=== PATIENT | female | born 1995 | race Caucasian/White ===

== ENCOUNTER → 2016-06-01 | Outpatient (CLI) | payer OTHER ==
[2016-06-02 14:26] LABS: HIV SCRN NEGATIVE (NEGATIVE); HIV SCRN1 NEGATIVE (NEGATIVE)
[2016-06-02 14:27] LABS: CONTROL LINE INT CTR LINE PRESENT
== END ==
LOC: M WUC 14:48
PROVIDERS: ATTEND Nurse Practitioner Women's Health
DX: Z11.3 Encounter for screening for infections with a predominantly sexual mode of transmission (principal)

== ENCOUNTER → 2016-12-30 | Outpatient (REF) | payer OTHER | LOC: M LAB REF 09:20 | PROVIDERS: ATTEND Physician Assistant | DX: N39.0 Urinary tract infection, site not specified (principal) ==

== ENCOUNTER 2019-09-03 17:57 | Inpatient (IN) | payer OTHER ==
[~2019-09-03] VITALS: Ht 157.5 cm; Wt 54.1 kg
--- NOTE | 2019-09-03 18:51 | REP ---
Clinical: Altered mental status . Comparison: None. Findings: The mediastinum and cardiac silhouette are stable and within normal limits for portable technique. The lung christine are clear without acute consolidation, effusion, or pneumothorax. Skeletal structures are intact. Impression: No acute cardiopulmonary process appreciated. Electronically Signed by Brett Mendez MD 09/03/2019 06:42 P
--- NOTE | 2019-09-03 18:53 | REPVR ---
PROCEDURE INFORMATION: Exam: CT Head Without Contrast Exam date and time: 09/03/2019 6:11 PM Age: 23 years old Clinical indication: Altered mental status/memory loss TECHNIQUE: Imaging protocol: Computed tomography of the head without contrast. Radiation optimization: All CT scans at this facility use at least one of these dose optimization techniques: automated exposure control; mA and/or kV adjustment per patient size (includes targeted exams where dose is matched to clinical indication); or iterative reconstruction. COMPARISON: No relevant prior studies available. FINDINGS: Brain: No hemorrhage. Unremarkable white matter for the patient's age. No mass effect. No evolving territorial infarct. Ventricles: No ventriculomegaly. Bones/joints: Unremarkable. No acute fracture. Sinuses: Visualized sinuses are unremarkable. No fluid levels. Mastoid air cells: Visualized mastoid air cells are well aerated. Soft tissues: Unremarkable. IMPRESSION: 1. Images are mildly motion degraded. 2. No acute intracranial abnormality seen. Electronically signed by: Siena Castillo On 09/03/2019 18:53:16 PM
[2019-09-03] MEDS ORDERED: NS 1,000 ML IV ONE ×2 (19:15→20:45)
--- NOTE | 2019-09-03 19:24 | ECGEPIP ---
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
[2019-09-03 19:34] LABS: BASO % 0.3 % (0.0-1.0); EOS % 0.1 % (0.0-3.0); HEMATOCRIT 40.9 % (36.0-47.0); HEMOGLOBIN 13.7 g/dl (12.0-15.5); LYMPH % 9.7 % (24.0-44.0); MEAN CORPUSCULAR HEMOGLOBIN 28.8 pg (27.0-33.0); MEAN CORPUSCULAR HGB CONC 33.5 g/dl (32.0-36.5); MEAN CORPUSCULAR VOLUME 85.9 fl (80.0-96.0); MONO # 0.6 10^3/uL (0.0-0.8); MONO % 5.8 % (0.0-5.0); NEUTROPHILS # 8.8 10^3/uL (1.5-8.5); NEUTROPHILS % 83.8 % (36.0-66.0); PLATELET COUNT, AUTOMATED 333 10^3/uL (150-450); RED BLOOD COUNT 4.76 10^6/uL (4.00-5.40); WHITE BLOOD COUNT 10.5 10^3/uL (4.0-10.0)
[2019-09-03] MEDS ORDERED: NUVAMIS2 (19:38)
[2019-09-03 19:56] LABS: AMPHETAMINES LEVEL URINE POSITIVE (NEGATIVE); BARBITURATES URINE NEGATIVE (NEGATIVE); BENZODIAZEPINES URINE POSITIVE (NEGATIVE); CANNABINOIDS URINE POSITIVE (NEGATIVE); COCAINE METABOLITE URINE NEGATIVE (NEGATIVE); METHADONE URINE NEGATIVE (NEGATIVE); OPIATES URINE NEGATIVE (NEGATIVE); PHENCYCLIDINE URINE NEGATIVE (NEGATIVE)
[2019-09-03 20:21] LABS: ACETAMINOPHEN LEVEL < 2.0 UG/ML (10.0-30.0); ALBUMIN 4.2 GM/DL (3.2-5.2); ALT/SGPT 37 U/L (12-78); BILIRUBIN,DIRECT 0.2 MG/DL (0.0-0.2); BILIRUBIN,TOTAL 0.8 MG/DL (0.2-1.0); BLOOD UREA NITROGEN 12 MG/DL (7-18); CALCIUM LEVEL 9.5 MG/DL (8.5-10.1); CARBON DIOXIDE LEVEL 25 MEQ/L (21-32); CHLORIDE LEVEL 106 MEQ/L (98-107); CREATININE FOR GFR 0.66 MG/DL (0.55-1.30); ETHYL ALCOHOL (ETHANOL) < 0.003 % (0.000-0.010); GLOMERULAR FILTRATION RATE > 60.0 (>60); GLUCOSE, FASTING 94 MG/DL (70-100); POTASSIUM SERUM 3.9 MEQ/L (3.5-5.1); SALICYLATE LEVEL < 1.7 MG/DL (5.0-30.0); SODIUM LEVEL 138 MEQ/L (136-145); THYROID STIMULATING HORMONE 0.484 uIU/ML (0.358-3.740); TOTAL PROTEIN 7.9 GM/DL (6.4-8.2)
[2019-09-03] MEDS ORDERED: LORazepam 2 MG/ML VIAL IV STA (20:45)
[2019-09-03] MEDS ORDERED: LORazepam 2 MG/ML VIAL As Ordered ONE (20:54)
[2019-09-04 00:18] LABS: CPK CREATINE PHOSPHOKINASE 234 U/L (26-192)
[2019-09-04] MEDS ORDERED: NUVAMIS2 PV (00:53)
[2019-09-04] MEDS ORDERED: LORazepam 1 MG TAB PO ONE (03:00)
[2019-09-04] MEDS: NICOTINE 21MG/24HR 1 EA TRANSDERMAL TD SCH (09:00)
[2019-09-04] MEDS ORDERED: LORazepam 1 MG TAB PO STA (09:42)
[2019-09-04] MEDS ORDERED: LORazepam 2 MG TAB PO PRN (13:45)
[2019-09-04] MEDS ORDERED: MOM 30ML SUSPENSION UDC PO PRN (13:45)
[2019-09-04 16:03] VITALS: BP 127/74
[2019-09-04] MEDS: FOLIC ACID 1 MG TAB PO SCH (16:12)
[2019-09-04 16:13] VITALS: BP 127/74
[2019-09-04] MEDS: THIAMINE 100 MG TAB PO SCH ×2 (16:13→20:21)
[2019-09-04] MEDS: MULTIVITAMINS/MINERALS THERAP 1 TAB PO SCH (16:13)
[2019-09-04 19:19] VITALS: BP 132/89
[2019-09-04] MEDS: traZODone 50 MG TAB PO PRN (20:21)
[2019-09-05] MEDS: OLANZapine ORAL DISINTEGRATING TAB 5MG PO PRN ×2 (01:33→08:57)
[2019-09-05] MEDS: ACETAMINOPHEN TAB 650MG DOSE (2X325MG) PO PRN ×2 (04:26→17:55)
[2019-09-05 06:20] VITALS: BP 130/90
[2019-09-05] MEDS: NICOTINE 21MG/24HR 1 EA TRANSDERMAL TD SCH (08:56)
[2019-09-05] MEDS: THIAMINE 100 MG TAB PO SCH ×2 (08:57→20:22)
[2019-09-05] MEDS: FOLIC ACID 1 MG TAB PO SCH (08:57)
[2019-09-05] MEDS: MULTIVITAMINS/MINERALS THERAP 1 TAB PO SCH (08:57)
--- NOTE | 2019-09-05 09:30 | MHHPEPDOC ---
General Date Of Admission: Sep 04, 2019 Legal Status: 9.39 Chief Complaint "It's hard. History of Present Illness HISTORY OF THE PRESENT ILLNESS: Patient is a 23 -year-old , female, who bizarre and paranoid. She had been seen by the police and brought in, where she propositioned an officer. She reported using various substances but is still quite psychotic after quite a bit of time of observation. Little information is a big lien from her interview. General: poor Speech: rapid Thought processes: tangential Thought content: psychotic delusions Abstract reasoning, and computation: impaired Description of associations: imparied Description of abnormal or psychotic thoughts:Unclear, appears to have psychotic processes going on. Judgment: poor Insight: poor Orientation: Alert and orientated 3 Recent and remote memory: Intact Attention span and concentration: impaired secondary to thought process Fund of knowledge: unable to determine Mood: "stuff" Affect: flat, little reactivity . Psychiatric Review of Systems Samantha (4 or more days of): expansive mood, decreased need for sleep, still with energy Psychosis: paranoia, disorganization Past Psychiatric History Previous Psychiatric Diagnosis: unknown. Previous Psychiatric Admissions: unknown. Suicide Attempts: unknown. Psychiatric Follow-up: unknown. Psychiatric medications: unknown. Past Medical History Medical Problems none notable Family Medical/Psychiatric HX Medical Problems unknown Addiction History alcohol, amphetamines, opioids, methamphetamines Social History Current Living Situation: . Education: . Employment: . Social Support: . Legal: . Marital: . Current Living Situation: unclear. Education: unknown. Employment: unknown. Social Support: unknown. Legal: legal directions on Presentation. Marital: unknown. Assessment 23-year-old woman with an unknown psychiatric history present psychotic and distorted after reportedly presenting after using various substances. She still appears quite psychotic, even after some time of observation Problem List Problems: (1) Unspecified psychosis Status: Acute Response to Treatment: Uncontrolled Problem Text: Start Zyprexa 5 mg nightly (2) Opioid abuse Status: Acute Response to Treatment: Stable Problem Specific Plan: Monitor Clinically (3) Cannabis abuse Status: Chronic (4) Methamphetamine abuse Status: Acute Problem Specific Plan: Monitor Clinically Initial Treatment Plan 1. Patient was admitted on a [9.39] status. 2. Complete history was obtained. 3. With patients permission, family will be contacted and database will be expanded. 4. Patients medication regimen will be reviewed and changed accordingly. 5. Patient will be provided with protected environment. 6. Patient will be treated with individual, group, and milieu therapies. 7. Patient will receive supportive psych-education. 8. Discharge planning will commence immediately. 9. Outpatient follow-up treatment will be strongly recommended. 10. The initial treatment plan will focus initially on: altered thoughts ESTIMATED LENGTH OF STAY: 3-5 DAYS. TIME SPENT COUNSELING AND COORDINATING INITIAL CARE: 30 minutes. Vital Signs Vital Signs Date Time Temp Pulse Resp B/P (MAP) Pulse Ox O2 Delivery O2 Flow Rate FiO2 09/05/19 06:20 96.9 114 16 130/90 (103) Room Air 09/04/19 16:13 100 Medications Scheduled Etonogestrel/Ethinyl Estradiol (Nuvaring Vaginal Ring) 1 Each Vag.ring, 1 EA PV Q30D, (Reported) Allergies Coded Allergies: SEASONAL ALLERGIES (Verified Allergy, Unknown, 09/03/19) LUIS SWEENEY DO Sep 05, 2019 09:30
[2019-09-05 11:22] LABS: HCG, SERUM QUALITATIVE NEGATIVE (NEGATIVE)
[2019-09-05 16:30] VITALS: BP 120/88
[2019-09-05] MEDS: traZODone 50 MG TAB PO PRN (20:22)
[2019-09-05] MEDS: IBUPROFEN 400 MG TAB PO PRN (20:23)
[2019-09-05] MEDS ORDERED: OLANZapine ORAL DISINTEGRATING TAB 5MG PO SCH (21:00)
[2019-09-06] MEDS: OLANZapine ORAL DISINTEGRATING TAB 5MG PO PRN (00:34)
[2019-09-06 06:27] VITALS: BP 112/70
[2019-09-06] MEDS: FOLIC ACID 1 MG TAB PO SCH (08:29)
[2019-09-06] MEDS: ACETAMINOPHEN TAB 650MG DOSE (2X325MG) PO PRN ×2 (08:29→20:50)
[2019-09-06] MEDS: THIAMINE 100 MG TAB PO SCH ×2 (08:29→20:50)
[2019-09-06] MEDS: MULTIVITAMINS/MINERALS THERAP 1 TAB PO SCH (08:29)
--- NOTE | 2019-09-06 09:42 | MHIPNPDOC ---
[facility] Progress Note Progress Note DOS: 09/06/2019 Patient met with today with nurse present for telehealth evaluation due to COVID Crisis Events Overnight: had an episode where she asked for marijuana Group Attendance:: and frequent Symptom changes (psych ROS): Affective: reports improving loss of interest Psychotic: reports clear thinking, still worries about her head "melting" Anxiety: anxiety as above Staff Report: incident last night but has been of more lucid today Medical ROS: [Gen: -fevers, chills] [Cardio: -chest pain, palpations] [[place]: -SOB, cough] [GI: -N,V,D,C] [Derm: -rash] MSE: Vitals: Below General: [Well dressed with good hygiene] Speech: less pressured Thought processes: [Linear and logical] Thought content: [Future orientated] Abstract reasoning, and computation: improving Description of associations: improving Description of abnormal or psychotic thoughts:[Denies any suicidal or homicidal ideation. Denies any auditory or visual hallucinations. Does not appear to be responding to internal stimuli. Does not appear to be endorsing any bizarre or paranoid ideation.] Judgment: improving Insight: improving Orientation: [Alert and orientated 3] Recent and remote memory: [Intact] Attention span and concentration: [Intact] Fund of knowledge: [Adequate] Mood: ["okay"] Affect: less euphoric Vital Signs Vital Signs Date Time Temp Pulse Resp B/P (MAP) Pulse Ox O2 Delivery O2 Flow Rate FiO2 09/06/19 06:27 97.9 92 12 112/70 (84) Room Air 09/04/19 16:13 100 Current Medications Current Medications Medications (Trade) Dose Ordered Sig/Adolfo Route PRN Reason Start Time Stop Time Status Last Admin Dose Admin Acetaminophen (Tylenol Tab) 650 mg Q6HP PRN PO HEADACHE or DISCOMFORT 09/04/19 13:45 09/06/19 08:29 Folic Acid (Folic Acid) 1 mg DAILY PO 09/04/19 09:00 09/06/19 08:29 Home Med (Med Rec Complete!) ASDIRECTED XX 09/04/19 01:00 09/04/19 00:55 DC Ibuprofen (Advil) 400 mg Q6HP PRN PO PAIN 09/04/19 13:45 09/05/19 20:23 Lorazepam (Ativan) 1 mg STAT STAT IV 09/03/19 20:45 09/03/19 20:46 DC 09/03/19 20:59 Lorazepam (Ativan) 1 mg STAT STAT PO 09/04/19 09:42 09/04/19 09:43 DC 09/04/19 09:47 Lorazepam (Ativan) 2 mg ASDIRECTED PRN PO SEE PROTOCOL 09/04/19 13:45 09/04/19 16:13 Magnesium Hydroxide (Milk Of Magnesia) 30 ml DAILYPRN PRN PO CONSTIPATION 09/04/19 13:45 Multivitamins (Theragram-M) 1 tab DAILY PO 09/04/19 09:00 09/06/19 08:29 Nicotine (Nicoderm Cq 21mg) 1 patch DAILY TD 09/04/19 09:00 09/05/19 16:07 DC Olanzapine (ZyPREXA ZYDIS) 5 mg Q4HP PRN PO AGITATION 09/04/19 13:45 09/06/19 00:34 Olanzapine (ZyPREXA ZYDIS) 5 mg QHS PO 09/05/19 21:00 09/05/19 20:22 Thiamine HCl (Thiamine HCl) 100 mg BID PO 09/04/19 09:00 09/06/19 21:01 09/06/19 08:29 Trazodone HCl (Desyrel) 50 mg QHSP PRN PO INSOMNIA 09/04/19 13:45 09/05/19 20:22 Allergies Coded Allergies: SEASONAL ALLERGIES (Verified Allergy, Unknown, 09/03/19) Problems (1) Unspecified psychosis Status: Acute Response to Treatment: Uncontrolled Problem Text: increase Zyprexa 10 mg nightly (2) Opioid abuse Status: Acute Response to Treatment: Stable Problem Specific Plan: Monitor Clinically Problem Text: as nneeded medications for withdrawal (3) Cannabis abuse Status: Chronic (4) Methamphetamine abuse Status: Acute Problem Specific Plan: Monitor Clinically Plan / VTE VTE Prophylaxis Ordered?: No Plan Diet: Continue Current Activity: Continue Current Anticipated Discharge: Home (possible discharged tomorrow patient makes improvement) LUIS SWEENEY DO Sep 06, 2019 09:42
[2019-09-06] MEDS: DICYCLOMINE 10 MG CAP PO PRN ×2 (12:58→20:49)
[2019-09-06] MEDS: cloNIDine 0.05MG PER 1/2 TABLET PO PRN ×2 (12:58→20:49)
[2019-09-06 16:15] VITALS: BP 120/83
[2019-09-06] MEDS: IBUPROFEN 400 MG TAB PO PRN (18:35)
[2019-09-06] MEDS: traZODone 50 MG TAB PO PRN (20:49)
[2019-09-06] MEDS: OLANZapine ORAL DISINTEGRATING TAB 5MG PO SCH (20:50)
[2019-09-06] MEDS ORDERED: diphenhydrAMINE 50MG/ML VIAL (J1200) IM STA ×2 (22:36→23:52)
[2019-09-06] MEDS ORDERED: HALOPERIDOL 5MG/ML VIAL (J1630 PER 1) IM STA ×2 (22:36→23:52)
--- NOTE | 2019-09-06 22:55 | IPNPDOC ---
Date Seen The patient was seen on 09/06/19. Progress Note 09/06/2019 10:50 PM Code 25 was called on the patient, upon my arrival, patient was being placed into four point restraints. Patient appeared calm and following commands. As per staff, patient started hallucinating 10-15 minutes ago, taking her clothes off shouting and demanding to leave. 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 Roberto) has been contacted by inpatient mental health unit staff, she has ordered 10 mg of Haldol with 50 mg of Benadryl. There does not appear to be any further need for intervention from my perspective, will reassess if needed. VS, I&O, 24H, Fishbone Vital Signs/I&O Vital Signs Date Time Temp Pulse Resp B/P (MAP) Pulse Ox O2 Delivery O2 Flow Rate FiO2 09/06/19 20:49 134/84 09/06/19 16:15 97.6 92 16 09/06/19 06:27 Room Air 09/04/19 16:13 100 KIRILL FUENTES MD Sep 06, 2019 22:55
[2019-09-07 01:15] VITALS: BP 129/89
[2019-09-07 01:30] VITALS: BP 122/86
[2019-09-07 01:45] VITALS: BP 134/97
[2019-09-07] MEDS ORDERED: HALOPERIDOL 5MG/ML VIAL (J1630 PER 1) IM STA (01:46)
[2019-09-07] MEDS ORDERED: diphenhydrAMINE 50MG/ML VIAL (J1200) IM STA (01:46)
[2019-09-07 02:00] VITALS: BP 135/92
[2019-09-07 02:15] VITALS: BP 138/90
[2019-09-07] MEDS ORDERED: ALPRAZolam 0.5 MG TAB PO ONE (03:15)
[2019-09-07] MEDS: MULTIVITAMINS/MINERALS THERAP 1 TAB PO SCH ×2 (09:00→13:27)
[2019-09-07] MEDS: FOLIC ACID 1 MG TAB PO SCH ×2 (09:00→13:27)
[2019-09-07] MEDS: cloNIDine 0.05MG PER 1/2 TABLET PO PRN ×2 (13:25→21:03)
[2019-09-07] MEDS: ACETAMINOPHEN TAB 650MG DOSE (2X325MG) PO PRN ×2 (13:26→21:02)
--- NOTE | 2019-09-07 15:23 | MHIPNPDOC ---
[facility] Progress Note Progress Note DATE OF SERVICE: 09/07/19 HISTORY: As per previous records: "Patient is a 23 -year-old , female, who bizarre and paranoid. She had been seen by the police and brought in, where she propositioned an officer. She reported using various substances but is still quite psychotic after quite a bit of time of observation. Little information is a big lien from her interview." VITAL SIGNS: See below. NEW TEST RESULTS: See below CURRENT MEDICATIONS: See below. MENTAL STATUS EXAMINATION: Patient is a 23 year old female, who is alert, cooperative, dressed in hospital clothes. Speech: Is rapid, pressured, normal volume, normal tone, spontaneous and fluent Language skills are fair Thought processes including: linear and logical Thought content: anxious thoughts, Description of abnormal or psychotic thoughts: reports paranoid thoughts on and off, Judgment: poor Insight: poor. Orientation: x 3. Recent and remote memory: intact. Attention span and concentration: good. Language: fair. Fund of knowledge: average. Mood: "OK, I feel safe" Affect: Anxious ASSESSMENT: Patient had to be restrained last night, it took 6.5 hours to calm down. She says she feels embarrassed about that episode. I thin she would benefit from an additional dose of 5 mgs PO QAM. MANAGEMENT PLAN: As above TIME SPENT: 15 minutes. Vital Signs Vital Signs Date Time Temp Pulse Resp B/P (MAP) Pulse Ox O2 Delivery O2 Flow Rate FiO2 09/07/19 02:30 98 18 09/07/19 02:15 97.7 138/90 09/07/19 01:45 98 09/06/19 06:27 Room Air Current Medications Current Medications Medications (Trade) Dose Ordered Sig/Adolfo Route PRN Reason Start Time Stop Time Status Last Admin Dose Admin Acetaminophen (Tylenol Tab) 650 mg Q6HP PRN PO HEADACHE or DISCOMFORT 09/04/19 13:45 09/07/19 13:26 Clonidine HCl (Catapres) 0.05 mg TIDP PRN PO ANXIETY and/or withdrawal symp 09/06/19 12:00 09/07/19 13:25 Dicyclomine HCl (Bentyl) 10 mg Q4HP PRN PO abdominal cramping 09/06/19 12:00 09/06/19 20:49 Diphenhydramine HCl (Benadryl) 50 mg STAT STAT IM 09/06/19 22:36 09/06/19 22:38 DC 09/06/19 22:40 Diphenhydramine HCl (Benadryl) 50 mg STAT STAT IM 09/06/19 23:52 09/06/19 23:53 DC 09/07/19 00:02 Diphenhydramine HCl (Benadryl) 50 mg STAT STAT IM 09/07/19 01:46 09/07/19 01:48 DC 09/07/19 01:54 Folic Acid (Folic Acid) 1 mg DAILY PO 09/04/19 09:00 09/07/19 13:27 Haloperidol (Haldol) 5 mg STAT STAT IM 09/07/19 01:46 09/07/19 01:48 DC 09/07/19 01:53 Haloperidol (Haldol) 10 mg STAT STAT IM 09/06/19 22:36 09/06/19 22:38 DC 09/06/19 22:41 Haloperidol (Haldol) 10 mg STAT STAT IM 09/06/19 23:52 09/06/19 23:53 DC 09/07/19 00:01 Home Med (Med Rec Complete!) ASDIRECTED XX 09/04/19 01:00 09/04/19 00:55 DC Ibuprofen (Advil) 400 mg Q6HP PRN PO PAIN 09/04/19 13:45 09/06/19 18:35 Lorazepam (Ativan) 1 mg STAT STAT IV 09/03/19 20:45 09/03/19 20:46 DC 09/03/19 20:59 Lorazepam (Ativan) 1 mg STAT STAT PO 09/04/19 09:42 09/04/19 09:43 DC 09/04/19 09:47 Lorazepam (Ativan) 2 mg ASDIRECTED PRN PO SEE PROTOCOL 09/04/19 13:45 09/06/19 12:23 DC 09/04/19 16:13 Magnesium Hydroxide (Milk Of Magnesia) 30 ml DAILYPRN PRN PO CONSTIPATION 09/04/19 13:45 Multivitamins (Theragram-M) 1 tab DAILY PO 09/04/19 09:00 09/07/19 13:27 Nicotine (Nicoderm Cq 21mg) 1 patch DAILY TD 09/04/19 09:00 09/05/19 16:07 DC Olanzapine (ZyPREXA ZYDIS) 5 mg Q4HP PRN PO AGITATION 09/04/19 13:45 09/06/19 00:34 Olanzapine (ZyPREXA ZYDIS) 5 mg QHS PO 09/05/19 21:00 09/06/19 11:26 DC 09/05/19 20:22 Olanzapine (ZyPREXA ZYDIS) 10 mg QHS PO 09/06/19 21:00 09/06/19 20:50 Thiamine HCl (Thiamine HCl) 100 mg BID PO 09/04/19 09:00 09/06/19 21:01 DC 09/06/19 20:50 Trazodone HCl (Desyrel) 50 mg QHSP PRN PO INSOMNIA 09/04/19 13:45 09/06/19 20:49 Allergies Coded Allergies: SEASONAL ALLERGIES (Verified Allergy, Unknown, 09/03/19) LINDA HURT MD Sep 07, 2019 15:05
--- NOTE | 2019-09-07 15:36 | HPE ---
DATE OF ADMISSION: 09/06/2019 CHIEF COMPLAINT: Heroin withdrawal. HISTORY OF PRESENT ILLNESS: This is a 35-year-old female with a history of polysubstance abuse with marijuana and heroin, who is usually up to about 10 bags of heroin daily. Has been trying to wean herself off and was on day#3, when she was down to two bags daily and to none. She was brought into the emergency room due to complaints of increasing anxiety, restless, headache, diarrhea, nausea, and vomiting at home, diaphoresis. Patient says that she had been having abdominal cramping and diarrhea at home, nonbloody, non-mucousy, one to two episodes, which have subsided. She has been increasingly anxious. [place] like her headache was being "microwaved," and complains of severe headaches with myalgias and arthralgias and bilateral lower extremity cramps in the legs. Patient has also complained of some tactile sensitivity. She says that she is feeling some tingling sensation all over, especially in her legs and hands and across the hip area. She denies any changes in vision or aura. No prior history of migraines in the past. She is currently admitted to the inpatient mental health unit. Hospitalist was asked to assess for medical issues. Patient otherwise denies weight gain, weight loss, fever, chills. She complained of some palpitations. No syncope, shortness of breath, dysuria, urgency, frequency. PAST MEDICAL HISTORY: 1. Chronic back pain. 2. Anxiety. 3. Polysubstance abuse. 4. Vitamin D deficiency. PAST SURGICAL HISTORY: None. HOME MEDICATIONS: None. SOCIAL HISTORY: Patient uses heroin up to 10 bags a day, decreased now to none. Usually 2-10. Uses marijuana. Started at the age of 14 or 15. 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 She used to work for [employer]. FAMILY HISTORY: Father in his 60s. Was a smoker. Hypercholesterolemia. Mother in her 60s with hypercholesterolemia. Older sister with unknown medical problems. REVIEW OF SYSTEMS: Per history of present illness (HPI). A 12-point system otherwise negative. PHYSICAL EXAMINATION: Temperature 97.6, pulse 92, respiratory rate 16, blood pressure 120/83, 100% on room air. GENERAL: Patient appears very anxious with pressured speech. LUNGS: Clear to auscultation. No wheezes, rales, or rhonchi. HEART: S1, S2, tachycardic. Regular rhythm. No murmurs, rubs, or gallops. ABDOMEN: Soft, nontender, nondistended. Positive bowel sounds. EXTREMITIES: No cyanosis, clubbing, or any pitting edema. LABORATORY DATA: White count 10.5, hemoglobin 13, hematocrit 40, platelet count 333. Sodium 138, potassium 3.9, chloride 106, bicarbonate 25, BUN 12, creatinine 0.66, glucose 95, calcium 9.5. Total bilirubin 0.8, direct bilirubin 0.2, AST 21, ALT 37, alkaline phosphatase 98. Total CK 234. Total protein 7.9. Albumin 4.2. TSH 0.484. HCG is negative. ASSESSMENT AND PLAN: This is a 23-year-old admitted to inpatient mental health unit, undergoing heroin withdrawal. IMPRESSION: 1. Heroin withdrawal. Currently on clonidine and Zyprexa. 2. History of alcohol abuse, currently on thiamine and folic acid. 3. Headache related to heroin withdrawal. As-needed Tylenol 650 every 6 hours. 4. Deep vein thrombosis (DVT) prophylaxis. Encourage early ambulation. CODE STATUS. Full code. MTDD
[2019-09-07] MEDS: DICYCLOMINE 10 MG CAP PO PRN (16:06)
[2019-09-07] MEDS: OLANZapine ORAL DISINTEGRATING TAB 5MG PO PRN (16:06)
[2019-09-07] MEDS: IBUPROFEN 400 MG TAB PO PRN (16:07)
[2019-09-07 17:44] VITALS: BP 115/86
[2019-09-07] MEDS: traZODone 50 MG TAB PO PRN (21:01)
[2019-09-07] MEDS: OLANZapine ORAL DISINTEGRATING TAB 5MG PO SCH (21:01)
[2019-09-08 06:47] VITALS: BP 128/80
[2019-09-08] MEDS: MULTIVITAMINS/MINERALS THERAP 1 TAB PO SCH (08:39)
[2019-09-08] MEDS: FOLIC ACID 1 MG TAB PO SCH (08:39)
[2019-09-08] MEDS: OLANZapine ORAL DISINTEGRATING TAB 5MG PO SCH ×2 (08:40→20:14)
--- NOTE | 2019-09-08 09:17 | MHIPNPDOC ---
[facility] Progress Note Progress Note DOS: 09/08/2019 Patient met with today with nurse present for telehealth evaluation due to COVID Crisis Events Overnight: restraints Group Attendance:: none Symptom changes (psych ROS): Affective: reports elation Psychotic: bizarre paranoid thoughts agitation Anxiety: [no changes] Staff Report: restraints last night bizarre and agitated Medical ROS: No physical complaints MSE: Vitals: Below General: [Well dressed with good hygiene] Speech: [Spontaneous and fluid] Thought processes: [Linear and logical] Thought content: [Future orientated] Abstract reasoning, and computation: mildly loosened Description of associations: mildly loosened Description of abnormal or psychotic thoughts:[Denies any suicidal or homicidal ideation. Denies any auditory or visual hallucinations. Does not appear to be responding to internal stimuli. Does not appear to be endorsing any bizarre or paranoid ideation.] Judgment: limited Insight: limited Orientation: [Alert and orientated 3] Recent and remote memory: [Intact] Attention span and concentration: [Intact] Fund of knowledge: [Adequate] Mood: ["okay"] Affect: [Euthymic with a full range] Vital Signs Vital Signs Date Time Temp Pulse Resp B/P (MAP) Pulse Ox O2 Delivery O2 Flow Rate FiO2 09/08/19 06:47 97.4 88 14 128/80 (96) 98 Room Air Current Medications Current Medications Medications (Trade) Dose Ordered Sig/Adolfo Route PRN Reason Start Time Stop Time Status Last Admin Dose Admin Acetaminophen (Tylenol Tab) 650 mg Q6HP PRN PO HEADACHE or DISCOMFORT 09/04/19 13:45 09/07/19 21:02 Clonidine HCl (Catapres) 0.05 mg TIDP PRN PO ANXIETY and/or withdrawal symp 09/06/19 12:00 09/07/19 21:03 Dicyclomine HCl (Bentyl) 10 mg Q4HP PRN PO abdominal cramping 09/06/19 12:00 09/07/19 16:06 Diphenhydramine HCl (Benadryl) 50 mg STAT STAT IM 09/06/19 22:36 09/06/19 22:38 DC 09/06/19 22:40 Diphenhydramine HCl (Benadryl) 50 mg STAT STAT IM 09/06/19 23:52 09/06/19 23:53 DC 09/07/19 00:02 Diphenhydramine HCl (Benadryl) 50 mg STAT STAT IM 09/07/19 01:46 09/07/19 01:48 DC 09/07/19 01:54 Folic Acid (Folic Acid) 1 mg DAILY PO 09/04/19 09:00 09/08/19 08:39 Haloperidol (Haldol) 5 mg STAT STAT IM 09/07/19 01:46 09/07/19 01:48 DC 09/07/19 01:53 Haloperidol (Haldol) 10 mg STAT STAT IM 09/06/19 22:36 09/06/19 22:38 DC 09/06/19 22:41 Haloperidol (Haldol) 10 mg STAT STAT IM 09/06/19 23:52 09/06/19 23:53 DC 09/07/19 00:01 Home Med (Med Rec Complete!) ASDIRECTED XX 09/04/19 01:00 09/04/19 00:55 DC Ibuprofen (Advil) 400 mg Q6HP PRN PO PAIN 09/04/19 13:45 09/07/19 16:07 Lorazepam (Ativan) 1 mg STAT STAT IV 09/03/19 20:45 09/03/19 20:46 DC 09/03/19 20:59 Lorazepam (Ativan) 1 mg STAT STAT PO 09/04/19 09:42 09/04/19 09:43 DC 09/04/19 09:47 Lorazepam (Ativan) 2 mg ASDIRECTED PRN PO SEE PROTOCOL 09/04/19 13:45 09/06/19 12:23 DC 09/04/19 16:13 Magnesium Hydroxide (Milk Of Magnesia) 30 ml DAILYPRN PRN PO CONSTIPATION 09/04/19 13:45 Multivitamins (Theragram-M) 1 tab DAILY PO 09/04/19 09:00 09/08/19 08:39 Nicotine (Nicoderm Cq 21mg) 1 patch DAILY TD 09/04/19 09:00 09/05/19 16:07 DC Olanzapine (ZyPREXA ZYDIS) 5 mg Q4HP PRN PO AGITATION 09/04/19 13:45 09/07/19 16:06 Olanzapine (ZyPREXA ZYDIS) 5 mg QAM PO 09/08/19 09:00 09/08/19 08:40 Olanzapine (ZyPREXA ZYDIS) 5 mg QHS PO 09/05/19 21:00 09/06/19 11:26 DC 09/05/19 20:22 Olanzapine (ZyPREXA ZYDIS) 10 mg QHS PO 09/06/19 21:00 09/07/19 21:01 Thiamine HCl (Thiamine HCl) 100 mg BID PO 09/04/19 09:00 09/06/19 21:01 DC 09/06/19 20:50 Trazodone HCl (Desyrel) 50 mg QHSP PRN PO INSOMNIA 09/04/19 13:45 09/07/19 21:01 Allergies Coded Allergies: SEASONAL ALLERGIES (Verified Allergy, Unknown, 09/03/19) Problems (1) Unspecified psychosis Status: Acute Response to Treatment: Uncontrolled Problem Text: increase Zyprexa 15 mg nightly (2) Opioid abuse Status: Acute Response to Treatment: Stable Problem Specific Plan: Monitor Clinically Problem Text: as nneeded medications for withdrawal (3) Cannabis abuse Status: Chronic (4) Methamphetamine abuse Status: Acute Problem Specific Plan: Monitor Clinically Plan / VTE VTE Prophylaxis Ordered?: No Plan Diet: Continue Current Activity: Continue Current Anticipated Discharge: Home (Discharge over the weekend possible. If improves) LUIS SWEENEY DO Sep 08, 2019 09:17
[2019-09-08] MEDS: cloNIDine 0.05MG PER 1/2 TABLET PO PRN (12:01)
[2019-09-08 17:15] VITALS: BP 115/78
[2019-09-08] MEDS: IBUPROFEN 400 MG TAB PO PRN (20:13)
[2019-09-08] MEDS: traZODone 50 MG TAB PO PRN (20:14)
[2019-09-09] MEDS: cloNIDine 0.05MG PER 1/2 TABLET PO PRN (04:26)
[2019-09-09] MEDS: OLANZapine ORAL DISINTEGRATING TAB 5MG PO PRN (04:26)
[2019-09-09 06:20] VITALS: BP 122/72
[2019-09-09] MEDS: OLANZapine ORAL DISINTEGRATING TAB 5MG PO SCH ×2 (08:27→20:12)
[2019-09-09] MEDS: MULTIVITAMINS/MINERALS THERAP 1 TAB PO SCH (08:27)
[2019-09-09] MEDS: FOLIC ACID 1 MG TAB PO SCH (08:27)
[2019-09-09 10:00] VITALS: BP 122/72
[2019-09-09] MEDS: ACETAMINOPHEN TAB 650MG DOSE (2X325MG) PO PRN (12:36)
[2019-09-09 16:16] VITALS: BP 114/63
[2019-09-09] MEDS: traZODone 50 MG TAB PO PRN (20:12)
[2019-09-09] MEDS: DICYCLOMINE 10 MG CAP PO PRN (20:13)
[2019-09-10 06:19] VITALS: BP 133/91
[2019-09-10] MEDS: MULTIVITAMINS/MINERALS THERAP 1 TAB PO SCH (08:07)
[2019-09-10] MEDS: FOLIC ACID 1 MG TAB PO SCH (08:07)
[2019-09-10] MEDS: OLANZapine ORAL DISINTEGRATING TAB 5MG PO SCH ×2 (08:07→20:15)
[2019-09-10 16:20] VITALS: BP 114/70
[2019-09-10 20:15] VITALS: BP 122/64
[2019-09-10] MEDS: cloNIDine 0.05MG PER 1/2 TABLET PO PRN (20:15)
[2019-09-10] MEDS: traZODone 50 MG TAB PO PRN (20:15)
[2019-09-11 06:40] VITALS: BP 141/92
[2019-09-11] MEDS: FOLIC ACID 1 MG TAB PO SCH (08:18)
[2019-09-11] MEDS: MULTIVITAMINS/MINERALS THERAP 1 TAB PO SCH (08:18)
[2019-09-11] MEDS: OLANZapine ORAL DISINTEGRATING TAB 5MG PO SCH (08:18)
--- NOTE | 2019-09-11 10:18 | MHDSPDOC ---
[facility] Discharge Summary Discharge Summary DATE OF ADMISSION: Sep 04, 2019 at 13:31 DATE OF DISCHARGE: Sep 11, 2019 at 13:53 DISCHARGE DIAGNOSES: See Problem list below REASON FOR ADMISSION: 23-year-old woman admitted for bizarre behavior unlikely psychosis CONSULTANTS INVOLVED:[ None (basic hospitalist screening)] TREATMENT AND PROGRESS ON THE UNIT : Medication changes: started on Zyprexa increased to a total of 20 mg daily split in order to control psychosis and soreness Behavior on unit: initially bizarre, hypersexual and having multiple regression episodes, resolves quite well after medications are started Treatment attendance: attended well as she improved Notable issues on presentation: made major progress and became much more amenable, and euthymic State on discharge: [improved] DISCHARGE ASSESSMENT: The patient a 23 year old woman, with likely psychosis/bipolar disorder, manic, presented to [facility], where they are treated with appropriate agent and symptoms slowly but surely resolve. Legal status considerations: The patient at the time of discharge did not meet criteria for involuntary admission/extension due to having a [normal] mental status exam, [fair] insight into the situation, They are engaged in the discharge process, as well as being friendly and amenable in behavioral control and havent been engaging in any observed concerning behavior or ideation recently. They decline voluntary extension/admission at this time and must be discharged in good brijesh, as Im unable to make a case for holding the patient against their will. They may have historical risk factors of admissions and other interactions with psychiatry however, those are not modifiable from a clinical perspective. The patient will need to be discharged in good brijesh. MENTAL STATUS EXAMINATION ON DISCHARGE: [General: Well dressed with good hygiene Speech: Spontaneous and fluid Thought processes: Linear and logical Thought content: Future orientated Abstract reasoning, and computation: Intact Description of associations: Intact Description of abnormal or psychotic thoughts:Denies any suicidal or homicidal ideation. Denies any auditory or visual hallucinations. Does not appear to be responding to internal stimuli. Does not appear to be endorsing any bizarre or paranoid ideation. Judgment: fair Insight: fair Orientation: Alert and orientated 3 Recent and remote memory: Intact Attention span and concentration: Intact Fund of knowledge: Adequate Mood: "okay" Affect: Euthymic with a full range] PLAN/FOLLOWUP ARRANGEMENTS: Follow up appointments made (PCP and MH in 5 days of D/C date) and safety plan completed. Safety Planning aspects completed prior to discharge [SAFE ACT reported on initial invol admission in ER] [Medication supplies limited to 7 days with 4 refills to prevent accumulation to OD] [Family contact completed, educated on safe practices, instructed on removal and mitigation of dangerous means] [RN reviewed crisis hotline information and other aspects to empower patient to access care in interim before next appointment.] The amount of time spent in the coordination of care for this patient was a pproximately 30 minutes. Vital Signs/I&Os Vital Signs Date Time Temp Pulse Resp B/P (MAP) Pulse Ox O2 Delivery O2 Flow Rate FiO2 09/11/19 06:40 98.5 85 16 141/92 (108) 99 Room Air Medications Scheduled Etonogestrel/Ethinyl Estradiol (Nuvaring Vaginal Ring) 1 Each Vag.ring, 1 EA PV Q30D, (Reported) Olanzapine (Olanzapine) 10 Mg Tablet, 1 TAB PO QPM for thought for 7 Days, #14 Allergies Coded Allergies: SEASONAL ALLERGIES (Verified Allergy, Unknown, 09/03/19) Problems (1) Unspecified psychosis Status: Resolved Problem Text: increase Zyprexa 15 mg nightly (2) Opioid abuse Status: Chronic Response to Treatment: Stable Problem Text: as nneeded medications for withdrawal (3) Cannabis abuse Status: Chronic (4) Methamphetamine abuse Status: Chronic Plan / VTE VTE Prophylaxis Ordered?: LUIS Page DO Sep 11, 2019 10:18
[2019-09-11] MEDS ORDERED: OLAN10TA2 PO (11:04)
== END 2019-09-11 13:53 | disposition home or self-care (01) | DRG 885 ==
LOC: M ED 17:57 → M ED INP 09-04 13:31 → M PSY 09-04 15:50
PROVIDERS: ADMIT Psychiatry & Neurology Addiction Medicine; ATTEND Psychiatry & Neurology Addiction Medicine
DX: F29 Unspecified psychosis not due to a substance or known physiological condition (principal); F11.23 Opioid dependence with withdrawal; F15.20 Other stimulant dependence, uncomplicated; F12.10 Cannabis abuse, uncomplicated; J30.2 Other seasonal allergic rhinitis; M54.9 Dorsalgia, unspecified; F41.9 Anxiety disorder, unspecified; E55.9 Vitamin D deficiency, unspecified; R51 Headache

== ENCOUNTER → 2019-09-17 | Outpatient (REF) | payer SELFPAY ==
[~2019-09-17] MED LIST: NUVAMIS2; NUVAMIS2 PV; OLAN10TA2 PO
== END ==
LOC: M LAB REF 12:55
PROVIDERS: ATTEND Physician Assistant
DX: R19.7 Diarrhea, unspecified (principal)

== ENCOUNTER → 2019-09-18 | Outpatient (CLI) | payer OTHER ==
[~2019-09-18] MED LIST changes: +HYDR-3363; +HYDR-3363 PO
== END ==
LOC: M OUTALCOH 08:01
PROVIDERS: ATTEND Psychiatry & Neurology Addiction Medicine
DX: Z13.39 Encounter for screening examination for other mental health and behavioral disorders (principal); F11.20 Opioid dependence, uncomplicated

== ENCOUNTER 2019-09-25 10:49 | Outpatient (RCR) | payer OTHER ==
[~2019-09-25 10:49] MED LIST changes: -HYDR-3363; -HYDR-3363 PO
== END 2019-09-26 ==
LOC: M OUTALCOH 10:49
PROVIDERS: ATTEND Psychiatry & Neurology Addiction Medicine
DX: F11.20 Opioid dependence, uncomplicated (principal); F12.20 Cannabis dependence, uncomplicated

== ENCOUNTER 2019-09-28 15:36 | Emergency (ER) | payer MEDICAID, OTHER ==
[~2019-09-28] VITALS: Ht 157.5 cm; Wt 58.7 kg
[2019-09-28 15:37] VITALS: BP 127/85
[2019-09-28] MEDS ORDERED: HYDR-3363 (15:47)
[2019-09-28] MEDS ORDERED: HYDR-3363 PO (16:27)
== END 2019-09-28 16:34 | disposition home or self-care (01) ==
LOC: M ED 15:36
DX: Z76.0 Encounter for issue of repeat prescription (principal); F41.9 Anxiety disorder, unspecified

== ENCOUNTER → 2019-10-18 | Outpatient (CLI) | payer MEDICAID, SELFPAY ==
[~2019-10-18] MED LIST changes: +HYDR-3363; +HYDR-3363 PO
== END ==
LOC: M EKG 15:52
PROVIDERS: ATTEND Nurse Practitioner Psychiatric/Mental Health
DX: F90.2 Attention-deficit hyperactivity disorder, combined type (principal)

== ENCOUNTER 2019-10-26 10:00 | Outpatient (RCR) | payer OTHER | END 2019-10-27 | LOC: M OUTALCOH 10:00 | PROVIDERS: ATTEND Psychiatry & Neurology Addiction Medicine | DX: F11.20 Opioid dependence, uncomplicated (principal); F12.20 Cannabis dependence, uncomplicated ==

== ENCOUNTER → 2019-11-27 | Outpatient (RCR) | payer OTHER | LOC: M OUTALCOH 10-30 14:00 | PROVIDERS: ATTEND Psychiatry & Neurology Addiction Medicine | DX: F11.20 Opioid dependence, uncomplicated (principal); F12.20 Cannabis dependence, uncomplicated ==

== ENCOUNTER 2019-12-13 08:00 | Outpatient (RCR) | payer OTHER | END 2019-12-27 | LOC: M OUTALCOH 08:00 | PROVIDERS: ATTEND Psychiatry & Neurology Addiction Medicine | DX: F11.20 Opioid dependence, uncomplicated (principal); F12.20 Cannabis dependence, uncomplicated ==

== ENCOUNTER 2020-01-13 18:49 | Emergency (ER) | payer OTHER ==
[~2020-01-13] VITALS: Ht 157.5 cm; Wt 59.1 kg
[2020-01-13 18:49] VITALS: BP 131/82
== END 2020-01-13 19:50 | disposition left against medical advice (07) ==
LOC: M ED 18:49
DX: T76.21XA Adult sexual abuse, suspected, initial encounter (principal); F10.10 Alcohol abuse, uncomplicated; F41.9 Anxiety disorder, unspecified; F19.10 Other psychoactive substance abuse, uncomplicated; M54.9 Dorsalgia, unspecified; J30.2 Other seasonal allergic rhinitis; Z79.899 Other long term (current) drug therapy

== ENCOUNTER → 2020-01-23 | Outpatient (CLI) | payer OTHER | LOC: M OUTALCOH 09:13 | PROVIDERS: ATTEND Psychiatry & Neurology Addiction Medicine | DX: F16.20 Hallucinogen dependence, uncomplicated (principal) ==

== ENCOUNTER 2020-01-26 15:13 | Outpatient (RCR) | payer OTHER | END 2020-01-27 | LOC: M OUTALCOH 15:13 | PROVIDERS: ATTEND Psychiatry & Neurology Addiction Medicine | DX: F11.20 Opioid dependence, uncomplicated (principal); F12.20 Cannabis dependence, uncomplicated; F16.20 Hallucinogen dependence, uncomplicated ==

== ENCOUNTER → 2020-02-07 | Outpatient (REF) | payer OTHER | LOC: M LAB REF 16:35 | PROVIDERS: ATTEND Physician Assistant | DX: N91.2 Amenorrhea, unspecified (principal) ==

== ENCOUNTER → 2020-02-26 | Outpatient (RCR) | payer OTHER | LOC: M OUTALCOH 01-31 13:55 | PROVIDERS: ATTEND Psychiatry & Neurology Addiction Medicine | DX: F11.20 Opioid dependence, uncomplicated (principal); F12.20 Cannabis dependence, uncomplicated; F16.20 Hallucinogen dependence, uncomplicated ==

== ENCOUNTER 2020-03-27 14:50 | Outpatient (RCR) | payer OTHER | END 2020-03-28 | LOC: M OUTALCOH 14:50 | PROVIDERS: ATTEND Psychiatry & Neurology Addiction Medicine | DX: F11.20 Opioid dependence, uncomplicated (principal); F12.20 Cannabis dependence, uncomplicated; F16.20 Hallucinogen dependence, uncomplicated ==

== ENCOUNTER 2020-04-24 12:50 | Inpatient (IN) | payer OTHER ==
[~2020-04-24] VITALS: Ht 157.5 cm; Wt 59.9 kg
--- OUTSIDE RECORDS SUMMARY | 2020-04-24 12:57 | CCD ---
Author Organization Unknown Address [address] [place] [address] Phone [phone] Care Team Providers Care Salesperson Jewelry Name Role Phone CastanonBello dowlingcoco Donahue Unavailable Unavailable Allergies Code Code System Name Reaction Severity Status Onset 68029 RxNorm Prozac Other Active Medications Name Status Start Date Stop Date atomoxetine 18 mg capsule Completed 2019 atomoxetine 25 mg capsule Completed 2019 buspirone 5 mg tablet TAKE ONE TABLET BY MOUTH TWICE A DAY Active No t available clonazepam 0.5 mg tablet TAKE ONE TABLET BY MOUTH EVERY DAY NEEDED MAXIMUM DAILY DOSE 1 Active Not available etonogestrel 0.12 mg-ethinyl estradiol 0.015 mg/24 hr vaginal ri ng Completed 02/07/2020 hydroxyzine HCl 25 mg tablet Completed 01/2020 Isibloom 0.15 mg-0.03 mg tablet TAKE ONE TABLET BY MOUTH EVERY DAY Active Not available Lexapro 10 mg tablet Take 1 tablet every day by oral route. Completed 03/01/2020 naltrexone 50 mg tablet Completed 02/07/20 20 olanzapine 10 mg tablet Completed 02/07/20 20 quetiapine 50 mg tablet Completed 02/07/20 20 Problems Name Status Onset Date Source Brief Reactive Psychosis Unknown 09/13/2019 History Generalized Anxiety Disorder Active 09/13/2019 His tory Opioid Dependence in Remission Active 09/13/2019 H istory Cannabis Abuse Active 09/13/[address] Concept Unknown 10/25/2019 History Body Measurement Finding Unknown 11/08/2019 History Procedures Notes: No known surgical history Results Lab Results Date Name Specimen Result Interpretation Description Value Range Status Address 02/08/2020 Test, Urine Hcg negative [facility]: [address] [facility] [address], [place] 02/07/2020 Choriogonadotropin, Quant, Serum or Plasma Norm al HCG, Serum Quantitative < 1.0 mIU/mL Final [facility]: [address] [facility] Past Encounters 03/01/2020 Generalized Anxiety Disorder; Opioid Dependence in Remission [facility]: [address], [place] [address], Ph. 02/07/2020 Amenorrhea Robinson Donahue [facility]: [address], [place] [address], Ph. Social History Tobacco Smoking Status Never Smoker Vaccine List None recorded. Plan of Care Patient Instructions Blood drawn today to confirm . Care Net contact information provided today. Recommend starting a vitamin daily until you fully determine how you would like to proceed with this . Based on lab results, we can discuss possible ultrasound to better establish a timeline of the . Reminders Provider Appointments None recorded. Lab None recorded. Referral None recorded. Procedures None recorded. Surgeries None recorded. Imaging None recorded. Vitals 03/01/2020 11:30AM ESTABLISHED [id number] Height Weight BMI Blood Pressure 64 in 135 lbs 23.2 kg/m2 131/92 mm[Hg] 02/07/2020 01:10PM ESTABLISHED PATIENT 15 Height Weight BMI Blood Pressure 64 in 134 lbs 9.6 oz 23.1 kg/m2 136/90 mm[Hg ] 10/25/2019 Height Weight Blood Pressure 64 in 140 lbs 4 oz 143/97 mm[Hg] 09/13/2019 Height Weight Blood Pressure 64 in 123 lbs 4 oz 105/71 mm[Hg]
--- OUTSIDE RECORDS SUMMARY | 2020-04-24 12:57 | CCD ---
Author Organization Unknown Address [address] [place] [address] Phone [phone] Care Team Providers Care Elevator Constructor Helper Name Role Phone Robinson Castanon Unavailable Unavailable Allergies Code Code System Name Reaction Severity Status Onset 51146 RxNorm Prozac Other Active Medications Name Status [...] Completed 01/2020 Isibloom 0.15 mg-0.03 mg tablet Active Not available Lexapro 10 mg tablet [...] Status Address 02/08/2020 Test, Urine Hcg negative [facility]: [address] [facility] [address], [place] 02/07/2020 Choriogonadotropin, Quant, Serum or Plasma Norm al HCG, Serum Quantitative < 1.0 mIU/mL [facility] [address] [facility] Past Encounters 04/01/2020 Generalized Anxiety Disorder; Cannabis Dependence [facility]: [address], [place] [address], Ph. 03/01/2020 Generalized Anxiety Disorder; Opioid Dependence in Remission Robinson CastanonMADDY[facility]: [address], [place] [address], Ph. 02/07/2020 Amenorrhea Robinson CastanonMADDY[facility]: [address], [place] [address], Ph. Social History Tobacco Smoking Status Never Smoker Vaccine List None recorded. Plan of Care Patient Instructions WE DISCUSSED, I WILL SPEAK WITH YOUR THERAPIST AT [facility] AND CONTACT YOU WITH A PLAN OF CARE UNTIL YOU ARE ABLE TO GET IN WITH A PSYCHIATRIST THERE. Blood drawn today to confirm . Care [...] Surgeries None recorded. Imaging None recorded. Vitals 04/01/2020 08:50AM ESTABLISHED [id number] Height Weight BMI Blood Pressure 64 in 134 lbs 12.8 oz 23.1 kg/m2 (1) 144/87 mm[Hg] (2) 134/100 mm[Hg] 03/01/2020 11:30AM ESTABLISHED [id number] Height Weight BMI Blood Pressure 64 in [...]
--- OUTSIDE RECORDS SUMMARY | 2020-04-24 12:57 | CCD ---
Author Author Merged With [facility] Organization [facility] Address Unknown Phone Unavailable Care Team Providers Care Dietist Name Role Phone Ginger Baron Unavailable PROBLEMS No Information ALLERGIES Allergen (clinical drug ingredient) Drug/Non Drug Allergy do cumented on EMR Reaction Allergy Type Onset Date Status Penicillin (For Allergies Use Only) Unknown Drug Allerg y Active ENCOUNTERS from 1995 to 2020-03-09 Encounter Location [place] [address] Feb, Ginger Baron IMMUNIZATIONS No Information SOCIAL HISTORY Tobacco Use: Social History Observation Description Date Details (start date - stop date) Never Smoker Sex Assigned At : Social History Observation Description Sex Assigned At Unknown Education: Question Answer Notes Level of Education: College Language: Question Answer Notes Languages spoken: Georgian Sexual Hx: Question Answer Notes Had sex in the last 12 months (vaginal, oral, or anal)? Yes with Men only Use protection? Yes How often? Most of the time Alcohol Screening: Question Answer Notes Did you have a drink containing alcohol in the past year? Ye s Points 5 Interpretation Positive How often did you have six or more drinks on one occas ion in the past year? Less than monthly (1 point) How many drinks did you have on a typica l day when you were drinking in the past year? 5 or 6 (2 points) How often did you have a drink containing alcohol in t he past year? Two to four times a month (2 points) Tobacco Use: Question Answer Notes Are you a: never smoker REASON FOR REFERRAL No Information VITAL SIGNS No information MEDICATIONS Medication SIG (Take, Route, Frequency, Duration) Notes Start Da te End Date Status BuSpar Active PROCEDURES No Information RESULTS No Results REASON FOR VISIT Follow up appt MEDICAL (GENERAL) HISTORY Type Description Date Medical History Anxiety Surgical History No know Surgical history Hospitalization History Mental health 08/2019 Goals Section No Information Health Concerns No Information MEDICAL EQUIPMENT No Information MENTAL STATUS No Information FUNCTIONAL STATUS No Information ASSESSMENTS No Information PLAN OF TREATMENT Next Appt Details Provider Name:Ginger Baron, 2020-04-02 10 :00:00 AM, [address] [place], [address], Insurance Providers Payer Name Payer Address Payer Phone Insured Name Patient Relati onship to Insured Coverage Start Date Coverage End Date SELF PAY ONLY - SP1 PATTI ARRIAGA
--- OUTSIDE RECORDS SUMMARY | 2020-04-24 12:57 | CCD ---
Author Author [facility] Organization [facility] Address Unknown Phone Unavailable Care Team Providers Care Baggage Inspector Name Role Phone BaronGinger Unavailable PROBLEMS Type Condition ICD9-CM Code [id number] Code Onset Dates Condition S tatus SNOMED Code Notes Problem Depression, unspecified depression type F32.9 Active 30922655 Problem RACHEL (generalized anxiety disorder) F41.1 Activ e [id number] ALLERGIES Allergen (clinical drug ingredient) Drug/Non Drug Allergy do cumented on EMR Reaction Allergy Type Onset Date Status Penicillin (For Allergies Use Only) Unknown Drug Allerg y Active ENCOUNTERS from 1995 to 2020-04-05 Encounter Location Date Provider Diagnosis [facility] [address] [place] [address] Mar, Ginger Baron IMMUNIZATIONS No Information SOCIAL HISTORY Tobacco Use: Social History Observation Description Date Details (start date - stop date) Never Smoker Sex Assigned At : Social History Observation Description Sex Assigned At Unknown Education: Question Answer Notes Level of Education: College Language: Question Answer Notes Languages spoken: Armenian Sexual Hx: Question Answer Notes Had sex [...] Notes Start Da te End Date Status Clonazepam 0.5 MG (Schedule IV Drug) (Prior Auth#:[id number]) Or al for 2 Active BuSpar Active BusPIRone HCl 5 MG (Prior Auth#:[id number]) Oral for 30 Active PROCEDURES No Information RESULTS No Results REASON FOR VISIT no showed MEDICAL (GENERAL) HISTORY Type Description Date Medical History Anxiety Medical History ADHD Medical History Hx of opioid abuse Medical History Hx of cannabis abuse Medical History Hx of methamphetamine abuse Surgical History No Surgical history information Hospitalization History Mental health 08/2019 Goals Section No Information Health Concerns No Information MEDICAL EQUIPMENT No Information MENTAL STATUS No Information FUNCTIONAL STATUS No Information ASSESSMENTS No Information PLAN OF TREATMENT No Information Insurance Providers Payer Name Payer Address Payer Phone Insured Name Patient Relati onship to Insured Coverage Start Date Coverage End Date SELF PAY ONLY - SP1 PATTI ARRIAGA
--- OUTSIDE RECORDS SUMMARY | 2020-04-24 12:57 | CCD | Continuity of Care Document ---
Author Author Nurse Sonia Grace Organization Unknown Address Unknown Phone [phone] Problems Description No Active Problems Social History Type Date Description Comments Sex Unknown Tobacco Use Start: Unknown Non-smoker, Non-drinker, Non-graciela g User Tobacco Use Start: Unknown Patient has never smoked Smoking Status Reviewed: 04/15/20 Patient has never smoked Exercise Type/Frequency Exercises regularly Allergies, Adverse Reactions, Alerts Description No Known Drug Allergies Medications Active Medications SIG Qnty Indications Ordering Provide r Date Multivitamins Capsules Gaivota Mejias WHNP 10/02/2011 Immunizations Description No Information Available Vital Signs Date Vital Result Comment 04/15/2020 11:37am BP Systolic 100 mmHg BP Diastolic 62 mmHg Height 61.75 inches 5'1.75" Weight 136.00 lb BMI (Body Mass Index) 25.1 kg/m2 BSA (Body Surface Area) 1.62 m2 01/12/2019 10:42am BP Systolic 114 mmHg BP Diastolic 82 mmHg Height 62 inches 5'2" Weight 150.00 lb BMI (Body Mass Index) 27.4 kg/m2 BSA (Body Surface Area) 1.69 m2 Results Description No Information Available Procedures Description No Information Available Medical Devices Description No Information Available Encounters Type Date Location Provider Dx Diagnosis Office Visit 04/15/2020 11:30a [facility] Anne Fine MD Z0 1.419 Encntr for director of blood exam (general) (routine) w/o abn findings Z12.4 Encounter for screening for malignant neoplasm of cervix Z12.39 Encounter for oth screening for malignant neoplasm of breast Assessments Date Code Description Provider 04/15/2020 Z32.02 Encounter for test, re sult negative Anne Fine MD 04/15/2020 Z32.02 Encounter for test, re sult negative Nurse Schedule 04/15/2020 Z01.419 Encounter for gyneco logical examination (general) (routine) without abnormal findings Anne Fine MD 04/15/2020 Z12.4 Encounter for screening for ta gnant neoplasm of cervix Anne Fine MD 04/15/2020 Z12.39 Encounter for other screening for malignant neoplasm of breast Anne Fine MD Plan of Treatment Future Appointment(s):* 04/23/2021 2:00 pm - Anne Fine MD at [facility] auditing specialist 04/15/2020 - Anne Fine MD* Z01.419 Encounter for gynecological examination (general) (routine) without abnormal findings * Z12.4 Encounter for screening for malignant neoplasm of cervix* New Labs:* Thinprep W/Reflex HR HPV If Asc-US, Ordered: 04/15/20 * Z12.39 Encounter for other screening for malignant neoplasm of breast Functional Status Description No Information Available Mental Status Description No Information Available Referrals Description No Information Available
--- OUTSIDE RECORDS SUMMARY | 2020-04-24 12:57 | CCD | Continuity of Care Document ---
Author Author Sonia MARSHALL Organization Unknown Address [address] [place] [address] Phone [phone] Problems Description No Active Problems Social History Type Date Description Comments Sex Unknown Tobacco Use Start: Unknown Non-smoker, Non-drinker, Non-graciela g User Tobacco Use Start: Unknown Patient has never smoked Smoking Status Reviewed: 04/15/20 Patient has never smoked Exercise Type/Frequency Exercises regularly Allergies, Adverse Reactions, Alerts Description No Known Drug Allergies Medications Active Medications SIG Qnty Indications Ordering Provide r Date Multivitamins Capsules Gaviota Mejias WHNP 10/02/2011 Immunizations Description No Information [...] Medical Devices Description No Information Available Encounters Description No Information Available Assessments Description No Information Available Plan of Treatment Future Appointment(s):* 04/23/2021 2:00 pm - Anne Marshall MD at [facility] brass finisher Functional Status Description No Information Available Mental Status Description No Information Available Referrals Description No Information Available
--- OUTSIDE RECORDS SUMMARY | 2020-04-24 12:57 | CCD ---
Author Author [facility] [employer] Organization [facility] [employer] Address Unknown Phone Unavailable Care Team Providers Care Epic Director Name Role Phone Ginger Baron Unavailable PROBLEMS Type Condition ICD9-CM Code [id number] Code Onset Dates Condition S tatus SNOMED Code Notes Problem Depression, unspecified depression type F32.9 Active [id number] Problem RACHEL (generalized anxiety disorder) F41.1 Activ e [id number] ALLERGIES Allergen (clinical drug ingredient) Drug/Non Drug Allergy do cumented on EMR Reaction Allergy Type Onset Date Status Penicillin (For Allergies Use Only) Unknown Drug Allerg y Active ENCOUNTERS from 1995 to 2020-03-20 Encounter Location Date Provider Diagnosis [facility] Resident [address] [place] [address] Feb, Ginger Baron Depression, unspecified depr ession type F32.9 and RACHEL (generalized anxiety disorder) F41.1 IMMUNIZATIONS No Information SOCIAL HISTORY Tobacco Use: Social History Observation Description Date Details (start date - stop date) Never Smoker Sex Assigned At : Social History Observation Description Sex Assigned At Unknown Education: Question Answer Notes Level of Education: College Language: Question Answer Notes Languages spoken: Nepali Sexual Hx: Question Answer Notes Had sex [...] REASON FOR REFERRAL No Information VITAL SIGNS Weight 136.0 lbs Feb, Height 62.5 in Feb, BMI 24.48 kg/m2 Feb, Heart Rate 102 /min Feb, Respiratory Rate 18 /min Feb, Temperature 98.6 degrees Fahrenheit Feb, Blood pressure systolic 136 mm Hg Feb, Blood pressure diastolic 82 mm Hg Feb, MEDICATIONS Medication SIG (Take, Route, Frequency, Duration) Notes Start Da te End Date Status BusPIRone HCl 5 MG (Prior Auth#:[id number]) Oral for 30 Active Clonazepam 0.5 MG (Schedule IV Drug) (Prior Auth#:[id number]) Or al for 2 Active BuSpar Active PROCEDURES No Information RESULTS No Results REASON FOR VISIT to be established MEDICAL (GENERAL) HISTORY Type Description Date Medical History Anxiety Medical History ADHD Medical History Hx of opioid abuse Medical History Hx of cannabis abuse Medical History Hx of methamphetamine abuse Surgical History No know Surgical history Hospitalization History Mental health 08/2019 Goals Section No Information Health Concerns No Information MEDICAL EQUIPMENT No Information MENTAL STATUS No Information FUNCTIONAL STATUS No Information ASSESSMENTS Encounter Date Diagnosis Assessment Notes Treatment Notes Treatm ent Clinical Notes Feb, Depression, unspecified depression type (ICD-10 - F32.9) Depression with MDD score=11. Patient is currently on Buspirone. Discussed with patient that buspirone is not typically used as an anti-depressant and patient verbalized understanding, but verbalized that at this time she would prefer to maintain on current medication Buspirone only. She declined to be referred a psychiatrist at this time. Pt denies any current SI or HI. She reported that she will call crisis line or 911 or go to ER if she has any suicidal or homicdal ideations at anytime. She would like to see a psychologist with whom she will establish with behavioral health this afternoon. Patient was started on Buspirone and Clonazepam recently in February 2020 by another facility(Chelsey Castanon from [facility]), and the Primary care provider from [facility] clinic will not be managing the patient's psychiatric medications at this time. T he above assessment and plan were discussed with precepting attending Feb, RACHEL (generalized anxiety disorder) (ICD-10 - F41 .1) Generalized anxiety disorder. RACHEL score=12. Hydroxyzine PRN was offered, but pt verbalized that at this time she would prefer to maintain on current medication Buspirone only. She declined to be referred a psychiatrist at this time. Pt denies any current SI or HI. She reported that she will call crisis line or 911 or go to ER if she has any suicidal or homicdal ideations at anytime. She would like to see a psychologist with whom she will establish with behavioral health this afternoon. Patient was started on Buspirone and Clonazepam recently in February 2020 by another facility(Chelsey Castanon from [facility]), and the Primary care provider from [facility] will not be managing the patient's psychiatric medications at this time. T samir above assessment and plan were discussed with precepting attending PLAN OF TREATMENT Medication Medication Name Sig Start Date Stop Date BuSpar Treatment Notes Assessment Notes Clinical Notes Depression, unspecified depression type Depression with MDD score=11. Patient is currently on Buspirone. Discussed with patient that buspirone is not typically used as an anti-depressant and patient verbalized understanding, but verbalized that at this time she would prefer to maintain on current medication Buspirone only. She declined to be referred a psychiatrist at this time. Pt denies any current SI or HI. She reported that she will call crisis line or 911 or go to ER if she has any suicidal or homicdal ideations at anytime. She would like to see a psychologist with whom she will establish with behavioral health this afternoon. Patient was started on Buspirone and Clonazepam recently in February 2020 by another facility(Chelsey Castanon from [facility]), and the Primary care provider from [facility] will not be managing the patient's psychiatric medications at this time. T samir above assessment and plan were discussed with precepting attending RACHEL (generalized anxiety disorder) Gener alized anxiety disorder. RACHEL score=12. Hydroxyzine PRN was offered, but pt verbalized that at this time she would prefer to maintain on current medication Buspirone only. She declined to be refe rred a psychiatrist at this time. Pt denies any current SI or HI. She reported that she will call crisis line or 911 or go to ER if she has any suicidal or homicdal ideations at anytime. She would like to see a psychologist with whom she will establish with behavioral health this afternoon. Patient was started on Buspirone and Clonazepam recently in February 2020 by another facility(Chelsey Castanon from [facility]), and the Primary care provider from [facility] clinic will not be managing the patient's psychiatric medications at this time. T he above assessment and plan were discussed with precepting attending Next Appt Details 4 Weeks Reason: Provider Name:Ginger Baron, 2020-04-02 10 :00:00 AM, [address] [place], [address], Insurance Providers Payer Name Payer Address Payer Phone Insured Name Patient Relati onship to Insured Coverage Start Date Coverage End Date SELF PAY ONLY - SP1 PATTI ARRIAGA
--- OUTSIDE RECORDS SUMMARY | 2020-04-24 12:57 | CCD | Continuity of Care Document ---
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) w/o abn findings Z12.4 Encounter for screening for malignant neoplasm of cervix Z12.39 Encounter for oth screening for malignant neoplasm of breast Assessments Date Code Description Provider 04/15/2020 Z01.419 Encounter for gyneco logical examination (general) (routine) without abnormal findings Anne Fine MD 04/15/2020 Z12.4 Encounter for screening for ta gnant neoplasm of cervix Anne Fine MD 04/15/2020 Z12.39 Encounter for other screening for malignant neoplasm of breast Anne Fine MD Plan of Treatment Future Appointment(s):* 04/23/2021 2:00 pm - Anne Fine MD at [facility] dispensing operator 04/15/2020 - Anne Fine MD* Z01.419 Encounter [...]
--- OUTSIDE RECORDS SUMMARY | 2020-04-24 12:57 | CCD | Continuity of Care Document ---
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 Z12.4 Encounter for screening for malignant neoplasm of cervix Z12.39 Encounter for oth screening for malignant neoplasm of breast Assessments Date Code Description Provider 04/15/2020 Z32.02 Encounter for test, re sult negative Nurse Schedule 04/15/2020 Z01.419 Encounter for gyneco logical examination (general) (routine) without abnormal findings Anne Marshall MD 04/15/2020 Z12.4 Encounter for screening for ta gnant neoplasm of cervix Anne Marshall MD 04/15/2020 Z12.39 Encounter for other screening for malignant neoplasm of breast Anne Marshall MD Plan of Treatment Future Appointment(s):* 04/23/2021 2:00 pm - Anne Marshall MD at [facility] nursing attendant 04/15/2020 - Anne Marshall MD* Z01.419 Encounter for gynecological examination (general) [...]
--- OUTSIDE RECORDS SUMMARY | 2020-04-24 12:58 | CCD ---
Author Author [facility] Organization [facility] Address Unknown Phone Unavailable Care Team Providers Care Machine Hoop Maker Helper Name Role Phone Yue Wells Unavailable CASTANON, BEVERLY ROBINSON RPA-C Unavailable Unavailable CASTANON, BEVERLY ROBINSON RPA-C Unavailable Unavailable CASTANON, BEVERLY ROBINSON RPA-C Unavailable Unavailable CASTANON, BEVERLY ROBINSON RPA-C Unavailable Unavailable CASTANON, BEVERLY ROBINSON RPA-C Unavailable Unavailable CASTANON, BEVERLY ROBINSON RPA-C Unavailable Unavailable CASTANON, BEVERLY ROBINSON RPA-C Unavailable Unavailable CASTANON, BEVERLY ROBINSON RPA-C Unavailable Unavailable CASTANON, BEVERLY ROBINSON RPA-C Unavailable Unavailable CASTANON, BEVERLY ROBINSON RPA-C Unavailable Unavailable CASTANON, BEVERLY ROBINSON RPA-C Unavailable Unavailable CASTANON, BEVERLY ROBINSON RPA-C Unavailable Unavailable CASTANON, BEVERLY ROBINSON RPA-C Unavailable Unavailable CASTANON, BEVERLY ROBINSON RPA-C Unavailable Unavailable CASTANON, BEVERLY ROBINSON RPA-C Unavailable Unavailable CASTANON, BEVERLY ROBINSON RPA-C Unavailable Unavailable CASTANON, BEVERLY ROBINSON RPA-C Unavailable Unavailable CASTANON, BEVERLY ROBINSON RPA-C Unavailable Unavailable CASTANON, BEVERLY ROBINSON RPA-C Unavailable Unavailable CASTANON, BEVERLY ROBINSON RPA-C Unavailable Unavailable CASTANON, BEVERLY ROBINSON RPA-C Unavailable Unavailable CASTANON, BEVERLY ROBINSON RPA-C Unavailable Unavailable CASTANON, BEVERLY ROBINSON RPA-C Unavailable Unavailable CASTANON, BEVERLY ROBINSON RPA-C Unavailable Unavailable CASTANON, BEVERLY ROBINSON RPA-C Unavailable Unavailable CASTANON, BEVERLY ROBINSON RPA-C Unavailable Unavailable CASTANON, BEVERLY ROBINSON RPA-C Unavailable Unavailable CASTANON, BEVERLY ROBINSON RPA-C Unavailable Unavailable CASTANON, BEVERLY ROBINSON RPA-C Unavailable Unavailable CASTANON, BEVERLY ROBINSON RPA-C Unavailable Unavailable CASTANON, BEVERLY ROBINSON RPA-C Unavailable Unavailable CASTANON, BEVERLY ROBINSON RPA-C Unavailable Unavailable CASTANON, BEVERLY ROBINSON RPA-C Unavailable Unavailable CASTANON, BEVERLY ROBINSON RPA-C Unavailable Unavailable CASTANON, BEVERLY ROBINSON RPA-C Unavailable Unavailable CASTANON, BEVERLY ROBINSON RPA-C Unavailable Unavailable CASTANON, BEVERLY ROBINSON RPA-C Unavailable Unavailable CASTANON, BEVERLY ROBINSON RPA-C Unavailable Unavailable CASTANON, BEVERLY ROBINSON RPA-C Unavailable Unavailable ELENA, JESS Unavailable Unavailable ELENA, JESS Unavailable Unavailable ELENA, JESS Unavailable Unavailable ELENA, JESS Unavailable Unavailable ELENA, JESS Unavailable Unavailable ELENA, JESS Unavailable Unavailable ELENA, JESS Unavailable Unavailable ELENA, JESS Unavailable Unavailable ELENA, JESS Unavailable Unavailable ELENA, JESS Unavailable Unavailable ELENA, JESS Unavailable Unavailable ELENA, JESS Unavailable Unavailable ELENA, JESS Unavailable Unavailable ELENA, JESS Unavailable Unavailable ELENA, JESS Unavailable Unavailable ELENA, JESS Unavailable Unavailable ELENA, JESS Unavailable Unavailable ELENA, JESS Unavailable Unavailable ELENA, JESS Unavailable Unavailable ELENA, JESS Unavailable Unavailable ELENA, JESS Unavailable Unavailable ELENA, JESS Unavailable Unavailable ELENA, JESS Unavailable Unavailable ELENA, JESS Unavailable Unavailable ELENA, JESS Unavailable Unavailable Berna Stallings Unavailable Jennifer Latham Unavailable Josh ROE ABRASIVE COATING MACHINE OPERATOR Unavailable Unavailable MARILYN, H FERNANDO ABRASIVE COATING MACHINE OPERATOR Unavailable Unavailable MARILYN, H FERNANDO ABRASIVE COATING MACHINE OPERATOR Unavailable Unavailable MARILYN, H FERNANDO ABRASIVE COATING MACHINE OPERATOR Unavailable Unavailable MARILYN, H FERNANDO ABRASIVE COATING MACHINE OPERATOR Unavailable Unavailable MARILYN, H FERNANDO ABRASIVE COATING MACHINE OPERATOR Unavailable Unavailable MARILYN, H FERNANDO ABRASIVE COATING MACHINE OPERATOR Unavailable Unavailable Byron, Vinnie Unavailable Byron, Vinnie Unavailable CASTANON, BEVERLY ROBINSON RPA-C Unavailable Unavailable CASTANON, BEVERLY ROBINSON RPA-C Unavailable Unavailable CASTANON, BEVERLY ROBINSON RPA-C Unavailable Unavailable CASTANON, BEVERLY ROBINSON RPA-C Unavailable Unavailable CASTANON, BEVERLY ROBINSON RPA-C Unavailable Unavailable CASTANON, BEVERLY ROBINSON RPA-C Unavailable Unavailable CASTANON, BEVERLY ROBINSON RPA-C Unavailable Unavailable CASTANON, BEVERLY ROBINSON RPA-C Unavailable Unavailable CASTANON, BEVERLY ROBINSON RPA-C Unavailable Unavailable CASTANON, BEVERLY ROBINSON RPA-C Unavailable Unavailable CASTANON, BEVERLY ROBINSON RPA-C Unavailable Unavailable CASTANON, BEVERLY ROBINSON RPA-C Unavailable Unavailable CASTANON, BEVERLY ROBINSON RPA-C Unavailable Unavailable CASTANON, BEVERLY ROBINSON RPA-C Unavailable Unavailable CASTANON, BEVERLY ROBINSON RPA-C Unavailable Unavailable CASTANON, BEVERLY ROBINSON RPA-C Unavailable Unavailable CASTANON, BEVERLY ROBINSON RPA-C Unavailable Unavailable CASTANON, BEVERLY ROBINSON RPA-C Unavailable Unavailable CASTANON, BEVERLY ROBINSON RPA-C Unavailable Unavailable CASTANON, BEVERLY ROBINSON RPA-C Unavailable Unavailable CASTANON, BEVERLY ROBINSON RPA-C Unavailable Unavailable CASTANON, BEVERLY ROBINSON RPA-C Unavailable Unavailable CASTANON, BEVERLY ROBINSON RPA-C Unavailable Unavailable CASTANON, BEVERLY ROBINSON RPA-C Unavailable Unavailable CASTANON, BEVERLY ROBINSON RPA-C Unavailable Unavailable CASTANON, BEVERLY ROBINSON RPA-C Unavailable Unavailable CASTANON, BEVERLY ROBINSON RPA-C Unavailable Unavailable CASTANON, BEVERLY ROBINSON RPA-C Unavailable Unavailable CASTANON, BEVERLY ROBINSON RPA-C Unavailable Unavailable CASTANON, BEVERLY ROBINSON RPA-C Unavailable Unavailable CASTANON, BEVERLY ROBINSON RPA-C Unavailable Unavailable CASTANON, BEVERLY ROBINSON RPA-C Unavailable Unavailable CASTANON, BEVERLY ROBINSON RPA-C Unavailable Unavailable CASTANON, BEVERLY ROBINSON RPA-C Unavailable Unavailable CASTANON, BEVERLY ROBINSON RPA-C Unavailable Unavailable CASTANON, BEVERLY ROBINSON RPA-C Unavailable Unavailable CASTANON, BEVERLY ROBINSON RPA-C Unavailable Unavailable CASTANON, BEVERLY ROBINSON RPA-C Unavailable Unavailable CASTANON, BEVERLY ROBINSON RPA-C Unavailable Unavailable [facility] Unavailable [phone] [facility] Unavailable [phone] [facility], RFROST CASTANON PA ROBINSON Unavailable Unavailable EGORHO, F MANJU FPMHNP Unavailable Unavailable EGORHO, F MANJU FPMHNP Unavailable Unavailable EGORHO, F MANJU FPMHNP Unavailable Unavailable EGORHO, F MANJU FPMHNP Unavailable Unavailable EGORHO, F MANJU FPMHNP Unavailable Unavailable EGORHO, F MANJU FPMHNP Unavailable Unavailable MARSHALL, Nolan GATES MD Unavailable Unavailable MARSHALL, Nolan GATES MD Unavailable Unavailable MARSHALL, L YAJAIRA RED Unavailable Unavailable MARSHALL, Nolan GATES MD Unavailable Unavailable MARSHALL, L YAJAIRA RED Unavailable Unavailable MARSHALL, L YAJAIRA RED Unavailable Unavailable MARSHALL, L YAJAIRA RED Unavailable Unavailable MARSHALL, L YAJAIRA RED Unavailable Unavailable MARSHALL, L YAJAIRA RED Unavailable Unavailable MARSHALL, L YAJAIRA RED Unavailable Unavailable MARSHALL, L YAJAIRA RED Unavailable Unavailable MARSHALL, L YAJAIRA RED Unavailable Unavailable MARSHALL, L YAJAIRA RED Unavailable Unavailable MARSHALL, L YAJAIRA RED Unavailable Unavailable MARSHALL, Nolan GATES MD Unavailable Unavailable MARSHALL, Nolan GATES MD Unavailable Unavailable MARSHALL, Nolan GATES MD Unavailable Unavailable MARSHALL, L YAJAIRA RED Unavailable Unavailable MARSHALL, L YAJAIRA RED Unavailable Unavailable MARSHALL, L YAJAIRA RED Unavailable Unavailable MARSHALL, L YAJAIRA RED Unavailable Unavailable MARSHALL, L YAJAIRA RED Unavailable Unavailable MARSHALL, L YAJAIRA RED Unavailable Unavailable MARSHALL, L YAJAIRA RED Unavailable Unavailable MARSHALL, L YAJAIRA RED Unavailable Unavailable MARSHALL, L YAJAIRA RED Unavailable Unavailable MARSHALL, L YAJAIRA RED Unavailable Unavailable MARSHALL, L YAJAIRA RED Unavailable Unavailable MARSHALL, L YAJAIRA RED Unavailable Unavailable MARSHALL, L YAJAIRA RED Unavailable Unavailable MARSHALL, L YAJAIRA RED Unavailable Unavailable MARSHALL, Nolan GATES MD Unavailable Unavailable MARSHALL, L YAJAIRA RED Unavailable Unavailable MARSHALL, L YAJAIRA RED Unavailable Unavailable MARSHALL, L YAJAIRA RED Unavailable Unavailable MARSHALL, L YAJAIRA RED Unavailable Unavailable MARSHALL, L YAJAIRA RED Unavailable Unavailable MARSHALL, L YAJAIRA MD Unavailable Unavailable Nolan MARSHALL MD Unavailable Unavailable Nolan MARSHALL MD Unavailable Unavailable Nolan MARSHALL MD Unavailable Unavailable Nolan MARSHALL MD Unavailable Unavailable Re-disclosure Warning The records that you are about to access may contain information from federally-assisted alcohol or drug abuse programs. If such information is present, then the following federally mandated warning applies: This information has been disclosed to you from records protected by federal confidentiality rules (42 CFR part 2). The federal rules prohibit you from making any further disclosure of this information unless further disclosure is expressly permitted by the written consent of the person to whom it pertains or as otherwise permitted by 42 CFR part 2. A general authorization for the release of medical or other information is NOT sufficient for this purpose. The Federal rules restrict any use of the information to criminally investigate or prosecute any alcohol or drug abuse patient.The records that you are about to access may contain highly sensitive health information, the redisclosure of which is protected by Article 27-F of the [facility] Public Health law. If you continue you may have access to information: Regarding HIV / AIDS; Provided by facilities licensed or operated by the [facility] Office of Mental Health; or Provided by the [facility] Office for People With Developmental Disabilities. If such information is present, then the following [facility] mandated warning applies: This information has been disclosed to you from confidential records which are protected by state law. State law prohibits you from making any further disclosure of this information without the specific written consent of the person to whom it pertains, or as otherwise permitted by law. Any unauthorized further disclosure in violation of state law may result in a fine or [place] health [facility] facility sentence or both. A general authorization for the release of medical or other information is NOT sufficient authorization for further disc losure. 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 Attender: JESS ELENA [facility] Medical 04/01/2020 12:00:00 AM EST [facility] ([facility]) Outpatient [id number] [facility] [address] 03/08/2020 12:00:00 AM EST eCW1 ([facility]) Unknown [address] [facility] [address] 03/08/2020 12:00:00 AM EST eCW1 ([facility]) YORDAN AbdallaC: [address], [place] [address], Ph. Attender: ROBINSON REYES [facility] Medical 03/01/2020 12:00:00 AM EST [place] ([facility]) YORDAN AbdallaC: [address], [place] [address], Ph. Attender: ROBINSON REYES [facility] Medical 03/01/2020 12:00:00 AM EST [facility] ([facility]) YORDAN AbdallaC: [address], [place] [address], Ph. Attender: ROBINSON REYES [facility] Medical 02/07/2020 12:00:00 AM EST [facility] ([facility]) YORDAN AbdallaC: [address], [place] [address], Ph. Attender: ROBINSON CASTANON RPA-C [facility] Medical 02/07/2020 12:00:00 AM EST [place] ([facility]) Robinson Castanon RPA-C: [address], [place] [address], Ph. Attender: ROBINSON CASTANON RPA-C [facility] Medical 02/07/2020 12:00:00 AM EST [place] ([facility]) Outpatient Attender: BUNNY GARCIA [facility] 12/27 02:27:10 PM EDT [facility] Extended Individual Psychotherapy - 45 min Attender: Valdez Matthews [facility] Vianney 01/10/2020 03:15:00 AM EDT - 01/10/2020 03:15:00 AM EDT [facility] ([facility]) Attender: Vinnie Matthews 01/10/2020 12:00:00 AM EDT [facility] ([facility]) Outpatient Attender: FERNANDO ROE NP [facility] Prateek alexander 01/09/2020 04:30:00 AM EDT - 01/09/2020 04:30:00 AM EDT [facility]: FERNANDO ROE NP 01/09/2020 12:00:00 AM EDT [facility] ([facility]) Attender: Vinnie Matthews 01/04/2020 12:00:00 AM EDT [facility] ([facility]) Extended Individual Psychotherapy - 45 min Attender: Valdez garcia [facility] 01/02/2020 06:00:00 AM EDT - 01/02/2020 06:00:00 AM EDT [facility] ([facility]) Attender: [facility] 12:00:00 AM EDT [facility] ([facility]) Extended Individual Psychotherapy - 45 min Attender: [facility] 12/26/2019 06:00:00 AM EDT - 12/26/2019 06:00:00 AM EDT [facility] ([facility]) Brief Individual Psychotherapy - 30 min Attender: Bernaleena dickey [facility] 12/22/2019 03:00:00 AM EDT - 12/22/2019 03:00:00 AM EDT [facility] ([facility]) Attender: Berna Stallings 12/22/2019 12:00:00 AM EDT [facility] ([facility]) Extended Individual Psychotherapy - 45 min Attender: Amol De La Rosadilciacristobal [facility] 11/28/2019 09:00:00 AM EDT - 11/28/2019 09:00:00 AM EDT [facility] ([facility]) Attender: Yue Wells 11/28/2019 12:00:00 A M EDT [facility] ([facility]) Outpatient Attender: ROBINSON REYES [facility] 11/08/2019 02:16:00 PM EDT [facility] 10/27 02:15:04 PM EDT [facility] Outpatient [facility]: [facility] 10/27 08:41:59 AM EDT [facility] Outpatient Attender: ROBNISON REYES [facility] 10/25/2019 01:24:01 PM EDT [facility] Outpatient Att[facility]: [facility] 08/2019 12:28:02 PM EDT [facility] Outpatient Att[facility]: [facility] 08/28 10:02:59 AM EDT [facility] Outpatient 09/15/2019 05:55:00 AM EDT [facility] Imaging Outpatient Attender: ROBINSON REYES [facility] 09/13/2019 03:04:01 PM EDT [facility] Telemed Diagnostic Eval Attender: MANJU ROGELBRUNO [facility] 09/13/2019 02:00:00 AM EDT - 09/13/2019 02:00:00 AM EDT [facility] ([facility]) Attender: MANJU JACQUES FPMHNP 09/13/2019 12:00: 00 AM EDT [facility] ([facility]) Outpatient [facility] 09/12/2019 10:00:00 AM EDT [facility] [id number]"Psychotherapy Attender: Jennifer Latham [facility] 09/12/2019 08:00:00 AM EDT - 09/12/2019 08:00:00 AM EDT [facility] ([facility]) Attender: Jennifer Latham 09/12/2019 12:00:00 AM EDT [facility] ([facility]) Outpatient [facility] 09/11/2019 12:37:00 PM EDT [facility] Outpatient [facility] 09/11/2019 08:21:01 AM EDT [facility] Functional Status Medications Medication Brand Name Start Date Product Form Dose Route Admi nistrative Instructions Pharmacy Instructions Status Indications Reaction Description Data Source(s) quetiapine 50 MG Oral Tablet [Seroquel] Seroquel 01/09/2020 12: 00:00 AM EDT 50 mg by mouth completed [id number] Seroquel by mouth [id number] 01/09/2020 03/09/2020 at bedtime 30 50 mg tablet 97002 [id number] Yarelis Roe [id number] Nurse Practitioner [facility] ([facility]) atomoxetine 25 MG Oral Capsule [Strattera] Strattera 01/08 12:00:00 AM EDT 25 mg by mouth completed [id number] Strattera by mouth [id number] 01/09/2020 02/08/2020 at bedtime 30 25 mg capsule [id number] Finn Roe [id number] Nurse Practitioner [facility] ([facility]) quetiapine 50 MG Oral Tablet [Seroquel] Seroquel 11/09/2019 12: 00:00 AM EDT 50 mg by mouth completed [id number] Seroquel by mouth [id number] 11/09/2019 01/08/2020 at bedtime 30 50 mg tablet [id number] Yarelis Roe [id number] Nurse Practitioner [facility] ([facility]) 0.12-0.015 mg/24 hr 03/01/2019 12:00:00 AM EST ring 3 USE DIRECTED USE DIRECTED SOLD: 03/01/2019 [facility] Escitalopram 10 MG Oral Tablet [Lexapro] Lexapro 10 mg tablet Take 1 tablet every day by oral route. Lexapro 10 mg tablet Take 1 tablet every day by oral route. 1 completed escitalopram 10 MG Oral Tablet [Lexapro] [facility] ([facility]) Hydroxyzine Hydrochloride 25 MG Oral Tablet hydroxyzin e HCl 25 mg tablet hydroxyzine HCl 25 mg tablet completed hydroxyzine hydrochloride 25 MG Oral Tablet [facility]) olanzapine 10 MG Oral Tablet olanzapine 10 mg tablet olanzapine 10 mg tablet completed olanzapine 10 MG Oral Tablet [facility]) atomoxetine 25 MG Oral Capsule atomoxetine 25 mg [facility] atomoxetine 25 mg capsule completed atomoxetine 25 MG Oral Capsule [facility]) quetiapine 50 MG Oral Tablet quetiapine 50 mg tablet quetiapine 50 mg tablet completed quetiapine 50 MG Oral Tablet [facility] ([facility]) Naltrexone hydrochloride 50 MG Oral Tablet naltrexone 50 mg tablet naltrexone 50 mg tablet completed naltrexone hydrochloride 50 MG Oral Tablet [facility]) atomoxetine 18 MG Oral Capsule atomoxetine 18 mg capsu le atomoxetine 18 mg capsule completed atomoxetine 18 MG Oral Capsule [facility]) Escitalopram 10 MG Oral Tablet [Lexapro] Lexapro 10 mg tablet Take 1 tablet every day by oral route. Lexapro 10 mg tablet Take 1 tablet every day by oral route. 1 completed escitalopram 10 MG Oral Tablet [Lexapro] [facility] ([facility]) atomoxetine 18 MG Oral Capsule atomoxetine 18 mg capsu le atomoxetine 18 mg capsule completed atomoxetine 18 MG Oral Capsule [facility]) olanzapine 10 MG Oral Tablet olanzapine 10 mg tablet olanzapine 10 mg tablet completed [facility] N[facility]ide 50 MG Oral Tablet naltrexone 50 mg tablet naltrexone 50 mg tablet completed naltrexone hydrochloride 50 MG Oral Tablet [facility] ([facility]) atomoxetine 18 MG Oral Capsule atomoxetine 18 mg capsu le atomoxetine 18 mg capsule completed atomoxetine 18 MG Oral Capsule [facility] ([facility]) quetiapine 50 MG Oral Tablet quetiapine 50 mg tablet quetiapine 50 mg tablet completed quetiapine 50 MG Oral Tablet [place] ([facility]) Hydroxyzine Hydrochloride 25 MG Oral Tablet hydroxyzin e HCl 25 mg tablet hydroxyzine HCl 25 mg tablet completed hydroxyzine hydrochloride 25 MG Oral Tablet [facility] ([facility]) 21 DAY Ethinyl Estradiol 0.575638 MG/HR / Etonogestrel 0.005 MG/HR Vaginal Ring etonogestrel 0.12 mg-ethinyl estradiol 0.015 mg/24 hr vaginal ring etonogestrel 0.12 mg-ethinyl estradiol 0.015 mg/24 hr vaginal ring completed 21 DAY ethinyl estradiol 0.744065 MG/HR / etonogestrel 0.005 MG/HR Vaginal System [facility] ([facility]) quetiapine 50 MG Oral Tablet quetiapine 50 mg tablet quetiapine 50 mg tablet completed quetiapine 50 MG Oral Tablet [facility] ([facility]) Naltrexone hydrochloride 50 MG Oral Tablet naltrexone 50 mg tablet naltrexone 50 mg tablet completed naltrexone hydrochloride 50 MG Oral Tablet [facility] ([facility]) 21 DAY Ethinyl Estradiol 0.404481 MG/HR / Etonogestrel 0.005 MG/HR Vaginal Ring etonogestrel 0.12 mg-ethinyl estradiol 0.015 mg/24 hr vaginal ring etonogestrel 0.12 mg-ethinyl estradiol 0.015 mg/24 hr vaginal ring completed 21 DAY ethinyl estradiol 0.443650 MG/HR / etonogestrel 0.005 MG/HR Vaginal System [facility] ([facility]) olanzapine 10 MG Oral Tablet olanzapine 10 mg tablet olanzapine 10 mg tablet completed olanzapine 10 MG Oral Tablet [facility] ([facility]) 21 DAY Ethinyl Estradiol 0.721989 MG/HR / Etonogestrel 0.005 MG/HR Vaginal Ring etonogestrel 0.12 mg-ethinyl estradiol 0.015 mg/24 hr vaginal ring etonogestrel 0.12 mg-ethinyl estradiol 0.015 mg/24 hr vaginal ring completed 21 DAY ethinyl estradiol 0.318866 MG/HR / etonogestrel 0.005 MG/HR Vaginal System [facility] ([facility]) atomoxetine 25 MG Oral Capsule atomoxetine 25 mg capsu le atomoxetine 25 mg capsule completed atomoxetine 25 MG Oral Capsule [place] ([facility]) Hydroxyzine Hydrochloride 25 MG Oral Tablet hydroxyzin e HCl 25 mg tablet hydroxyzine HCl 25 mg tablet completed hydroxyzine hydrochloride 25 MG Oral Tablet [facility] ([facility]) Insurance Providers Payer name Policy type / Coverage type Policy ID Covered democrat ID Covered democrat's relationship to marinelli Policy Marinelli Plan Information R [facility] [id number] MO2 [id number] [employer] [id number] MEDICAID [id number] SP [id number] [place] Commercial Family Dependent [employer] [id number] Self [id number] [facility] Part B [id number] Family Dependent [id number] [facility] Commercial [id number] Family Dependent [id number] [employer] [id number] Family Dep endent [id number] Commercial [id number] Family Dependent [id number] [facility] Commercial [id number] Family Dependent [id number] [facility] Commercial [id number] Family Dependent [id number] [facility] Part B [id number] Family Dependent [id number] [employer] [id number] MO2 [id number] [employer] NO FAULT [id number] Self Pay P none S none UMR O [id number] S [id number] SELF PAY UNAVAILABLE SP UNAVAILA BLE [place] [id number] SP [id number] [facility] [id number] MO2 [id number] SELF PAY ONLY [id number] SP [id number] Problems, Conditions, and Diagnoses Code Display Name Description Problem Type Effective Dates Data Source(s) F41.1 [id number] RACHEL (generalized anxiety disorder) Proble m 03/15/2020 12:00:00 AM EST eCW1 ([facility]) F32.9 [id number] Depression, unspecified depression type P roblem 03/15/2020 12:00:00 AM EST eCW1 ([facility]) F32.9 Major depressive disorder, single episod e, unspecified Unspecified depressive Disorder Condition 01/10/2020 12:00:00 AM EDT [facility] ( [facility]) F11.20 Opioid dependence, uncomplicated Opioid Use Disorder, Moderate Condition 01/10/2020 12:00:00 AM EDT [facility] ([facility]) F90.2 Attention-deficit hyperactivity disorder , combined type Attention- Deficit/Hyperactivity Disorder, Combined presentation Condition 01/10/2020 12:00:00 AM EDT [facility] ([facility]) V85.1 BMI 24.0-24.9 BMI 24.0-24.9 11/08/2019 02:14:17 PM EDT [facility] [id number] Body measurement finding Body Measurement Finding Prob wendy 11/08/2019 12:00:00 AM EDT - 02/07/2020 12:00:00 AM EST [place] ([facility]) [id number] Body measurement finding Body Measurement Finding Prob wendy 11/08/2019 12:00:00 AM EDT - 02/07/2020 12:00:00 AM EST [place] ([facility]) [id number] Body measurement finding Body Measurement Finding Prob wendy 11/08/2019 12:00:00 AM EDT - 02/07/2020 12:00:00 AM EST [place] ([facility]) Z00.00 Encounter for general adult medical examination without abnormal findings Encounter for general adult medical examination without abno rmal findings 10/25/2019 01:23:36 PM EDT [facility] [id number] SNOMED CT Concept SNOMED CT Concept Problem 10/24 12:00:00 AM EDT - 02/07/2020 12:00:00 AM EST [place] ([facility]) [id number] SNOMED CT Concept SNOMED CT Concept Problem 10/24 12:00:00 AM EDT - 02/07/2020 12:00:00 AM EST [facility] ([facility]) [id number] SNOMED CT Concept SNOMED CT Concept Problem 10/24 12:00:00 AM EDT - 02/07/2020 12:00:00 AM [facility] ([facility]) V85.1 BMI 21.0-21.9 BMI 21.0-21.9 09/13/2019 03:02:58 PM EDT [facility] 300.02 Generalized anxiety disorder Generalized anxiety disor richard 09/13/2019 03:02:58 PM EDT [facility] 787.91 Diarrhea Diarrhea 09/13/2019 03:02:58 PM ED T [facility] [id number] Opioid dependence, in remission Opioid dependence, in remission 09/13/2019 03:02:58 PM EDT [facility] 09/01/2019 last use 05869712 Cannabis abuse, uncomplicated Cannabis abuse, uncompli cated 09/13/2019 03:02:58 PM EDT [facility] 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 09/13/2019 03:02:58 PM EDT [facility] M79.651 Pain in right thigh Pain of bilateral thighs 09/13/2019 03:02:58 PM EDT [facility] 44992483 Cannabis abuse Cannabis Abuse Problem 09/13/2019 12:00: 00 AM EDT [facility] ([facility]) 858429187 Opioid dependence in remission Opioid Dependence in Re mission Problem 09/13/2019 12:00:00 AM EDT [facility] ([facility]) 11425022 Generalized anxiety disorder Generalized Anxiety Disor richard Problem 09/13/2019 12:00:00 AM EDT [facility] ([facility]) 6362740 Brief reactive psychosis Brief Reactive Psychosis Prob wendy 09/13/2019 12:00:00 AM EDT - 03/01/2020 12:00:00 AM EST [place] ([facility]) 21035891 Cannabis abuse Cannabis Abuse Problem 09/13/2019 12:00: 00 AM EDT [facility]) [id number] Opioid dependence in remission Opioid Dependence in Re mission Problem 09/13/2019 12:00:00 AM EDT [facility] ([facility]) 84005898 Generalized anxiety disorder Generalized Anxiety Disor richard Problem 09/13/2019 12:00:00 AM EDT [facility] ([facility]) 7625663 Brief reactive psychosis Brief Reactive Psychosis Prob wendy 09/13/2019 12:00:00 AM EDT - 03/01/2020 12:00:00 AM EST [place] ([facility]) 0305291 Brief reactive psychosis Brief Reactive Psychosis Prob wendy 09/13/2019 12:00:00 AM EDT [place] ([facility]) 81647273 Generalized anxiety disorder Generalized Anxiety Disor richard Problem 09/13/2019 12:00:00 AM EDT [place] ([facility]) [id number] Opioid dependence in remission Opioid Dependence in Re mission Problem 09/13/2019 12:00:00 AM EDT [place] ([facility]) 92333676 Cannabis abuse Cannabis Abuse Problem 09/13/2019 12:00: 00 AM EDT [facility] ([facility]) Surgeries/Procedures Procedure Description Date Indications Data Source(s) Extended Individual Psychotherapy - 45 min 0 12:00:00 AM EDT [facility] ([facility]) Extended Individual Psychotherapy - 45 min 01/10/2020 12:00:00 AM EDT - 01/10/2020 12:00:00 AM EDT [facility] ([facility]) OFFICE OUTPATIENT VISIT 15 MINUTES 01/09/2020 12:00:00 AM EDT [facility] ([facility]) OFFICE OUTPATIENT VISIT 15 MINUTES 01/08 12:00:00 AM EDT - 01/09/2020 12:00:00 AM EDT [facility] ([facility]) Extended Individual Psychotherapy - 45 min 01/04/2020 12:00:00 AM EDT - 01/04/2020 12:00:00 AM EDT [facility] ([facility]) Extended Individual Psychotherapy - 45 min 0 12:00:00 AM EDT [facility] ([facility]) Extended Individual Psychotherapy - 45 min 12/27/2019 12:00:00 AM EDT - 12/27/2019 12:00:00 AM EDT [facility] ([facility]) Extended Individual Psychotherapy - 45 min 0 12:00:00 AM EDT [facility] ([facility]) Brief Individual Psychotherapy - 30 min 12/22/2019 12: 00:00 AM EDT [facility] ([facility]) Brief Individual Psychotherapy - 30 min 12/22/2019 12:00:00 AM EDT - 12/22/2019 12:00:00 AM EDT [facility] ([facility]) Extended Individual Psychotherapy - 45 min 0 12:00:00 AM EDT [facility] ([facility]) Extended Individual Psychotherapy - 45 min 11/28/2019 12:00:00 AM EDT - 11/28/2019 12:00:00 AM EDT [facility] ([facility]) Telemed Diagnostic Eval 09/13/2019 12:00:00 AM EDT [facility] ([facility]) Telemed Diagnostic Eval 09/13/2019 12:00 :00 AM EDT - 09/13/2019 12:00:00 AM EDT [facility] ([facility]) [id number]"Psychotherapy 09/12/2019 12:00:00 AM EDT [facility] ([facility]) [id number]"Psychotherapy 0 12:00:00 AM EDT - 09/12/2019 12:00:00 AM EDT [facility] ([facility]) Results ID Date Data Source [id number] 02/08/2020 10:31:00 AM EST [place] ([facility]) Name Value Range Interpretation Code Description Data Anna rce(s) Supporting Document(s) HCG negative Hcg [facility] ([facility]) ID Date Data Source [id number] 02/08/2020 10:31:00 AM EST [place] ([facility]) Name Value Range Interpretation Code Description Data Anna rce(s) Supporting Document(s) HCG negative Hcg [facility] ([facility]) ID Date Data Source [id number] 02/08/2020 10:31:00 AM EST [place] ([facility]) Name Value Range Interpretation Code Description Data Anna rce(s) Supporting Document(s) HCG negative Hcg [facility] ([facility]) ID Date Data Source [id number] 02/07/2020 02:28:00 PM EST [place] ([facility]) Name Value Range Interpretation Code Description Data Anna rce(s) Supporting Document(s) HCG, serum quantitative < 1.0 normal HCG, Serum Q uantitative [facility] ([facility]) ID Date Data Source [id number] 02/07/2020 02:28:00 PM EST [place] ([facility]) Name Value Range Interpretation Code Description Data Anna rce(s) Supporting Document(s) HCG, serum quantitative < 1.0 normal HCG, Serum Q uantitative [place] ([facility]) ID Date Data Source [id number] 02/07/2020 02:28:00 PM EST [place] ([facility]) Name Value Range Interpretation Code Description Data Anna rce(s) Supporting Document(s) HCG, serum quantitative < 1.0 normal HCG, Serum Q uantitative [facility] ([facility]) ID Date Data Source [id number] 02/02/2020 12:00:00 AM EST [facility] Name Value Range Interpretation Code Description Data Anna rce(s) Supporting Document(s) SARS-CoV2 Rapid Antigen [facility] This lab was ordered by [facility] and reported by [facility]. ID Date Data Source [id number] 10/25/2019 12:57:38 PM EDT [facility] Measurements & CalculationsHeight: 64 inches (5 ft. 4 in.) 162.56 cm Weight: 140 pounds 4 oz. 63.75 kg Body Mass Index (BMI): 24.16BMI Interpretation: Healthy WeightBody Surface Area (BSA): 1.68Vital SignsTemperature: 97.4F 36.33C tympanic Pulse Rate: 109 beats/minuteRespiratory Rate: 18 respirations/minuteBlood Pressure: 143/97 left arm sitting automaticO2 Saturation: 100% Vital Signs performed by: Fiona Vizcaino LPN, October 25, 2019 12:59 PMMultiple Vital SignsInitial BP: 154/ 96Vitals #2BP: 143/97 (primary)Performed by: Fiona Vizcaino LPN, October 25, 2019 1:28 PMInitial Intake Information From: patientRoom #: 1Infectious Disease / Travel ScreeningRecent travel for you or any close contacts? NoHave you had any close contact with anyone diagnosed with or under investigation for COVID-19 (coronavirus)? NoFever? NoRespiratory symptoms: cough, cold, congestion, shortness of breath, difficulty breathing? NoLoss of smell? NoLoss of taste? NoSmoking, Tobacco, Vaping or Smoke Exposure StatusSmoke Status: never smokerTobacco Use: NoDo you vape? NoPassive Smoke Exposure: YesPassive Smoke Exposure comments: outsideMenstrual HistoryLast Menstrual Period (LMP): 10/21/2019LMP History: ApproximateAny possibility of ? NoHealthcare HistorySince your last office visit...Have you been admitted to the hospital? NoHave you been to an emergency room (ER) or urgent care clinic? NoHave you seen another healthcare provider? Yes - [facility], [place]Have you seen a dentist? NoIntake performed by: Fiona Vizcaino LPN, October 25, 2019 12:59 PMRate Your HealthIn general, would you say your health is? ExcellentPain AssessmentAre you currently having any pain which... You would like your provider to address? No Affects your activity level? NoDepression Screening - PHQ-2Over the last two weeks, have you... Had little interest or pleasure in doing things? Not at all Been feeling down, depressed, or hopeless? Not at all PHQ-2 Score: 0Anxiety Screening - RACHEL-2Over the last two weeks, have you been... Feeling nervous, anxious, or on edge? Not at all Unable to stop or control worrying? Not at all RACHEL-2 Score: 0Food InsecurityWithin the past year...Did you worry whether your food would run out before you got money to buy more? NoWas there a time when the food you bought didn't last and you didn't have money to get more? NoPRAPARE Sociodemographic Characteristics Race: White Ethnicity: Not or Preferred Language: EnglishFamily and Home Address: [address] [place] [address] What is your housing situation today? I have housing Are you worried about losing your housing? NoMoney and Resources What is the highest level of school that you have finished? associate's degree Employed? 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 Denies Insecurity: food, utilities, clothing, child and adolescent psychologist, phone, legal services, otherWithin the past year did you worry whether your food would run out before you got money to buy more? NoWithin the past year was there a time when the food you bought didn't last and you didn't have money to get more? NoIn the past year, have you had trouble affording costs associated with health insurance (such as deductibles, co-payments, etc.)? NoScreening, Brief Intervention, & Referral to Treatment (SBIRT)Pre-Screening Questions How many times have you have 4 or more drinks in a day? 0How many times have you used an illegal drug or used a prescription medication for a non-medical reason? 0Performed by: Fiona Vizcaino LPN, October 25, 2019 1:01 PMPatient History Medical History:No known medical historySurgical History:No known surgical historyFamily History:Cancer - Colorectal (Maternal Grandfather)Social/Personal History: Alcohol Use: CurrentlyFrequency: holidays/special occasions onlyAlcohol Education: givenDrug Use: PreviouslyDate Quit: 08/30/2019Drug Education: givenChief Complaintannual examHistory of Present Illness (HPI)Pt is a 24 y/o f emale, presents for annual PE. Pt has no concerns today. Following with [facility] once weekly and has two new medications added to list today. Sees [facility] counselor weekly and groups three days a week. HPI performed by: Robinson BARRETO, October 25, 2019 1:17 PMTransitions of Care InboundProblem ReviewProblem List was reviewed and/or updated during this visit.Medication Reconciliation & ReviewMedication List was reviewed and/or updated during this visit, including review of any [id number] medications, herbal therapies, and/or supplements.Allergy ReviewAllergy List was reviewed and/or updated during this visit. Patient has no known allergies.Review of Systems General: Denies loss of appetite, chills, dizziness, fatigue, fever, headache, feeling ill. Eyes: Denies blurring of vision, double vision. Ears/Nose/Throat: Denies earache, nasal congestion, sore throat, swollen glands. Cardiovascular: Denies chest pain, palpitations, feeling faint, peripheral edema. Respiratory: Denies cough, difficulty breathing, shortness of breath, wheezing. Gastrointestinal: Denies nausea, vomiting, diarrhea, pain or discomfort. Genitourinary: Denies pain with urination, burning with urination, incomplete emptying, blood in urine. Skin: Denies rash, suspicious lesions. Neurologic: Denies weakness, numbness/tingling, feeling faint. Psychiatric: Denies depression, anxiety, mental disturbance, hallucinations, paranoia, feeling stressed. Physical ExamGeneral Appearance: well nourished, well hydrated, no acute distressEyes, External: conjunctivae and lids normal, EOMIExternal Ears: normal, no lesions or deformitiesHearing: grossly intactOtoscopy: canals clear, tympanic membranes intact, no fluid, light reflex intact bilaterallyExternal Nose: normal, no lesions or deformitiesNasal: mucosa, septum, and turbinates normal, nares patentPharynx: tongue normal, posterior pharynx without erythema or exudate, no thrush/aphthous ulcerNeck: supple, no masses, trachea midline, full range of motion of neckThyroid: no nodules, masses, tenderness, or enlargementRespiratory, Auscultation: clear to auscultation bilaterally; no rales, rhonchi, or wheezesRespiratory, Effort: no intercostal retractions or use of accessory musclesCardiovascular, Auscultation: S1, S2 audible; no murmur, rub, or gallop; RRRPeripheral Circulation: no clubbing, cyanosis, edema, or varicositiesAbdomen: soft, non-tender, no masses, bowel sounds normalGait & Station: normalSkin, Inspection: no rashes, lesions, or ulcerationsOrientation: oriented to time, place, and personMood & Affect: no depression, anxiety, or agitationJudgment & Insight: intactCare Management Plan Transitions of CareInboundRate Your HealthIn general, would you say your health is? ExcellentAssessment & Plan Problems:Added: BMI 24.0-24.9 (ICD-V85.1) (ICD10- Z68.24)Encounter for general adult medical examination without abnormal findings (ERE83-F46.00) Assessment: Instructions: Recommend annual medical appointments. Recommend routine dental and vision care. Recommend influenza vaccines annually and tetanus boosters every 10 years. Release of information form(s) to obtain medical records from your prior providers(s) (PACKING CLERK) has been s igned in the office today.Assessed:Generalized anxiety disorder (ICD-300.02) (QEH01-F87.1) Assessment: Instructions: Improved with [facility] and [facility] addiction counseling services.Opioid dependence, in remission (BYH06-O16.21): 09/01/2019 last use Assessment: Instructions: As above.Brief psychotic disorder (XBY69-D23) Assessment: Instructions: As above.Removed:Diarrhea (ICD-787.91) (LMH90-S27.7), Pain of bilateral thighs (BGB42-B54.651), BMI 21.0- 21.9 (ICD-V85.1) (VZC85-O30.21)Patient Instructions/Care Plan: Encounter for general adult medical examination without abnormal findings: Recommend annual medical appointments. Recommend routine dental and vision care. Recommend influenza vaccines annually and tetanus boosters every 10 years. Release of information form(s) to obtain medical records from your prior providers(s) (PACKING CLERK) has been signed in the office today.Generalized anxiety disorder: Improved with [facility] and [facility] addiction counseling services.Opioid dependence- in remission: As above.Brief psychotic disorder: As above. Plan developed in collaboration with patient and/or familyMedications:NALTREXONE HCL 50 MG ORAL TABLETATOMOXETINE HCL 10 MG ORAL CAPSULEETONOGESTREL-ETHINYL ESTRADIOL RINGMedication Changes:Added: ATOMOXETINE HCL 10 MG ORAL CAPSULE-take one tablet by mouth once dailyNALTREXONE HCL 50 MG ORAL TABLET-Take 1 tablet po dailyRemoved:OLANZAPINE 10 MG ORAL TABLET-Take 1 tablet po daily Qty: 30[Tablet] Refills: 0Allergies:No Known Allergies (updated 10/25/2019) Orders:Preventive, Est, (18-39) [[id number]] Follow-Up Return to clinic: in 90 days for follow upCli nical Visit Summary Completed Name Value Range Interpretation Code Description Data Anna rce(s) Supporting Document(s) ID Date Data Source [id number] 09/13/2019 02:18:14 PM EDT [facility] Measurements & CalculationsHeight: 64 inches 162.56 cm Weight: 123 pounds 4 oz. 56.02 kg Body Mass Index (BMI): 21.23BMI Interpretation: Healthy WeightBody Surface Area (BSA): 1.59Weight Management Education Done (Nutrition/Physical Activity)Vital SignsTemperature: 98.6F 37C tympanic Pulse Rate: 91 beats/minuteRespiratory Rate: 18 respirations/minuteBlood Pressure: 105/71 left arm sitting automaticO2 Saturation: 99% Vital Signs performed by: Fiona Vizcaino LPN, September 13, 2019 2:18 PMVital Signs performed by: Robinson BARRETO, September 13, 2019 2:41 PMInitial Intake Information From: patientRoom #: 2Infectious Disease / Travel ScreeningRecent travel for you or any close contacts? NoHave you had any close contact with anyone diagnosed with or under investigation for COVID-19 (coronavirus)? NoFever? NoRespiratory symptoms: cough, cold, congestion, shortness of breath, d ifficulty breathing? NoLoss of smell? NoLoss of taste? NoSmoking, Tobacco, Vaping or Smoke Exposure StatusSmoke Status: never smokerTobacco Use: NoDo you vape? NoPassive Smoke Exposure: NoMenstrual HistoryLast Menstrual Period (LMP): 05/10/2019LMP History: ApproximateAny possibility of ? NoComments: statees she was tested at [facility]-negative.Healthcare HistorySince your last office visit...Have you been admitted to the hospital? Yes - Hospital admission date reported today: 09/04/2019Have you been to an emergency room (ER) or urgent care clinic? NoHave you seen another healthcare provider? Yes - [facility]- therapyHave you seen a dentist? NoIntake performed by: Fiona Vizcaino LPN, September 13, 2019 2:25 PMRate Your HealthIn general, would you say your health is? Very GoodPain AssessmentAre you currently having any pain which... You would like your provider to address? Yes Affects your activity level? YesDepression Screening - PHQ-2Over the last two weeks, have you... Had little interest or pleasure in doing things? Several days Been feeling down, depressed, or hopeless? Several days PHQ-2 Score: 2Anxiety Screening - RACHEL-2Over the last two weeks, have you been... Feeling nervous, anxious, or on edge? Several days Unable to stop or control worrying? Several days RACHEL-2 Score: 2Food InsecurityWithin the past year...Did you worry whether your food would run out before you got money to buy more? NoWas there a time when the food you bought didn't last and you didn't have money to get more? NoGeneralized Anxiety Disorder 7-Item Screening (RACHEL-7)Answer Guide:0 = Not at all1 = Several days2 = Over half the days3 = Nearly every dayOver the last 2 weeks, how often have you been bothered by the following problems?Feeling nervous, anxious, or on edge: 1Not being able to stop or control worryinWorrying too much about different things: 1Trouble relaxinBeing so restless that it's hard to sit still: 1Becoming easily annoyed or irritable: 1Feeling afraid as if something awful might happen: 1Answer Guide:0 = Not difficult at all1 = Somewhat difficult2 = Very difficult3 = Extremely difficultHow difficult have these made it for you to do your work, take care of things at home, or get along with other people? 1GAD- 7 Screening Results RACHEL-2 Score: 2GAD-7 Score: 7Functional Impairment: Somewhat difficultRecommendation: Mild anxietyPHQ-9 1. Over the last 2 weeks, patient reports the following frequency of symptoms: a. Little interest or pleasure in doing things -Several days b. Feeling down, depressed, or hopeless -Several days c. Trouble falling asleep, staying asleep, or sleeping too much -Several days d. Feeling tired or having little energy -Several days e. Poor appetite or overeating -Several days f. Feeling bad about yourself, feeling that you are a failure, or feeling that you have let yourself or your family down -Not at all g. Trouble concentrating on things such as reading the newspaper or watching television -More than half the days h. Moving or speaking so slowly that other people could have noticed. Or being so fidgety or restless that you have been moving around a lot more than usual -Not at all i. Thinking that you would be better off or that you want to hurt yourself in some way -Not at all2. If you checked off any problems, how difficult have these problems made it for you to do your work, take care of things at home, or get along with other people? -Somewhat DifficultToday's PHQ-9 Results Score: 7 Severity: Mild Diagnosis Recommendation: No recommendation Functional Impairment: Somewhat DifficultToday's Follow-Up Action Depression follow-up done. Follow-Up Action: Scheduled with Behavioral Health - existing careIdin AssessmentLocation: mid sectionDuration: yearsFrequency: DailyCharacter/Quality: achingIs the pain radiating? NoScreening, Brief Intervention, & Referral to Treatment (SBIRT)Pre-Screening Questions How many times have you have 4 or more drinks in a day? 2How many times have you used an illegal drug or used a prescription medication for a non-medical reason? 365Performed by: Fiona Vizcaino LPN, September 13, 2019 2:27 PMPatient History Medical History:No known medical historySurgical History:No known surgical historyFamily History:Cancer - Colorectal (Maternal Grandfather)Social/Personal History: Chief Complaintfollow[facility] dischargeHistory of Present Illness (HPI)23 yo female pt presents for follow up of hospital discharge and to establish care. Pt states she is feeling a lot better since being discharged. Admitted 09/04/2019-09/11/2019 for paranoia and bizzare behavior, discharged on Zyprexa 10mg daily. Had counseling appt at [facility] yesterday and 10/04/2019 is first prescriber appointment.States she is having pain in her upper thigh area that has been going on for a few years. Pt states she is a recovering opioid addict, states she does smoke marijuana daily for anxiety and body aches. Last use of heroin was 09/01/2019, detoxed while in the hospital. Pt is currently living with mother until she becomes more stable.Pt has PACKING CLERK appt today at 4pm, [facility], wants to be screened for STDs before restarting Nuvaring. Transitions of Care InboundProblem ReviewProblem List was reviewed and/or updated during this visit.Medication Reconciliation & ReviewMedication List was reviewed and/or updated during this visit, including review of any [id number] medications, herbal therapies, and/or supplements.Allergy ReviewAllergy List was reviewed and/or updated during this visit. Patient has no known allergies.Adult Preventive CareLabs/Meds/Other Counseling-Nutrition and Physical Activity:BMI Interpretation: Healthy Weight (09/13/2019) Counseling: Done (09/13/2019) Physical Activity: Done (09/13/2019)Review of Systems General: Denies fatigue, fever, headache, feeling ill. Cardiovascular: Denies chest pain, palpitations, feeling faint. Respiratory: Denies cough, difficulty breathing, shortness of breath. Gastrointestinal: Complains of diarrhea. Denies nausea, vomiting, constipation, pain or discomfort. Genitourinary: Denies pain with urination, burning with urination, incomplete emptying, blood in urine, vaginal discharge. Musculoskeletal: Complains of see HPI, leg pain. Denies back pain, joint swelling, stiffness, recent injury. Skin: Denies rash, redness, suspicious lesions. Neurologic: Denies weakness, numbness/tingling, feeling faint. Psychiatric: Complains of see HPI, depression, anxiety. Denies mental disturbance, suicidal ideation, hallucinations, paranoia. Physical ExamGeneral Appearance: well nourished, well hydrated, no acute distressEyes, External: conjunctivae and lids normal, EOMIRespiratory, Auscultation: clear to auscultation bilaterally; no rales, rhonchi, or wheezesCardiovascular, Auscultation: S1, S2 audible; no murmur, rub, or gallop; RRRPeripheral Circulation: no clubbing, cyanosis, edema, or varicositiesAbdomen: soft, non- tender, no masses, bowel sounds normalGait & Station: normalBack: FROM without painLower Extremity, Right: FROM of hips without pain or crepitus, pain in upper quads without spasm or massLower Extremity, Left: FROM of hips without pain or crepitus, pain in upper quads without spasm or massSkin, Inspection: no rashes, lesions, or ulcerationsOrientation: oriented to time, place, and personMood & Affect: no depression, anxiety, or agitationJudgment & Insight: intactCare Management Plan Transitions of CareInboundRate Your HealthIn general, would you say your health is? Very GoodAssessment & Plan Problems:Added: BMI 21.0-21.9 (ICD-V85.1) (OUS25-A31.21)Brief psychotic disorder (UGS20-S12) Assessment: Instructions: Continue Zyprexa. Continue as scheduled with your mental health providers. Refills provided today to get you through to your upcoming appointment with prescriber.Generalized anxiety disorder (ICD-300.02) (ICD10- F41.1) Assessment: Instructions: As above. Hydroxyzine as needed up to three times daily. May cause sleepiness, use caution.Opioid dependence, in remission (FPP27-V86.21): 09/01/2019 last use Assessment: Instructions: Please go to walkin at either [facility] or [facility].Cannabis abuse, uncomplicated (YQF71-T31.10) Assessment: Instructions: Recommend complete cessation.Diarrhea (ICD-787.91) (QCF51-H84.7) Assessment: Instructions: Given stool collection kit, please return stool sample to [facility] lab for testing. [place] diet: bananas, rice, applesauce, toast.Pain of bilateral thighs (TGM10-L10.651) Assessment: Instructions: Recommend quad stretches and avoiding movements that worsen the pain. Monitor. Consider physical therapy if those continue.Patient Instructions/Care Plan: Brief psychotic disorder: Continue Zyprexa. Continue as scheduled with your mental health providers. Refills provided today to get you through to your upcoming appointment with prescriber.Generalized anxiety disorder: As above. Hydroxyzine as needed up to three times daily. May cause sleepiness, use caution.Opioid dependence- in remission: Please go to walkin at either [facility] or [facility].Cannabis abuse- uncomplicated: Recommend complete cessation.Diarrhea: Given stool collection kit, please return stool sample to [facility] lab for testing. [place] diet: bananas, rice, applesauce, toast.Pain of bilateral thighs: Recommend quad stretches and avoiding movements that worsen the pain. Monitor. Consider physical therapy if those continue. Plan developed in collaboration with patient and/or familyMedications:HYDROXYZINE HCL 25 MG ORAL TABLETETONOGESTREL-ETHINYL ESTRADIOL RINGOLANZAPINE 10 MG ORAL TABLETMedication Changes:Added: ETONOGESTREL-ETHINYL ESTRADIOL RINGNew Prescription:HYDROXYZINE HCL 25 MG ORAL TABLET-Take 1 tablet by mouth up to three times daily as needed Qty: 30[Tablet] Refills: 1 Method: ElectronicOLANZAPINE 10 MG ORAL TABLET-Take 1 tablet po daily Qty: 30[Tablet] Refills: 0 Method: ElectronicAllergies:No Known Allergies (updated 09/13/2019) Orders:GI Panel - Stool [[id number]] Adult - Ofc Vst, NEW, Level IV [[id number]] Follow-Up Return to clinic: in 6 weeks for preventive care visitAdditional Follow-Up: annual PEClinical Visit Summary CompletedMedications:OLANZAPINE 10 MG ORAL TABLET (OLANZAPINE) Take 1 tablet po daily #30[Tablet] x 0 Entered and Authorized by: Robinson BARRETO Method used: Electronically to [facility] (retail) [address] [place] [address] Note to Pharmacy: Route: ORAL; RxID: [id number] HCL 25 MG ORAL TABLET (HYDROXYZINE HCL) Take 1 tablet by mouth up to three times daily as needed #30[Tablet] x 1 Route:ORAL Entered and Authorized by: Robinson BARRETO Method used: Electronically to [facility] (retail) [address] [place] [address] Fax: Note to Pharmacy: Route: ORAL; Indications: GENERALIZED ANXIETY DISORDER RxID: [id number] signed by Robinson BARRETO on 09/22/2019 at 10:02 AM Name Value Range Interpretation Code Description Data Anna rce(s) Supporting Document(s) Procedure Social History Code Duration Value Status Description Data Source(s ) Smoking 04/15/2020 12:00:00 AM EST Patient has never smoked co mpleted Patient has never smoked [facility] ([facility]) Smoking 04/02/2020 12:00:00 AM EST Never Smoker completed Never S moker eCW1 ([facility]) Smoking 03/16/2020 12:00:00 AM EST Never Smoker completed Never S moker eCW1 ([facility]) Smoking 03/08/2020 12:00:00 AM EST Never Smoker completed Never S moker eCW1 ([facility]) Smoking 01/10/2020 12:00:00 AM EDT Unknown if ever smoked comp leted Unknown if ever smoked [facility] ([facility]) Smoking 01/09/2020 12:00:00 AM EDT Unknown if ever smoked comp leted Unknown if ever smoked [facility] ([facility]) Smoking 01/04/2020 12:00:00 AM EDT Unknown if ever smoked comp leted Unknown if ever smoked [facility] ([facility] Smoking 12/27/2019 12:00:00 AM EDT Unknown if ever smoked comp leted Unknown if ever smoked [facility] ([facility]) Smoking 12/22/2019 12:00:00 AM EDT Unknown if ever smoked comp leted Unknown if ever smoked [facility] ([facility]) Smoking 11/28/2019 12:00:00 AM EDT Unknown if ever smoked comp leted Unknown if ever smoked [facility] ([facility]) Smoking 09/13/2019 12:00:00 AM EDT Unknown if ever smoked comp leted Unknown if ever smoked [facility] ([facility]) Smoking 09/12/2019 12:00:00 AM EDT Unknown if ever smoked comp leted Unknown if ever smoked [facility] ([facility]) Vital Signs ID Date Data Source UNK Name Value Range Interpretation Code Description Data Source(s) Body surface area Derived from formula 1.62 m2 1.62 m2 MED[facility] ([facility]) Body mass index (BMI) [Ratio] 25.1 kg/m2 25.1 k g/m2 MED[facility] ([facility]) Body weight 136.00 [lb_av] 136.00 [lb_av] MEDEN T ([facility]) Body height 61.75 [in_i] 61.75 [in_i] [facility] ([facility] 5'1.75" Diastolic blood pressure 62 mm[Hg] 62 mm[Hg] MEDENT ([facility]) Systolic blood pressure 100 mm[Hg] 100 mm[Hg] M EDENT ([facility]) Body weight 2156.8 [oz_av] 2156.8 [oz_av] ATHEN A ([facility]) Systolic blood pressure 144 mm[Hg] 144 mm[Hg] A THENA ([facility]) Systolic blood pressure 134 mm[Hg] 134 mm[Hg] A THENA ([facility]) Body mass index (BMI) [Ratio] 23.1 kg/m2 23.1 k g/m2 MASON ([facility]) Body height 64 [in_i] 64 [in_i] MASON ([facility]) Diastolic blood pressure 87 mm[Hg] 87 mm[Hg] MASON ([facility]) Diastolic blood pressure 100 mm[Hg] 100 mm[Hg] MASON ([facility]) Diastolic blood pressure 82 mm[Hg] 82 mm[Hg] eCW1 ([facility]) Systolic blood pressure 136 mm[Hg] 136 mm[Hg] e CW1 ([facility]) Body temperature 98.6 [degF] 98.6 [degF] eCW1 ( [facility]) Respiratory rate 18 /min 18 /min eCW1 ([facility]) Heart rate 102 /min 102 /min eCW1 ([facility]) Body mass index (BMI) [Ratio] 24.48 kg/m2 24.48 kg/m2 eCW1 ([facility]) Body height 62.5 [in_i] 62.5 [in_i] eCW1 ([facility]) Body weight 136.0 [lb_av] 136.0 [lb_av] eCW1 ([facility]) Body weight 2160 [oz_av] 2160 [oz_av] MASON ([facility]) Systolic blood pressure 131 mm[Hg] 131 mm[Hg] A THENA ([facility]) Body mass index (BMI) [Ratio] 23.2 kg/m2 23.2 k g/m2 MASON ([facility]) Body height 64 [in_i] 64 [in_i] MASON ([facility]) Diastolic blood pressure 92 mm[Hg] 92 mm[Hg] [place]ON ([facility]) Body weight 2160 [oz_av] 2160 [oz_av] [place]ON ([facility]) Systolic blood pressure 131 mm[Hg] 131 mm[Hg] A THEN ([facility]) Body mass index (BMI) [Ratio] 23.2 kg/m2 23.2 k g/m2 [place]ON ([facility]) Body height 64 [in_i] 64 [in_i] [place]ON ([facility]) Diastolic blood pressure 92 mm[Hg] 92 mm[Hg] MASON ([facility]) Body weight 2153.6 [oz_av] 2153.6 [oz_av] ATHZARIA A ([facility]) Systolic blood pressure 136 mm[Hg] 136 mm[Hg] A YVETTE ([facility]) Body mass index (BMI) [Ratio] 23.1 kg/m2 23.1 k g/m2 MASON ([facility]) Body height 64 [in_i] 64 [in_i] [place]ON ([facility]) Diastolic blood pressure 90 mm[Hg] 90 mm[Hg] [place]ON ([facility]) Body weight 2153.6 [oz_av] 2153.6 [oz_av] ATHZARIA A ([facility]) Systolic blood pressure 136 mm[Hg] 136 mm[Hg] A YVETTE ([facility]) Body mass index (BMI) [Ratio] 23.1 kg/m2 23.1 k g/m2 MASON ([facility]) Body height 64 [in_i] 64 [in_i] [place]ON ([facility]) Diastolic blood pressure 90 mm[Hg] 90 mm[Hg] MASON ([facility]) Diastolic blood pressure 90 mm[Hg] 90 mm[Hg] [place]ON ([facility]) Body height 64 [in_i] 64 [in_i] [place] ([facility]) Body mass index (BMI) [Ratio] 23.1 kg/m2 23.1 k g/m2 [place]ON ([facility]) Systolic blood pressure 136 mm[Hg] 136 mm[Hg] A YVETTE ([facility]) Body weight 2153.6 [oz_av] 2153.6 [oz_av] ATHEN A ([facility]) Body height 0.00 in Normal (applies to non-numeric resu lts) 0.00 in [facility] ([facility]) Body weight Measured 0.00 lbs Normal (applies to n on-numeric results) 0.00 lbs [facility] ([facility]) Body mass index (BMI) [Ratio] 0.00 kg/m2 No rmal (applies to non-numeric results) 0.00 kg/m2 [facility] ([facility]) Systolic blood pressure 0 mm[Hg] Normal (applies t o non-numeric results) 0 mm[Hg] [facility] ([facility] Diastolic blood pressure 0 mm[Hg] Normal (applies to non-numeric results) 0 mm[Hg] [facility] ([facility]) Body weight 2244 [oz_av] 2244 [oz_av] MASON ([facility]) Systolic blood pressure 143 mm[Hg] 143 mm[Hg] A [facility] ([facility]) Body height 64 [in_i] 64 [in_i] [place] ([facility]) Diastolic blood pressure 97 mm[Hg] 97 mm[Hg] [place] ([facility]) Body weight 2244 [oz_av] 2244 [oz_av] [place] ([facility]) Systolic blood pressure 143 mm[Hg] 143 mm[Hg] A [facility] ([facility]) Body height 64 [in_i] 64 [in_i] [place] ([facility]) Diastolic blood pressure 97 mm[Hg] 97 mm[Hg] [facility]ON ([facility]) Diastolic blood pressure 97 mm[Hg] 97 mm[Hg] [place] ([facility]) Body height 64 [in_i] 64 [in_i] [place] ([facility]) Systolic blood pressure 143 mm[Hg] 143 mm[Hg] [facility] Body weight 2244 [oz_av] 2244 [oz_av] [place] ([facility]) Body weight 1972 [oz_av] 1972 [oz_av] [place] ([facility]) Systolic blood pressure 105 mm[Hg] 105 mm[Hg] A [facility] ([facility]) Body height 64 [in_i] 64 [in_i] [place] ([facility]) Diastolic blood pressure 71 mm[Hg] 71 mm[Hg] [place] ([facility]) Body weight 1972 [oz_av] 1972 [oz_av] [place] ([facility]) Systolic blood pressure 105 mm[Hg] 105 mm[Hg] A [facility] ([facility]) Body height 64 [in_i] 64 [in_i] [place] ([facility]) Diastolic blood pressure 71 mm[Hg] 71 mm[Hg] [place] ([facility]) Diastolic blood pressure 71 mm[Hg] 71 mm[Hg] [place] ([facility]) Body height 64 [in_i] 64 [in_i] [place] ([facility]) Systolic blood pressure 105 mm[Hg] 105 mm[Hg] A THENA ([facility]) Body weight 1972 [oz_av] 1972 [oz_av] [facility]ON ([facility]) Patient Treatment Plan of Care Planned Activity Planned Date Details Description Data Source (s) quetiapine 50 MG Oral Tablet [place] ([facility]) olanzapine 10 MG Oral Tablet [place] ([facility]) Naltrexone hydrochloride 50 MG Oral Tablet [place] ([facility]) Escitalopram 10 MG Oral Tablet [Lexapro] [place] ([facility]) Hydroxyzine Hydrochloride 25 MG Oral Tablet [place] ([facility]) 21 DAY Ethinyl Estradiol 0.824577 MG/HR / Etonogestrel 0.005 MG/HR Vaginal Ring [facility]ON ([facility]) atomoxetine 25 MG Oral Capsule MSAON ([facility]) atomoxetine 18 MG Oral Capsule [place] ([facility]) quetiapine 50 MG Oral Tablet [place] ([facility]) olanzapine 10 MG Oral Tablet [place] ([facility]) Naltrexone hydrochloride 50 MG Oral Tablet [place] ([facility]) Escitalopram 10 MG Oral Tablet [Lexapro] [place] ([facility]) Hydroxyzine Hydrochloride 25 MG Oral Tablet [place] ([facility]) 21 DAY Ethinyl Estradiol 0.861459 MG/HR / Etonogestrel 0.005 MG/HR Vaginal Ring [facility] ([facility]) atomoxetine 25 MG Oral Capsule [place] ([facility]) atomoxetine 18 MG Oral Capsule [place] ([facility]) atomoxetine 18 MG Oral Capsule [place] ([facility]) 21 DAY Ethinyl Estradiol 0.451761 MG/HR / Etonogestrel 0.005 MG/HR Vaginal Ring [place] ([facility]) Hydroxyzine Hydrochloride 25 MG Oral Tablet [place] ([facility]) Naltrexone hydrochloride 50 MG Oral Tablet [place] ([facility]) olanzapine 10 MG Oral Tablet [place] ([facility]) quetiapine 50 MG Oral Tablet [place] ([facility])
--- OUTSIDE RECORDS SUMMARY | 2020-04-24 12:58 | CCD ---
Author Organization Unknown Address [address] [place] [id number] Phone [phone] Care Team Providers Care Rubber Tester Name Role Phone Robinson Castanon Unavailable Unavailable Allergies Code Code System Name Reaction Severity Status Onset NKDA Medications Name Status Start Date Stop Date atomoxetine 18 mg capsule Completed 2019 atomoxetine 25 mg capsule Active Not av ailable etonogestrel 0.12 mg-ethinyl estradiol 0.015 mg/24 hr vaginal ri ng Completed 02/07/2020 hydroxyzine HCl 25 mg tablet Completed 01/2020 naltrexone 50 mg tablet Completed 02/07/20 olanzapine 10 mg tablet Completed 02/07/20 quetiapine 50 mg tablet Completed 02/07/20 Problems Name Status Onset Date Source Brief 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 02/07/2020 Choriogonadotropin, Quant, Serum or Plasma Norm al HCG, Serum Quantitative < 1.0 mIU/mL [facility] [address] [facility] Past Encounters 02/07/2020 Amenorrhea YORDAN AbdallaC: [address] [facility] [address] [address], Ph. Social History Tobacco Smoking Status Never [...] Surgeries None recorded. Imaging None recorded. Vitals 02/07/2020 01:10PM ESTABLISHED PATIENT 15 Height Weight BMI Blood Pressure 64 in 134 lbs 9.6 oz 23.1 kg/m2 136/90 mm[Hg ] 10/25/2019 Height Weight Blood Pressure 64 in 140 lbs 4 oz 143/97 mm[Hg] 09/13/2019 Height Weight Blood Pressure 64 in 123 lbs 4 oz 105/71 mm[Hg]
[2020-04-24] MEDS ORDERED: OLANZapine ORAL DISINTEGRATING TAB 5MG PO ONE (13:45)
[2020-04-24] MEDS ORDERED: OLANZapine INTRAMUSCULAR 10MG VIAL IM ONE (14:15)
--- OUTSIDE RECORDS SUMMARY | 2020-04-24 15:21 | CCD ---
Author Author [facility] Organization [facility] Address Unknown Phone Unavailable Care Team Providers Care Supervisor Compounding And Finishing Name Role Phone Yue Wells Unavailable CASTANON, BEVERLY ROBINSON RPA-C Unavailable Unavailable CASTANON, BEVERLY ROBINSON RPA-C Unavailable Unavailable CASTANON, BEVERYL ROBINSON RPA-C Unavailable Unavailable CASTANON, BEVERLY ROBINSON [...] Stallings Unavailable Jennifer Latham Unavailable Josh ROE SECURE SOFTWARE ASSESSOR Unavailable Unavailable MARILYN, H FERNANDO SECURE SOFTWARE ASSESSOR Unavailable Unavailable MARILYN, H FERNANDO SECURE SOFTWARE ASSESSOR Unavailable Unavailable MARILYN, H FERNANDO SECURE SOFTWARE ASSESSOR Unavailable Unavailable MARILYN, H FERNANDO SECURE SOFTWARE ASSESSOR Unavailable Unavailable MARILYN, H FERNANDO SECURE SOFTWARE ASSESSOR Unavailable Unavailable MARILYN, H FERNANDO SECURE SOFTWARE ASSESSOR Unavailable Unavailable Byron, Vinnie Unavailable Byron, Vinnie Unavailable CASTANON, BEVERLY ROBINSON RPA-C Unavailable Unavailable CASTANON, BEVERLY ROBINSON RPA-C Unavailable Unavailable CASTANON, BEVERLY ROBINSON RPA-C Unavailable Unavailable CASTANON, BEVERLY ROBINSON RPA-C Unavailable Unavailable CASTANON, BEVERLY ROBINSON RPA-C Unavailable Unavailable CASTANON, BEVERLY ROBINSON RPA-C Unavailable Unavailable CASTANON, BEVERLY ROBINSON RPA-C Unavailable Unavailable CASTANON, BEVERLY ROBINSON RPA-C Unavailable Unavailable CASTANON, BEVERLY ROBINSON RPA-C Unavailable Unavailable CASTANON, BEVELRY ROBINSON RPA-C Unavailable Unavailable CASTANON, BEVERLY ROBINSON [...] Unavailable CASTANON, BEVERLY ROBINSON RPA-C Unavailable Unavailable [facility] Unavailable [phone] [facility] Unavailable [phone] [facility], RFROST CAST[facility]ON PA ROBINSON Unavailable Unavailable EGORHO, F MANJU FPMHNP Unavailable Unavailable EGORHO, F MANJU FPMHNP Unavailable Unavailable EGORHO, F MANJU FPMHNP Unavailable Unavailable EGORHO, F MANUJ FPMHNP Unavailable Unavailable EGORHO, F MANJU FPMHNP [...] is protected by Article 27-F of the [facility] Public Health law. If you continue you may have access to information: Regarding HIV / AIDS; Provided by facilities licensed or operated by the [facility] Office of Mental Health; or Provided by the [facility] Office for People With Developmental Disabilities. If such information is present, then the following [facility] mandated warning applies: This information has [...] law may result in a fine or intermediate sentence or both. A general authorization for the release of medical or other information is NOT sufficient authorization for further disc losure. 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 Attender: JESS ELENA GUNDERSEN [facility] Medical 04/01/2020 12:00:00 AM EST [facility] ([facility]) [place] [address] [facility] [address] 03/08/2020 12:00:00 AM EST eCW1 ([facility]) [place] [address] [facility] [address] 03/08/2020 12:00:00 AM EST eCW1 ([facility]) YORDAN AbdallaC: [address], [place] [address], Ph. Attender: ROBINSON REYES [facility] Medical 03/01/2020 12:00:00 AM EST [facility] ([facility]) YORDAN AbdallaC: [address], [place] [address], Ph. Attender: ROBINSON REYES [facility] Medical 03/01/2020 12:00:00 AM EST [facility] ([facility]) YORDAN AbdallaC: [address], [place] [address], Ph. Attender: ROBINSON REYES [facility] Medical 02/07/2020 12:00:00 AM EST [facility] ([facility]) YORDAN AbdallaC: [address], [place] [address], Ph. Attender: ROBINSON CASTANON RPA-C [facility] Medical 02/07/2020 12:00:00 AM EST [facility] ([facility]) Robinson Castanon RPA-C: [address], [place] [address], Ph. Attender: ROBINSON CASTANON RPA-C [facility] Medical 02/07/2020 12:00:00 AM EST [facility] ([facility]) Outpatient Attender: BUNNY GARCIA [facility] 12/27 02:27:10 PM EDT [facility] Extended Individual Psychotherapy - 45 min Attender: Valdez Matthews [facility] Vianney 01/10/2020 03:15:00 AM EDT - 01/10/2020 03:15:00 AM EDT [facility] ([facility]) Attender: Vinnie Matthews 01/10/2020 12:00:00 AM EDT [facility] ([facility]) Outpatient Attender: FERNANDO ROE NP [facility] Prateek alexander 01/09/2020 04:30:00 AM EDT - 01/09/2020 04:30:00 AM EDT [facility] ([facility]) Attender: FERNANDO ROE NP 01/09/2020 12:00:00 AM EDT [facility] ([facility]) Attender: Vinnie Matthews 01/04/2020 12:00:00 AM EDT [facility] ([facility]) Extended Individual Psychotherapy - 45 min Attender: Valdez garcia [facility] 01/02/2020 06:00:00 AM EDT - 01/02/2020 06:00:00 AM EDT [facility] ([facility]) Attender: [facility] 12:00:00 AM EDT [facility] ([facility]) Extended Individual Psychotherapy - 45 min Attender: [facility] 12/26/2019 06:00:00 AM EDT - 12/26/2019 06:00:00 AM EDT [facility] ([facility]) Brief Individual Psychotherapy - 30 min Attender: Bernaleena dickey [facility] 12/22/2019 03:00:00 AM EDT - 12/22/2019 03:00:00 AM EDT [facility] ([facility]) Attender: Berna Stallings 12/22/2019 12:00:00 AM EDT [facility] ([facility]) Extended Individual Psychotherapy - 45 min Attender: Amol De La Rosadilciacristobal [facility] 11/28/2019 09:00:00 AM EDT - 11/28/2019 09:00:00 AM EDT [facility] ([facility]) Attender: Yue Wells 11/28/2019 12:00:00 A M EDT [facility] ([facility]) Outpatient Attender: ROBINSON REYES [facility] 11/08/2019 02:16:00 PM EDT [facility] 10/27 02:15:04 PM EDT [facility] Outpatient [facility] 10/27 08:41:59 AM EDT [facility] Outpatient Attender: ROBINSON REYES [facility] 10/25/2019 01:24:01 PM EDT [facility] Outpatient [facility] 08/2019 12:28:02 PM EDT [facility] Outpatient Att[facility]: [facility] 08/28 10:02:59 AM EDT [facility] Outpatient 09/15/2019 05:55:00 AM EDT [facility] Radiology Imaging Outpatient Attender: ROBINSON REYES [facility] 09/13/2019 03:04:01 PM EDT [facility] Telemed Diagnostic Eval Attender: MANJU ROGELBRUNO [facility] 09/13/2019 02:00:00 AM EDT - 09/13/2019 02:00:00 AM EDT [facility] ([facility]) Attender: MANJU JACQUES FPMHNP 09/13/2019 12:00: 00 AM EDT [facility] ([facility]) [facility] 09/12/2019 10:00:00 AM EDT [facility] [id number]"Psychotherapy Attender: Jennifer Latham [facility] 09/12/2019 08:00:00 AM EDT - 09/12/2019 08:00:00 AM EDT [facility] ([facility]) Attender: Jennifer Latham 09/12/2019 12:00:00 AM EDT [facility] ([facility] 09/11/2019 12:37:00 PM EDT [facility] 09/11/2019 08:21:01 AM EDT [facility] Functional Status Medications Medication Brand Name Start Date Product Form Dose Route Admi nistrative Instructions Pharmacy Instructions Status Indications Reaction Description Data Source(s) quetiapine 50 MG Oral Tablet [Seroquel] Seroquel 01/09/2020 12: 00:00 AM EDT 50 mg by mouth completed [id number] Seroquel by mouth [id number] 01/09/2020 03/09/2020 at bedtime 30 50 mg tablet 29004 099131 [id number] Yarelis Roe [id number] Nurse Practitioner [facility] ([facility]) atomoxetine 25 MG Oral Capsule [Strattera] Strattera 01/08 12:00:00 AM EDT 25 mg by mouth completed 746088 Strattera by mouth [id number] 01/09/2020 02/08/2020 at bedtime 30 25 mg capsule 83184 [id number] Finn Roe [id number] Nurse Practitioner [facility] ([facility]) quetiapine 50 MG Oral Tablet [Seroquel] Seroquel 11/09/2019 12: 00:00 AM EDT 50 mg by mouth completed 539073 Seroquel by mouth [id number] 11/09/2019 01/08/2020 at bedtime 30 50 mg tablet [id number] Yarelis Roe [id number] Nurse Practitioner [facility] ([facility]) 0.12-0.015 mg/24 hr 03/01/2019 12:00:00 AM EST ring 3 USE DIRECTED USE DIRECTED SOLD: 03/01/2019 [facility] Escitalopram 10 MG Oral Tablet [Lexapro] Lexapro 10 mg tablet Take 1 tablet every day by oral route. Lexapro 10 mg tablet Take 1 tablet every day by oral route. 1 completed escitalopram 10 MG Oral Tablet [Lexapro] [facility] ([facility]) Hydroxyzine Hydrochloride 25 MG Oral Tablet hydroxyzin e HCl 25 mg tablet hydroxyzine HCl 25 mg tablet completed hydroxyzine hydrochloride 25 MG Oral Tablet [facility]) olanzapine 10 MG Oral Tablet olanzapine 10 mg tablet olanzapine 10 mg tablet completed olanzapine 10 MG Oral Tablet [facility]) atomoxetine 25 MG Oral Capsule atomoxetine 25 mg [facility] atomoxetine 25 mg capsule completed atomoxetine 25 MG Oral Capsule [facility]) quetiapine 50 MG Oral Tablet quetiapine 50 mg tablet quetiapine 50 mg tablet completed quetiapine 50 MG Oral Tablet [facility] ([facility]) Naltrexone hydrochloride 50 MG Oral Tablet naltrexone 50 mg tablet naltrexone 50 mg tablet completed naltrexone hydrochloride 50 MG Oral Tablet [facility]) atomoxetine 18 MG Oral Capsule atomoxetine 18 mg [facility] atomoxetine 18 mg capsule completed atomoxetine 18 MG Oral Capsule [facility]) Escitalopram 10 MG Oral Tablet [Lexapro] Lexapro 10 mg tablet Take 1 tablet every day by oral route. Lexapro 10 mg tablet Take 1 tablet every day by oral route. 1 completed escitalopram 10 MG Oral Tablet [Lexapro] [facility] ([facility]) atomoxetine 18 MG Oral Capsule atomoxetine 18 mg [facility] atomoxetine 18 mg capsule completed atomoxetine 18 MG Oral Capsule [facility]) olanzapine 10 MG Oral Tablet olanzapine 10 mg tablet olanzapine 10 mg tablet completed [facility] N[facility] 50 MG Oral Tablet naltrexone 50 mg tablet naltrexone 50 mg tablet completed naltrexone hydrochloride 50 MG Oral Tablet [facility] ([facility]) atomoxetine 18 MG Oral Capsule atomoxetine 18 mg cap[facility] le atomoxetine 18 mg capsule completed atomoxetine 18 MG Oral Capsule [facility] ([facility]) quetiapine 50 MG Oral Tablet quetiapine 50 mg tablet quetiapine 50 mg tablet completed quetiapine 50 MG Oral Tablet [facility] ([facility]) Hydroxyzine Hydrochloride 25 MG Oral Tablet hydroxyzin e HCl 25 mg tablet hydroxyzine HCl 25 mg tablet completed hydroxyzine hydrochloride 25 MG Oral Tablet [facility] ([facility]) 21 DAY Ethinyl Estradiol 0.910401 MG/HR / Etonogestrel 0.005 MG/HR Vaginal Ring etonogestrel 0.12 mg-ethinyl estradiol 0.015 mg/24 hr vaginal ring etonogestrel 0.12 mg-ethinyl estradiol 0.015 mg/24 hr vaginal ring completed 21 DAY ethinyl estradiol 0.050658 MG/HR / etonogestrel 0.005 MG/HR Vaginal System [facility] ([facility]) quetiapine 50 MG Oral Tablet quetiapine 50 mg tablet quetiapine 50 mg tablet completed quetiapine 50 MG Oral Tablet [facility] ([facility]) Naltrexone hydrochloride 50 MG Oral Tablet naltrexone 50 mg tablet naltrexone 50 mg tablet completed naltrexone hydrochloride 50 MG Oral Tablet [facility] ([facility]) 21 DAY Ethinyl Estradiol 0.786209 MG/HR / Etonogestrel 0.005 MG/HR Vaginal Ring etonogestrel 0.12 mg-ethinyl estradiol 0.015 mg/24 hr vaginal ring etonogestrel 0.12 mg-ethinyl estradiol 0.015 mg/24 hr vaginal ring completed 21 DAY ethinyl estradiol 0.652532 MG/HR / etonogestrel 0.005 MG/HR Vaginal System [facility] ([facility]) olanzapine 10 MG Oral Tablet olanzapine 10 mg tablet olanzapine 10 mg tablet completed olanzapine 10 MG Oral Tablet [facility] ([facility]) 21 DAY Ethinyl Estradiol 0.446440 MG/HR / Etonogestrel 0.005 MG/HR Vaginal Ring etonogestrel 0.12 mg-ethinyl estradiol 0.015 mg/24 hr vaginal ring etonogestrel 0.12 mg-ethinyl estradiol 0.015 mg/24 hr vaginal ring completed 21 DAY ethinyl estradiol 0.512152 MG/HR / etonogestrel 0.005 MG/HR Vaginal System [facility] ([facility]) atomoxetine 25 MG Oral Capsule atomoxetine 25 mg capsu le atomoxetine 25 mg capsule completed atomoxetine 25 MG Oral Capsule [facility] ([facility]) Hydroxyzine Hydrochloride 25 MG Oral Tablet hydroxyzin e HCl 25 mg tablet hydroxyzine HCl 25 mg tablet completed hydroxyzine hydrochloride 25 MG Oral Tablet [facility] ([facility]) Insurance Providers Payer name Policy type / Coverage type Policy ID Covered libertarian ID Covered libertarian's relationship to marinelli Policy Marinelli Plan Information R [facility] [id number] MO2 [id number] [employer] [id number] SF2 [id number] MEDICAID [id number] SP [id number] [place] Commercial Family Dependent [employer] Compensation [id number] Self [id number] [facility] Med[facility] Part B [id number] Family Dependent [id number] [facility] Commercial [id number] Family Dependent [id number] [employer] [id number] Family Dep endent [id number] r Commercial [id number] Family Dependent [id number] [facility] Commercial [id number] Family Dependent [id number] [facility] Commercial [id number] Family Dependent [id number] [facility] Part B [id number] Family Dependent [id number] POM[employer] [id number] MO2 [id number] [employer] NO FAULT [id number] [id number] Self Pay P none S none UMR O [id number] S [id number] SELF PAY UNAVAILABLE SP UNAVAILA BLE EMEDNY [id number] SP [id number] [facility] [id number] MO2 [id number] SELF PAY ONLY [id number] SP [id number] Problems, Conditions, and Diagnoses Code Display Name Description Problem Type Effective Dates Data Source(s) F41.1 [id number] RACHEL (generalized anxiety disorder) Proble m 03/15/2020 12:00:00 AM EST eCW1 ([facility]) F32.9 34926123 Depression, unspecified depression type P roblem 03/15/2020 12:00:00 AM EST eCW1 ([facility]) F32.9 Major depressive disorder, single episod e, unspecified Unspecified depressive Disorder Condition 01/10/2020 12:00:00 AM EDT [facility] ( [facility]) F11.20 Opioid dependence, uncomplicated Opioid Use Disorder, Moderate Condition 01/10/2020 12:00:00 AM EDT [facility] ([facility]) F90.2 Attention-deficit hyperactivity disorder , combined type Attention- Deficit/Hyperactivity Disorder, Combined presentation Condition 01/10/2020 12:00:00 AM EDT [facility] ([facility]) V85.1 BMI 24.0-24.9 BMI 24.0-24.9 11/08/2019 02:14:17 PM EDT [facility] [id number] Body measurement finding Body Measurement Finding Prob wendy 11/08/2019 12:00:00 AM EDT - 02/07/2020 12:00:00 AM EST [facility] ([facility]) [id number] Body measurement finding Body Measurement Finding Prob wendy 11/08/2019 12:00:00 AM EDT - 02/07/2020 12:00:00 AM EST [facility] ([facility]) 178201627 Body measurement finding Body Measurement Finding Prob wendy 11/08/2019 12:00:00 AM EDT - 02/07/2020 12:00:00 AM EST [facility] ([facility]) Z00.00 Encounter for general adult medical examination without abnormal findings Encounter for general adult medical examination without abno rmal findings 10/25/2019 01:23:36 PM EDT [facility] [id number] SNOMED CT Concept SNOMED CT Concept Problem 10/24 12:00:00 AM EDT - 02/07/2020 12:00:00 AM EST [facility] ([facility]) 199984539 SNOMED CT Concept SNOMED CT Concept Problem 10/24 12:00:00 AM EDT - 02/07/2020 12:00:00 AM EST [facility] ([facility]) 992201733 SNOMED CT Concept SNOMED CT Concept Problem 10/24 12:00:00 AM EDT - 02/07/2020 12:00:00 AM LARY CUEVAS ([facility]) V85.1 BMI 21.0-21.9 BMI 21.0-21.9 09/13/2019 03:02:58 PM EDT [facility] 300.02 Generalized anxiety disorder Generalized anxiety disor richard 09/13/2019 03:02:58 PM EDT [facility] 787.91 Diarrhea Diarrhea 09/13/2019 03:02:58 PM ED T [facility] [id number] Opioid dependence, in remission Opioid dependence, in remission 09/13/2019 03:02:58 PM EDT [facility] 09/01/2019 last use 83891561 Cannabis abuse, uncomplicated Cannabis abuse, uncompli cated 09/13/2019 03:02:58 PM EDT [facility] 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 09/13/2019 03:02:58 PM EDT [facility] M79.651 Pain in right thigh Pain of bilateral thighs 09/13/2019 03:02:58 PM EDT [facility] 06749534 Cannabis abuse Cannabis Abuse Problem 09/13/2019 12:00: 00 AM EDT [facility] ([facility]) 873316838 Opioid dependence in remission Opioid Dependence in Re mission Problem 09/13/2019 12:00:00 AM EDT [facility] ([facility]) 82009432 Generalized anxiety disorder Generalized Anxiety Disor richard Problem 09/13/2019 12:00:00 AM EDT [facility] ([facility]) 1889190 Brief reactive psychosis Brief Reactive Psychosis Prob wendy 09/13/2019 12:00:00 AM EDT - 03/01/2020 12:00:00 AM EST [facility] ([facility]) 98010324 Cannabis abuse Cannabis Abuse Problem 09/13/2019 12:00: 00 AM EDT [facility]) 236721100 Opioid dependence in remission Opioid Dependence in Re mission Problem 09/13/2019 12:00:00 AM EDT [facility] ([facility]) 51027390 Generalized anxiety disorder Generalized Anxiety Disor richard Problem 09/13/2019 12:00:00 AM EDT [facility] ([facility]) 5701026 Brief reactive psychosis Brief Reactive Psychosis Prob wendy 09/13/2019 12:00:00 AM EDT - 03/01/2020 12:00:00 AM EST [facility] ([facility]) 9810769 Brief reactive psychosis Brief Reactive Psychosis Prob wendy 09/13/2019 12:00:00 AM EDT [facility] ([facility]) 82908368 Generalized anxiety disorder Generalized Anxiety Disor richard Problem 09/13/2019 12:00:00 AM EDT [facility] ([facility]) 175745678 Opioid dependence in remission Opioid Dependence in Re mission Problem 09/13/2019 12:00:00 AM EDT [facility] ([facility]) 38250177 Cannabis abuse Cannabis Abuse Problem 09/13/2019 12:00: 00 AM EDT [facility] ([facility]) Surgeries/Procedures Procedure Description Date Indications Data Source(s) Extended Individual Psychotherapy - 45 min 0 12:00:00 AM EDT [facility] ([facility]) Extended Individual Psychotherapy - 45 min 01/10/2020 12:00:00 AM EDT - 01/10/2020 12:00:00 AM EDT [facility] ([facility]) OFFICE OUTPATIENT VISIT 15 MINUTES 01/09/2020 12:00:00 AM EDT [facility] ([facility]) OFFICE OUTPATIENT VISIT 15 MINUTES 01/08 12:00:00 AM EDT - 01/09/2020 12:00:00 AM EDT [facility] ([facility]) Extended Individual Psychotherapy - 45 min 01/04/2020 12:00:00 AM EDT - 01/04/2020 12:00:00 AM EDT [facility] ([facility]) Extended Individual Psychotherapy - 45 min 0 12:00:00 AM EDT [facility] ([facility]) Extended Individual Psychotherapy - 45 min 12/27/2019 12:00:00 AM EDT - 12/27/2019 12:00:00 AM EDT [facility] ([facility]) Extended Individual Psychotherapy - 45 min 0 12:00:00 AM EDT [facility] ([facility]) Brief Individual Psychotherapy - 30 min 12/22/2019 12: 00:00 AM EDT [facility] ([facility]) Brief Individual Psychotherapy - 30 min 12/22/2019 12:00:00 AM EDT - 12/22/2019 12:00:00 AM EDT [facility] ([facility]) Extended Individual Psychotherapy - 45 min 0 12:00:00 AM EDT [facility] ([facility]) Extended Individual Psychotherapy - 45 min 11/28/2019 12:00:00 AM EDT - 11/28/2019 12:00:00 AM EDT [facility] ([facility]) Telemed Diagnostic Eval 09/13/2019 12:00:00 AM EDT [facility] ([facility]) Telemed Diagnostic Eval 09/13/2019 12:00 :00 AM EDT - 09/13/2019 12:00:00 AM EDT [facility] ([facility]) [id number]"Psychotherapy 09/12/2019 12:00:00 AM EDT [facility] ([facility]) [id number]"Psychotherapy 0 12:00:00 AM EDT - 09/12/2019 12:00:00 AM EDT [facility] ([facility]) Results ID Date Data Source [id number] 02/08/2020 10:31:00 AM EST [facility] ([facility]) Name Value Range Interpretation Code Description Data Anna rce(s) Supporting Document(s) HCG negative Hcg [facility] ([facility]) ID Date Data Source [id number] 02/08/2020 10:31:00 AM EST [facility] ([facility]) Name Value Range Interpretation Code Description Data Anna rce(s) Supporting Document(s) HCG negative Hcg [facility] ([facility]) ID Date Data Source [id number] 02/08/2020 10:31:00 AM EST [facility] ([facility]) Name Value Range Interpretation Code Description Data Anna rce(s) Supporting Document(s) HCG negative Hcg [facility] ([facility]) ID Date Data Source [id number] 02/07/2020 02:28:00 PM EST [facility] ([facility]) Name Value Range Interpretation Code Description Data Anna rce(s) Supporting Document(s) HCG, serum quantitative < 1.0 normal HCG, Serum Q uantitative [facility] ([facility]) ID Date Data Source [id number] 02/07/2020 02:28:00 PM EST [facility] ([facility]) Name Value Range Interpretation Code Description Data Anna rce(s) Supporting Document(s) HCG, serum quantitative < 1.0 normal HCG, Serum Q uantitative [facility] ([facility]) ID Date Data Source [id number] 02/07/2020 02:28:00 PM EST [facility] ([facility]) Name Value Range Interpretation Code Description Data Anna rce(s) Supporting Document(s) HCG, serum quantitative < 1.0 normal HCG, Serum Q uantitative [facility] ([facility]) ID Date Data Source [id number] 02/02/2020 12:00:00 AM EST [facility] Name Value Range Interpretation Code Description Data Anna rce(s) Supporting Document(s) SARS-CoV2 Rapid Antigen [facility] This lab was ordered by [facility] and reported by [facility]. ID Date Data Source [id number] 10/25/2019 12:57:38 PM EDT [facility] Measurements & CalculationsHeight: 64 inches (5 ft. [...] you seen another healthcare provider? [facility], BHHave you seen a dentist? NoIntake performed [...] or Preferred Language: EnglishFamily and Home Address: [address] [place] [address] What is your housing situation today? I have housing Are you worried about losing your housing? NoMoney and Resources What is the highest level of school that you have finished? associate's degree Employed? Yes Your current work situation? PT Insurance: [employer]In the past year, have you or any family members you live with been unable to get any of the following when it was really needed? Denies Insecurity: food, utilities, clothing, child and family services specialist, phone, legal services, otherWithin the past year [...] new medications added to list today. Sees [facility] Addiction counselor weekly and groups three days a week. HPI performed by: Robinson BARRETO, October 25, 2019 1:17 PMTransitions of Care InboundProblem ReviewProblem List was reviewed and/or updated during this visit.Medication Reconciliation & ReviewMedication List was reviewed and/or updated during this visit, including review of any lsst-fqn-pastvly medications, herbal therapies, and/or supplements.Allergy ReviewAllergy List [...] general adult medical examination without abnormal findings (UMW14-D10.00) Assessment: Instructions: Recommend annual medical appointments. Recommend routine dental and vision care. Recommend influenza vaccines annually and tetanus boosters every 10 years. Release of information form(s) to obtain medical records from your prior providers(s) ([facility] OPERATOR) has been s igned in the office today.Assessed:Generalized anxiety disorder (ICD-300.02) (FIW94-E04.1) Assessment: Instructions: Improved with [facility] and [facility] addiction counseling services.Opioid dependence, in remission (GVT87-O21.21): 09/01/2019 last use Assessment: Instructions: As above.Brief psychotic disorder (CMZ37-M90) Assessment: Instructions: As above.Removed:Diarrhea (ICD-787.91) (QLA30-Y04.7), Pain of bilateral thighs (KZJ33-A11.651), BMI 21.0- 21.9 (ICD-V85.1) (WLG15-B91.21)Patient Instructions/Care Plan: Encounter for general adult medical examination without abnormal findings: Recommend annual medical appointments. Recommend routine dental and vision care. Recommend influenza vaccines annually and tetanus boosters every 10 years. Release of information form(s) to obtain medical records from your prior providers(s) (KILN OPERATOR) has been signed in the office today.Generalized anxiety disorder: Improved with [facility] and [facility] addiction counseling services.Opioid dependence- in remission: As [...] Known Allergies (updated 10/25/2019) Orders:Preventive, Est, (18-39) [[id number]] Follow-Up Return to clinic: in 90 days for follow upCli nical Visit Summary Completed Name Value Range Interpretation Code Description Data Anna rce(s) Supporting Document(s) ID Date Data Source [id number] 09/13/2019 02:18:14 PM EDT [facility] Measurements & CalculationsHeight: 64 inches 162.56 cm [...] ? NoComments: statees she was tested at [facility]-negative.Healthcare HistorySince your last office visit...Have you been [...] Action: Scheduled with Behavioral Health - existing careWain AssessmentLocation: mid sectionDuration: yearsFrequency: DailyCharacter/Quality: achingIs the [...] (Maternal Grandfather)Social/Personal History: [facility]follow[facility] dischargeHistory of Present Illness (HPI)23 yo female pt presents for follow up of hospital discharge and to establish care. Pt states she is feeling a lot better since being discharged. Admitted 09/04/2019-09/11/2019 for paranoia and bizzare behavior, discharged on Zyprexa 10mg daily. Had counseling appt at [facility] yesterday and 10/04/2019 is first prescriber appointment.States [...] mother until she becomes more stable.Pt has [facility]PERATOR appt today at 4pm, [facility], wants to be screened for STDs before restarting Nuvaring. Transitions of Care InboundProblem ReviewProblem List was reviewed and/or updated during this visit.Medication Reconciliation & ReviewMedication List was reviewed and/or updated during this visit, including review of any ewne-lkh-dvxomnh medications, herbal therapies, and/or supplements.Allergy ReviewAllergy List [...] GoodAssessment & Plan Problems:Added: BMI 21.0-21.9 (ICD-V85.1) (ZWU70-U35.21)Brief psychotic disorder (AIT55-R89) Assessment: Instructions: Continue Zyprexa. Continue as scheduled with your mental health providers. Refills provided today to get you through to your upcoming appointment with prescriber.Generalized anxiety disorder (ICD-300.02) (ICD10- F41.1) Assessment: Instructions: As above. Hydroxyzine as needed up to three times daily. May cause sleepiness, use caution.Opioid dependence, in remission (AZO34-T60.21): 09/01/2019 last use Assessment: Instructions: Please go to walkin at either [facility] or [facility].Cannabis abuse, uncomplicated (RIP35-Z88.10) Assessment: Instructions: Recommend complete cessation.Diarrhea (ICD-787.91) (PZF08-D42.7) Assessment: Instructions: Given stool collection kit, please return stool sample to [facility] lab for testing. [place] diet: bananas, rice, applesauce, toast.Pain of bilateral thighs (WIR47-H81.651) Assessment: Instructions: Recommend quad stretches and avoiding [...] remission: Please go to walkin at either [facility] or [facility].Cannabis abuse- uncomplicated: Recommend complete cessation.Diarrhea: Given stool collection kit, please return stool sample to [facility] lab for testing. [place] diet: bananas, rice, applesauce, toast.Pain of bilateral [...] Allergies (updated 09/13/2019) Orders:GI Panel - Stool [[id number]] Adult - Ofc Vst, NEW, Level IV [[id number]] Follow-Up Return to clinic: in 6 weeks for preventive care visitAdditional Follow-Up: annual PEClinical Visit Summary CompletedMedications:OLANZAPINE 10 MG ORAL TABLET (OLANZAPINE) Take 1 tablet po daily #30[Tablet] x 0 Entered and Authorized by: Robinson BARRETO Method used: Electronically to [facility] (retail) [address] [place] [address] Note to Pharmacy: Route: ORAL; RxID: [id number] HCL 25 MG ORAL TABLET (HYDROXYZINE HCL) Take 1 tablet by mouth up to three times daily as needed #30[Tablet] x 1 Route:ORAL Entered and Authorized by: Robinson BARRETO Method used: Electronically to [facility] (retail) [address] [place] [address] Fax: Note to Pharmacy: Route: ORAL; Indications: GENERALIZED ANXIETY DISORDER RxID: [id number] signed by Robinson BARRETO on 09/22/2019 at 10:02 AM Name Value Range Interpretation Code Description Data Anna rce(s) Supporting Document(s) Procedure Social History Code Duration Value Status Description Data Source(s ) Smoking 04/15/2020 12:00:00 AM EST Patient has never smoked co mpleted Patient has never smoked [facility] ([facility]) Smoking 04/02/2020 12:00:00 AM EST Never Smoker completed Never S moker eCW1 ([facility]) Smoking 03/16/2020 12:00:00 AM EST Never Smoker completed Never S moker eCW1 ([facility]) Smoking 03/08/2020 12:00:00 AM EST Never Smoker completed Never S moker eCW1 ([facility]) Smoking 01/10/2020 12:00:00 AM EDT Unknown if ever smoked comp leted Unknown if ever smoked [facility] ([facility]) Smoking 01/09/2020 12:00:00 AM EDT Unknown if ever smoked comp leted Unknown if ever smoked [facility] ([facility]) Smoking 01/04/2020 12:00:00 AM EDT Unknown if ever smoked comp leted Unknown if ever smoked [facility] ([facility] Smoking 12/27/2019 12:00:00 AM EDT Unknown if ever smoked comp leted Unknown if ever smoked [facility] ([facility]) Smoking 12/22/2019 12:00:00 AM EDT Unknown if ever smoked comp leted Unknown if ever smoked [facility] ([facility]) Smoking 11/28/2019 12:00:00 AM EDT Unknown if ever smoked comp leted Unknown if ever smoked [facility] ([facility]) Smoking 09/13/2019 12:00:00 AM EDT Unknown if ever smoked comp leted Unknown if ever smoked [facility] ([facility]) Smoking 09/12/2019 12:00:00 AM EDT Unknown if ever smoked comp leted Unknown if ever smoked [facility] ([facility]) Vital Signs ID Date Data Source UNK Name Value Range Interpretation Code Description Data Source(s) Body surface area Derived from formula 1.62 m2 1.62 m2 [facility] ([facility]) Body mass index (BMI) [Ratio] 25.1 kg/m2 25.1 k g/m2 [facility] ([facility]) Body weight 136.00 [lb_av] 136.00 [lb_av] MEDEN T ([facility]) Body height 61.75 [in_i] 61.75 [in_i] [facility] ([facility]) 5'1.75" Diastolic blood pressure 62 mm[Hg] 62 mm[Hg] MED[facility] ([facility]) Systolic blood pressure 100 mm[Hg] 100 mm[Hg] M EDENT ([facility]) Body weight 2156.8 [oz_av] 2156.8 [oz_av] ATHEN A ([facility]) Systolic blood pressure 144 mm[Hg] 144 mm[Hg] A THENA ([facility]) Systolic blood pressure 134 mm[Hg] 134 mm[Hg] A THENA ([facility]) Body mass index (BMI) [Ratio] 23.1 kg/m2 23.1 k g/m2 [facility] ([facility]) Body height 64 [in_i] 64 [in_i] [facility] ([facility]) Diastolic blood pressure 87 mm[Hg] 87 mm[Hg] [facility] ([facility]) Diastolic blood pressure 100 mm[Hg] 100 mm[Hg] [facility] ([facility]) Diastolic blood pressure 82 mm[Hg] 82 mm[Hg] eCW1 ([facility]) Systolic blood pressure 136 mm[Hg] 136 mm[Hg] e CW1 ([facility]) Body temperature 98.6 [degF] 98.6 [degF] eCW1 ( [facility]) Respiratory rate 18 /min 18 /min eCW1 ([facility]) Heart rate 102 /min 102 /min eCW1 ([facility]) Body mass index (BMI) [Ratio] 24.48 kg/m2 24.48 kg/m2 eCW1 ([facility]) Body height 62.5 [in_i] 62.5 [in_i] eCW1 ([facility]) Body weight 136.0 [lb_av] 136.0 [lb_av] eCW1 ([facility]) Body weight 2160 [oz_av] 2160 [oz_av] [facility] ([facility]) Systolic blood pressure 131 mm[Hg] 131 mm[Hg] A THENA ([facility]) Body mass index (BMI) [Ratio] 23.2 kg/m2 23.2 k g/m2 [facility] ([facility]) Body height 64 [in_i] 64 [in_i] [facility] ([facility]) Diastolic blood pressure 92 mm[Hg] 92 mm[Hg] [facility] ([facility]) Body weight 2160 [oz_av] 2160 [oz_av] [facility] ([facility]) Systolic blood pressure 131 mm[Hg] 131 mm[Hg] A THEN ([facility]) Body mass index (BMI) [Ratio] 23.2 kg/m2 23.2 k g/m2 [facility] ([facility]) Body height 64 [in_i] 64 [in_i] [facility] ([facility]) Diastolic blood pressure 92 mm[Hg] 92 mm[Hg] [facility] ([facility]) Body weight 2153.6 [oz_av] 2153.6 [oz_av] ATHZARIA A ([facility]) Systolic blood pressure 136 mm[Hg] 136 mm[Hg] A YVETTE ([facility]) Body mass index (BMI) [Ratio] 23.1 kg/m2 23.1 k g/m2 [facility] ([facility]) Body height 64 [in_i] 64 [in_i] [facility] ([facility]) Diastolic blood pressure 90 mm[Hg] 90 mm[Hg] [facility] ([facility]) Body weight 2153.6 [oz_av] 2153.6 [oz_av] ATHZARIA A ([facility]) Systolic blood pressure 136 mm[Hg] 136 mm[Hg] A YVETTE ([facility]) Body mass index (BMI) [Ratio] 23.1 kg/m2 23.1 k g/m2 [facility] ([facility]) Body height 64 [in_i] 64 [in_i] [facility] ([facility]) Diastolic blood pressure 90 mm[Hg] 90 mm[Hg] [facility] ([facility]) Diastolic blood pressure 90 mm[Hg] 90 mm[Hg] [facility] ([facility]) Body height 64 [in_i] 64 [in_i] [facility] ([facility]) Body mass index (BMI) [Ratio] 23.1 kg/m2 23.1 k g/m2 [facility] ([facility]) Systolic blood pressure 136 mm[Hg] 136 mm[Hg] A YVETTE ([facility]) Body weight 2153.6 [oz_av] 2153.6 [oz_av] ATHEN A ([facility]) Body height 0.00 in Normal (applies to non-numeric resu lts) 0.00 in [facility] ([facility]) Body weight Measured 0.00 lbs Normal (applies to n on-numeric results) 0.00 lbs [facility] ([facility]) Body mass index (BMI) [Ratio] 0.00 kg/m2 No rmal (applies to non-numeric results) 0.00 kg/m2 [facility] ([facility]) Systolic blood pressure 0 mm[Hg] Normal (applies t o non-numeric results) 0 mm[Hg] [facility] ([facility]) Diastolic blood pressure 0 mm[Hg] Normal (applies to non-numeric results) 0 mm[Hg] [facility] ([facility]) Body weight 2244 [oz_av] 2244 [oz_av] [facility]ON ([facility]) Systolic blood pressure 143 mm[Hg] 143 mm[Hg] A [facility] ([facility]) Body height 64 [in_i] 64 [in_i] [facility] ([facility]) Diastolic blood pressure 97 mm[Hg] 97 mm[Hg] [facility] ([facility]) Body weight 2244 [oz_av] 2244 [oz_av] [facility] ([facility]) Systolic blood pressure 143 mm[Hg] 143 mm[Hg] A [facility] ([facility]) Body height 64 [in_i] 64 [in_i] [facility] ([facility]) Diastolic blood pressure 97 mm[Hg] 97 mm[Hg] [facility] ([facility]) Diastolic blood pressure 97 mm[Hg] 97 mm[Hg] [facility] ([facility]) Body height 64 [in_i] 64 [in_i] [facility] ([facility]) Systolic blood pressure 143 mm[Hg] 143 mm[Hg] [facility] Body weight 2244 [oz_av] 2244 [oz_av] [facility] ([facility]) Body weight 1972 [oz_av] 1972 [oz_av] [facility] ([facility]) Systolic blood pressure 105 mm[Hg] 105 mm[Hg] A [facility] ([facility]) Body height 64 [in_i] 64 [in_i] [facility] ([facility]) Diastolic blood pressure 71 mm[Hg] 71 mm[Hg] [facility] ([facility]) Body weight 1972 [oz_av] 1972 [oz_av] [facility] ([facility]) Systolic blood pressure 105 mm[Hg] 105 mm[Hg] A [facility] ([facility]) Body height 64 [in_i] 64 [in_i] [facility] ([facility]) Diastolic blood pressure 71 mm[Hg] 71 mm[Hg] [facility] ([facility]) Diastolic blood pressure 71 mm[Hg] 71 mm[Hg] [facility] ([facility]) Body height 64 [in_i] 64 [in_i] [facility] ([facility]) Systolic blood pressure 105 mm[Hg] 105 mm[Hg] A THENA ([facility]) Body weight 1972 [oz_av] 1972 [oz_av] [facility] ([facility]) Patient Treatment Plan of Care Planned Activity Planned Date Details Description Data Source (s) quetiapine 50 MG Oral Tablet [facility] ([facility]) olanzapine 10 MG Oral Tablet [facility] ([facility]) Naltrexone hydrochloride 50 MG Oral Tablet [facility] ([facility]) Escitalopram 10 MG Oral Tablet [Lexapro] [facility] ([facility]) Hydroxyzine Hydrochloride 25 MG Oral Tablet [facility] ([facility]) 21 DAY Ethinyl Estradiol 0.984758 MG/HR / Etonogestrel 0.005 MG/HR [facility]aginal Ring [facility]) atomoxetine 25 MG Oral Capsule [facility] ([facility]) atomoxetine 18 MG Oral Capsule [facility] ([facility]) quetiapine 50 MG Oral Tablet [facility] ([facility]) olanzapine 10 MG Oral Tablet [facility] ([facility]) Naltrexone hydrochloride 50 MG Oral Tablet [facility] ([facility] Escitalopram 10 MG Oral Tablet [Lexapro] [facility] ([facility]) Hydroxyzine Hydrochloride 25 MG Oral Tablet [facility] ([facility]) 21 DAY Ethinyl Estradiol 0.771358 MG/HR / Etonogestrel 0.005 MG/HR Vaginal Ring [facility] ([facility]) atomoxetine 25 MG Oral Capsule [facility] ([facility]) atomoxetine 18 MG Oral Capsule [facility] ([facility] atomoxetine 18 MG Oral Capsule [facility] ([facility]) 21 DAY Ethinyl Estradiol 0.183391 MG/HR / Etonogestrel 0.005 MG/HR Vaginal Ring [facility] ([facility]) Hydroxyzine Hydrochloride 25 MG Oral Tablet [facility] ([facility]) Naltrexone hydrochloride 50 MG Oral Tablet [facility] ([facility]) olanzapine 10 MG Oral Tablet [facility] ([facility]) quetiapine 50 MG Oral Tablet [facility] ([facility])
[2020-04-24 16:15] LABS: AMPHETAMINES LEVEL URINE NEGATIVE (NEGATIVE); BARBITURATES URINE NEGATIVE (NEGATIVE); BENZODIAZEPINES URINE NEGATIVE (NEGATIVE); CANNABINOIDS URINE POSITIVE (NEGATIVE); COCAINE METABOLITE URINE NEGATIVE (NEGATIVE); METHADONE URINE NEGATIVE (NEGATIVE); OPIATES URINE NEGATIVE (NEGATIVE); PHENCYCLIDINE URINE NEGATIVE (NEGATIVE)
[2020-04-24 16:31] LABS: HEMATOCRIT 42.6 % (36.0-47.0); HEMOGLOBIN 14.1 g/dl (12.0-15.5); MEAN CORPUSCULAR HEMOGLOBIN 29.9 pg (27.0-33.0); MEAN CORPUSCULAR HGB CONC 33.1 g/dl (32.0-36.5); MEAN CORPUSCULAR VOLUME 90.3 fl (80.0-96.0); PLATELET COUNT, AUTOMATED 386 10^3/uL (150-450); RED BLOOD COUNT 4.72 10^6/uL (4.00-5.40); WHITE BLOOD COUNT 12.4 10^3/uL (4.0-10.0)
[2020-04-24 16:59] LABS: HCG, SERUM QUALITATIVE NEGATIVE (NEGATIVE)
[2020-04-24 17:05] LABS: ACETAMINOPHEN LEVEL < 2.0 UG/ML (10.0-30.0); ALBUMIN 4.4 GM/DL (3.2-5.2); ALT/SGPT 23 U/L (12-78); BILIRUBIN,DIRECT 0.2 MG/DL (0.0-0.2); BILIRUBIN,TOTAL 0.5 MG/DL (0.2-1.0); BLOOD UREA NITROGEN 11 MG/DL (7-18); CALCIUM LEVEL 10.2 MG/DL (8.5-10.1); CARBON DIOXIDE LEVEL 27 MEQ/L (21-32); CHLORIDE LEVEL 106 MEQ/L (98-107); CREATININE FOR GFR 0.84 MG/DL (0.55-1.30); ETHYL ALCOHOL (ETHANOL) 0.004 % (0.000-0.010); GLOMERULAR FILTRATION RATE > 60.0 (>60); GLUCOSE, FASTING 84 MG/DL (70-100); POTASSIUM SERUM 3.9 MEQ/L (3.5-5.1); SALICYLATE LEVEL < 1.7 MG/DL (5.0-30.0); SODIUM LEVEL 141 MEQ/L (136-145); TOTAL PROTEIN 8.3 GM/DL (6.4-8.2)
[2020-04-24] MEDS ORDERED: MOM 30ML SUSPENSION UDC PO PRN (20:30)
[2020-04-24] MEDS ORDERED: MAALOX 30 ML SUSP *UDC PO PRN (20:30)
[2020-04-24] MEDS ORDERED: haloperidoL 5 MG TAB PO PRN (20:30)
--- OUTSIDE RECORDS SUMMARY | 2020-04-24 20:57 | CCD ---
Author Author [facility] Organization [facility] Address Unknown Phone Unavailable Care Team Providers Care Customer Success Director Name Role Phone Yue Wells Unavailable CASTANON, [...] ELENA, JESS Unavailable Unavailable Berna Stallings Unavailable Catherine MARSHALL MD Unavailable Unavailable Catherine MARSHALL MD Unavailable Unavailable Catherine MARSHALL MD Unavailable Unavailable Catherine MARSHALL MD Unavailable Unavailable MARSHALL, Catherine GATES MD Unavailable Unavailable MARSHALL, Catherine GATES MD Unavailable Unavailable MARSHALL, L YAJAIRA RED Unavailable Unavailable MARSHALL, Catherine GATES MD Unavailable Unavailable MARSHALL, L YAJAIRA [...] Unavailable MARSHALL, L YAJAIRA RED Unavailable Unavailable Jennifer Latham Unavailable MARILYN, H FERNANDO CRUDE OIL DRIVER Unavailable Unavailable MARILYN, H FERNANDO CRUDE OIL DRIVER Unavailable Unavailable MARILYN, H FERNANDO CRUDE OIL DRIVER Unavailable Unavailable MARILYN, H FERNANDO CRUDE OIL DRIVER Unavailable Unavailable MARILYN, H FERNANDO CRUDE OIL DRIVER Unavailable Unavailable MARILYN, H FERNANDO CRUDE OIL DRIVER Unavailable Unavailable MARILYN, H FERNANDO CRUDE OIL DRIVER Unavailable Unavailable Vinnie Matthews Unavailable Vinnie Matthews Unavailable CASTANON, BEVERLY ROBINSON RPA-C Unavailable Unavailable [...] Unavailable CASTANON, BEVERLY ROBINSON RPA-C Unavailable Unavailable [facility] Unavailable [phone] [facility] Unavailable [phone] [facility], RFROST CASTANON PA ROBINSON Unavailable Unavailable Yimi JACQUES FPMHNP Unavailable Unavailable EGORHO, F MANJU FPMHNP Unavailable Unavailable EGORHO, F MANJU FPMHNP Unavailable Unavailable EGORHO, F MANJU FPMHNP Unavailable Unavailable EGORHO, F MANJU FPMHNP Unavailable Unavailable EGORHO, F MANJU FPMHNP Unavailable Unavailable Re-disclosure Warning The records that [...] is protected by Article 27-F of the [facility] Public Health law. If you continue you may have access to information: Regarding HIV / AIDS; Provided by facilities licensed or operated by the [facility] Office of Mental Health; or Provided by the [facility] Office for People With Developmental Disabilities. If such information is present, then the following [facility] mandated warning applies: This information has [...] law may result in a fine or penitentiary sentence or both. A general authorization for the release of medical or other information is NOT sufficient authorization for further disc losure. 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 Attender: JESS ELENA [facility] Medical 04/01/2020 12:00:00 AM EST [place] ([facility]) Outpatient [address] [address] 03/08/2020 12:00:00 AM EST eCW1 ([facility]) [place] [address] [address] 03/08/2020 12:00:00 AM EST eCW1 ([facility]) YORDAN AbdallaC: [address], [place] [address], Ph. Attender: ROBINSON REYES [facility] Medical 03/01/2020 12:00:00 AM EST [place] ([facility]) YORDAN AbdallaC: [address], [place] [address], Ph. Attender: ROBINSON REYES [facility] Medical 03/01/2020 12:00:00 AM EST [place] ([facility]) YORDAN AbdallaC: [address], [place] [address], Ph. Attender: ROBINSON REYES [facility] Medical 02/07/2020 12:00:00 AM EST [place] ([facility]) Robinson D Castanon, RPA-C: [address], [place] [address], Ph. Attender: ROBINSON CASTANON RPA-C [facility] Medical 02/07/2020 12:00:00 AM EST [place] ([facility]) Robinson Castanon RPA-C: [address], [place] [address], Ph. Attender: ROBINSON CASTANON RPA-C [facility] Medical 02/07/2020 12:00:00 AM EST [place] ([facility]) Outpatient Attender: BUNNY GARCAI [facility] 12/27 02:27:10 PM EDT [facility] Extended Individual Psychotherapy - 45 min Attender: Valdez Matthews [facility] 01/10/2020 03:15:00 AM EDT - 01/10/2020 03:15:00 AM EDT [facility] ([facility]) Attender: Vinnie Matthews 01/10/2020 12:00:00 AM EDT [facility] ([facility]) Outpatient Attender: FERNANDO ROE NP [facility] Prateek catherine 01/09/2020 04:30:00 AM EDT - 01/09/2020 04:30:00 AM EDT [facility] ([facility]) Attender: FERNANDO ROE NP 01/09/2020 12:00:00 AM EDT [facility] ([facility]) Attender: Vinnie Matthews 01/04/2020 12:00:00 AM EDT [facility] ([facility]) Extended Individual Psychotherapy - 45 min Attender: Valdez garcia [facility] 01/02/2020 06:00:00 AM EDT - 01/02/2020 06:00:00 AM EDT [facility] ([facility]) Attender: [facility] 12:00:00 AM EDT [facility] ([facility]) Extended Individual Psychotherapy - 45 min Attender: [facility] 12/26/2019 06:00:00 AM EDT - 12/26/2019 06:00:00 AM EDT [facility] ([facility]) Brief Individual Psychotherapy - 30 min Attender: Berna dickey [facility] 12/22/2019 03:00:00 AM EDT - 12/22/2019 03:00:00 AM EDT [facility] ([facility]) Attender: Berna Stallings 12/22/2019 12:00:00 AM EDT [facility] ([facility]) Extended Individual Psychotherapy - 45 min Attender: Amol Wells [facility] 11/28/2019 09:00:00 AM EDT - 11/28/2019 09:00:00 AM EDT [facility] ([facility]) Attender: Yue Wells 11/28/2019 12:00:00 A M EDT [facility] ([facility]) Outpatient Attender: ROBINSON REYES [facility] 11/08/2019 02:16:00 PM EDT [facility] 10/27 02:15:04 PM EDT [facility] Outpatient Att[facility]: [facility] 10/27 08:41:59 AM EDT [facility] Outpatient Attender: ROBINSON REYES [facility] 10/25/2019 01:24:01 PM EDT [facility] Outpatient Attender: BUNNY TANG [facility] 08/2019 12:28:02 PM EDT [facility] Outpatient Attender: BUNNY TANG [facility] 08/28 10:02:59 AM EDT [facility] Outpatient 09/15/2019 05:55:00 AM EDT [facility] Outpatient Attender: ROBINSON REYES [facility] 09/13/2019 03:04:01 PM EDT [facility] Telemed Diagnostic Eval Attender: MANJU JACQUES [facility] 09/13/2019 02:00:00 AM EDT - 09/13/2019 02:00:00 AM EDT [facility] ([facility]) Attender: MANJU JACQUES [facility] 09/13/2019 12:00: 00 AM EDT [facility] ([facility]) Outpatient [facility] 09/12/2019 10:00:00 AM EDT [facility] [id number]"Psychotherapy Attender: Jennifer Latham [facility] 09/12/2019 08:00:00 AM EDT - 09/12/2019 08:00:00 AM EDT [facility] ([facility]) Attender: Jennifer Latham 09/12/2019 12:00:00 AM EDT [facility] ([facility]) Outpatient [facility] 09/11/2019 12:37:00 PM EDT [facility] Outpatient [facility] 09/11/2019 08:21:01 AM EDT [facility] Functional Status Medications Medication Brand Name Start Date Product Form Dose Route Admi nistrative Instructions Pharmacy Instructions Status Indications Reaction Description Data Source(s) quetiapine 50 MG Oral Tablet [Seroquel] Seroquel 01/09/2020 12: 00:00 AM EDT 50 mg by mouth completed [id number] Seroquel by mouth [id number] 01/09/2020 03/09/2020 at bedtime 30 50 mg tablet [id number] Yarelis Roe [id number] Nurse Practitioner [facility] ([facility]) atomoxetine 25 MG Oral Capsule [Strattera] Strattera 01/08 12:00:00 AM EDT 25 mg by mouth completed [id number] Strattera by mouth [id number] 01/09/2020 02/08/2020 at bedtime 30 25 mg capsule 11654 [id number] Finn Roe [id number] Nurse Practitioner [facility] ([facility]) quetiapine 50 MG Oral Tablet [Seroquel] Seroquel 11/09/2019 12: 00:00 AM EDT 50 mg by mouth completed [id number] Seroquel by mouth [id number] 11/09/2019 01/08/2020 at bedtime 30 50 mg tablet 51074 [id number] Yarelis Roe [id number] Nurse Practitioner [facility] ([facility] 0.12-0.015 mg/24 hr 03/01/2019 12:00:00 AM EST ring 3 USE DIRECTED USE DIRECTED SOLD: 03/01/2019 [facility] Escitalopram 10 MG Oral Tablet [Lexapro] Lexapro 10 mg tablet Take 1 tablet every day by oral route. Lexapro 10 mg tablet Take 1 tablet every day by oral route. 1 completed escitalopram 10 MG Oral Tablet [Lexapro] [place] ([facility]) Hydroxyzine Hydrochloride 25 MG Oral Tablet hydroxyzin e HCl 25 mg tablet hydroxyzine HCl 25 mg tablet completed hydroxyzine hydrochloride 25 MG Oral Tablet [facility]) olanzapine 10 MG Oral Tablet olanzapine 10 mg tablet olanzapine 10 mg tablet completed olanzapine 10 MG Oral Tablet [facility]) atomoxetine 25 MG Oral Capsule atomoxetine 25 mg [facility] atomoxetine 25 mg capsule completed atomoxetine 25 MG Oral Capsule [facility]) quetiapine 50 MG Oral Tablet quetiapine 50 mg tablet quetiapine 50 mg tablet completed quetiapine 50 MG Oral Tablet [facility]) Naltrexone hydrochloride 50 MG Oral Tablet naltrexone 50 mg tablet naltrexone 50 mg tablet completed naltrexone hydrochloride 50 MG Oral Tablet [facility]) atomoxetine 18 MG Oral Capsule atomoxetine 18 mg [facility] atomoxetine 18 mg capsule completed atomoxetine 18 MG Oral Capsule [facility]) Escitalopram 10 MG Oral Tablet [Lexapro] Lexapro 10 mg tablet Take 1 tablet every day by oral route. Lexapro 10 mg tablet Take 1 tablet every day by oral route. 1 completed escitalopram 10 MG Oral Tablet [Lexapro] [place] ([facility]) atomoxetine 18 MG Oral Capsule atomoxetine 18 mg cap[facility] le atomoxetine 18 mg capsule completed atomoxetine 18 MG Oral Capsule [facility]) olanzapine 10 MG Oral Tablet olanzapine 10 mg tablet olanzapine 10 mg tablet completed [facility] 10 [facility] Naltrexone hydrochloride 50 MG Oral Tablet naltrexone 50 mg tablet naltrexone 50 mg tablet completed naltrexone hydrochloride 50 MG Oral Tablet [place] ([facility]) atomoxetine 18 MG Oral Capsule atomoxetine 18 mg cap[facility] atomoxetine 18 mg capsule completed atomoxetine 18 MG Oral Capsule [place] ([facility]) quetiapine 50 MG Oral Tablet quetiapine 50 mg tablet quetiapine 50 mg tablet completed quetiapine 50 MG Oral Tablet [place] ([facility]) Hydroxyzine Hydrochloride 25 MG Oral Tablet hydroxyzin e HCl 25 mg tablet hydroxyzine HCl 25 mg tablet completed hydroxyzine hydrochloride 25 MG Oral Tablet [place] ([facility]) 21 DAY Ethinyl Estradiol 0.290907 MG/HR / Etonogestrel 0.005 MG/HR Vaginal Ring etonogestrel 0.12 mg-ethinyl estradiol 0.015 mg/24 hr vaginal ring etonogestrel 0.12 mg-ethinyl estradiol 0.015 mg/24 hr vaginal ring completed 21 DAY ethinyl estradiol 0.960391 MG/HR / etonogestrel 0.005 MG/HR Vaginal System [facility] ([facility]) quetiapine 50 MG Oral Tablet quetiapine 50 mg tablet quetiapine 50 mg tablet completed quetiapine 50 MG Oral Tablet [place] ([facility]) Naltrexone hydrochloride 50 MG Oral Tablet naltrexone 50 mg tablet naltrexone 50 mg tablet completed naltrexone hydrochloride 50 MG Oral Tablet [place] ([facility]) 21 DAY Ethinyl Estradiol 0.878082 MG/HR / Etonogestrel 0.005 MG/HR Vaginal Ring etonogestrel 0.12 mg-ethinyl estradiol 0.015 mg/24 hr vaginal ring etonogestrel 0.12 mg-ethinyl estradiol 0.015 mg/24 hr vaginal ring completed 21 DAY ethinyl estradiol 0.583092 MG/HR / etonogestrel 0.005 MG/HR Vaginal System [place] ([facility]) olanzapine 10 MG Oral Tablet olanzapine 10 mg tablet olanzapine 10 mg tablet completed olanzapine 10 MG Oral Tablet [place] ([facility]) 21 DAY Ethinyl Estradiol 0.966002 MG/HR / Etonogestrel 0.005 MG/HR Vaginal Ring etonogestrel 0.12 mg-ethinyl estradiol 0.015 mg/24 hr vaginal ring etonogestrel 0.12 mg-ethinyl estradiol 0.015 mg/24 hr vaginal ring completed 21 DAY ethinyl estradiol 0.528564 MG/HR / etonogestrel 0.005 MG/HR Vaginal System [place] ([facility]) atomoxetine 25 MG Oral Capsule atomoxetine 25 mg capsu le atomoxetine 25 mg capsule completed atomoxetine 25 MG Oral Capsule [place] ([facility]) Hydroxyzine Hydrochloride 25 MG Oral Tablet hydroxyzin e HCl 25 mg tablet hydroxyzine HCl 25 mg tablet completed hydroxyzine hydrochloride 25 MG Oral Tablet [place] ([facility]) Insurance Providers Payer name Policy type / Coverage type Policy ID Covered constitution party ID Covered constitution party's relationship to marinelli Policy [employer] Plan Information R [facility] [id number] MO2 [id number] [place] [id number] MEDICAID [id number] SP [id number] [place] Commercial Family Dependent [employer] [id number] Self [id number] [place] Medigap Part B [id number] Family Dependent [id number] [place] [employer] [id number] Family Dependent [id number] [employer] [id number] Family Dep endent [id number] Commercial [id number] Family Dependent [id number] [facility] Commercial [id number] Family Dependent [id number] [facility] Commercial [id number] Family Dependent [id number] [facility] Part B [id number] Family Dependent [id number] [place] [id number] MO2 [id number] [place] [employer] NO FAULT [id number] Self Pay P none S none UMR O [id number] S [id number] SELF PAY UNAVAILABLE SP UNAVAILA BLE EMEDNY [id number] SP [id number] [facility] [id number] MO2 [id number] SELF PAY ONLY [id number] SP [id number] Problems, Conditions, and Diagnoses Code Display Name Description Problem Type Effective Dates Data Source(s) F41.1 [id number] RACHEL (generalized anxiety disorder) Proble m 03/15/2020 12:00:00 AM EST eCW1 ([facility]) F32.9 04803835 Depression, unspecified depression type P roblem 03/15/2020 12:00:00 AM EST eCW1 ([facility]) F32.9 Major depressive disorder, single episod e, unspecified Unspecified depressive Disorder Condition 01/10/2020 12:00:00 AM EDT [facility] ([facility]) F11.20 Opioid dependence, uncomplicated Opioid Use Disorder, Moderate Condition 01/10/2020 12:00:00 AM EDT [facility] ([facility]) F90.2 Attention-deficit hyperactivity disorder , combined type Attention- Deficit/Hyperactivity Disorder, Combined presentation Condition 01/10/2020 12:00:00 AM EDT [facility] ([facility]) V85.1 BMI 24.0-24.9 BMI 24.0-24.9 11/08/2019 02:14:17 PM EDT [facility] [id number] Body measurement finding Body Measurement Finding Prob wendy 11/08/2019 12:00:00 AM EDT - 02/07/2020 12:00:00 AM EST [place] ([facility]) 577935698 Body measurement finding Body Measurement Finding Prob wendy 11/08/2019 12:00:00 AM EDT - 02/07/2020 12:00:00 AM EST [place] ([facility]) 273173019 Body measurement finding Body Measurement Finding Prob wendy 11/08/2019 12:00:00 AM EDT - 02/07/2020 12:00:00 AM EST [place] ([facility]) Z00.00 Encounter for general adult medical examination without abnormal findings Encounter for general adult medical examination without abno rmal findings 10/25/2019 01:23:36 PM EDT [facility] [id number] SNOMED CT Concept SNOMED CT Concept Problem 10/24 12:00:00 AM EDT - 02/07/2020 12:00:00 AM EST [place] ([facility]) 533255298 SNOMED CT Concept SNOMED CT Concept Problem 10/24 12:00:00 AM EDT - 02/07/2020 12:00:00 AM EST [place] ([facility]) 254686778 SNOMED CT Concept SNOMED CT Concept Problem 10/24 12:00:00 AM EDT - 02/07/2020 12:00:00 AM LARY CUEVAS ([facility]) V85.1 BMI 21.0-21.9 BMI 21.0-21.9 09/13/2019 03:02:58 PM EDT [facility] 300.02 Generalized anxiety disorder Generalized anxiety disor richard 09/13/2019 03:02:58 PM EDT [facility] 787.91 Diarrhea Diarrhea 09/13/2019 03:02:58 PM ED T [facility] 544965502 Opioid dependence, in remission Opioid dependence, in remission 09/13/2019 03:02:58 PM EDT [facility] 09/01/2019 last use 10430212 Cannabis abuse, uncomplicated Cannabis abuse, uncompli cated 09/13/2019 03:02:58 PM EDT [facility] 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 09/13/2019 03:02:58 PM EDT [facility] M79.651 Pain in right thigh Pain of bilateral thighs 09/13/2019 03:02:58 PM EDT [facility] 81086214 Cannabis abuse Cannabis Abuse Problem 09/13/2019 12:00: 00 AM EDT [place] ([facility]) 617296428 Opioid dependence in remission Opioid Dependence in Re mission Problem 09/13/2019 12:00:00 AM EDT [place] ([facility]) 53519682 Generalized anxiety disorder Generalized Anxiety Disor richard Problem 09/13/2019 12:00:00 AM EDT [place] ([facility]) 8948008 Brief reactive psychosis Brief Reactive Psychosis Prob wendy 09/13/2019 12:00:00 AM EDT - 03/01/2020 12:00:00 AM EST [place] ([facility]) 65058109 Cannabis abuse Cannabis Abuse Problem 09/13/2019 12:00: 00 AM EDT [place] ([facility]) 922126941 Opioid dependence in remission Opioid Dependence in Re mission Problem 09/13/2019 12:00:00 AM EDT [place] ([facility]) 24392123 Generalized anxiety disorder Generalized Anxiety Disor richard Problem 09/13/2019 12:00:00 AM EDT [facility] ([facility]) 2536175 Brief reactive psychosis Brief Reactive Psychosis Prob wendy 09/13/2019 12:00:00 AM EDT - 03/01/2020 12:00:00 AM EST [place] ([facility]) 1813529 Brief reactive psychosis Brief Reactive Psychosis Prob wendy 09/13/2019 12:00:00 AM EDT [facility] ([facility]) 27843738 Generalized anxiety disorder Generalized Anxiety Disor richard Problem 09/13/2019 12:00:00 AM EDT [place] ([facility]) 597115718 Opioid dependence in remission Opioid Dependence in Re mission Problem 09/13/2019 12:00:00 AM EDT [place] ([facility]) 53100509 Cannabis abuse Cannabis Abuse Problem 09/13/2019 12:00: 00 AM EDT [place] ([facility]) Surgeries/Procedures Procedure Description Date Indications Data Source(s) Extended Individual Psychotherapy - 45 min 0 12:00:00 AM EDT [facility] ([facility]) Extended Individual Psychotherapy - 45 min 01/10/2020 12:00:00 AM EDT - 01/10/2020 12:00:00 AM EDT [facility] ([facility]) OFFICE OUTPATIENT VISIT 15 MINUTES 01/09/2020 12:00:00 AM EDT [facility] ([facility]) OFFICE OUTPATIENT VISIT 15 MINUTES 01/08 12:00:00 AM EDT - 01/09/2020 12:00:00 AM EDT [facility] ([facility]) Extended Individual Psychotherapy - 45 min 01/04/2020 12:00:00 AM EDT - 01/04/2020 12:00:00 AM EDT [facility] ([facility]) Extended Individual Psychotherapy - 45 min 0 12:00:00 AM EDT [facility] ([facility]) Extended Individual Psychotherapy - 45 min 12/27/2019 12:00:00 AM EDT - 12/27/2019 12:00:00 AM EDT [facility] ([facility]) Extended Individual Psychotherapy - 45 min 0 12:00:00 AM EDT [facility] ([facility]) Brief Individual Psychotherapy - 30 min 12/22/2019 12: 00:00 AM EDT [facility] ([facility]) Brief Individual Psychotherapy - 30 min 12/22/2019 12:00:00 AM EDT - 12/22/2019 12:00:00 AM EDT [facility] ([facility]) Extended Individual Psychotherapy - 45 min 0 12:00:00 AM EDT [facility] ([facility]) Extended Individual Psychotherapy - 45 min 11/28/2019 12:00:00 AM EDT - 11/28/2019 12:00:00 AM EDT [facility] ([facility]) Telemed Diagnostic Eval 09/13/2019 12:00:00 AM EDT [facility] ([facility]) Telemed Diagnostic Eval 09/13/2019 12:00 :00 AM EDT - 09/13/2019 12:00:00 AM EDT [facility] ([facility]) [id number]"Psychotherapy 09/12/2019 12:00:00 AM EDT [facility] ([facility]) [id number]"Psychotherapy 0 12:00:00 AM EDT - 09/12/2019 12:00:00 AM EDT [facility] ([facility]) Results ID Date Data Source [id number] 02/08/2020 10:31:00 AM EST [place] ([facility]) Name Value Range Interpretation Code Description Data Anna rce(s) Supporting Document(s) HCG negative Hcg [facility] ([facility]) ID Date Data Source [id number] 02/08/2020 10:31:00 AM EST [place] ([facility]) Name Value Range Interpretation Code Description Data Anna rce(s) Supporting Document(s) HCG negative Hcg [facility] ([facility]) ID Date Data Source [id number] 02/08/2020 10:31:00 AM EST [place] ([facility]) Name Value Range Interpretation Code Description Data Anna rce(s) Supporting Document(s) HCG negative Hcg [facility] ([facility]) ID Date Data Source [id number] 02/07/2020 02:28:00 PM EST [place] ([facility]) Name Value Range Interpretation Code Description Data Anna rce(s) Supporting Document(s) HCG, serum quantitative < 1.0 normal HCG, Serum Q uantitative [place] ([facility]) ID Date Data Source [id number] 02/07/2020 02:28:00 PM EST [place] ([facility]) Name Value Range Interpretation Code Description Data Anna rce(s) Supporting Document(s) HCG, serum quantitative < 1.0 normal HCG, Serum Q uantitative [place] ([facility]) ID Date Data Source [id number] 02/07/2020 02:28:00 PM EST [place] ([facility]) Name Value Range Interpretation Code Description Data Anna rce(s) Supporting Document(s) HCG, serum quantitative < 1.0 normal HCG, Serum Q uantitative [place] ([facility]) ID Date Data Source [id number] 02/02/2020 12:00:00 AM EST [facility] Name Value Range Interpretation Code Description Data Anna rce(s) Supporting Document(s) SARS-CoV2 Rapid Antigen [facility] and reported by [facility]. ID Date Data Source [id number] 10/25/2019 12:57:38 PM EDT [facility] Measurements & CalculationsHeight: 64 inches (5 [...] you seen another healthcare provider? Yes - [facility], Have you seen a dentist? NoIntake performed by: [...] or Preferred Language: EnglishFamily and Home Address: [address] [place] [address] What is your housing situation today? I have housing Are you worried about losing your housing? NoMoney and Resources What is the highest level of school that you have finished? associate's degree Employed? Yes Your current work situation? PT Insurance: [employer] BluebookIn the past year, have you or any family members you live with been unable to get any of the following when it was really needed? Denies Insecurity: food, utilities, clothing, child adolescent psychiatrist, phone, legal services, otherWithin the past year [...] new medications added to list today. Sees [facility] Addiction counselor weekly and groups three days a week. HPI performed by: Robinson BARRETO, October 25, 2019 1:17 PMTransitions of Care InboundProblem ReviewProblem List was reviewed and/or updated during this visit.Medication Reconciliation & ReviewMedication List was reviewed and/or updated during this visit, including review of any fgkd-apz-vrlhhon medications, herbal therapies, and/or supplements.Allergy ReviewAllergy List [...] general adult medical examination without abnormal findings (QSC78-A37.00) Assessment: Instructions: Recommend annual medical appointments. Recommend routine dental and vision care. Recommend influenza vaccines annually and tetanus boosters every 10 years. Release of information form(s) to obtain medical records from your prior providers(s) ([facility]) has been s igned in the office today.Assessed:Generalized anxiety disorder (ICD-300.02) (WWO45-L22.1) Assessment: Instructions: Improved with [facility] and [facility] addiction counseling services.Opioid dependence, in remission (MGD02-E18.21): 09/01/2019 last use Assessment: Instructions: As above.Brief psychotic disorder (ZLA31-P51) Assessment: Instructions: As above.Removed:Diarrhea (ICD-787.91) (SJK66-G21.7), Pain of bilateral thighs (HPG69-P94.651), BMI 21.0- 21.9 (ICD-V85.1) (XDL60-C57.21)Patient Instructions/Care Plan: Encounter for general adult medical examination without abnormal findings: Recommend annual medical appointments. Recommend routine dental and vision care. Recommend influenza vaccines annually and tetanus boosters every 10 years. Release of information form(s) to obtain medical records from your prior providers(s) ([facility]) has been signed in the office today.Generalized anxiety disorder: Improved with [facility] and [facility] addiction counseling services.Opioid dependence- in remission: [...] Known Allergies (updated 10/25/2019) Orders:Preventive, Est, (18-39) [[id number]] Follow-Up Return to clinic: in 90 days for follow upCli nical Visit Summary Completed Name Value Range Interpretation Code Description Data Anna rce(s) Supporting Document(s) ID Date Data Source [id number] 09/13/2019 02:18:14 PM EDT [facility] Measurements & CalculationsHeight: 64 inches 162.56 [...] ? NoComments: statees she was tested at [facility]-negative.Healthcare HistorySince your last office visit...Have you [...] Action: Scheduled with Behavioral Health - existing careAkin AssessmentLocation: mid sectionDuration: yearsFrequency: DailyCharacter/Quality: achingIs the [...] (Maternal Grandfather)Social/Personal History: Chief Complaintfollow- [facility] dischargeHistory of Present Illness (HPI)23 yo female pt presents for follow up of hospital discharge and to establish care. Pt states she is feeling a lot better since being discharged. Admitted 09/04/2019-09/11/2019 for paranoia and bizzare behavior, discharged on Zyprexa 10mg daily. Had counseling appt at [facility] yesterday and 10/04/2019 is first prescriber appointment.States [...] mother until she becomes more stable.Pt has [facility] appt today at 4pm, [facility], wants to be screened for STDs before restarting Nuvaring. Transitions of Care InboundProblem ReviewProblem List was reviewed and/or updated during this visit.Medication Reconciliation & ReviewMedication List was reviewed and/or updated during this visit, including review of any fbro-nyn-rfcemqe medications, herbal therapies, and/or supplements.Allergy ReviewAllergy List [...] GoodAssessment & Plan Problems:Added: BMI 21.0-21.9 (ICD-V85.1) (IMJ70-I72.21)Brief psychotic disorder (UIM22-T15) Assessment: Instructions: Continue Zyprexa. Continue as scheduled with your mental health providers. Refills provided today to get you through to your upcoming appointment with prescriber.Generalized anxiety disorder (ICD-300.02) (ICD10- F41.1) Assessment: Instructions: As above. Hydroxyzine as needed up to three times daily. May cause sleepiness, use caution.Opioid dependence, in remission (BLR47-S22.21): 09/01/2019 last use Assessment: Instructions: Please go to walkin at either [facility] or [facility].Cannabis abuse, uncomplicated (MBI94-F06.10) Assessment: Instructions: Recommend complete cessation.Diarrhea (ICD-787.91) (ZAD05-O21.7) Assessment: Instructions: Given stool collection kit, please return stool sample to [facility] lab for testing. Knox diet: bananas, rice, applesauce, toast.Pain of bilateral thighs (KDB77-F30.651) Assessment: Instructions: Recommend quad stretches and avoiding [...] remission: Please go to walkin at either [facility] or [facility].Cannabis abuse- uncomplicated: Recommend complete cessation.Diarrhea: Given stool collection kit, please return stool sample to [facility] lab for testing. Knox diet: bananas, rice, applesauce, toast.Pain of bilateral [...] Allergies (updated 09/13/2019) Orders:GI Panel - Stool [[id number]] Adult - Ofc Vst, NEW, Level IV [[id number]] Follow-Up Return to clinic: in 6 weeks for preventive care visitAdditional Follow-Up: annual PEClinical Visit Summary CompletedMedications:OLANZAPINE 10 MG ORAL TABLET (OLANZAPINE) Take 1 tablet po daily #30[Tablet] x 0 Entered and Authorized by: Robinson BARRETO Method used: Electronically to [facility] (retail) [address] [place] [address] Note to Pharmacy: Route: ORAL; RxID: [id number] HCL 25 MG ORAL TABLET (HYDROXYZINE HCL) Take 1 tablet by mouth up to three times daily as needed #30[Tablet] x 1 Route:ORAL Entered and Authorized by: Robinson BARRETO Method used: Electronically to [facility] (retail) [address] [place] [address] Fax: Note to Pharmacy: Route: ORAL; Indications: GENERALIZED ANXIETY DISORDER RxID: [id number] signed by Robinson BARRETO on 09/22/2019 at 10:02 AM Name Value Range Interpretation Code Description Data Anna rce(s) Supporting Document(s) Procedure Social History Code Duration Value Status Description Data Source(s ) Smoking 04/15/2020 12:00:00 AM EST Patient has never smoked co mpleted Patient has never smoked [facility] ([facility]) Smoking 04/02/2020 12:00:00 AM EST Never Smoker completed Never S moker eCW1 ([facility]) Smoking 03/16/2020 12:00:00 AM EST Never Smoker completed Never S moker eCW1 ([facility]) Smoking 03/08/2020 12:00:00 AM EST Never Smoker completed Never S moker eCW1 ([facility]) Smoking 01/10/2020 12:00:00 AM EDT Unknown if ever smoked comp leted Unknown if ever smoked [facility] ([facility] [place] [facility]) Smoking 01/09/2020 12:00:00 AM EDT Unknown if ever smoked comp leted Unknown if ever smoked [facility] ([facility] [place] [facility]) Smoking 01/04/2020 12:00:00 AM EDT Unknown if ever smoked comp leted Unknown if ever smoked [facility] ([facility]) Smoking 12/27/2019 12:00:00 AM EDT Unknown if ever smoked comp leted Unknown if ever smoked [facility] ([facility]) Smoking 12/22/2019 12:00:00 AM EDT Unknown if ever smoked comp leted Unknown if ever smoked [facility] ([facility] [place] [facility]) Smoking 11/28/2019 12:00:00 AM EDT Unknown if ever smoked comp leted Unknown if ever smoked [facility] ([facility] [place] [facility]) Smoking 09/13/2019 12:00:00 AM EDT Unknown if ever smoked comp leted Unknown if ever smoked [facility] ([facility] [place] [facility]) Smoking 09/12/2019 12:00:00 AM EDT Unknown if ever smoked comp leted Unknown if ever smoked [facility] ([facility] [place] [facility]) Vital Signs ID Date Data Source UNK Name Value Range Interpretation Code Description Data Source(s) Body surface area Derived from formula 1.62 m2 1.62 m2 [facility] ([facility]) Body mass index (BMI) [Ratio] 25.1 kg/m2 25.1 k g/m2 [facility] ([facility]) Body weight 136.00 [lb_av] 136.00 [lb_av] MEDEN T ([facility]) Body height 61.75 [in_i] 61.75 [in_i] [facility] ([facility]) 5'1.75" Diastolic blood pressure 62 mm[Hg] 62 mm[Hg] [facility] ([facility]) Systolic blood pressure 100 mm[Hg] 100 mm[Hg] M EDENT ([facility]) Body weight 2156.8 [oz_av] 2156.8 [oz_av] ATHEN A ([facility]) Systolic blood pressure 144 mm[Hg] 144 mm[Hg] A THENA ([facility]) Systolic blood pressure 134 mm[Hg] 134 mm[Hg] A THENA ([facility]) Body mass index (BMI) [Ratio] 23.1 kg/m2 23.1 k g/m2 [facility] ([facility]) Body height 64 [in_i] 64 [in_i] [facility] ([facility]) Diastolic blood pressure 87 mm[Hg] 87 mm[Hg] [facility]ON ([facility]) Diastolic blood pressure 100 mm[Hg] 100 mm[Hg] [facility] ([facility]) Diastolic blood pressure 82 mm[Hg] 82 mm[Hg] eCW1 ([facility]) Systolic blood pressure 136 mm[Hg] 136 mm[Hg] e CW1 ([facility]) Body temperature 98.6 [degF] 98.6 [degF] eCW1 ( [facility]) Respiratory rate 18 /min 18 /min eCW1 ([facility]) Heart rate 102 /min 102 /min eCW1 ([facility]) Body mass index (BMI) [Ratio] 24.48 kg/m2 24.48 kg/m2 eCW1 ([facility]) Body height 62.5 [in_i] 62.5 [in_i] eCW1 ([facility]) Body weight 136.0 [lb_av] 136.0 [lb_av] eCW1 ([facility]) Body weight 2160 [oz_av] 2160 [oz_av] MASON ([facility]) Systolic blood pressure 131 mm[Hg] 131 mm[Hg] A THENA ([facility]) Body mass index (BMI) [Ratio] 23.2 kg/m2 23.2 k g/m2 [facility]ON ([facility]) Body height 64 [in_i] 64 [in_i] [facility]ON ([facility]) Diastolic blood pressure 92 mm[Hg] 92 mm[Hg] [facility]ON ([facility]) Body weight 2160 [oz_av] 2160 [oz_av] [facility] ([facility]) Systolic blood pressure 131 mm[Hg] 131 mm[Hg] A THENA ([facility]) Body mass index (BMI) [Ratio] 23.2 kg/m2 23.2 k g/m2 [facility] ([facility]) Body height 64 [in_i] 64 [in_i] [facility] ([facility]) Diastolic blood pressure 92 mm[Hg] 92 mm[Hg] [facility] ([facility]) Body weight 2153.6 [oz_av] 2153.6 [oz_av] ATHEN A ([facility]) Systolic blood pressure 136 mm[Hg] 136 mm[Hg] A OLIVERA ([facility]) Body mass index (BMI) [Ratio] 23.1 kg/m2 23.1 k g/m2 [facility]ON ([facility]) Body height 64 [in_i] 64 [in_i] [facility] ([facility]) Diastolic blood pressure 90 mm[Hg] 90 mm[Hg] [facility] ([facility]) Body weight 2153.6 [oz_av] 2153.6 [oz_av] ATHEN A ([facility]) Systolic blood pressure 136 mm[Hg] 136 mm[Hg] A [facility] ([facility]) Body mass index (BMI) [Ratio] 23.1 kg/m2 23.1 k g/m2 [facility] ([facility]) Body height 64 [in_i] 64 [in_i] [facility] ([facility]) Diastolic blood pressure 90 mm[Hg] 90 mm[Hg] [facility] ([facility]) Diastolic blood pressure 90 mm[Hg] 90 mm[Hg] [facility] ([facility]) Body height 64 [in_i] 64 [in_i] [facility] ([facility]) Body mass index (BMI) [Ratio] 23.1 kg/m2 23.1 k g/m2 [facility] ([facility]) Systolic blood pressure 136 mm[Hg] 136 mm[Hg] [facility] Body weight 2153.6 [oz_av] 2153.6 [oz_av] ATHEN A ([facility]) Body height 0.00 in Normal (applies to non-numeric resu lts) 0.00 in [facility] ([facility]) Body weight Measured 0.00 lbs Normal (applies to n on-numeric results) 0.00 lbs [facility] ([facility] [place] [facility]) Body mass index (BMI) [Ratio] 0.00 kg/m2 No rmal (applies to non-numeric results) 0.00 kg/m2 [facility] ([facility]) Systolic blood pressure 0 mm[Hg] Normal (applies t o non-numeric results) 0 mm[Hg] [facility] ([facility] [place] [facility]) Diastolic blood pressure 0 mm[Hg] Normal (applies to non-numeric results) 0 mm[Hg] [facility] ([facility] [place] [facility]) Body weight 2244 [oz_av] 2244 [oz_av] [facility] ([facility]) Systolic blood pressure 143 mm[Hg] 143 mm[Hg] A [facility] ([facility]) Body height 64 [in_i] 64 [in_i] [facility] ([facility]) Diastolic blood pressure 97 mm[Hg] 97 mm[Hg] [facility] ([facility]) Body weight 2244 [oz_av] 2244 [oz_av] [facility] ([facility]) Systolic blood pressure 143 mm[Hg] 143 mm[Hg] A [facility] ([facility]) Body height 64 [in_i] 64 [in_i] [facility] ([facility]) Diastolic blood pressure 97 mm[Hg] 97 mm[Hg] [facility] ([facility]) Diastolic blood pressure 97 mm[Hg] 97 mm[Hg] [facility] ([facility]) Body height 64 [in_i] 64 [in_i] [facility] ([facility]) Systolic blood pressure 143 mm[Hg] 143 mm[Hg] A [facility] ([facility]) Body weight 2244 [oz_av] 2244 [oz_av] [facility] ([facility]) Body weight 1972 [oz_av] 1972 [oz_av] [facility] ([facility]) Systolic blood pressure 105 mm[Hg] 105 mm[Hg] A [facility] ([facility]) Body height 64 [in_i] 64 [in_i] [facility] ([facility]) Diastolic blood pressure 71 mm[Hg] 71 mm[Hg] [facility] ([facility]) Body weight 1972 [oz_av] 1972 [oz_av] [facility] ([facility]) Systolic blood pressure 105 mm[Hg] 105 mm[Hg] A THENA ([facility]) Body height 64 [in_i] 64 [in_i] [facility] ([facility]) Diastolic blood pressure 71 mm[Hg] 71 mm[Hg] [facility] ([facility]) Diastolic blood pressure 71 mm[Hg] 71 mm[Hg] [facility] ([facility]) Body height 64 [in_i] 64 [in_i] [facility] ([facility]) Systolic blood pressure 105 mm[Hg] 105 mm[Hg] A THENA ([facility]) Body weight 1972 [oz_av] 1972 [oz_av] [facility] ([facility]) Patient Treatment Plan of Care Planned Activity Planned Date Details Description Data Source (s) quetiapine 50 MG Oral Tablet [facility] ([facility]) olanzapine 10 MG Oral Tablet [facility] ([facility]) Naltrexone hydrochloride 50 MG Oral Tablet [facility] ([facility]) Escitalopram 10 MG Oral Tablet [Lexapro] [facility] ([facility]) Hydroxyzine Hydrochloride 25 MG Oral Tablet [facility] ([facility]) 21 DAY Ethinyl Estradiol 0.785958 MG/HR / Etonogestrel 0.005 MG/HR Vaginal Ring [facility] ([facility]) atomoxetine 25 MG Oral Capsule [facility] ([facility]) atomoxetine 18 MG Oral Capsule [facility] ([facility]) quetiapine 50 MG Oral Tablet [facility] ([facility]) olanzapine 10 MG Oral Tablet [facility] ([facility]) Naltrexone hydrochloride 50 MG Oral Tablet [facility] ([facility]) Escitalopram 10 MG Oral Tablet [Lexapro] [facility] ([facility]) Hydroxyzine Hydrochloride 25 MG Oral Tablet [facility] ([facility]) 21 DAY Ethinyl Estradiol 0.055727 MG/HR / Etonogestrel 0.005 MG/HR Vaginal Ring [facility] ([facility]) atomoxetine 25 MG Oral Capsule [facility] ([facility]) atomoxetine 18 MG Oral Capsule [facility] ([facility]) atomoxetine 18 MG Oral Capsule [facility] ([facility]) 21 DAY Ethinyl Estradiol 0.696665 MG/HR / Etonogestrel 0.005 MG/HR Vaginal Ring [facility] ([facility]) Hydroxyzine Hydrochloride 25 MG Oral Tablet [facility] ([facility]) Naltrexone hydrochloride 50 MG Oral Tablet [facility] ([facility]) olanzapine 10 MG Oral Tablet [facility] ([facility]) quetiapine 50 MG Oral Tablet [facility] ([facility])
[2020-04-24 21:54] LABS: RSV AMPLIFICATION NEGATIVE (NEGATIVE)
[2020-04-24] MEDS ORDERED: ISIB1TAB PO (22:10)
[2020-04-24] MEDS ORDERED: BUSP5TA PO (22:10)
[2020-04-24 22:30] VITALS: BP 117/78
[2020-04-25] MEDS: traZODone 50 MG TAB PO PRN ×2 (00:17→20:07)
[2020-04-25] MEDS: ACETAMINOPHEN TAB 650MG DOSE (2X325MG) PO PRN (09:09)
[2020-04-25] MEDS: LORazepam 2 MG TAB PO PRN (09:09)
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
[2020-04-25 16:24] VITALS: BP 128/78
--- NOTE | 2020-04-25 19:38 | HPEPDOC ---
[facility] Medical History & Physical Date of Admission Apr 24, 2020 Date of Service: Apr 25, 2020 History and Physical CHIEF COMPLAINT: Anxiety HISTORY OF PRESENT ILLNESS: Ms. Barton is a 24 year old female who is in the inpatient mental health unit for unspecified mood disorder. She was reported to be manic on arrival to the ED. When I saw her in the [facility], she was pleasant. She reported anxiety and that there was a lot of stuff going on in her life but would not specify. Otherwise, she tell me she has a chronic headache. Started a couple of months ago, but responds to ibuprofen. She also reports frequent panic attacks with chest pain. Reports the chest pain to be left sided and dull with associated dyspnea. When she controls her panic attack, her chest pain resolves. Otherwise, she notices a rash on her checks. She also has erythema over the joints of her fingers bilaterally. She reports morning stiffness that lasts for about 30 minutes before resolving. She knows her mom as arthritis, but unsure of what kind. PAST MEDICAL HISTORY: 1. Anxiety 2. Chronic back pain 3. Polysubstance abuse PAST SURGICAL HISTORY: 1. Denies past surgical history SOCIAL HISTORY: ETOH: A glass of wine a day Illicit drug use: Smokes marijuana. History of cocaine, ecstasy, opioids, methamphetamines, heroin and malena use. FAMILY HISTORY: Father: Hypercholesterolemia Mother: Hypercholesterolemia ALLERGIES: Please see below. REVIEW OF SYSTEMS: CONSTITUTIONAL: Denies any fever or chills. ENT: Denies rhinorrhea. Denies sore throat. RESPIRATORY: Only when she has a panic attack she has shortness of breath. Occasional cough. CARDIOVASCULAR: Only when she has a panic attack she has chest pain. GASTROINTESTINAL: Denies abdominal pain. GENITOURINARY: Denies dysuria. CUTANEOUS: Reports erythema of her cheeks. MUSCULOSKELETAL: Denies muscle weakness. Reports morning stiffness in hands the last about 30 minutes HEMATOLOGICAL/ONCOLOGY: Denies bruises PSYCHOLOGICAL: Reports increased anxiety. HOME MEDICATIONS: Please see below. PHYSICAL EXAMINATION: VITAL SIGNS: Temperature 98.4, pulse 98, respiratory rate 18, blood pressure 128/78, pulse oximetry 98 % on room air. GENERAL: Comfortable, in no apparent distress. HEENT: Head normocephalic/atraumatic, EOMI, sclera clear. Mild erythema of cheeks NECK: Supple, no JVD. RESPIRATORY: Lungs clear to auscultation bilaterally, no rales, wheeze or rhonchi. CARDIOVASCULAR: Regular rate and rhythm. ABDOMEN: Soft, nontender, no guarding or rebound tenderness. Normal bowel sounds. MUSCLE SKELETAL: Muscle strength 5/5 in all extremities. Erythema of PIP and DIP of fingers bilaterally NEUROLOGICAL: CN 312 grossly intact, no focal deficits noted. PSYCHOLOGICAL: Anxious LABORATORY DATA: See below. MICROBIOLOGY: Please see below. ASSESSMENT AND PLAN: 1. Unspecified mood disorder Being managed in the inpatient mental health unit 2. Headaches Recommend trying acetaminophen for headaches 3. Joint stiffness in hands bilaterally We'll initiate workup for rheumatoid arthritis. She'll need a complete rheumatoid workup with PCP on discharge Thank you for consulting us. We will sign off at this time. It is any further questions or concerns between hesitate to reconsult us Vital Signs Vital Signs Date Time Temp Pulse Resp B/P (MAP) Pulse Ox O2 Delivery O2 Flow Rate FiO2 04/25/20 16:24 98.4 98 18 128/78 (95) 98 Room Air Laboratory Data Labs 24H Laboratory Tests 2 04/24/20 21:01: Coronavirus (COVID-19)(PCR) NEGATIVE, Influenza Type A (RT-PCR) NEGATIVE, Influenza Type B (RT-PCR) NEGATIVE, Respiratory Syncytial Virus (PCR) NEGATIVE Home Medications Scheduled Buspirone HCl (Buspirone HCl) 5 Mg Tablet, 5 MG PO BID Desogestrel-Ethinyl Estradiol (Isibloom 28 Day Tablet) 1 Each Tablet, 1 TAB PO QHS Allergies Coded Allergies: SEASONAL ALLERGIES (Verified Allergy, Unknown, 09/03/19) A-FIB/CHADSVASC A-FIB History Current/History of A-Fib/PAF?: No NENA FLOR DO Apr 25, 2020 19:38
[2020-04-25] MEDS: OLANZapine 10 MG TAB PO SCH (20:07)
[2020-04-26 06:18] VITALS: BP 112/57
[2020-04-26] MEDS: OLANZapine 10 MG TAB PO SCH ×2 (08:06→21:10)
[2020-04-26] MEDS: LORazepam 2 MG TAB PO PRN (08:07)
--- NOTE | 2020-04-26 08:34 | MHIPNPDOC ---
[facility] Progress Note Progress Note DATE OF SERVICE: 04/26/20 HISTORY: . VITAL SIGNS: See below. NEW TEST RESULTS: . CURRENT MEDICATIONS: See below. MENTAL STATUS EXAMINATION: Patient is a -year old female, who is . Speech: Is . Language skills are . Thought processes including: . Thought content: . Abstract reasoning, and computation: . Description of asso ciations: . Description of abnormal or psychotic thoughts: . Judgment: . Insight: [very limited, good, fair. poor]. Orientation: . Recent and remote memory: . Attention span and concentration: . Language: . Fund of knowledge: . Mood: . Affect: . DIAGNOSES: 1. . 2. . 3. . ASSESSMENT: patient is agreeable to meet for the interview, states "I'm doing alright, I feel pretty with it." She states that she i looking forward to communication group, and that she was having "racing thoughts." She reports t hat she no longer feels like she is having racing thoughts. Today, she reports that she "probably upset the neighbor that I said hi to but I . She denies hearing voices today, still continues to deny that she was she states that. She states that she did sleep last night with the trazodone, slept about 7 hours straight. She reports that she was alone at her house and was getting nauseous. she sates that she was highly anxious before admission. She reports she has tried hydroxyzine but didn not like it, states that she feels she needs something stronger. Patient reports that she talked to her mom yesterday, and "everyone thinks I'm insane." MANAGEMENT PLAN: . TIME SPENT: minutes. Vital Signs Vital Signs Date Time Temp Pulse Resp B/P (MAP) Pulse Ox O2 Delivery O2 Flow Rate FiO2 04/26/20 06:18 97.7 94 16 112/57 (75) 99 Room Air Laboratory Data 24H Labs Laboratory Tests 2 04/26/20 06:09: Rheumatoid Factor < 10.0 Current Medications Current Medications Medications (Trade) Dose Ordered Sig/Adolfo Route PRN Reason Start Time Stop Time Status Last Admin Dose Admin Acetaminophen (Tylenol Tab) 650 mg Q6HP PRN PO HEADACHE or DISCOMFORT 04/24/20 20:30 04/25/20 09:09 Al Hydrox/Mg Hydrox/Simethicone (Mylanta) 30 ml Q4HP PRN PO HEARTBURN/INDIGESTION 04/24/20 20:30 Haloperidol (Haldol) 5 mg Q6HP PRN PO AGITATION 04/24/20 20:30 04/25/20 14:52 Home Med (Med Rec Complete!) ASDIRECTED XX 04/24/20 22:15 04/24/20 22:14 DC Lorazepam (Ativan) 2 mg Q6HP PRN PO ANXIETY 04/24/20 20:30 04/26/20 08:07 Magnesium Hydroxide (Milk Of Magnesia) 30 ml DAILYPRN PRN PO CONSTIPATION 04/24/20 20:30 Olanzapine (ZyPREXA) 10 mg BID PO 04/25/20 21:00 04/26/20 08:06 Trazodone HCl (Desyrel) 50 mg QHSP PRN PO INSOMNIA 04/24/20 20:30 04/25/20 20:07 Allergies Coded Allergies: SEASONAL ALLERGIES (Verified Allergy, Unknown, 09/03/19) JES GARNER Apr 26, 2020 08:34
--- NOTE | 2020-04-26 09:55 | MHIPNPDOC ---
[facility] Progress Note Progress Note DATE OF SERVICE: 04/26/20 HISTORY OF THE PRESENT ILLNESS: Per the emergency room reports: pt states, "I was not knocking on strangers doors, this person invited my dog onto their porch." Pt reports she was walking her dog in [place] where she observed a man snowblowing. States she was trying to look at the gillespie, which was located on their porch, but then admits it got awkward. Pt states, "the next thing I know the police are there." Pt was noted to be highly manic, bizarre, and rambling upon arrival. She was given IM Zyprexa and noted some improvement while in the ED. During interview, pt is highly paranoid and believes carbon monoxide poisoning is going through her vents at home and in the the ED. She reports a long hx of substance abuse including Methamphetamine abuse, Cannabis Abuse, and Opioid abuse. States she is currently still smoking Cannabis, but denies any other substances at this time. She admits being prescribed Buspirone for anxiety, but has been non-compliant due to disliking the side effects which she refuses to describe in detail. Pt denies SI and HI, however is presenting quite psychotic. Patient is a 24 -year-old single, , domiclied female, with one previous psychiatric admission to this facility. She reported that she was thinking about remodeling her airflow systems in her house because she felt they were santiago so decided to take a walk with her dog to get a "general idea" of other patient's air flow systems. She states that as she was taking her dog for a walk, she saw a man snowblowing, who also had a dog, so she went up to him so that their dogs could see each other. She then reported that she believed the people, whose house she was at, were on the phone with her siblings, as she heard her siblings through the phone. Se reported that the people then asked her to leave their porch and as she was leaving the police were there, who subsequently brought her to the emergency room. At this interview, she denies that she was knocking on other people's doors. She denies si/hi/vh does report +ah - reports she gets "signals" but does not elaborate what that means, states it is not bothersome VITAL SIGNS: See below. CURRENT MEDICATIONS: See below. General Appearance: well groomed, appears stated age, hospital scubs/clothing Build: average Demeanor: average Eye Contact: average Activity: average Behavior: cooperative Speech: spontaneous, reg/rate,rhythm,volume Mood: euthymic Affect: full, appropriate, congruent Thought Process: linear/coherent, somewhat disorganized Thought Content (Delusions): still somewhat disorganized, delusional about events leading to admission Thought Content (Other): none reported, appropriate Thought Content (Aggressive): none reported Perception (Hallucinations): denies Perception (Other): none reported Cognition (Impairment of): none reported Cognition(Intelligence Est.): average Oriented: Awake, Alert, Oriented times three Insight: fair, improving Judgment: fair, improving Psychosis: Psychotic Perceptions DIAGNOSES: 1. unspecified psychotic disorder ASSESSMENT: Patient is agreeable to meet for the interview, states "I'm doing alright, I feel pretty with it." She reports she feels her thoughts have slowed down and is no longer having racing thoughts and is looking forward to communication group today because she states she struggles with effective communication. She still has a somewhat disorganized thought process, still unable to piece together the events leading to admission, states "I probably upset the neighbor that I said hi to but I will apologize to him. When he asked me to leave the property, I left but the police were already there." When asked if she felt her house was still being poisoned with carbon monoxide, she stated, "I don't really know" and that at home she felt nauseous and became worried because carbon monoxide is odorless and she was home and alone and new someone previously that had carbon monoxide poisoning so she was unsure if it was real or if she was just highly anxious. She states she took haldol and ativan with her zyprexa because she felt somewhat irritable and anxious. It was explained that the zyprexa alone could also help with that and to just utilize the prns if she felt she was unable to control the anxiety and irritability. she was agreeable. Attempted to discuss various options for anxiety and patient reported that she didn't like the hydroxyzine or buspar that she has previously been prescribed, states "I feel like I need something stronger." When asked ifs she talked to her family, she reported that she had called them and that "everyone thinks I'm insane because I'm here." She denies ah/vh/si/hi, denies using any drugs before admission. MANAGEMENT PLAN: Continue olanzapine 10 mg po bid discontinue haldol and ativan prn Start zyprexa zydis 5 mg po q6h anxiety/agitation TIME SPENT: 25 minutes. Vital Signs Vital Signs Date Time Temp Pulse Resp B/P (MAP) Pulse Ox O2 Delivery O2 Flow Rate FiO2 04/26/20 06:18 97.7 94 16 112/57 (75) 99 Room Air Laboratory Data 24H Labs Laboratory Tests 2 04/26/20 06:09: Rheumatoid Factor < 10.0 Current Medications Current Medications Medications (Trade) Dose Ordered Sig/Adolfo Route PRN Reason Start Time Stop Time Status Last Admin Dose Admin Acetaminophen (Tylenol Tab) 650 mg Q6HP PRN PO HEADACHE or DISCOMFORT 04/24/20 20:30 04/25/20 09:09 Al Hydrox/Mg Hydrox/Simethicone (Mylanta) 30 ml Q4HP PRN PO HEARTBURN/INDIGESTION 04/24/20 20:30 Haloperidol (Haldol) 5 mg Q6HP PRN PO AGITATION 04/24/20 20:30 04/25/20 14:52 Home Med (Med Rec Complete!) ASDIRECTED XX 04/24/20 22:15 04/24/20 22:14 DC Lorazepam (Ativan) 2 mg Q6HP PRN PO ANXIETY 04/24/20 20:30 04/26/20 08:07 Magnesium Hydroxide (Milk Of Magnesia) 30 ml DAILYPRN PRN PO CONSTIPATION 04/24/20 20:30 Olanzapine (ZyPREXA) 10 mg BID PO 04/25/20 21:00 04/26/20 08:06 Trazodone HCl (Desyrel) 50 mg QHSP PRN PO INSOMNIA 04/24/20 20:30 04/25/20 20:07 Allergies Coded Allergies: SEASONAL ALLERGIES (Verified Allergy, Unknown, 09/03/19) ROLANDO SANTOS NP Apr 26, 2020 09:54
[2020-04-26] MEDS: OLANZapine ORAL DISINTEGRATING TAB 5MG PO PRN (21:10)
[2020-04-26] MEDS: traZODone 50 MG TAB PO PRN (21:10)
[2020-04-27 06:51] VITALS: BP 149/70
[2020-04-27] MEDS: OLANZapine 10 MG TAB PO SCH ×2 (08:26→20:05)
[2020-04-27] MEDS: OLANZapine ORAL DISINTEGRATING TAB 5MG PO PRN (13:17)
--- NOTE | 2020-04-27 16:50 | MHIPNPDOC ---
[facility] Progress Note Progress Note DATE OF SERVICE: 04/27/20----- Patient was assessed using ZOOM due to Coronavirus pandemic HISTORY OF THE PRESENT ILLNESS: Per the emergency room reports: pt states, "I was not knocking on strangers doors, this person invited my dog onto their porch." Pt reports she was walking her dog in [place] where she observed a man snowblowing. States she was trying to look at the gillespie, which was located on their porch, but then admits it got awkward. Pt states, "the next thing I know the police are there." Pt was noted to be highly manic, bizarre, and rambling upon arrival. She was given IM Zyprexa and noted some improvement while in the ED. During interview, pt is highly paranoid and believes carbon monoxide poisoning is going through her vents at home and in the the ED. She reports a long hx of substance abuse including Methamphetamine abuse, Cannabis Abuse, and Opioid abuse. States she is currently still smoking Cannabis, but denies any other substances at this time. She admits being prescribed Buspirone for anxiety, but has been non-compliant due to disliking the side effects which she refuses to describe in detail. Pt denies SI and HI, however is presenting quite psychotic. Patient is a 24 -year-old single, , domiclied female, with one previous psychiatric admission to this facility. She reported that she was thinking about remodeling her airflow systems in her house because she felt they were [place] so decided to take a walk with her dog to get a "general idea" of other patient's air flow systems. She states that as she was taking her dog for a walk, she saw a man snowblowing, who also had a dog, so she went up to him so that their dogs could see each other. She then reported that she believed the people, whose house she was at, were on the phone with her siblings, as she heard her siblings through the phone. Se reported that the people then asked her to leave their porch and as she was leaving the police were there, who subsequently brought her to the emergency room. At this interview, she denies that she was knocking on other people's doors. She denies si/hi/vh does report +ah - reports she gets "signals" but does not elaborate what that means, states it is not bothersome VITAL SIGNS: See below. CURRENT MEDICATIONS: See below. General Appearance: well groomed, appears stated age, hospital scubs/clothing Build: average Demeanor: average Eye Contact: average Activity: average Behavior: cooperative Speech: spontaneous, reg/rate,rhythm,volume Mood: euthymic Affect: full, appropriate, congruent Thought Process: a little bit circumstantial Thought Content (Delusions): she is not insightful about the events that lead to admission, tries to say that she suffers from anxiety, she is in denial of her bipolar disorder. Thought Content (Other): She feels guilty and embarrassed about "imposing my bipolar disorder onto other people" ( talking about the events that lead to her admission) Thought Content (Aggressive): none reported Perception (Hallucinations): denies Perception (Other): none reported Cognition (Impairment of): none reported Cognition(Intelligence Est.): average Oriented: Awake, Alert, Oriented times three Insight: fair, improving Judgment: fair, improving Psychosis: Denies at this time DIAGNOSES: 1. unspecified psychotic disorder ASSESSMENT: The patient is denying feeling paranoid but she was very interested on her labs., mostly because she worries about having had some carbon monoxide intoxication. She says Zyprexa makes tamera feel a little bit "spacey" but she reports feeling better compared to her admission, although she can't recall all the events that lead to her admission. This commercial lines underwriter read to her the ED report and she became very emotional, she cried, expressed guilt about "having imposed" her illness onto other people. Expressed remorse and said she would apologize to them. She says she is interested in obtaining a medical marijuana card and became a little bit confused when she tried to explain why would she be interested in this. She finally accepted to be compliant with her medications. This commercial lines underwriter counseled about the importance of compliance and why she needs to take Zyprexa. Provided support. Patient was receptive MANAGEMENT PLAN: Continue olanzapine 10 mg po bid discontinue haldol and ativan prn Start zyprexa zydis 5 mg po q6h anxiety/agitation TIME SPENT: 25 minutes. Vital Signs Vital Signs Date Time Temp Pulse Resp B/P (MAP) Pulse Ox O2 Delivery O2 Flow Rate FiO2 04/27/20 06:51 97.6 82 14 149/70 (96) 100 Room Air Current Medications Current Medications Medications (Trade) Dose Ordered Sig/Adolfo Route PRN Reason Start Time Stop Time Status Last Admin Dose Admin Acetaminophen (Tylenol Tab) 650 mg Q6HP PRN PO HEADACHE or DISCOMFORT 04/24/20 20:30 04/25/20 09:09 Al Hydrox/Mg Hydrox/Simethicone (Mylanta) 30 ml Q4HP PRN PO HEARTBURN/INDIGESTION 04/24/20 20:30 Haloperidol (Haldol) 5 mg Q6HP PRN PO AGITATION 04/24/20 20:30 04/26/20 09:54 DC 04/25/20 14:52 Home Med (Med Rec Complete!) ASDIRECTED XX 04/24/20 22:15 04/24/20 22:14 DC Lorazepam (Ativan) 2 mg Q6HP PRN PO ANXIETY 04/24/20 20:30 04/26/20 09:54 DC 04/26/20 08:07 Magnesium Hydroxide (Milk Of Magnesia) 30 ml DAILYPRN PRN PO CONSTIPATION 04/24/20 20:30 Olanzapine (ZyPREXA ZYDIS) 5 mg Q6HP PRN PO ANXIETY/AGITATION 04/26/20 10:00 04/27/20 13:17 Olanzapine (ZyPREXA) 10 mg BID PO 04/25/20 21:00 04/27/20 08:26 Trazodone HCl (Desyrel) 50 mg QHSP PRN PO INSOMNIA 04/24/20 20:30 04/26/20 21:10 Allergies Coded Allergies: SEASONAL ALLERGIES (Verified Allergy, Unknown, 09/03/19) LINDA HURT MD Apr 27, 2020 15:04
[2020-04-27 18:19] VITALS: BP 112/60
[2020-04-27] MEDS: traZODone 50 MG TAB PO PRN (20:05)
[2020-04-28 06:12] VITALS: BP 109/77
[2020-04-28] MEDS: busPIRone 5 MG TAB PO SCH ×3 (09:00→21:51)
[2020-04-28] MEDS: OLANZapine 10 MG TAB PO SCH ×3 (09:14→21:51)
--- NOTE | 2020-04-28 13:09 | MHIPNPDOC ---
[facility] Progress Note Progress Note DATE OF SERVICE: 04/28/20 Patient was assessed using ZOOM due to Coronavirus pandemic HISTORY OF THE PRESENT ILLNESS: Per the emergency room reports: pt states, "I was not knocking on strangers doors, this person invited my dog onto their porch." Pt reports she was walking her dog in [place] where she observed a man snowblowing. States she was trying to look at the gillespie, which was located on their porch, but then admits it got awkward. Pt states, "the next thing I know the police are there." Pt was noted to be highly manic, bizarre, and rambling up on arrival. She was given IM Zyprexa and noted some improvement while in the ED. During interview, pt is highly paranoid and believes carbon monoxide poisoning is going through her vents at home and in the the ED. She reports a long hx of substance abuse including Methamphetamine abuse, Cannabis Abuse, and Opioid abuse. States she is currently still smoking Cannabis, but denies any other substances at this time. She admits being prescribed Buspirone for anxiety, but has been non-compliant due to disliking the side effects which she refuses to describe in detail. Pt denies SI and HI, however is presenting quite psychotic. Patient is a 24 -year-old single, , domiclied female, with one previous psychiatric admission to this facility. She reported that she was thinking about remodeling her airflow systems in her house because she felt they were [place] so decided to take a walk with her dog to get a "general idea" of other patient's air flow systems. She states that as she was taking her dog for a walk, she saw a man snowblowing, who also had a dog, so she went up to him so that their dogs could see each other. She then reported that she believed the people, whose house she was at, were on the phone with her siblings, as she heard her siblings through the phone. Se reported that the people then asked her to leave their porch and as she was leaving the police were there, who subsequently brought her to the emergency room. At this interview, she denies that she was knocking on other people's doors. She denies si/hi/vh does report +ah - reports she gets "signals" but does not elaborate what that means, states it is not bothersome VITAL SIGNS: See below. CURRENT MEDICATIONS: See below. General Appearance: well groomed, appears stated age, hospital scubs/clothing Build: average Demeanor: average Eye Contact: average Activity: average Behavior: cooperative Speech: spontaneous, reg/rate,rhythm,volume Mood: anxious/depressed Affect: labile Thought Process: a little bit circumstantial Thought Content (Delusions): she continues to be in denial of her illness, she says she oonly has ADD. Thought Content (Other): She feels guilty and embarrassed about "imposing my bipolar disorder onto other people" ( talking about the events that lead to her admission) Thought Content (Aggressive): none reported Perception (Hallucinations): denies Perception (Other): none reported Cognition (Impairment of): none reported Cognition(Intelligence Est.): average Oriented: Awake, Alert, Oriented times three Insight: fair, improving Judgment: fair, improving Psychosis: Denies at this time DIAGNOSES: 1. unspecified psychotic disorder ASSESSMENT: She feels a little bit tired, she says she feels a little bit dizzy. She says she tried to talk to her family but at the same time she adds that her relationship has been strained from them. She says the conversation was very fast, so, she doesn't feel better after the conversation. She says she spoke with her stepfather and she says he is "the glue" of the family. the patient rambles, is not able to organize her thoughts, she's not able to say why their relationship is strained. Then, she cries and she says she has hurt her mother's feelings in the past. She told her mother that she wouldn't take care of her mother in her old age, she told her that she would put her in a [facility] and her mom got very hurt. She says that at that time, she only wanted to hang out with her BF and her mother wanted to have her close to her. She says that BF cheated on her and feels sorry for hurting her mom. She reports "brain shocks" this morning. She reports she took Strattera 25 mgs PO daily and Buspirone 5 mgs PO BID but she says she stopped taking them because she wanted to drink Grapefruit juice and she said she didn't want to take it. I will prescribe Buspirone 5 mgs PO BID but not Strattera because the hospital doesn't handle 25, the pharmacy only has 40 mgs and I'm not sure of patient being very reliable at this time, I'm not sure she was taking this medication. Support was provided, explained what what her symptoms might be caused by ( possibly illegal substances, maybe she is bipolar because her presentation upon admission seemed to correspond with a manic/psychotic presentation according to ED documents). Explained why it is important for her to be compliant with her medications. MANAGEMENT PLAN: Continue olanzapine 10 mg po bid Start zyprexa zydis 5 mg po q6h anxiety/agitation TIME SPENT: 25 minutes. Vital Signs Vital Signs Date Time Temp Pulse Resp B/P (MAP) Pulse Ox O2 Delivery O2 Flow Rate FiO2 04/28/20 06:12 97.1 77 16 109/77 (88) 04/27/20 06:51 100 Room Air Current Medications Current Medications Medications (Trade) Dose Ordered Sig/Adolfo Route PRN Reason Start Time Stop Time Status Last Admin Dose Admin Acetaminophen (Tylenol Tab) 650 mg Q6HP PRN PO HEADACHE or DISCOMFORT 04/24/20 20:30 04/25/20 09:09 Al Hydrox/Mg Hydrox/Simethicone (Mylanta) 30 ml Q4HP PRN PO HEARTBURN/INDIGESTION 04/24/20 20:30 Haloperidol (Haldol) 5 mg Q6HP PRN PO AGITATION 04/24/20 20:30 04/26/20 09:54 DC 04/25/20 14:52 Home Med (Med Rec Complete!) ASDIRECTED XX 04/24/20 22:15 04/24/20 22:14 DC Lorazepam (Ativan) 2 mg Q6HP PRN PO ANXIETY 04/24/20 20:30 04/26/20 09:54 DC 04/26/20 08:07 Magnesium Hydroxide (Milk Of Magnesia) 30 ml DAILYPRN PRN PO CONSTIPATION 04/24/20 20:30 Olanzapine (ZyPREXA ZYDIS) 5 mg Q6HP PRN PO ANXIETY/AGITATION 04/26/20 10:00 04/27/20 13:17 Olanzapine (ZyPREXA) 10 mg BID PO 04/25/20 21:00 1/31/21 09:14 Trazodone HCl (Desyrel) 50 mg QHSP PRN PO INSOMNIA 04/24/20 20:30 04/27/20 20:05 Allergies Coded Allergies: SEASONAL ALLERGIES (Verified Allergy, Unknown, 09/03/19) LINDA HURT MD Apr 28, 2020 13:09
[2020-04-28] MEDS: ACETAMINOPHEN TAB 650MG DOSE (2X325MG) PO PRN (16:04)
[2020-04-29 02:08] LABS: ANTINUCLEAR ANTIBODIES DIRECT Negative (Negative); CYCLIC CITRULLINATED PEPTIDE 3 units (0-19)
[2020-04-29 06:46] VITALS: BP 125/77
[2020-04-29] MEDS: busPIRone 5 MG TAB PO SCH ×2 (08:31→20:04)
[2020-04-29] MEDS: OLANZapine 10 MG TAB PO SCH ×2 (08:31→20:04)
--- NOTE | 2020-04-29 14:49 | MHIPNPDOC ---
[facility] [place] [facility] Progress Note Progress Note DATE OF SERVICE: 04/28/20 HISTORY OF THE PRESENT ILLNESS: Per the emergency room reports: pt states, "I was not knocking on strangers doors, this person invited my dog onto their porch." Pt reports she was walking her dog in [place] where she observed a man snowblowing. States she was trying to look at the gillespie, which was located on their porch, but then admits it got awkward. Pt states, "the next thing I know the police are there." Pt was noted to be highly manic, bizarre, and rambling upon arrival. She was given IM Zyprexa and noted some improvement while in the ED. During interview, pt is highly paranoid and believes carbon monoxide poisoning is going through her vents at home and in the the ED. She reports a long hx of substance abuse including Methamphetamine abuse, Cannabis Abuse, and Opioid abuse. States she is currently still smoking Cannabis, but denies any other substances at this time. She admits being prescribed Buspirone for anxiety, but has been non-compliant due to disliking the side effects which she refuses to describe in detail. Pt denies SI and HI, however is presenting quite psychotic. Patient is a 24 -year-old single, , domiclied female, with one previous psychiatric admission to this facility. She reported that she was thinking about remodeling her airflow systems in her house because she felt they were [place] so decided to take a walk with her dog to get a "general idea" of other patient's air flow systems. She states that as she was taking her dog for a walk, she saw a man snowblowing, who also had a dog, so she went up to him so that their dogs could see each other. She then reported that she believed the people, whose house she was at, were on the phone with her siblings, as she heard her siblings through the phone. Se reported that the people then asked her to leave their porch and as she was leaving the police were there, who subsequently brought her to the emergency room. At this interview, she denies that she was knocking on other people's doors. She denies si/hi/vh does report +ah - reports she gets "signals" but does not elaborate what that means, states it is not bothersome VITAL SIGNS: See below. CURRENT MEDICATIONS: See below. General Appearance: well groomed, appears stated age, hospital scubs/clothing Build: average Demeanor: average Eye Contact: average Activity: average Behavior: cooperative Speech: spontaneous, reg/rate,rhythm,volume Mood: euthymic Affect: congruent with mood, full Thought Process: linear, goal oriented Thought Content : none reported Thought Content (Other): none reported Thought Content (Aggressive): none reported Perception (Hallucinations): denies Perception (Other): none reported Cognition (Impairment of): none reported Cognition(Intelligence Est.): average Oriented: Awake, Alert, Oriented times three Insight: fair, improving Judgment: fair, improving Psychosis: Denies at this time DIAGNOSES: 1. unspecified psychotic disorder ASSESSMENT: Patient states that her weekend was ok, more and more of me figuring out why Im here. She states, I dont remember what happened as clearly as I thought that I did, probably due to not taking my meds. She states that she feels her thoughts are a little clearer. She report she may have taken an unknown pill about 2 days prior to admission, which may have contributed to her psychotic symptoms but she is unsure what the pill was . She denies any racing thoughts, si/hi/ah/vh, does not appear paranoid. She reports that all she can remember from before admission were that the police brought her to the emergency room and me waiting to get arrested. It said in the police reports that I guess I was knocking on peoples doors after thinking there was something wrong with my house. It goes to show I should take my meds." She reports that she no longer feels that her house is dangerous and states that she is going to go and live with her mother when she leaves here. 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 Due to her normal MSE, she will discharge tomorrow. MANAGEMENT PLAN: Continue olanzapine 10 mg po bid Start zyprexa zydis 5 mg po q6h anxiety/agitation TIME SPENT: 25 minutes. Vital Signs Vital Signs Date Time Temp Pulse Resp B/P (MAP) Pulse Ox O2 Delivery O2 Flow Rate FiO2 04/29/20 06:46 97.7 90 20 125/77 (93) 98 Room Air Current Medications Current Medications Medications (Trade) Dose Ordered Sig/Adolfo Route PRN Reason Start Time Stop Time Status Last Admin Dose Admin Acetaminophen (Tylenol Tab) 650 mg Q6HP PRN PO HEADACHE or DISCOMFORT 04/24/20 20:30 04/28/20 16:04 Al Hydrox/Mg Hydrox/Simethicone (Mylanta) 30 ml Q4HP PRN PO HEARTBURN/INDIGESTION 04/24/20 20:30 Buspirone HCl (Buspar) 5 mg BID PO 04/28/20 09:00 04/29/20 08:31 Haloperidol (Haldol) 5 mg Q6HP PRN PO AGITATION 04/24/20 20:30 04/26/20 09:54 DC 04/25/20 14:52 Home Med (Med Rec Complete!) ASDIRECTED XX 04/24/20 22:15 04/24/20 22:14 DC Lorazepam (Ativan) 2 mg Q6HP PRN PO ANXIETY 04/24/20 20:30 04/26/20 09:54 DC 04/26/20 08:07 Magnesium Hydroxide (Milk Of Magnesia) 30 ml DAILYPRN PRN PO CONSTIPATION 04/24/20 20:30 Olanzapine (ZyPREXA ZYDIS) 5 mg Q6HP PRN PO ANXIETY/AGITATION 04/26/20 10:00 04/27/20 13:17 Olanzapine (ZyPREXA) 10 mg BID PO 04/25/20 21:00 04/29/20 08:31 Trazodone HCl (Desyrel) 50 mg QHSP PRN PO INSOMNIA 04/24/20 20:30 04/27/20 20:05 Allergies Coded Allergies: SEASONAL ALLERGIES (Verified Allergy, Unknown, 09/03/19) ROLANDO SANTOS NP Apr 29, 2020 14:49
[2020-04-29 16:09] VITALS: BP 130/77
[2020-04-29] MEDS: traZODone 50 MG TAB PO PRN (20:04)
[2020-04-30 06:15] VITALS: BP 122/61
[2020-04-30] MEDS: busPIRone 5 MG TAB PO SCH (08:34)
[2020-04-30] MEDS: OLANZapine 10 MG TAB PO SCH (08:34)
[2020-04-30] MEDS ORDERED: BUSP5TA PO (09:04)
[2020-04-30] MEDS ORDERED: TRAZ-252 PO (09:04)
[2020-04-30] MEDS ORDERED: OLAN10TA2 PO (09:04)
--- NOTE | 2020-04-30 11:16 | MHDSPDOC ---
[facility] [address] [facility] Discharge Summary Discharge Summary DATE OF ADMISSION: Apr 24, 2020 at 20:23 DATE OF DISCHARGE: Apr 30, 2020 at 1105 DISCHARGE DIAGNOSES: 1. unspecified psychotic disorder REASON FOR ADMISSION: Per the emergency room reports: pt states, "I was not knocking on strangers doors, this person invited my dog onto their porch." Pt reports she was walking her dog in [place] where she observed a man snowblowing. States she was trying to look at the gillespie, which was located on their porch, but then admits it got awkward. Pt states, "the next thing I know the police are there." Pt was noted to be highly manic, bizarre, and rambling upon arrival. She was given IM Zyprexa and noted some improvement while in the ED. During interview, pt is highly paranoid and believes carbon monoxide poisoning is going through her vents at home and in the the ED. She reports a long hx of substance abuse including Methamphetamine abuse, Cannabis Abuse, and Opioid abuse. States she is currently still smoking Cannabis, but denies any other substances at this time. She admits being prescribed Buspirone for anxiety, but has been non-compliant due to disliking the side effects which she refuses to describe in detail. Pt denies SI and HI, however is presenting quite psychotic. Patient is a 24 -year-old single, , domiclied female, with one previous psychiatric admission to this facility. She reported that she was thinking about remodeling her airflow systems in her house because she felt they were santiago so decided to take a walk with her dog to get a "general idea" of other patient's air flow systems. She states that as she was taking her dog for a walk, she saw a man snowblowing, who also had a dog, so she went up to him so that their dogs could see each other. She then reported that she believed the people, whose house she was at, were on the phone with her siblings, as she heard her siblings through the phone. Se reported that the people then asked her to leave their porch and as she was leaving the police were there, who subsequently brought her to the emergency room. At this interview, she denies that she was knocking on other people's doors. She denies si/hi/vh does report +ah - reports she gets "signals" but does not elaborate what that means, states it is not bothersome CONSULTANTS INVOLVED: see hospitalist H&P TREATMENT AND PROGRESS ON THE UNIT : Patient was admitted from the emergency department and afforded the following treatment modalities 1) group therapy 2) mileu therapy 3)individual therapy 4) medication therapy and management 5) a safe environment HOSPITAL COURSE: Patient was admitted from [facility] emergency department on a 9.39 to [facility] after she was brought in by the police. Per the police, she was highly paranoid, manic, bizarre, and delusional Upon arrival to the unit, she was disorganized in her thought process and was subsequently started on olanzapine 10 mg po bid and buspar 5 mg po bid, which she has tolerated. Since admission she has shown improvement and as of today, no longer meets involuntary criteria. She will be discharged per he request DISCHARGE ASSESSMENT: Patient reports that she feels she is doing well today. She reports that sleep and appetite are adequate. She denies ah/vh/si/hi/depression/anxiety. She denies any paranoid or racing thoughts at this time. She states I really think the medications are a really good balance for me. She states that she spoke to her mom yesterday, who is excited about me going home. She states that after discharge, she is planning to go home and live with her mother and that she wants to be more open and honest with talking to her family about her emotions and mental illness. She states that one reason that she will be staying with her mom is so her mother can identify any possible warning signs that patient may be decompensating. She states that she knows now that she shouldnt have been knocking on peoples doors and continues to maintain that she doesnt remember a lot of the events leading to the admission. She reports she plans on remaining compliant with medications and following up at [facility]. There is no evidence of psychotic symptoms. She does not appear paranoid, delusional, or internally preoccupied, no evidence of rachel noted during the interview. She does not appear depressed or anxious. She is future oriented, calm, cooperative, euthymic and spontaneous with conversation, full affect, and good eye contact during the interview. She no longer meets involuntary criteria and therefore, will be discharged. Patient is agreeable to the discharge plan. MENTAL STATUS EXAMINATION ON DISCHARGE: Patient is a 24 year old, single, domiciled, white female, who is agreeable to meet for the interview. She is neat, clean, dressed in hospital clothing. Sonia is pleasant, cooperative, able to engage in reality based conversation. Mood and affect appropriate and congruent. General Appearance: well groomed, appears stated age, hospital scubs/clothing Build: average Demeanor: average Eye Contact: average Activity: average Behavior: cooperative Speech: spontaneous, reg/rate,rhythm,volume Mood: euthymic Affect: congruent with mood, full Thought Process: linear, goal oriented Thought Content : none reported Thought Content (Other): none reported Thought Content (Aggressive): none reported Perception (Hallucinations): denies Perception (Other): none reported Cognition (Impairment of): none reported Cognition(Intelligence Est.): average Oriented: Awake, Alert, Oriented times three Insight: good Judgment: good Psychosis: Denies at this time MEDICATIONS ON DISCHARGE: - olanzapine 10 mg po bid - buspar 5 mg po bid PLAN/FOLLOWUP ARRANGEMENTS: Community clinic The amount of time spent in the coordination of care for this patient was approximately 30 minutes. Vital Signs/I&Os Vital Signs Date Time Temp Pulse Resp B/P (MAP) Pulse Ox O2 Delivery O2 Flow Rate FiO2 04/30/20 06:15 97.7 78 16 122/61 (81) 96 Room Air Medications Scheduled Buspirone HCl (Buspirone HCl) 5 Mg Tablet, 5 MG PO BID for anxiety, #14 Desogestrel-Ethinyl Estradiol (Isibloom 28 Day Tablet) 1 Each Tablet, 1 TAB PO QHS, (Reported) Olanzapine (Olanzapine) 20 Mg Tablet, 1 TAB PO QPM for psychosis, #7 Scheduled PRN Trazodone HCl (Trazodone HCl) 50 Mg Tablet, 50 MG PO QHSP PRN for INSOMNIA, #7 Allergies Coded Allergies: SEASONAL ALLERGIES (Verified Allergy, Unknown, 09/03/19) ROLANDO SANTOS NP Apr 30, 2020 11:08
[2020-04-30] MEDS ORDERED: OLAN20TA14 PO (12:04)
== END 2020-04-30 14:24 | disposition home or self-care (01) | DRG 885 ==
LOC: M ED 12:50 → M ED INP 20:23 → M PSY 22:34
PROVIDERS: ADMIT Psychiatry & Neurology Psychiatry; ATTEND Psychiatry & Neurology Psychiatry
DX: F29 Unspecified psychosis not due to a substance or known physiological condition (principal); J30.2 Other seasonal allergic rhinitis; R51.9 Headache, unspecified; M25.641 Stiffness of right hand, not elsewhere classified; M25.642 Stiffness of left hand, not elsewhere classified; Z20.822 Contact with and (suspected) exposure to COVID-19; Z79.899 Other long term (current) drug therapy

== ENCOUNTER 2020-04-26 14:35 | Outpatient (RCR) | payer OTHER ==
[~2020-04-26 14:35] MED LIST changes: +BUSP5TA PO; +ISIB1TAB PO
== END 2020-04-28 ==
LOC: M OUTALCOH 14:35
PROVIDERS: ATTEND Psychiatry & Neurology Psychiatry
DX: F11.20 Opioid dependence, uncomplicated (principal); F12.20 Cannabis dependence, uncomplicated; F16.20 Hallucinogen dependence, uncomplicated
CPT/HCPCS: 90832; 90834; H0038

== ENCOUNTER 2020-05-16 15:50 | Emergency (ER) | payer OTHER ==
[~2020-05-16] VITALS: Ht 157.5 cm; Wt 63.3 kg
[~2020-05-16 15:50] MED LIST changes: +OLAN20TA14 PO; +TRAZ-252 PO
--- OUTSIDE RECORDS SUMMARY | 2020-05-16 15:56 | CCD | Continuity of Care Document ---
Author Author Sonia MARSHALL Organization Unknown Address [address] [place] [address] Phone [phone] Problems Description No Active Problems Social History [...] BSA (Body Surface Area) 1.69 m2 Results Test Acquired Date Facility Test Result H/L Range Note Laboratory test finding 04/15/2020 [facility] TP Reflex HPV ASCUS Normal Normal 1 NG & CT By PCR 04/15/[address] [facility] [address]/NG Normal Normal 2 TP Reflex HPV ASCUS SEE IMAGE 1 SPECIME N PART A. Cervical, Endocervical, ThinPrep Pap (Marketing Trainee) CYTOLOGY HX-------- Date of Last Menstrual Period: 04/01/2019 Other Information:Previous Normal Pap: 01/12/2019 FINAL DIAGNOSIS---- INTERPRETATION: Negative for Intraepithelial Lesion or Malignancy. SPECIMEN ADEQUACY:Satisfactory for evaluation. Endocervical/transformation zone component present. 2 CHLAMYDIA TRACHOMATIS: Nega tive NEISSERIA GONORRHOEAE: Negative Testing performed by the FDA-approved [employer] APTIMA COMBO 2 Assay. The APTIMA COMBO 2 Assay is designed to detect the presence of Chlamydia and Neisseria in the following specimens collected in [employer]pt[employer] transport media or PreservCyt Solution: endocervical and male urethral specimens, clinician collected vaginal swab specimens, PreservCyt Solution liquid Pap specimens, female and male urine specimens, clinician-collected throat and rectal samples. Performance with specimens other than those listed has not been evaluated and results must be interpreted with caution and correlated with clinical findings. Note: The performance of this assay has not been evaluated in persons less than 14 years of age. Procedures Description No Information Available Medical Devices Description No Information Available Encounters Type Date Location Provider Dx Diagnosis Office Visit 04/15/2020 11:30a [facility] staffing specialist Anne Marshall MD Z0 1.419 Encntr for fashion photographer exam (general) (routine) w/o abn findings Z12.4 Encounter for screening for malignant neoplasm of cervix Z12.39 Encounter for oth screening for malignant neoplasm of breast Assessments Date Code Description Provider 04/15/2020 Z32.02 Encounter for test, re sult negative Anne Marshall MD 04/15/2020 Z32.02 Encounter for test, re [...] 2:00 pm - Anne Marshall MD at [facility] staffing specialist 04/15/2020 - Anne Marshall MD* Z01.419 Encounter for gynecological examination (general) (routine) without abnormal findings * Z12.4 Encounter for screening for malignant neoplasm of cervix * Z12.39 Encounter for other screening for malignant neoplasm of breast Functional Status Description No Information Available Mental Status Description No Information Available Referrals Description No Information Available
--- OUTSIDE RECORDS SUMMARY | 2020-05-16 15:56 | CCD ---
Author Author [facility] Organization [facility] Address Unknown Phone Unavailable Care Team Providers Care Regulatory Compliance Director Name Role Phone Yue Wells Unavailable [...] Unavailable Catherine MARSHALL MD Unavailable Unavailable MARSHALL, L YAJAIRA RED Unavailable Unavailable MARSHALL, L YAJAIRA RED Unavailable Unavailable MARSHALL, L YAJAIRA RED Unavailable Unavailable MARSHALL, L YAJAIRA RED Unavailable Unavailable MARSHALL, L YAJAIRA RED Unavailable Unavailable MARSHALL, L YAJAIRA RED Unavailable Unavailable MARSHALL, L YAJAIRA RED Unavailable Unavailable MARSHALL, L YAJAIRA RED Unavailable Unavailable MARSHALL, L YAJAIRA RED Unavailable Unavailable MARSHALL, L YAJAIRA RED Unavailable Unavailable MARSAHLL, L YAJAIRA RED Unavailable Unavailable MARSHALL, L YAJAIRA RED Unavailable Unavailable MARSHALL, L YAJAIRA RED Unavailable Unavailable MARSHALL, L YAJAIRA RED Unavailable Unavailable MARSHALL, L YAJAIRA RED Unavailable Unavailable MARSHALL, L YAJAIRA RED Unavailable Unavailable MARSHALL, L YAJAIRA RED Unavailable Unavailable MARSHALL, L YAJAIRA RED Unavailable Unavailable MARSHALL, L YAJAIRA RED Unavailable Unavailable MARSHALL, L YAJAIRA ERD Unavailable Unavailable MARSHALL, L YAJAIRA RED Unavailable [...] YAJAIRA RED Unavailable Unavailable MARSHALL, L YAJAIRA ERD Unavailable Unavailable MARSHALL, L YAJAIRA RED Unavailable Unavailable MARSHALL, L YAJAIRA RED Unavailable Unavailable MARSHALL, L YAJAIRA RED Unavailable Unavailable MARSHALL, L YAJAIRA RED Unavailable Unavailable MARSHALL, L YAJAIRA RED Unavailable Unavailable MARSHALL, L YAJAIRA RED Unavailable Unavailable MARSHALL, L YAJAIRA RED Unavailable Unavailable Jennifer Latham Unavailable MARILYN, H FERNANDO SR COMMUNITY MANAGER Unavailable Unavailable MARILYN, H FERNANDO SR COMMUNITY MANAGER Unavailable Unavailable MARILYN, H FERNANDO SR COMMUNITY MANAGER Unavailable Unavailable MARILYN, H FERNANDO SR COMMUNITY MANAGER Unavailable Unavailable MARILYN, H FERNANDO SR COMMUNITY MANAGER Unavailable Unavailable MARILYN, H FERNANDO SR COMMUNITY MANAGER Unavailable Unavailable MARILYN, H FERNANDO SR COMMUNITY MANAGER Unavailable Unavailable MARILYN, H FERNANDO SR COMMUNITY MANAGER Unavailable Unavailable Vinnie Matthews Unavailable Vinnie Matthews [...] Unavailable CASTANON, BEVERLY ROBINSON RPA-C Unavailable Unavailable [facility] Unavailable [phone] [facility] Unavailable [phone] [facility], RFROST CASTANON PA ROBINSON Unavailable Unavailable [...] is protected by Article 27-F of the [facility] Public Health law. If you continue you may have access to information: Regarding HIV / AIDS; Provided by facilities licensed or operated by the [facility] Office of Mental Health; or Provided by the [facility] Office for People With Developmental Disabilities. If such information is present, then the following [facility] mandated warning applies: This information has been [...] law may result in a fine or skilled nursing sentence or both. A general authorization for the release of medical or other information is NOT sufficient authorization for further disc losure. Family History Family Member Name Family Member Gender Family Member Status Date o f Status Description Data Source(s) Unknown Male Problem MEDENT ([facility]) Unknown Unknown Problem MEDENT ([facility]) Unknown Unknown Problem MEDENT ([facility]) MGF Encounters Encounter Providers Location Date Indications Data Source(s ) Jess Elena, RPA-C: [address], [place] [address], Ph. Attender: JESS ELENA [facility] Medical 05/10/2020 12:00:00 AM EST [place] ([facility]) Outpatient Attender: YAJAIRA MARSHALL MD [facility] 10:30:00 AM EST [facility] ([facility]) [place] [address] [facility] [address] 04/02/2020 12:00:00 AM EST eCW1 ([facility]) YORDAN BurnettC: [address] , [address], [place] [address], Ph. Attender: JESS ELENA [facility] Medical 04/01/2020 12:00:00 AM EST [place] ([facility]) YORDAN BurnettC: [address], [address], [place] [address], Ph. Attender: JESS ELENA [facility] Medical 04/01/2020 12:00:00 AM EST [place] ([facility]) Outpatient [address] [facility] [facility] [address] 03/08/2020 12:00:00 AM EST eCW1 ([facility]) Unknown [address] [facility] [facility] [address] 03/08/2020 12:00:00 AM EST eCW1 ([facility]) YORDAN AbdallaC: [address], [place] [address], Ph. Attender: ROBINSON FARRC [facility] Medical 03/01/2020 12:00:00 AM EST [place] ([facility]) Robinson Castanon RPA-C: [address], [place] [address], Ph. Attender: ROBINSON CASTANON RPA-C [facility] Medical 03/01/2020 12:00:00 AM EST [place] ([facility]) Robinson Castanon RPA-C: [address], [place] [address], Ph. Attender: ROBINSON CASTANON RPA-C [facility] Medical 03/01/2020 12:00:00 AM EST [place] ([facility]) Robinson Castanon RPA-C: [address], [place] [address], Ph. Attender: ROBINSON CASTANON RPA-C [facility] Medical 02/07/2020 12:00:00 AM EST [place] ([facility]) Robinson Castanon, RPA-C: [address], [place] [address], Ph. Attender: ROBINSON CASTANON RPA-C [facility] Medical 02/07/2020 12:00:00 AM EST [place] ([facility]) Robinson Castanon RPA-C: [address], [place] [address], Ph. Attender: ROBINSON CASTANON RPA-C [facility] Medical 02/07/2020 12:00:00 AM EST [place] ([facility]) Robinson Castanon, RPA-C: [address], [place] [address], Ph. Attender: ROBINSON CASTANON RPA-C [facility] Medical 02/07/2020 12:00:00 AM EST [place] ([facility]) Outpatient Attender: BUNNY GARCIA [facility] 12/27 02:27:10 PM EDT [facility] Extended Individual Psychotherapy - 45 min Attender: Valdez garcia [facility] 01/10/2020 03:15:00 AM EDT - 01/10/2020 03:15:00 AM EDT [facility] ([facility]) Attender: Vinnie Matthews 01/10/2020 12:00:00 AM EDT [facility] ([facility]) Outpatient Attender: FERNANDO ROE NP [facility] catherine 01/09/2020 04:30:00 AM EDT - 01/09/2020 04:30:00 AM EDT [facility] ([facility]) Attender: FERNANDO ROE NP 01/09/2020 12:00:00 AM EDT [facility] ([facility]) Attender: Vinnie Matthews 01/04/2020 12:00:00 AM EDT [facility] ([facility]) Extended Individual Psychotherapy - 45 min Attender: Valdez garcia [facility] 01/02/2020 06:00:00 AM EDT - 01/02/2020 06:00:00 AM EDT [facility] ([facility]) Attender: [facility] 12:00:00 AM EDT [facility] ([facility]) Extended Individual Psychotherapy - 45 min Attender: [facility] 12/26/2019 06:00:00 AM EDT - 12/26/2019 06:00:00 AM EDT [facility] ([facility]) Brief Individual Psychotherapy - 30 min Attender: Berna dickey [facility] 12/22/2019 03:00:00 AM EDT - 12/22/2019 03:00:00 AM EDT [facility] ([facility]) Attender: Berna Stallings 12/22/2019 12:00:00 AM EDT [facility] ([facility]) Extended Individual Psychotherapy - 45 min Att[facility] 11/28/2019 09:00:00 AM EDT - 11/28/2019 09:00:00 AM EDT [facility] ([facility]) Attender: Yue Wells 11/28/2019 12:00:00 A M EDT [facility] ([facility]) Outpatient Attender: ROBINSON REYES [facility] 11/08/2019 02:16:00 PM EDT [facility] 10/27 02:15:04 PM EDT [facility] 10/27 08:41:59 AM EDT [facility] Outpatient Attender: ROBINSON REYES [facility] 10/25/2019 01:24:01 PM EDT [facility] 08/2019 12:28:02 PM EDT [facility] Outpatient [facility]: [facility] 08/28 10:02:59 AM EDT [facility] Outpatient 09/15/2019 05:55:00 AM EDT [facility] Outpatient Attender: ROBINSON REYES [facility] 09/13/2019 03:04:01 PM EDT [facility] Telemed Diagnostic Eval Attender: MANJU ROGELBRUNO [facility] 09/13/2019 02:00:00 AM EDT - 09/13/2019 02:00:00 AM EDT [facility] ([facility]) Attender: MANJU SUAREZ 09/13/2019 12:00: 00 AM EDT [facility] ([facility]) Outpatient [facility] 09/12/2019 10:00:00 AM EDT [facility] [id number]"Psychotherapy Attender: Jennifer Latham [facility] 09/12/2019 08:00:00 AM EDT - 09/12/2019 08:00:00 AM EDT [facility] ([facility]) Attender: Jennifer Latham 09/12/2019 12:00:00 AM EDT [facility] ([facility]) Outpatient [facility] 09/11/2019 12:37:00 PM EDT [facility] Outpatient [facility] 09/11/2019 08:21:01 AM EDT [facility] Functional Status Medications Medication Brand Name Start Date Product Form Dose Route Admi nistrative Instructions Pharmacy Instructions Status Indications Reaction Description Data Source(s) quetiapine 50 MG Oral Tablet [Seroquel] Seroquel 01/09/2020 12: 00:00 AM EDT 50 mg by mouth completed [id number] Seroquel by mouth [id number] 01/09/2020 03/09/2020 at bedtime 30 50 mg tablet 63560 [id number] Yarelis Roe [id number] Nurse Practitioner [facility] ([facility]) atomoxetine 25 MG Oral Capsule [Strattera] Strattera 01/08 12:00:00 AM EDT 25 mg by mouth completed 276507 Strattera by mouth [id number] 01/09/2020 02/08/2020 at bedtime 30 25 mg capsule 15304 [id number] Finn Roe [id number] Nurse Practitioner [facility] ([facility]) quetiapine 50 MG Oral Tablet [Seroquel] Seroquel 11/09/2019 12: 00:00 AM EDT 50 mg by mouth completed 268216 Seroquel by mouth [id number] 11/09/2019 01/08/2020 at bedtime 30 50 mg tablet 19129 [id number] Yarelis Roe [id number] Nurse Practitioner [facility] ([facility]) Escitalopram 10 MG Oral Tablet [Lexapro] Lexapro 10 mg tablet Take 1 tablet every day by oral route. Lexapro 10 mg tablet Take 1 tablet every day by oral route. 1 completed escitalopram 10 MG Oral Tablet [Lexapro] [place] ([facility]) 21 DAY Ethinyl Estradiol 0.344735 MG/HR / Etonogestrel 0.005 MG/HR Vaginal Ring etonogestrel 0.12 mg-ethinyl estradiol 0.015 mg/24 hr vaginal ring etonogestrel 0.12 mg-ethinyl estradiol 0.015 mg/24 hr vaginal ring completed 21 DAY ethinyl estradiol 0.975339 MG/HR / etonogestrel 0.005 MG/HR Vaginal System [place] ([facility]) Hydroxyzine Hydrochloride 25 MG Oral Tablet hydroxyzin e HCl 25 mg tablet hydroxyzine HCl 25 mg tablet completed hydroxyzine hydrochloride 25 MG Oral Tablet [place] ([facility]) olanzapine 10 MG Oral Tablet olanzapine 10 mg tablet olanzapine 10 mg tablet completed olanzapine 10 MG Oral Tablet [facility]) atomoxetine 25 MG Oral Capsule atomoxetine 25 mg capsu le atomoxetine 25 mg capsule completed atomoxetine 25 MG Oral Capsule [facility]) quetiapine 50 MG Oral Tablet quetiapine 50 mg tablet quetiapine 50 mg tablet completed quetiapine 50 MG Oral Tablet [facility]) Naltrexone hydrochloride 50 MG Oral Tablet naltrexone 50 mg tablet naltrexone 50 mg tablet completed naltrexone hydrochloride 50 MG Oral Tablet [place] ([facility]) atomoxetine 18 MG Oral Capsule atomoxetine 18 mg capsu le atomoxetine 18 mg capsule completed atomoxetine 18 MG Oral Capsule [facility]) Escitalopram 10 MG Oral Tablet [Lexapro] Lexapro 10 mg tablet Take 1 tablet every day by oral route. Lexapro 10 mg tablet Take 1 tablet every day by oral route. 1 completed escitalopram 10 MG Oral Tablet [Lexapro] [facility]) olanzapine 10 MG Oral Tablet olanzapine 10 mg tablet olanzapine 10 mg tablet completed olanzapine 10 MG Oral Tablet [facility]) atomoxetine 18 MG Oral Capsule atomoxetine 18 mg capsu le atomoxetine 18 mg capsule completed [facility]ox[facility] 18 MG Oral Capsule atomoxetine 18 mg capsu le atomoxetine 18 mg capsule completed atomoxetine 18 MG Oral Capsule [place] ([facility]) Naltrexone hydrochloride 50 MG Oral Tablet naltrexone 50 mg tablet naltrexone 50 mg tablet completed naltrexone hydrochloride 50 MG Oral Tablet [facility]) quetiapine 50 MG Oral Tablet quetiapine 50 mg tablet quetiapine 50 mg tablet completed quetiapine 50 MG Oral Tablet [place] ([facility]) atomoxetine 25 MG Oral Capsule atomoxetine 25 mg capsu le atomoxetine 25 mg capsule completed atomoxetine 25 MG Oral Capsule [place] ([facility]) Hydroxyzine Hydrochloride 25 MG Oral Tablet hydroxyzin e HCl 25 mg tablet hydroxyzine HCl 25 mg tablet completed hydroxyzine hydrochloride 25 MG Oral Tablet [place] ([facility]) Hydroxyzine Hydrochloride 25 MG Oral Tablet hydroxyzin e HCl 25 mg tablet hydroxyzine HCl 25 mg tablet completed hydroxyzine hydrochloride 25 MG Oral Tablet [place] ([facility]) 21 DAY Ethinyl Estradiol 0.789580 MG/HR / Etonogestrel 0.005 MG/HR Vaginal Ring etonogestrel 0.12 mg-ethinyl estradiol 0.015 mg/24 hr vaginal ring etonogestrel 0.12 mg-ethinyl estradiol 0.015 mg/24 hr vaginal ring completed 21 DAY ethinyl estradiol 0.633412 MG/HR / etonogestrel 0.005 MG/HR Vaginal System [place] ([facility]) Naltrexone hydrochloride 50 MG Oral Tablet naltrexone 50 mg tablet naltrexone 50 mg tablet completed naltrexone hydrochloride 50 MG Oral Tablet [place] ([facility]) quetiapine 50 MG Oral Tablet quetiapine 50 mg tablet quetiapine 50 mg tablet completed quetiapine 50 MG Oral Tablet [place] ([facility]) 21 DAY Ethinyl Estradiol 0.634682 MG/HR / Etonogestrel 0.005 MG/HR Vaginal Ring etonogestrel 0.12 mg-ethinyl estradiol 0.015 mg/24 hr vaginal ring etonogestrel 0.12 mg-ethinyl estradiol 0.015 mg/24 hr vaginal ring completed 21 DAY ethinyl estradiol 0.139132 MG/HR / etonogestrel 0.005 MG/HR Vaginal System [place] ([facility]) olanzapine 10 MG Oral Tablet olanzapine 10 mg tablet olanzapine 10 mg tablet completed olanzapine 10 MG Oral Tablet [place] ([facility]) atomoxetine 18 MG Oral Capsule atomoxetine 18 mg capsu le atomoxetine 18 mg capsule completed atomoxetine 18 MG Oral Capsule [place] ([facility]) quetiapine 50 MG Oral Tablet quetiapine 50 mg tablet quetiapine 50 mg tablet completed quetiapine 50 MG Oral Tablet [place] ([facility]) 21 DAY Ethinyl Estradiol 0.101099 MG/HR / Etonogestrel 0.005 MG/HR Vaginal Ring etonogestrel 0.12 mg-ethinyl estradiol 0.015 mg/24 hr vaginal ring etonogestrel 0.12 mg-ethinyl estradiol 0.015 mg/24 hr vaginal ring completed 21 DAY ethinyl estradiol 0.946267 MG/HR / etonogestrel 0.005 MG/HR Vaginal System [place] ([facility]) Naltrexone hydrochloride 50 MG Oral Tablet naltrexone 50 mg tablet naltrexone 50 mg tablet completed naltrexone hydrochloride 50 MG Oral Tablet [place] ([facility]) Escitalopram 10 MG Oral Tablet [Lexapro] Lexapro 10 mg tablet Take 1 tablet every day by oral route. Lexapro 10 mg tablet Take 1 tablet every day by oral route. 1 completed escitalopram 10 MG Oral Tablet [Lexapro] [place] ([facility]) atomoxetine 25 MG Oral Capsule atomoxetine 25 mg capsu le atomoxetine 25 mg capsule completed atomoxetine 25 MG Oral Capsule [place] ([facility]) Hydroxyzine Hydrochloride 25 MG Oral Tablet hydroxyzin e HCl 25 mg tablet hydroxyzine HCl 25 mg tablet completed hydroxyzine hydrochloride 25 MG Oral Tablet [place] ([facility]) Insurance Providers Payer name Policy type / Coverage type Policy ID Covered alliance party ID Covered alliance party's relationship to marinelli Policy Marinelli Plan Information R [facility] [id number] MO2 [id number] [place] [id number] 2 [id number] MEDICAID [id number] SP [id number] [place] [employer] Family Dependent [employer] [id number] Self [id number] [place] Medigap Part B [id number] Family Dependent [id number] [place] [id number] Family Dependent [id number] [employer] [id number] Family Dep endent [id number] [facility] Commercial [id number] Family Dependent [id number] [facility] Commercial [id number] Family Dependent [id number] [facility] Commercial [id number] Family Dependent [id number] [facility] Part B [id number] Family Dependent [id number] [place] [id number] MO2 [id number] [employer] NO FAULT [id number] FA2 [id number] Self Pay P none S none UMR O [id number] S [id number] SELF PAY UNAVAILABLE SP UNAVAILA BLE EMEDNY [id number] SP [id number] UMR [facility] [id number] MO2 [id number] SELF PAY ONLY [id number] SP [id number] Problems, Conditions, and Diagnoses Code Display Name Description Problem Type Effective Dates Data Source(s) F41.1 [id number] RACHEL (generalized anxiety disorder) Proble m 03/15/2020 12:00:00 AM EST eCW1 ([facility]) F32.9 63948236 Depression, unspecified depression type P roblem 03/15/2020 12:00:00 AM EST eCW1 ([facility]) F32.9 Major depressive disorder, single episod e, unspecified Unspecified depressive Disorder Condition 01/10/2020 12:00:00 AM EDT [facility] ([facility]) F11.20 Opioid dependence, uncomplicated Opioid Use Disorder, Moderate Condition 01/10/2020 12:00:00 AM EDT [facility] ([facility]) F90.2 Attention-deficit hyperactivity disorder , combined type Attention- Deficit/Hyperactivity Disorder, Combined presentation Condition 01/10/2020 12:00:00 AM EDT [facility] ([facility]) V85.1 BMI 24.0-24.9 BMI 24.0-24.9 11/08/2019 02:14:17 PM EDT [facility] [id number] Body measurement finding Body Measurement Finding Prob wendy 11/08/2019 12:00:00 AM EDT - 02/07/2020 12:00:00 AM EST [place] ([facility]) [id number] Body measurement finding Body Measurement Finding Prob wendy 11/08/2019 12:00:00 AM EDT - 02/07/2020 12:00:00 AM EST [place] ([facility]) 215922201 Body measurement finding Body Measurement Finding Prob wendy 11/08/2019 12:00:00 AM EDT - 02/07/2020 12:00:00 AM [place] ([facility]) [id number] Body measurement finding Body Measurement Finding Prob wendy 11/08/2019 12:00:00 AM EDT - 02/07/2020 12:00:00 AM [facility]ARY [facility]UE[facility] ([facility]) Z00.00 Encounter for general adult medical examination without abnormal findings Encounter for general adult medical examination without abno rmal findings 10/25/2019 01:23:36 PM EDT [facility] [id number] SNOMED CT Concept SNOMED CT Concept Problem 10/24 12:00:00 AM EDT - 02/07/2020 12:00:00 AM [facility]ARY CUEV[facility] ([facility]) 655782387 SNOMED CT Concept SNOMED CT Concept Problem 10/24 12:00:00 AM EDT - 02/07/2020 12:00:00 AM [facility] ([facility]) 402801860 SNOMED CT Concept SNOMED CT Concept Problem 10/24 12:00:00 AM EDT - 02/07/2020 12:00:00 AM [facility] ([facility]) 042041664 SNOMED CT Concept SNOMED CT Concept Problem 10/24 12:00:00 AM EDT - 02/07/2020 12:00:00 AM [facility] ([facility]) V85.1 BMI 21.0-21.9 BMI 21.0-21.9 09/13/2019 03:02:58 PM EDT [facility] 300.02 Generalized anxiety disorder Generalized anxiety disor richard 09/13/2019 03:02:58 PM EDT [facility] 787.91 Diarrhea Diarrhea 09/13/2019 03:02:58 PM ED T [facility] [id number] Opioid dependence, in remission Opioid dependence, in remission 09/13/2019 03:02:58 PM EDT [facility] 09/01/2019 last use 69549859 Cannabis abuse, uncomplicated Cannabis abuse, uncompli cated 09/13/2019 03:02:58 PM EDT [facility] 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 09/13/2019 03:02:58 PM EDT [facility] M79.651 Pain in right thigh Pain of bilateral thighs 09/13/2019 03:02:58 PM EDT [facility] [id number] Clinical finding Clinical Finding Problem 09/13/2019 12 :00:00 AM EDT [place] ([facility]) 86035188 Cannabis abuse Cannabis Abuse Problem 09/13/2019 12:00: 00 AM EDT [place] ([facility]) 140395562 Opioid dependence in remission Opioid Dependence in Re mission Problem 09/13/2019 12:00:00 AM EDT [place] ([facility]) 67640326 Generalized anxiety disorder Generalized Anxiety Disor richard Problem 09/13/2019 12:00:00 AM EDT [place] ([facility]) 4758618 Brief reactive psychosis Brief Reactive Psychosis Prob wendy 09/13/2019 12:00:00 AM EDT - 03/01/2020 12:00:00 AM EST [place] ([facility]) 54328689 Cannabis abuse Cannabis Abuse Problem 09/13/2019 12:00: 00 AM EDT [place] ([facility]) 878671952 Opioid dependence in remission Opioid Dependence in Re mission Problem 09/13/2019 12:00:00 AM EDT [place] ([facility]) 47971446 Generalized anxiety disorder Generalized Anxiety Disor richard Problem 09/13/2019 12:00:00 AM EDT [place] ([facility]) 7127789 Brief reactive psychosis Brief Reactive Psychosis Prob wendy 09/13/2019 12:00:00 AM EDT - 03/01/2020 12:00:00 AM EST [place] ([facility]) 64220469 Cannabis abuse Cannabis Abuse Problem 09/13/2019 12:00: 00 AM EDT [place] ([facility]) 739781778 Opioid dependence in remission Opioid Dependence in Re mission Problem 09/13/2019 12:00:00 AM EDT [place] ([facility]) 20938741 Generalized anxiety disorder Generalized Anxiety Disor richard Problem 09/13/2019 12:00:00 AM EDT [place] ([facility]) 1783250 Brief reactive psychosis Brief Reactive Psychosis Prob wendy 09/13/2019 12:00:00 AM EDT - 03/01/2020 12:00:00 AM EST [place] ([facility]) 1893146 Brief reactive psychosis Brief Reactive Psychosis Prob wendy 09/13/2019 12:00:00 AM EDT [place] ([facility]) 72572596 Generalized anxiety disorder Generalized Anxiety Disor richard Problem 09/13/2019 12:00:00 AM EDT [place] ([facility]) 866790686 Opioid dependence in remission Opioid Dependence in Re mission Problem 09/13/2019 12:00:00 AM EDT [place] ([facility]) 93381497 Cannabis abuse Cannabis Abuse Problem 09/13/2019 12:00: 00 AM EDT [place] ([facility]) Surgeries/Procedures Procedure Description Date Indications Data Source(s) Extended Individual Psychotherapy - 45 min 0 12:00:00 AM EDT [facility]) Extended Individual Psychotherapy - 45 min 01/10/2020 12:00:00 AM EDT - 01/10/2020 12:00:00 AM EDT [facility] ([facility]) OFFICE OUTPATIENT VISIT 15 MINUTES 01/09/2020 12:00:00 AM EDT [facility] ([facility]) OFFICE OUTPATIENT VISIT 15 MINUTES 01/08 12:00:00 AM EDT - 01/09/2020 12:00:00 AM EDT [facility] ([facility]) Extended Individual Psychotherapy - 45 min 01/04/2020 12:00:00 AM EDT - 01/04/2020 12:00:00 AM EDT [facility] ([facility]) Extended Individual Psychotherapy - 45 min 0 12:00:00 AM EDT [facility] ([facility]) Extended Individual Psychotherapy - 45 min 12/27/2019 12:00:00 AM EDT - 12/27/2019 12:00:00 AM EDT [facility] ([facility]) Extended Individual Psychotherapy - 45 min 0 12:00:00 AM EDT [facility] ([facility]) Brief Individual Psychotherapy - 30 min 12/22/2019 12: 00:00 AM EDT [facility] ([facility]) Brief Individual Psychotherapy - 30 min 12/22/2019 12:00:00 AM EDT - 12/22/2019 12:00:00 AM EDT [facility] ([facility]) Extended Individual Psychotherapy - 45 min 0 12:00:00 AM EDT [facility] ([facility]) Extended Individual Psychotherapy - 45 min 11/28/2019 12:00:00 AM EDT - 11/28/2019 12:00:00 AM EDT [facility] ([facility]) Telemed Diagnostic Eval 09/13/2019 12:00:00 AM EDT [facility] ([facility]) Telemed Diagnostic Eval 09/13/2019 12:00 :00 AM EDT - 09/13/2019 12:00:00 AM EDT [facility] ([facility]) [id number]"Psychotherapy 09/12/2019 12:00:00 AM EDT [facility] ([facility]) [id number]"Psychotherapy 0 12:00:00 AM EDT - 09/12/2019 12:00:00 AM EDT [facility] ([facility]) Results ID Date Data Source [id number] 04/24/2020 09:01:00 PM EST [facility] Name Value Range Interpretation Code Description Data Anna rce(s) Supporting Document(s) SARS coronavirus 2 RNA [Presence] in Res piratory specimen by CODEY with probe detection NEGATIVE [facility] This lab was ordered by [facility] a nd reported by [facility]. ID Date Data Source [id number] 04/15/2020 12:00:00 PM EST [facility] ([facility]) Name Value Range Interpretation Code Description Data Anna rce(s) Supporting Document(s) CT/NG Laboratory test result [facility] ([facility]) CHLAMYDIA TRACHOMATIS: Negative NEISSERIA GONORRHOEAE: Negative Testing performed by the FDA-approved [employer] APTIMA COMBO 2 Assay. The APTIMA COMBO [...] persons less than 14 years of age. TP Reflex HPV ASCUS Laboratory test result [facility] ([facility]) ID Date Data Source [id number] 04/15/2020 12:00:00 PM EST [facility] Name Value Range Interpretation Code Description Data Anna rce(s) Supporting Document(s) Cytology report of Cervical or vaginal smear or scrapi ng Cyto stain.thin prep Laboratory test result MED[facility] ([facility]) SPECIMEN PART------ A. Cervical, Endocervical, ThinPrep Pap ([employer]) CYTOLOGY HX-------- Date of Last Menstrual Period: 04/01/2019 Other Information:Previous Normal Pap: 01/12/2019 FINAL DIAGNOSIS---- INTERPRETATION: Negative for Intraepithelial Lesion or Malignancy. SPECIMEN ADEQUACY:Satisfactory for evaluation. Endocervical/transformation zone component present. ID Date Data Source [id number] 02/08/2020 10:31:00 AM EST [facility]) Name Value Range Interpretation Code Description Data Anna rce(s) Supporting Document(s) HCG negative Hcg [place] ([facility]) ID Date Data Source [id number] 02/08/2020 10:31:00 AM EST [place] ([facility]) Name Value Range Interpretation Code Description Data Anna rce(s) Supporting Document(s) HCG negative Hcg [place] ([facility]) ID Date Data Source [id number] 02/08/2020 10:31:00 AM EST [place] ([facility]) Name Value Range Interpretation Code Description Data Anna rce(s) Supporting Document(s) HCG negative Hcg [place] ([facility]) ID Date Data Source [id number] 02/08/2020 10:31:00 AM EST [place] ([facility]) Name Value Range Interpretation Code Description Data Anna rce(s) Supporting Document(s) HCG negative Hcg [place] ([facility]) ID Date Data Source [id number] 02/07/2020 02:28:00 PM EST [place] ([facility]) Name Value Range Interpretation Code Description Data Anna rce(s) Supporting Document(s) HCG, serum quantitative < 1.0 normal HCG, Serum Q uantitative [place] ([facility]) ID Date Data Source [id number] 02/07/2020 02:28:00 PM EST [place] ([facility]) Name Value Range Interpretation Code Description Data Anna rce(s) Supporting Document(s) HCG, serum quantitative < 1.0 normal HCG, Serum Q uantitative [place] ([facility]) ID Date Data Source [id number] 02/07/2020 02:28:00 PM EST [place] ([facility]) Name Value Range Interpretation Code Description Data Anna rce(s) Supporting Document(s) HCG, serum quantitative < 1.0 normal HCG, Serum Q uantitative [place] ([facility]) ID Date Data Source [id number] 02/07/2020 02:28:00 PM EST [place] ([facility]) Name Value Range Interpretation Code Description Data Anna rce(s) Supporting Document(s) HCG, serum quantitative < 1.0 normal HCG, Serum Q uantitative [place] ([facility]) ID Date Data Source [id number] 02/02/2020 12:00:00 AM EST [facility] Name Value Range Interpretation Code Description Data Anna rce(s) Supporting Document(s) SARS-CoV2 Rapid Antigen [facility] This lab was ordered by [facility] and reported by [facility]. ID Date Data Source [id number] 10/25/2019 12:57:38 PM EDT [facility] Measurements & CalculationsHeight: 64 inches [...] seen another healthcare provider? Yes - lb carpenter, BHHave you seen a dentist? NoIntake performed [...] or Preferred Language: EnglishFamily and Home Address: [address] [place] [address] What is your housing situation today? I have housing Are you worried about losing your housing? NoMoney and Resources What is the highest level of school that you have finished? associate's degree Employed? 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 Denies Insecurity: food, utilities, clothing, child and family services worker, phone, legal services, otherWithin the past year [...] new medications added to list today. Sees [facility] weekly and groups three days a week. HPI performed by: Robinson BARRETO, October 25, 2019 1:17 PMTransitions of Care InboundProblem ReviewProblem List was reviewed and/or updated during this visit.Medication Reconciliation & ReviewMedication List was reviewed and/or updated during this visit, including review of any jgtq-wkm-dhmzyni medications, herbal therapies, and/or supplements.Allergy ReviewAllergy List [...] general adult medical examination without abnormal findings (RIC48-M62.00) Assessment: Instructions: Recommend annual medical appointments. Recommend routine dental and vision care. Recommend influenza vaccines annually and tetanus boosters every 10 years. Release of information form(s) to obtain medical records from your prior providers(s) (VAT SKIMMER) has been s igned in the office today.Assessed:Generalized anxiety disorder (ICD-300.02) (ASN59-B41.1) Assessment: Instructions: Improved with [facility] and [facility] addiction counseling services.Opioid dependence, in remission (SJI98-F21.21): 09/01/2019 last use Assessment: Instructions: As above.Brief psychotic disorder (KAE67-H24) Assessment: Instructions: As above.Removed:Diarrhea (ICD-787.91) (UQZ01-O90.7), Pain of bilateral thighs (JSB44-L45.651), BMI 21.0- 21.9 (ICD-V85.1) (MGX18-Z78.21)Patient Instructions/Care Plan: Encounter for general adult medical examination without abnormal findings: Recommend annual medical appointments. Recommend routine dental and vision care. Recommend influenza vaccines annually and tetanus boosters every 10 years. Release of information form(s) to obtain medical records from your prior providers(s) (VAT SKIMMER) has been signed in the office today.Generalized anxiety disorder: Improved with [facility] and [facility] addiction counseling services.Opioid dependence- in remission: [...] Known Allergies (updated 10/25/2019) Orders:Preventive, Est, (18-39) [CPT-90517] Follow-Up Return to clinic: in 90 days for follow upCli nical Visit Summary Completed Name Value Range Interpretation Code Description Data Anna rce(s) Supporting Document(s) ID Date Data Source [id number] 09/13/2019 02:18:14 PM EDT [facility] Measurements & CalculationsHeight: 64 inches [...] ? NoComments: statees she was tested at [facility]-negative.Healthcare HistorySince your last office visit...Have you [...] Action: Scheduled with Behavioral Health - existing carePain AssessmentLocation: mid sectionDuration: yearsFrequency: DailyCharacter/Quality: achingIs the [...] (Maternal Grandfather)Social/Personal History: Chief Complaintfollow- [facility] dischargeHistory of Present Illness (HPI)23 yo female pt presents for follow up of hospital discharge and to establish care. Pt states she is feeling a lot better since being discharged. Admitted 09/04/2019-09/11/2019 for paranoia and bizzare behavior, discharged on Zyprexa 10mg daily. Had counseling appt at [facility] yesterday and 10/04/2019 is first prescriber [...] mother until she becomes more stable.Pt has VAT [facility]IMMER appt today at 4pm, [facility], wants to be screened for STDs before restarting Nuvaring. Transitions of Care InboundProblem ReviewProblem List was reviewed and/or updated during this visit.Medication Reconciliation & ReviewMedication List was reviewed and/or updated during this visit, including review of any gahz-zqb-efkogob medications, herbal therapies, and/or supplements.Allergy ReviewAllergy List [...] GoodAssessment & Plan Problems:Added: BMI 21.0-21.9 (ICD-V85.1) (EGS96-C72.21)Brief psychotic disorder (LPG72-Y70) Assessment: Instructions: Continue Zyprexa. Continue as scheduled with your mental health providers. Refills provided today to get you through to your upcoming appointment with prescriber.Generalized anxiety disorder (ICD-300.02) (ICD10- F41.1) Assessment: Instructions: As above. Hydroxyzine as needed up to three times daily. May cause sleepiness, use caution.Opioid dependence, in remission (CNV26-S85.21): 09/01/2019 last use Assessment: Instructions: Please go to walkin at either [facility] or [facility].Cannabis abuse, uncomplicated (ZOA51-S91.10) Assessment: Instructions: Recommend complete cessation.Diarrhea (ICD-787.91) (MDC43-Q50.7) Assessment: Instructions: Given stool collection kit, please return stool sample to [facility] lab for testing. Emily diet: bananas, rice, applesauce, toast.Pain of bilateral thighs (BHI46-V61.651) Assessment: Instructions: Recommend quad stretches and avoiding [...] remission: Please go to walkin at either [facility] or [facility].Cannabis abuse- uncomplicated: Recommend complete cessation.Diarrhea: Given stool collection kit, please return stool sample to [facility] lab for testing. Emily diet: bananas, rice, applesauce, toast.Pain of bilateral [...] Allergies (updated 09/13/2019) Orders:GI Panel - Stool [CPT-17253] Adult - Ofc Vst, NEW, Level IV [CPT-20573] Follow-Up Return to clinic: in 6 weeks for preventive care visitAdditional Follow-Up: annual PEClinical Visit Summary CompletedMedications:OLANZAPINE 10 MG ORAL TABLET (OLANZAPINE) Take 1 tablet po daily #30[Tablet] x 0 Entered and Authorized by: Robinson BARRETO Method used: Electronically to [facility] (retail) [address] [place] [address] Note to Pharmacy: Route: ORAL; RxID: [id number] 25 MG ORAL TABLET (HYDROXYZINE HCL) Take 1 tablet by mouth up to three times daily as needed #30[Tablet] x 1 Route:ORAL Entered and Authorized by: Robinson BARRETO Method used: Electronically to [facility] (retail) [address] [place] [address] Fax: Note to Pharmacy: Route: ORAL; Indications: GENERALIZED ANXIETY DISORDER RxID: [id number] signed by Robinson BARRETO on 09/22/2019 at 10:02 AM Name Value Range Interpretation Code Description Data Anna rce(s) Supporting Document(s) Procedure Social History Code Duration Value Status Description Data Source(s ) Smoking 04/15/2020 12:00:00 AM EST Patient has never smoked co mpleted Patient has never smoked [facility] ([facility]) Smoking 04/02/2020 12:00:00 AM EST Never Smoker completed Never S moker eCW1 ([facility]) Smoking 03/16/2020 12:00:00 AM EST Never Smoker completed Never S moker eCW1 ([facility]) Smoking 03/08/2020 12:00:00 AM EST Never Smoker completed Never S moker eCW1 ([facility]) Smoking 01/10/2020 12:00:00 AM EDT Unknown if ever smoked comp leted Unknown if ever smoked [facility] ([facility]) Smoking 01/09/2020 12:00:00 AM EDT Unknown if ever smoked comp leted Unknown if ever smoked [facility] ([facility]) Smoking 01/04/2020 12:00:00 AM EDT Unknown if ever smoked comp leted Unknown if ever smoked [facility] ([facility]) Smoking 12/27/2019 12:00:00 AM EDT Unknown if ever smoked comp leted Unknown if ever smoked [facility] Smoking 12/22/2019 12:00:00 AM EDT Unknown if ever smoked comp leted Unknown if ever smoked [facility] ([facility]) Smoking 11/28/2019 12:00:00 AM EDT Unknown if ever smoked comp leted Unknown if ever smoked [facility] ([facility]) Smoking 09/13/2019 12:00:00 AM EDT Unknown if ever smoked comp leted Unknown if ever smoked [facility] ([facility]) Smoking 09/12/2019 12:00:00 AM EDT Unknown if ever smoked comp leted Unknown if ever smoked [facility] ([facility]) Vital Signs ID Date Data Source UNK Name Value Range Interpretation Code Description Data Source(s) Body height 64 [in_i] 64 [in_i] [place] ([facility]) Body surface area Derived from formula 1.62 m2 1.62 m2 [facility] ([facility]) Body mass index (BMI) [Ratio] 25.1 kg/m2 25.1 k g/m2 [facility] ([facility]) Body weight 136.00 [lb_av] 136.00 [lb_av] MEDEN T ([facility]) Body height 61.75 [in_i] 61.75 [in_i] [facility] ([facility]) 5'1.75" Diastolic blood pressure 62 mm[Hg] 62 mm[Hg] [facility] ([facility]) Systolic blood pressure 100 mm[Hg] 100 mm[Hg] M EDMARYANN ([facility]) Body weight 2156.8 [oz_av] 2156.8 [oz_av] ATHEN A ([facility]) Systolic blood pressure 144 mm[Hg] 144 mm[Hg] A THENA ([facility]) Systolic blood pressure 134 mm[Hg] 134 mm[Hg] A THENA ([facility]) Body mass index (BMI) [Ratio] 23.1 kg/m2 23.1 k g/m2 MAOSN ([facility]) Body height 64 [in_i] 64 [in_i] [place] ([facility]) Diastolic blood pressure 87 mm[Hg] 87 mm[Hg] [place] ([facility]) Diastolic blood pressure 100 mm[Hg] 100 mm[Hg] [place] ([facility]) Body weight 2156.8 [oz_av] 2156.8 [oz_av] ATHEN A ([facility]) Systolic blood pressure 144 mm[Hg] 144 mm[Hg] A THENA ([facility]) Systolic blood pressure 134 mm[Hg] 134 mm[Hg] A THENA ([facility]) Body mass index (BMI) [Ratio] 23.1 kg/m2 23.1 k g/m2 [place] ([facility]) Body height 64 [in_i] 64 [in_i] [place] ([facility]) Diastolic blood pressure 87 mm[Hg] 87 mm[Hg] [place] ([facility]) Diastolic blood pressure 100 mm[Hg] 100 mm[Hg] [place] ([facility]) Diastolic blood pressure 82 mm[Hg] 82 mm[Hg] eCW1 ([facility]) Systolic blood pressure 136 mm[Hg] 136 mm[Hg] e CW1 ([facility]) Body temperature 98.6 [degF] 98.6 [degF] eCW1 ( [facility]) Respiratory rate 18 /min 18 /min eCW1 ([facility]) Heart rate 102 /min 102 /min eCW1 ([facility]) Body mass index (BMI) [Ratio] 24.48 kg/m2 24.48 kg/m2 eCW1 ([facility]) Body height 62.5 [in_i] 62.5 [in_i] eCW1 ([facility]) Body weight 136.0 [lb_av] 136.0 [lb_av] eCW1 ([facility]) Body weight 2160 [oz_av] 2160 [oz_av] [place] ([facility]) Systolic blood pressure 131 mm[Hg] 131 mm[Hg] A [facility] ([facility]) Body mass index (BMI) [Ratio] 23.2 kg/m2 23.2 k g/m2 [place] ([facility]) Body height 64 [in_i] 64 [in_i] [place] ([facility]) Diastolic blood pressure 92 mm[Hg] 92 mm[Hg] [place] ([facility]) Body weight 2160 [oz_av] 2160 [oz_av] [place] ([facility]) Systolic blood pressure 131 mm[Hg] 131 mm[Hg] A [facility] ([facility]) Body mass index (BMI) [Ratio] 23.2 kg/m2 23.2 k g/m2 [place] ([facility]) Body height 64 [in_i] 64 [in_i] [place] ([facility]) Diastolic blood pressure 92 mm[Hg] 92 mm[Hg] [place] ([facility]) Body weight 2160 [oz_av] 2160 [oz_av] [place] ([facility]) Systolic blood pressure 131 mm[Hg] 131 mm[Hg] A [facility] ([facility]) Body mass index (BMI) [Ratio] 23.2 kg/m2 23.2 k g/m2 [place] ([facility]) Body height 64 [in_i] 64 [in_i] [place] ([facility]) Diastolic blood pressure 92 mm[Hg] 92 mm[Hg] [place] ([facility]) Body weight 2153.6 [oz_av] 2153.6 [oz_av] ATHEN A ([facility]) Systolic blood pressure 136 mm[Hg] 136 mm[Hg] A [facility] ([facility]) Body mass index (BMI) [Ratio] 23.1 kg/m2 23.1 k g/m2 [place] ([facility]) Body height 64 [in_i] 64 [in_i] [place] ([facility]) Diastolic blood pressure 90 mm[Hg] 90 mm[Hg] [place] ([facility]) Body weight 2153.6 [oz_av] 2153.6 [oz_av] ATHEN A ([facility]) Systolic blood pressure 136 mm[Hg] 136 mm[Hg] A [facility] ([facility]) Body mass index (BMI) [Ratio] 23.1 kg/m2 23.1 k g/m2 [place] ([facility]) Body height 64 [in_i] 64 [in_i] [place] ([facility]) Diastolic blood pressure 90 mm[Hg] 90 mm[Hg] [place] ([facility]) Body weight 2153.6 [oz_av] 2153.6 [oz_av] ATHEN A ([facility]) Systolic blood pressure 136 mm[Hg] 136 mm[Hg] A [facility] ([facility]) Body mass index (BMI) [Ratio] 23.1 kg/m2 23.1 k g/m2 [place] ([facility]) Body height 64 [in_i] 64 [in_i] [place] ([facility]) Diastolic blood pressure 90 mm[Hg] 90 mm[Hg] [place] ([facility]) Diastolic blood pressure 90 mm[Hg] 90 mm[Hg] [place] ([facility]) Body height 64 [in_i] 64 [in_i] [place] ([facility]) Body mass index (BMI) [Ratio] 23.1 kg/m2 23.1 k g/m2 [place] ([facility]) Systolic blood pressure 136 mm[Hg] 136 mm[Hg] A [facility] ([facility]) Body weight 2153.6 [oz_av] 2153.6 [oz_av] ATHEN A ([facility]) Body height 0.00 in Normal (applies to non-numeric resu lts) 0.00 in [facility] ([facility]) Body weight Measured 0.00 lbs Normal (applies to n on-numeric results) 0.00 lbs [facility] ([facility]) Body mass index (BMI) [Ratio] 0.00 kg/m2 No rmal (applies to non-numeric results) 0.00 kg/m2 [facility] ([facility]) Systolic blood pressure 0 mm[Hg] Normal (applies t o non-numeric results) 0 mm[Hg] [facility] ([facility]) Diastolic blood pressure 0 mm[Hg] Normal (applies to non-numeric results) 0 mm[Hg] [facility] ([facility]) Body weight 2244 [oz_av] 2244 [oz_av] [place] ([facility]) Systolic blood pressure 143 mm[Hg] 143 mm[Hg] A [facility] ([facility]) Body height 64 [in_i] 64 [in_i] [place] ([facility]) Diastolic blood pressure 97 mm[Hg] 97 mm[Hg] [place] ([facility]) Body weight 2244 [oz_av] 2244 [oz_av] [place] ([facility]) Systolic blood pressure 143 mm[Hg] 143 mm[Hg] A [facility] ([facility]) Body height 64 [in_i] 64 [in_i] [place] ([facility]) Diastolic blood pressure 97 mm[Hg] 97 mm[Hg] [place] ([facility]) Body weight 2244 [oz_av] 2244 [oz_av] [place] ([facility]) Systolic blood pressure 143 mm[Hg] 143 mm[Hg] A [facility] ([facility]) Body mass index (BMI) [Ratio] 24.16 kg/m2 24.16 kg/m2 [place] ([facility]) Body height 64 [in_i] 64 [in_i] [place] ([facility]) Diastolic blood pressure 97 mm[Hg] 97 mm[Hg] [place] ([facility]) Diastolic blood pressure 97 mm[Hg] 97 mm[Hg] [place] ([facility]) Body height 64 [in_i] 64 [in_i] [place] ([facility]) Systolic blood pressure 143 mm[Hg] 143 mm[Hg] A [facility] ([facility]) Body weight 4 [oz_av] 2244 [oz_av] [place] ([facility]) Body weight 1971 [oz_av] 1972 [oz_av] [place] ([facility]) Systolic blood pressure 105 mm[Hg] 105 mm[Hg] A [facility] ([facility]) Body height 64 [in_i] 64 [in_i] [place] ([facility]) Diastolic blood pressure 71 mm[Hg] 71 mm[Hg] [place] ([facility]) Body weight 1971 [oz_av] 1971 [oz_av] [place] ([facility]) Systolic blood pressure 105 mm[Hg] 105 mm[Hg] A THENA ([facility]) Body height 64 [in_i] 64 [in_i] [place] ([facility]) Diastolic blood pressure 71 mm[Hg] 71 mm[Hg] [place] ([facility]) Body weight 1972 [oz_av] 1972 [oz_av] [place] ([facility]) Systolic blood pressure 105 mm[Hg] 105 mm[Hg] A [facility] ([facility]) Body mass index (BMI) [Ratio] 21.23 kg/m2 21.23 kg/m2 [place] ([facility]) Body height 64 [in_i] 64 [in_i] [place] ([facility]) Diastolic blood pressure 71 mm[Hg] 71 mm[Hg] [place] ([facility]) Diastolic blood pressure 71 mm[Hg] 71 mm[Hg] [place] ([facility]) Body height 64 [in_i] 64 [in_i] [place] ([facility]) Systolic blood pressure 105 mm[Hg] 105 mm[Hg] A [facility] ([facility]) Body weight 1971 [oz_av] 1972 [oz_av] [place] ([facility]) Patient Treatment Plan of Care Planned Activity Planned Date Details Description Data Source (s) quetiapine 50 MG Oral Tablet [place] ([facility]) Naltrexone hydrochloride 50 MG Oral Tablet [place] ([facility]) Escitalopram 10 MG Oral Tablet [Lexapro] [place] ([facility]) Hydroxyzine Hydrochloride 25 MG Oral Tablet [place] ([facility]) 21 DAY Ethinyl Estradiol 0.535938 MG/HR / Etonogestrel 0.005 MG/HR Vaginal Ring [place] ([facility]) atomoxetine 25 MG Oral Capsule [place] ([facility]) atomoxetine 18 MG Oral Capsule [place] ([facility]) quetiapine 50 MG Oral Tablet [place] ([facility]) olanzapine 10 MG Oral Tablet [place] ([facility]) Naltrexone hydrochloride 50 MG Oral Tablet [place] ([facility]) Escitalopram 10 MG Oral Tablet [Lexapro] [place] ([facility]) Hydroxyzine Hydrochloride 25 MG Oral Tablet [place] ([facility]) 21 DAY Ethinyl Estradiol 0.413766 MG/HR / Etonogestrel 0.005 MG/HR Vaginal Ring [place] ([facility]) atomoxetine 25 MG Oral Capsule [place] ([facility]) atomoxetine 18 MG Oral Capsule [place] ([facility]) quetiapine 50 MG Oral Tablet [place] ([facility]) olanzapine 10 MG Oral Tablet [place] ([facility]) Naltrexone hydrochloride 50 MG Oral Tablet [place] ([facility]) Escitalopram 10 MG Oral Tablet [Lexapro] [place] ([facility]) Hydroxyzine Hydrochloride 25 MG Oral Tablet [place] ([facility]) 21 DAY Ethinyl Estradiol 0.098387 MG/HR / Etonogestrel 0.005 MG/HR Vaginal Ring [place] ([facility]) atomoxetine 25 MG Oral Capsule [place] ([facility]) atomoxetine 18 MG Oral Capsule [place] ([facility]) atomoxetine 18 MG Oral Capsule [place] ([facility]) 21 DAY Ethinyl Estradiol 0.977263 MG/HR / Etonogestrel 0.005 MG/HR Vaginal Ring [place] ([facility]) Hydroxyzine Hydrochloride 25 MG Oral Tablet [place] ([facility]) Naltrexone hydrochloride 50 MG Oral Tablet [place] ([facility]) olanzapine 10 MG Oral Tablet [place] ([facility]) quetiapine 50 MG Oral Tablet [place] ([facility])
--- OUTSIDE RECORDS SUMMARY | 2020-05-16 15:56 | CCD ---
Author Organization Unknown Address [address] [place] [address] Phone [phone] Care Team Providers Care Health Information Coder Name Role Phone Robinson Castanon Unavailable Unavailable Allergies Code Code System Name Reaction Severity Status Onset 50575 RxNorm Prozac Other Active Medications Name Status Start Date Stop Date atomoxetine 18 mg capsule Completed 2019 atomoxetine 25 mg capsule Completed 2019 buspirone 5 mg tablet Active Not availa ble clonazepam 0.5 mg tablet TAKE ONE TABLET [...] Completed 02/07/20 20 olanzapine 10 mg tablet Active Not avai lable quetiapine 50 mg tablet Completed 02/07/20 20 trazodone 50 mg tablet Active Not avail able Problems Name Status Onset Date Source Brief Reactive Psychosis Unknown 09/13/2019 History Generalized Anxiety Disorder Active 09/13/2019 His tory Opioid Dependence in Remission Active 09/13/2019 H istory Cannabis Abuse Active 09/13/2019 History Clinical Finding Active 09/13/[address] Concept Unknown 10/25/2019 History Body Measurement Finding Unknown 11/08/2019 History Procedures Notes: No known surgical history Results Lab Results Date Name Specimen Result Interpretation Description Value Range Status Address 02/08/2020 Test, Urine Hcg negative [facility]: [address] [facility] [address], [place] 02/07/2020 Choriogonadotropin, Quant, Serum or Plasma Norm al HCG, Serum Quantitative < 1.0 mIU/mL [facility]: [address] [facility] Past Encounters 05/10/2020 Psychotic Disorder Palmira EstevesMADDY fernandez-C: [address], [facility] [address], [place] [address], Ph. 04/01/2020 Generalized Anxiety Disorder; Cannabis Dependence Palmira EstevesMADDY fernandez-C: [address] [facility], [facility] [address], [place] [address], Ph. 03/01/2020 Generalized Anxiety Disorder; Opioid Dependence in Remission Robinson CastanonMADDY-C: [address], [place] [address], Ph. 02/07/2020 Amenorrhea Robinson CastanonMADDY-C: [address] [facility], [facility] [address], [place] [address], Ph. Social History Tobacco Smoking Status Never Smoker Vaccine List None recorded. Plan of Care Patient Instructions WE DISCUSSED, I WILL CONTACT YOUR PRO VIDERS AT [facility] AND HAVE A DISCUSSION ABOUT YOUR MEDICATIONS, BUT THEY SHOULD ALL BE PRESCRIBED THROUGH THEIR OFFICE, ESPECIALLY CONTROLLED SUBSTANCES. WE DISCUSSED, I WILL SPEAK WITH YOUR THERAPIST AT [facility] AND CONTACT YOU WITH A PLAN OF [...] Surgeries None recorded. Imaging None recorded. Vitals 05/10/2020 01:50PM TELEHEALTH 20 Height 64 in 04/01/2020 08:50AM ESTABLISHED [id number] Height Weight BMI Blood Pressure 64 in 134 lbs 12.8 oz 23.1 kg/m2 (1) 144/87 mm[Hg] (2) 134/100 mm[Hg] 03/01/2020 11:30AM ESTABLISHED [id number] Height Weight BMI Blood Pressure 64 in 135 lbs 23.2 kg/m2 131/92 mm[Hg] 02/07/2020 01:10PM ESTABLISHED PATIENT 15 Height Weight BMI Blood Pressure 64 in 134 lbs 9.6 oz 23.1 kg/m2 136/90 mm[Hg ] 10/25/2019 Height Weight BMI Blood Pressure 64 in 140 lbs 4 oz 24.16 kg/m2 143/97 mm[Hg] 09/13/2019 Height Weight BMI Blood Pressure 64 in 123 lbs 4 oz 21.23 kg/m2 105/71 mm[Hg]
[2020-05-16 17:56] LABS: HEMATOCRIT 42.7 % (36.0-47.0); HEMOGLOBIN 13.8 g/dl (12.0-15.5); MEAN CORPUSCULAR HEMOGLOBIN 29.9 pg (27.0-33.0); MEAN CORPUSCULAR HGB CONC 32.3 g/dl (32.0-36.5); MEAN CORPUSCULAR VOLUME 92.6 fl (80.0-96.0); PLATELET COUNT, AUTOMATED 454 10^3/uL (150-450); RED BLOOD COUNT 4.61 10^6/uL (4.00-5.40); WHITE BLOOD COUNT 10.9 10^3/uL (4.0-10.0)
--- OUTSIDE RECORDS SUMMARY | 2020-05-16 17:59 | CCD ---
Author Author [facility] Organization [facility] Address Unknown Phone Unavailable Care Team Providers Care Mold Presser Name Role Phone Yue Wells Unavailable CASTANON, [...] CASTANON, BEVERLY ROBINSON RPA-C Unavailable Unavailable CASTANON, BEEVRLY ROBINSON RPA-C Unavailable Unavailable CASTANON, BEVERLY ROBINSON [...] Unavailable Unavailable ELENA, JESS Unavailable Unavailable ELENA, JSES Unavailable Unavailable ELENA, JESS Unavailable Unavailable ELENA, [...] Unavailable Jennifer Latham Unavailable MARILYN, H FERNANDO BEHAVIOR CLINICIAN Unavailable Unavailable MARILYN, H FERNANDO BEHAVIOR CLINICIAN Unavailable Unavailable MARILYN, H FERNANDO BEHAVIOR CLINICIAN Unavailable Unavailable MARILYN, H FERNANDO BEHAVIOR CLINICIAN Unavailable Unavailable MARILYN, H FERNANDO BEHAVIOR CLINICIAN Unavailable Unavailable MARILYN, H FERNANDO BEHAVIOR CLINICIAN Unavailable Unavailable MARILYN, H FERNANDO BEHAVIOR CLINICIAN Unavailable Unavailable MARILYN, H FERNANDO BEHAVIOR CLINICIAN Unavailable Unavailable Vinnie Matthews Unavailable Vinnie Matthews [...] CASTANON, BEVERLY ROBINSON RPA-C Unavailable Unavailable [facility] Unavailable [phone] [facility] Unavailable [phone] [facility], RFROST CASTANON PA ROBINSON Unavailable Unavailable [...] is protected by Article 27-F of the [facility] Public Health law. If you continue you may have access to information: Regarding HIV / AIDS; Provided by facilities licensed or operated by the [facility] Office of Mental Health; or Provided by the [facility] Office for People With Developmental Disabilities. If such information is present, then the following [facility] mandated warning applies: This information has [...] law may result in a fine or halfway sentence or both. A general authorization for the release of medical or other information is NOT sufficient authorization for further disc losure. Family History Family Member Name Family Member Gender Family Member Status Date o f Status Description Data Source(s) Unknown Male Problem MEDENT ([facility]) Unknown Unknown Problem MEDENT ([facility]nie [facility]) Unknown Unknown Problem MEDENT ([facility]) MGF Encounters Encounter Providers Location Date Indications Data Source(s ) Jess Elena, RPA-C: [address], [place] [address], Ph. Attender: JESS ELENA [facility] Medical 05/10/2020 12:00:00 AM EST [place] ([facility]) Outpatient Attender: YAJAIRA MARSHALL MD [facility] 10:30:00 AM EST MEDENT ([facility]) Unknown [address] [facility] [address] 04/02/2020 12:00:00 AM EST eCW1 ([facility]) YORDAN BurnettC: [address] , [address], [place] [address], Ph. Attender: JESS ELENA [facility] Medical 04/01/2020 12:00:00 AM EST [place] ([facility]) YORDAN BurnettC: [address], [address], [place] [address], Ph. Attender: JESS ELENA [facility] Medical 04/01/2020 12:00:00 AM EST [place] ([facility]) Outpatient [address] [facility] [place] [address] 03/08/2020 12:00:00 AM EST eCW1 ([facility]) Unknown [address] [facility] [place] [address] 03/08/2020 12:00:00 AM EST eCW1 ([facility]) YORDAN AbdallaC: [address], [place] [address], Ph. Attender: ROBINSON FARRC [facility] Medical 03/01/2020 12:00:00 AM EST [place] ([facility]) Robinson Castanon RPA-C: [address], [place] [address], Ph. Attender: ROBINSON CASTANON RPA-C [facility] Medical 03/01/2020 12:00:00 AM EST [place] ([facility]) Robinson Castanon RPA-C: [address], [place] [address], Ph. Attender: ROBINSON CASTANON RPA-C [facility] Medical 03/01/2020 12:00:00 AM EST [place] ([facility]) Robinson Castanon RPA-C: [address], [place] [address], Ph. Attender: ROBINSON CASTANON RPA-C [facility] Medical 02/07/2020 12:00:00 AM EST [place] ([facility]) Robinson Castanon, RPA-C: [address], [place] [address], Ph. Attender: ROBINSON CASTANON RPA-C [facility] Medical 02/07/2020 12:00:00 AM EST [place] ([facility]) Robinson Castanon RPA-C: [address], [place] [address], Ph. Attender: ROBINSON CASTANON RPA-C [facility] Medical 02/07/2020 12:00:00 AM EST [place] ([facility]) Robinson Castanon, RPA-C: [address], [place] [address], Ph. Attender: ROBINSON CASTANON RPA-C [facility] Medical 02/07/2020 12:00:00 AM EST [place] ([facility]) Outpatient Attender: BUNNY GARCIA [facility] 12/27 02:27:10 PM EDT [facility] Extended Individual Psychotherapy - 45 min Attender: Valdez garcia [facility] 01/10/2020 03:15:00 AM EDT - 01/10/2020 03:15:00 AM EDT [facility] ([facility]) Attender: Vinnie Matthews 01/10/2020 12:00:00 AM EDT [facility] ([facility]) Outpatient Attender: FERNANDO ROE NP [facility] catherine 01/09/2020 04:30:00 AM EDT - 01/09/2020 04:30:00 AM EDT [facility] ([facility]) Attender: FERNANDO ROE NP 01/09/2020 12:00:00 AM EDT [facility] ([facility]) Attender: Vinnie Matthews 01/04/2020 12:00:00 AM EDT [facility] ([facility]) Extended Individual Psychotherapy - 45 min Attender: Valdez garcia [facility] 01/02/2020 06:00:00 AM EDT - 01/02/2020 06:00:00 AM EDT [facility] ([facility]) Attender: [facility] 12:00:00 AM EDT [facility] ([facility]) Extended Individual Psychotherapy - 45 min Attender: [facility] 12/26/2019 06:00:00 AM EDT - 12/26/2019 06:00:00 AM EDT [facility] ([facility]) Brief Individual Psychotherapy - 30 min Attender: Berna dickey [facility] 12/22/2019 03:00:00 AM EDT - 12/22/2019 03:00:00 AM EDT [facility] ([facility]) Attender: Berna Stallings 12/22/2019 12:00:00 AM EDT [facility] ([facility]) Extended Individual Psychotherapy - 45 min [facility] 11/28/2019 09:00:00 AM EDT - 11/28/2019 09:00:00 AM EDT [facility] ([facility]) Attender: Yue Wells 11/28/2019 12:00:00 A M EDT [facility] ([facility]) Outpatient Attender: ROBINSON REYES [facility] 11/08/2019 02:16:00 PM EDT [facility] 10/27 02:15:04 PM EDT [facility] Outpatient Attender: [facility] 10/27 08:41:59 AM EDT [facility] Outpatient Attender: ROBINSON REYES [facility] 10/25/2019 01:24:01 PM EDT [facility] Outpatient Attender: [facility] 08/2019 12:28:02 PM EDT [facility] Outpatient Attender: B[facility]NY [facility] 08/28 10:02:59 AM EDT [facility] Outpatient 09/15/2019 05:55:00 AM EDT [facility] Outpatient Attender: ROBINSON REYES [facility] 09/13/2019 03:04:01 PM EDT [facility] Telemed Diagnostic Eval Attender: MANJU ROGELBRUNO [facility] 09/13/2019 02:00:00 AM EDT - 09/13/2019 02:00:00 AM EDT [facility] ([facility]) Attender: MANJU SUAREZ 09/13/2019 12:00: 00 AM EDT [facility] ([facility]) Outpatient [facility] 09/12/2019 10:00:00 AM EDT [facility] [id number]"Psychotherapy Attender: Jennifer Latham [facility] 09/12/2019 08:00:00 AM EDT - 09/12/2019 08:00:00 AM EDT [facility] ([facility]) Attender: Jennifer Latham 09/12/2019 12:00:00 AM EDT [facility] ([facility]) Outpatient [facility] 09/11/2019 12:37:00 PM EDT [facility] Outpatient [facility] 09/11/2019 08:21:01 AM EDT [facility] Functional Status Medications Medication Brand Name Start Date Product Form Dose Route Admi nistrative Instructions Pharmacy Instructions Status Indications Reaction Description Data Source(s) quetiapine 50 MG Oral Tablet [Seroquel] Seroquel 01/09/2020 12: 00:00 AM EDT 50 mg by mouth completed [id number] Seroquel by mouth [id number] 01/09/2020 03/09/2020 at bedtime 30 50 mg tablet 07132 [id number] Yarelis Roe [id number] Nurse Practitioner [facility] ([facility]) atomoxetine 25 MG Oral Capsule [Strattera] Strattera 01/08 12:00:00 AM EDT 25 mg by mouth completed [id number] Strattera by mouth [id number] 01/09/2020 02/08/2020 at bedtime 30 25 mg capsule 26109 [id number] Finn Roe [id number] Nurse Practitioner [facility] ([facility]) quetiapine 50 MG Oral Tablet [Seroquel] Seroquel 11/09/2019 12: 00:00 AM EDT 50 mg by mouth completed 204125 Seroquel by mouth [id number] 11/09/2019 01/08/2020 at bedtime 30 50 mg tablet 80161 [id number] Yarelis Roe [id number] Nurse Practitioner [facility] ([facility]) Escitalopram 10 MG Oral Tablet [Lexapro] Lexapro 10 mg tablet Take 1 tablet every day by oral route. Lexapro 10 mg tablet Take 1 tablet every day by oral route. 1 completed escitalopram 10 MG Oral Tablet [Lexapro] [facility] ([facility]) 21 DAY Ethinyl Estradiol 0.916986 MG/HR / Etonogestrel 0.005 MG/HR Vaginal Ring etonogestrel 0.12 mg-ethinyl estradiol 0.015 mg/24 hr vaginal ring etonogestrel 0.12 mg-ethinyl estradiol 0.015 mg/24 hr vaginal ring completed 21 DAY ethinyl estradiol 0.733727 MG/HR / etonogestrel 0.005 MG/HR Vaginal System [facility] ([facility]) Hydroxyzine Hydrochloride 25 MG Oral Tablet hydroxyzin e HCl 25 mg tablet hydroxyzine HCl 25 mg tablet completed hydroxyzine hydrochloride 25 MG Oral Tablet [facility] ([facility]) olanzapine 10 MG Oral Tablet olanzapine 10 mg tablet olanzapine 10 mg tablet completed olanzapine 10 MG Oral Tablet [facility]) atomoxetine 25 MG Oral Capsule atomoxetine 25 mg capsu le atomoxetine 25 mg capsule completed atomoxetine 25 MG Oral Capsule [facility]) quetiapine 50 MG Oral Tablet quetiapine 50 mg tablet quetiapine 50 mg tablet completed quetiapine 50 MG Oral Tablet [facility]) Naltrexone hydrochloride 50 MG Oral Tablet naltrexone 50 mg tablet naltrexone 50 mg tablet completed naltrexone hydrochloride 50 MG Oral Tablet [facility] ([facility]) atomoxetine 18 MG Oral Capsule atomoxetine 18 mg capsu le atomoxetine 18 mg capsule completed atomoxetine 18 MG Oral Capsule [facility]) Escitalopram 10 MG Oral Tablet [Lexapro] Lexapro 10 mg tablet Take 1 tablet every day by oral route. Lexapro 10 mg tablet Take 1 tablet every day by oral route. 1 completed escitalopram 10 MG Oral Tablet [Lexapro] [facility]) olanzapine 10 MG Oral Tablet olanzapine 10 mg tablet olanzapine 10 mg tablet completed olanzapine 10 MG Oral Tablet [facility]) atomoxetine 18 MG Oral Capsule atomoxetine 18 mg capsu le atomoxetine 18 mg capsule completed atomox[facility] 18 [facility] atomox[facility] 18 MG Oral Capsule atomoxetine 18 mg capsu le atomoxetine 18 mg capsule completed atomoxetine 18 MG Oral Capsule [facility] ([facility]) Naltrexone hydrochloride 50 MG Oral Tablet naltrexone 50 mg tablet naltrexone 50 mg tablet completed naltrexone hydrochloride 50 MG Oral Tablet [facility]) quetiapine 50 MG Oral Tablet quetiapine 50 mg tablet quetiapine 50 mg tablet completed quetiapine 50 MG Oral Tablet [facility] ([facility]) atomoxetine 25 MG Oral Capsule atomoxetine 25 mg capsu le atomoxetine 25 mg capsule completed atomoxetine 25 MG Oral Capsule [facility] ([facility]) Hydroxyzine Hydrochloride 25 MG Oral Tablet hydroxyzin e HCl 25 mg tablet hydroxyzine HCl 25 mg tablet completed hydroxyzine hydrochloride 25 MG Oral Tablet [facility] ([facility]) Hydroxyzine Hydrochloride 25 MG Oral Tablet hydroxyzin e HCl 25 mg tablet hydroxyzine HCl 25 mg tablet completed hydroxyzine hydrochloride 25 MG Oral Tablet [facility] ([facility]) 21 DAY Ethinyl Estradiol 0.616865 MG/HR / Etonogestrel 0.005 MG/HR Vaginal Ring etonogestrel 0.12 mg-ethinyl estradiol 0.015 mg/24 hr vaginal ring etonogestrel 0.12 mg-ethinyl estradiol 0.015 mg/24 hr vaginal ring completed 21 DAY ethinyl estradiol 0.302815 MG/HR / etonogestrel 0.005 MG/HR Vaginal System [facility] ([facility]) Naltrexone hydrochloride 50 MG Oral Tablet naltrexone 50 mg tablet naltrexone 50 mg tablet completed naltrexone hydrochloride 50 MG Oral Tablet [facility] ([facility]) quetiapine 50 MG Oral Tablet quetiapine 50 mg tablet quetiapine 50 mg tablet completed quetiapine 50 MG Oral Tablet [facility] ([facility]) 21 DAY Ethinyl Estradiol 0.485911 MG/HR / Etonogestrel 0.005 MG/HR Vaginal Ring etonogestrel 0.12 mg-ethinyl estradiol 0.015 mg/24 hr vaginal ring etonogestrel 0.12 mg-ethinyl estradiol 0.015 mg/24 hr vaginal ring completed 21 DAY ethinyl estradiol 0.717585 MG/HR / etonogestrel 0.005 MG/HR Vaginal System [facility] ([facility]) olanzapine 10 MG Oral Tablet olanzapine 10 mg tablet olanzapine 10 mg tablet completed olanzapine 10 MG Oral Tablet [facility] ([facility]) atomoxetine 18 MG Oral Capsule atomoxetine 18 mg capsu le atomoxetine 18 mg capsule completed atomoxetine 18 MG Oral Capsule [facility] ([facility]) quetiapine 50 MG Oral Tablet quetiapine 50 mg tablet quetiapine 50 mg tablet completed quetiapine 50 MG Oral Tablet [facility] ([facility]) 21 DAY Ethinyl Estradiol 0.596460 MG/HR / Etonogestrel 0.005 MG/HR Vaginal Ring etonogestrel 0.12 mg-ethinyl estradiol 0.015 mg/24 hr vaginal ring etonogestrel 0.12 mg-ethinyl estradiol 0.015 mg/24 hr vaginal ring completed 21 DAY ethinyl estradiol 0.416659 MG/HR / etonogestrel 0.005 MG/HR Vaginal System [facility] ([facility]) Naltrexone hydrochloride 50 MG Oral Tablet naltrexone 50 mg tablet naltrexone 50 mg tablet completed naltrexone hydrochloride 50 MG Oral Tablet [facility] ([facility]) Escitalopram 10 MG Oral Tablet [Lexapro] Lexapro 10 mg tablet Take 1 tablet every day by oral route. Lexapro 10 mg tablet Take 1 tablet every day by oral route. 1 completed escitalopram 10 MG Oral Tablet [Lexapro] [facility] ([facility]) atomoxetine 25 MG Oral Capsule atomoxetine 25 mg capsu le atomoxetine 25 mg capsule completed atomoxetine 25 MG Oral Capsule [place] ([facility]) Hydroxyzine Hydrochloride 25 MG Oral Tablet hydroxyzin e HCl 25 mg tablet hydroxyzine HCl 25 mg tablet completed hydroxyzine hydrochloride 25 MG Oral Tablet [facility] ([facility]) Insurance Providers Payer name Policy type / Coverage type Policy ID Covered democrat ID Covered democrat's relationship to marinelli Policy Marinelli Plan Information R [facility] [id number] MO2 [id number] [place] [id number] MEDICAID [id number] SP [id number] [place] Commercial Family Dependent [employer] Compensation [id number] Self [id number] [employer] Medigap Part B [id number] Family Dependent [id number] [place] Commercial [id number] Family Dependent [id number] [employer] Compensation [id number] Family Dep endent [id number] [facility] Commercial [id number] Family Dependent [id number] [facility] Commercial [id number] Family Dependent [id number] [facility] Commercial [id number] Family Dependent [id number] [facility] Part B [id number] Family Dependent [id number] [place] [id number] MO2 [id number] [employer] NO FAULT [id number] [id number] Self Pay P none S none UMR O [id number] S [id number] SELF PAY UNAVAILABLE SP UNAVAILA BLE [place] [id number] SP [id number] UMR [facility] [id number] MO2 [id number] SELF PAY ONLY [id number] SP [id number] Problems, Conditions, and Diagnoses Code Display Name Description Problem Type Effective Dates Data Source(s) F41.1 [id number] RACHEL (generalized anxiety disorder) Proble m 03/15/2020 12:00:00 AM EST eCW1 ([facility]) F32.9 [id number] Depression, unspecified depression type P roblem 03/15/2020 12:00:00 AM EST eCW1 ([facility]) F32.9 Major depressive disorder, single episod e, unspecified Unspecified depressive Disorder Condition 01/10/2020 12:00:00 AM EDT [facility] ([facility]) F11.20 Opioid dependence, uncomplicated Opioid Use Disorder, Moderate Condition 01/10/2020 12:00:00 AM EDT [facility] ([facility]) F90.2 Attention-deficit hyperactivity disorder , combined type Attention- Deficit/Hyperactivity Disorder, Combined presentation Condition 01/10/2020 12:00:00 AM EDT [facility] ([facility]) V85.1 BMI 24.0-24.9 BMI 24.0-24.9 11/08/2019 02:14:17 PM EDT [facility] [id number] Body measurement finding Body Measurement Finding Prob wenyd 11/08/2019 12:00:00 AM EDT - 02/07/2020 12:00:00 AM EST [facility] ([facility]) [id number] Body measurement finding Body Measurement Finding Prob wendy 11/08/2019 12:00:00 AM EDT - 02/07/2020 12:00:00 AM EST [place] ([facility]) [id number] Body measurement finding Body Measurement Finding Prob wendy 11/08/2019 12:00:00 AM EDT - 02/07/2020 12:00:00 AM LARY CUEVAS ([facility]) [id number] Body measurement finding Body Measurement Finding Prob wendy 11/08/2019 12:00:00 AM EDT - 02/07/2020 12:00:00 AM LARY CUEVAS ([facility]) Z00.00 Encounter for general adult medical examination without abnormal findings Encounter for general adult medical examination without abno rmal findings 10/25/2019 01:23:36 PM EDT [facility] [id number] SNOMED CT Concept SNOMED CT Concept Problem 10/24 12:00:00 AM EDT - 02/07/2020 12:00:00 AM LARY CUEVAS ([facility]) 452593846 SNOMED CT Concept SNOMED CT Concept Problem 10/24 12:00:00 AM EDT - 02/07/2020 12:00:00 AM LARY CUEVAS ([facility]) 706905048 SNOMED CT Concept SNOMED CT Concept Problem 10/24 12:00:00 AM EDT - 02/07/2020 12:00:00 AM LARY CUEVAS ([facility]) 207055229 SNOMED CT Concept SNOMED CT Concept Problem 10/24 12:00:00 AM EDT - 02/07/2020 12:00:00 AM LARY CUEVAS ([facility]) V85.1 BMI 21.0-21.9 BMI 21.0-21.9 09/13/2019 03:02:58 PM EDT [facility] 300.02 Generalized anxiety disorder Generalized anxiety disor richard 09/13/2019 03:02:58 PM EDT [facility] 787.91 Diarrhea Diarrhea 09/13/2019 03:02:58 PM ED T [facility] 720753008 Opioid dependence, in remission Opioid dependence, in remission 09/13/2019 03:02:58 PM EDT [facility] 09/01/2019 last use 51365532 Cannabis abuse, uncomplicated Cannabis abuse, uncompli cated 09/13/2019 03:02:58 PM EDT [facility] 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 09/13/2019 03:02:58 PM EDT [facility] M79.651 Pain in right thigh Pain of bilateral thighs 09/13/2019 03:02:58 PM EDT [facility] 939876484 Clinical finding Clinical Finding Problem 09/13/2019 12 :00:00 AM EDT [facility] ([facility]) 06001633 Cannabis abuse Cannabis Abuse Problem 09/13/2019 12:00: 00 AM EDT [facility] ([facility]) 340070325 Opioid dependence in remission Opioid Dependence in Re mission Problem 09/13/2019 12:00:00 AM EDT [facility] ([facility]) 48914948 Generalized anxiety disorder Generalized Anxiety Disor richard Problem 09/13/2019 12:00:00 AM EDT [facility] ([facility]) 5151230 Brief reactive psychosis Brief Reactive Psychosis Prob wendy 09/13/2019 12:00:00 AM EDT - 03/01/2020 12:00:00 AM EST [facility] ([facility]) 12065614 Cannabis abuse Cannabis Abuse Problem 09/13/2019 12:00: 00 AM EDT [facility] ([facility]) 691909219 Opioid dependence in remission Opioid Dependence in Re mission Problem 09/13/2019 12:00:00 AM EDT [facility] ([facility]) 67629293 Generalized anxiety disorder Generalized Anxiety Disor richard Problem 09/13/2019 12:00:00 AM EDT [facility] ([facility]) 3500332 Brief reactive psychosis Brief Reactive Psychosis Prob wendy 09/13/2019 12:00:00 AM EDT - 03/01/2020 12:00:00 AM EST [facility] ([facility]) 70650435 Cannabis abuse Cannabis Abuse Problem 09/13/2019 12:00: 00 AM EDT [facility] ([facility]) 930613563 Opioid dependence in remission Opioid Dependence in Re mission Problem 09/13/2019 12:00:00 AM EDT [facility] ([facility]) 57808497 Generalized anxiety disorder Generalized Anxiety Disor richard Problem 09/13/2019 12:00:00 AM EDT [facility] ([facility]) 1110072 Brief reactive psychosis Brief Reactive Psychosis Prob wendy 09/13/2019 12:00:00 AM EDT - 03/01/2020 12:00:00 AM EST [facility] ([facility]) 4325584 Brief reactive psychosis Brief Reactive Psychosis Prob wendy 09/13/2019 12:00:00 AM EDT [facility] ([facility]) 81480639 Generalized anxiety disorder Generalized Anxiety Disor richard Problem 09/13/2019 12:00:00 AM EDT [facility] ([facility]) 769046688 Opioid dependence in remission Opioid Dependence in Re mission Problem 09/13/2019 12:00:00 AM EDT [facility] ([facility]) 74744195 Cannabis abuse Cannabis Abuse Problem 09/13/2019 12:00: 00 AM EDT [facility] ([facility]) Surgeries/Procedures Procedure Description Date Indications Data Source(s) Extended Individual Psychotherapy - 45 min 0 12:00:00 AM [facility] Extended Individual Psychotherapy - 45 min 01/10/2020 12:00:00 AM EDT - 01/10/2020 12:00:00 AM EDT [facility] ([facility]) OFFICE OUTPATIENT VISIT 15 MINUTES 01/09/2020 12:00:00 AM EDT [facility] ([facility]) OFFICE OUTPATIENT VISIT 15 MINUTES 01/08 12:00:00 AM EDT - 01/09/2020 12:00:00 AM EDT [facility] ([facility]) Extended Individual Psychotherapy - 45 min 01/04/2020 12:00:00 AM EDT - 01/04/2020 12:00:00 AM EDT [facility] ([facility]) Extended Individual Psychotherapy - 45 min 0 12:00:00 AM EDT [facility] ([facility]) Extended Individual Psychotherapy - 45 min 12/27/2019 12:00:00 AM EDT - 12/27/2019 12:00:00 AM EDT [facility] ([facility]) Extended Individual Psychotherapy - 45 min 0 12:00:00 AM EDT [facility] ([facility]) Brief Individual Psychotherapy - 30 min 12/22/2019 12: 00:00 AM EDT [facility] ([facility]) Brief Individual Psychotherapy - 30 min 12/22/2019 12:00:00 AM EDT - 12/22/2019 12:00:00 AM EDT [facility] ([facility] [facility]) Extended Individual Psychotherapy - 45 min 0 12:00:00 AM EDT [facility] ([facility]) Extended Individual Psychotherapy - 45 min 11/28/2019 12:00:00 AM EDT - 11/28/2019 12:00:00 AM EDT [facility] ([facility]) Telemed Diagnostic Eval 09/13/2019 12:00:00 AM EDT [facility] ([facility]) Telemed Diagnostic Eval 09/13/2019 12:00 :00 AM EDT - 09/13/2019 12:00:00 AM EDT [facility] ([facility]) [id number]"Psychotherapy 09/12/2019 12:00:00 AM EDT [facility] ([facility]) [id number]"Psychotherapy 0 12:00:00 AM EDT - 09/12/2019 12:00:00 AM EDT [facility] ([facility]) Results ID Date Data Source [id number] 04/24/2020 09:01:00 PM EST [facility] Name Value Range Interpretation Code Description Data Anna rce(s) Supporting Document(s) SARS coronavirus 2 RNA [Presence] in Res piratory specimen by CODEY with probe detection NEGATIVE [facility] This lab was ordered by [facility] a nd reported by [facility]. ID Date Data Source [id number] 04/15/2020 12:00:00 PM EST [facility] ([facility]) Name Value Range Interpretation Code Description Data Anna rce(s) Supporting Document(s) CT/NG Laboratory test result [facility] ([facility]) CHLAMYDIA TRACHOMATIS: Negative NEISSERIA GONORRHOEAE: Negative Testing performed by the FDA-approved [employer] APTIMA COMBO 2 Assay. The APTIMA COMBO [...] ASCUS Laboratory test result [facility] ([facility]) ID Date Data Source [id number] 04/15/2020 12:00:00 PM EST [facility] ([facility]) Name Value Range Interpretation Code Description Data Anna rce(s) Supporting Document(s) Cytology report of Cervical or vaginal smear or scrapi ng Cyto stain.thin prep Laboratory test result [facility] ([facility]) SPECIMEN PART------ A. Cervical, Endocervical, ThinPrep Pap ([facility]ice) CYTOLOGY HX-------- Date of Last Menstrual Period: 04/01/2019 Other Information:Previous Normal Pap: 01/12/2019 FINAL DIAGNOSIS---- INTERPRETATION: Negative for Intraepithelial Lesion or Malignancy. SPECIMEN ADEQUACY:Satisfactory for evaluation. Endocervical/transformation zone component present. ID Date Data Source [id number] 02/08/2020 10:31:00 AM EST [facility]) Name Value Range Interpretation Code Description Data Anna rce(s) Supporting Document(s) HCG negative Hcg [place] ([facility]) ID Date Data Source [id number] 02/08/2020 10:31:00 AM EST [facility] ([facility]) Name Value Range Interpretation Code Description Data Anna rce(s) Supporting Document(s) HCG negative Hcg [place] ([facility]) ID Date Data Source [id number] 02/08/2020 10:31:00 AM EST [place] ([facility]) Name Value Range Interpretation Code Description Data Anna rce(s) Supporting Document(s) HCG negative Hcg [facility] ([facility]) ID Date Data Source [id number] 02/08/2020 10:31:00 AM EST [place] ([facility]) Name Value Range Interpretation Code Description Data Anna rce(s) Supporting Document(s) HCG negative Hcg [facility] ([facility]) ID Date Data Source [id number] 02/07/2020 02:28:00 PM EST [place] ([facility]) Name Value Range Interpretation Code Description Data Anna rce(s) Supporting Document(s) HCG, serum quantitative < 1.0 normal HCG, Serum Q uantitative [place] ([facility]) ID Date Data Source [id number] 02/07/2020 02:28:00 PM EST MAOSN ([facility]) Name Value Range Interpretation Code Description Data Anna rce(s) Supporting Document(s) HCG, serum quantitative < 1.0 normal HCG, Serum Q uantitative [place] ([facility]) ID Date Data Source [id number] 02/07/2020 02:28:00 PM EST [place] ([facility]) Name Value Range Interpretation Code Description Data Anna rce(s) Supporting Document(s) HCG, serum quantitative < 1.0 normal HCG, Serum Q uantitative [place] ([facility]) ID Date Data Source [id number] 02/07/2020 02:28:00 PM EST [place] ([facility]) Name Value Range Interpretation Code Description Data Anna rce(s) Supporting Document(s) HCG, serum quantitative < 1.0 normal HCG, Serum Q uantitative [place] ([facility]) ID Date Data Source [id number] 02/02/2020 12:00:00 AM EST [facility] Name Value Range Interpretation Code Description Data Anna rce(s) Supporting Document(s) SARS-CoV2 Rapid Antigen [facility] This lab was ordered by [facility] and reported by [facility]. ID Date Data Source [id number] 10/25/2019 12:57:38 PM EDT [facility] Measurements & CalculationsHeight: 64 inches (5 [...] or Preferred Language: EnglishFamily and Home Address: [address] [place] [address] What is your housing situation today? I have housing Are you worried about losing your housing? NoMoney and Resources What is the highest level of school that you have finished? associate's degree Employed? 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 Sees [facility] Addiction counselor weekly and groups three days a week. HPI performed by: Robinson BARRETO, October 25, 2019 1:17 PMTransitions of Care InboundProblem ReviewProblem List was reviewed and/or updated during this visit.Medication Reconciliation & ReviewMedication List was reviewed and/or updated during this visit, including review of any wesq-iaw-nnpfplc medications, herbal therapies, and/or supplements.Allergy ReviewAllergy List [...] general adult medical examination without abnormal findings (IEJ76-N88.00) Assessment: Instructions: Recommend annual medical appointments. Recommend routine dental and vision care. Recommend influenza vaccines annually and tetanus boosters every 10 years. Release of information form(s) to obtain medical records from your prior providers(s) (MEDICAL BILLING REPRESENTATIVE) has been s igned in the office today.Assessed:Generalized anxiety disorder (ICD-300.02) (TJE04-N07.1) Assessment: Instructions: Improved with [facility] and [facility] addiction counseling services.Opioid dependence, in remission (ACP00-U59.21): 09/01/2019 last use Assessment: Instructions: As above.Brief psychotic disorder (HRS19-F38) Assessment: Instructions: As above.Removed:Diarrhea (ICD-787.91) (XVK65-N53.7), Pain of bilateral thighs (WYK10-Z51.651), BMI 21.0- 21.9 (ICD-V85.1) (MPX31-T49.21)Patient Instructions/Care Plan: Encounter for general adult medical examination without abnormal findings: Recommend annual medical appointments. Recommend routine dental and vision care. Recommend influenza vaccines annually and tetanus boosters every 10 years. Release of information form(s) to obtain medical records from your prior providers(s) (MEDICAL BILLING REPRESENTATIVE) has been signed in the office today.Generalized anxiety disorder: Improved with [facility] and [facility] addiction counseling services.Opioid dependence- in remission: As [...] Known Allergies (updated 10/25/2019) Orders:Preventive, Est, (18-39) [CPT-54802] Follow-Up Return to clinic: in 90 days for follow upCli nical Visit Summary Completed Name Value Range Interpretation Code Description Data Anna rce(s) Supporting Document(s) ID Date Data Source [id number] 09/13/2019 02:18:14 PM EDT [facility] Measurements & CalculationsHeight: 64 inches 162.56 [...] ? NoComments: statees she was tested at [facility]-negative.Healthcare HistorySince your last office visit...Have you been [...] (Maternal Grandfather)Social/Personal History: Chief Complaintfollow- [facility] Present Illness (HPI)23 yo female pt presents for follow up of hospital discharge and to establish care. Pt states she is feeling a lot better since being discharged. Admitted 09/04/2019-09/11/2019 for paranoia and bizzare behavior, discharged on Zyprexa 10mg daily. Had counseling appt at [facility] yesterday and 10/04/2019 is first prescriber [...] mother until she becomes more stable.Pt has MEDICAL BILLING REPRESENTATIVE appt today at 4pm, [facility], wants to be screened for STDs before restarting Nuvaring. Transitions of Care InboundProblem ReviewProblem List was reviewed and/or updated during this visit.Medication Reconciliation & ReviewMedication List was reviewed and/or updated during this visit, including review of any anoh-ykz-fjkqqsq medications, herbal therapies, and/or supplements.Allergy ReviewAllergy List [...] GoodAssessment & Plan Problems:Added: BMI 21.0-21.9 (ICD-V85.1) (ONV96-I95.21)Brief psychotic disorder (YNW22-I46) Assessment: Instructions: Continue Zyprexa. Continue as scheduled with your mental health providers. Refills provided today to get you through to your upcoming appointment with prescriber.Generalized anxiety disorder (ICD-300.02) (ICD10- F41.1) Assessment: Instructions: As above. Hydroxyzine as needed up to three times daily. May cause sleepiness, use caution.Opioid dependence, in remission (KEN55-M09.21): 09/01/2019 last use Assessment: Instructions: Please go to walkin at either [facility] or [facility].Cannabis abuse, uncomplicated (MRW89-N47.10) Assessment: Instructions: Recommend complete cessation.Diarrhea (ICD-787.91) (BMA52-W64.7) Assessment: Instructions: Given stool collection kit, please return stool sample to [facility] lab for testing. [place] diet: bananas, rice, applesauce, toast.Pain of bilateral thighs (PHR82-T82.651) Assessment: Instructions: Recommend quad stretches and avoiding [...] Please go to walkin at either [facility] or [facility].Cannabis abuse- uncomplicated: Recommend complete cessation.Diarrhea: Given stool collection kit, please return stool sample to [facility] lab for testing. [place] diet: bananas, rice, applesauce, toast.Pain of bilateral [...] Allergies (updated 09/13/2019) Orders:GI Panel - Stool [CPT-42442] Adult - Ofc Vst, NEW, Level IV [CPT-44677] Follow-Up Return to clinic: in 6 weeks for preventive care visitAdditional Follow-Up: annual PEClinical Visit Summary CompletedMedications:OLANZAPINE 10 MG ORAL TABLET (OLANZAPINE) Take 1 tablet po daily #30[Tablet] x 0 Entered and Authorized by: Robinson BARRETO Method used: Electronically to [facility] (retail) [address] [place] [address] Note to Pharmacy: Route: ORAL; RxID: [id number] HCL 25 MG ORAL TABLET (HYDROXYZINE HCL) Take 1 tablet by mouth up to three times daily as needed #30[Tablet] x 1 Route:ORAL Entered and Authorized by: Robinson BARRETO Method used: Electronically to [facility] (retail) [address] [place] [address] Fax: Note to Pharmacy: Route: ORAL; Indications: GENERALIZED ANXIETY DISORDER RxID: [id number] signed by Robinson BARRETO on 09/22/2019 at 10:02 AM Name Value Range Interpretation Code Description Data Anna rce(s) Supporting Document(s) Procedure Social History Code Duration Value Status Description Data Source(s ) Smoking 04/15/2020 12:00:00 AM EST Patient has never smoked co mpleted Patient has never smoked [facility] ([facility]) Smoking 04/02/2020 12:00:00 AM EST Never Smoker completed Never S moker eCW1 ([facility]) Smoking 03/16/2020 12:00:00 AM EST Never Smoker completed Never S moker eCW1 ([facility]) Smoking 03/08/2020 12:00:00 AM EST Never Smoker completed Never S moker eCW1 ([facility]) Smoking 01/10/2020 12:00:00 AM EDT Unknown if ever smoked comp leted Unknown if ever smoked [facility] ([facility]) Smoking 01/09/2020 12:00:00 AM EDT Unknown if ever smoked comp leted Unknown if ever smoked [facility] ([facility]) Smoking 01/04/2020 12:00:00 AM EDT Unknown if ever smoked comp leted Unknown if ever smoked [facility] ([facility]) Smoking 12/27/2019 12:00:00 AM EDT Unknown if ever smoked comp leted Unknown if ever smoked [facility] ([facility]) Smoking 12/22/2019 12:00:00 AM EDT Unknown if ever smoked comp leted Unknown if ever smoked [facility] ([facility]) Smoking 11/28/2019 12:00:00 AM EDT Unknown if ever smoked comp leted Unknown if ever smoked [facility] ([facility]) Smoking 09/13/2019 12:00:00 AM EDT Unknown if ever smoked comp leted Unknown if ever smoked [facility] ([facility]) Smoking 09/12/2019 12:00:00 AM EDT Unknown if ever smoked comp leted Unknown if ever smoked [facility] ([facility]) Vital Signs ID Date Data Source UNK Name Value Range Interpretation Code Description Data Source(s) Body height 64 [in_i] 64 [in_i] [place] ([facility]) Body surface area Derived from formula 1.62 m2 1.62 m2 [facility] ([facility]) Body mass index (BMI) [Ratio] 25.1 kg/m2 25.1 k g/m2 [facility] ([facility]) Body weight 136.00 [lb_av] 136.00 [lb_av] MEDEN T ([facility]) Body height 61.75 [in_i] 61.75 [in_i] [facility] ([facility]) 5'1.75" Diastolic blood pressure 62 mm[Hg] 62 mm[Hg] [facility] ([facility]) Systolic blood pressure 100 mm[Hg] 100 mm[Hg] M EDMARYANN ([facility]) Body weight 2156.8 [oz_av] 2156.8 [oz_av] ATHEN A ([facility]) Systolic blood pressure 144 mm[Hg] 144 mm[Hg] A THENA ([facility]) Systolic blood pressure 134 mm[Hg] 134 mm[Hg] A THENA ([facility]) Body mass index (BMI) [Ratio] 23.1 kg/m2 23.1 k g/m2 [place] ([facility]) Body height 64 [in_i] 64 [in_i] [place] ([facility]) Diastolic blood pressure 87 mm[Hg] 87 mm[Hg] [place] ([facility]) Diastolic blood pressure 100 mm[Hg] 100 mm[Hg] [place] ([facility]) Body weight 2156.8 [oz_av] 2156.8 [oz_av] ATHEN A ([facility]) Systolic blood pressure 144 mm[Hg] 144 mm[Hg] A THENA ([facility]) Systolic blood pressure 134 mm[Hg] 134 mm[Hg] A THENA ([facility]) Body mass index (BMI) [Ratio] 23.1 kg/m2 23.1 k g/m2 [place] ([facility]) Body height 64 [in_i] 64 [in_i] [place] ([facility]) Diastolic blood pressure 87 mm[Hg] 87 mm[Hg] [place] ([facility]) Diastolic blood pressure 100 mm[Hg] 100 mm[Hg] [place] ([facility]) Diastolic blood pressure 82 mm[Hg] 82 mm[Hg] eCW1 ([facility]) Systolic blood pressure 136 mm[Hg] 136 mm[Hg] e CW1 ([facility]) Body temperature 98.6 [degF] 98.6 [degF] eCW1 ( [facility]) Respiratory rate 18 /min 18 /min eCW1 ([facility]) Heart rate 102 /min 102 /min eCW1 ([facility]) Body mass index (BMI) [Ratio] 24.48 kg/m2 24.48 kg/m2 eCW1 ([facility]) Body height 62.5 [in_i] 62.5 [in_i] eCW1 ([facility]) Body weight 136.0 [lb_av] 136.0 [lb_av] eCW1 ([facility]) Body weight 2160 [oz_av] 2160 [oz_av] [place] ([facility]) Systolic blood pressure 131 mm[Hg] 131 mm[Hg] A [facility] ([facility]) Body mass index (BMI) [Ratio] 23.2 kg/m2 23.2 k g/m2 [place] ([facility]) Body height 64 [in_i] 64 [in_i] [place] ([facility]) Diastolic blood pressure 92 mm[Hg] 92 mm[Hg] [place] ([facility]) Body weight 2160 [oz_av] 2160 [oz_av] [place] ([facility]) Systolic blood pressure 131 mm[Hg] 131 mm[Hg] [facility] Body mass index (BMI) [Ratio] 23.2 kg/m2 23.2 k g/m2 [place] ([facility]) Body height 64 [in_i] 64 [in_i] [place] ([facility]) Diastolic blood pressure 92 mm[Hg] 92 mm[Hg] [place] ([facility]) Body weight 2160 [oz_av] 2160 [oz_av] [place] ([facility]) Systolic blood pressure 131 mm[Hg] 131 mm[Hg] A [facility] ([facility]) Body mass index (BMI) [Ratio] 23.2 kg/m2 23.2 k g/m2 [place] ([facility]) Body height 64 [in_i] 64 [in_i] [place] ([facility]) Diastolic blood pressure 92 mm[Hg] 92 mm[Hg] [place] ([facility]) Body weight 2153.6 [oz_av] 2153.6 [oz_av] ATHEN A ([facility]) Systolic blood pressure 136 mm[Hg] 136 mm[Hg] A [facility] ([facility]) Body mass index (BMI) [Ratio] 23.1 kg/m2 23.1 k g/m2 [place] ([facility]) Body height 64 [in_i] 64 [in_i] [place] ([facility]) Diastolic blood pressure 90 mm[Hg] 90 mm[Hg] [place] ([facility]) Body weight 2153.6 [oz_av] 2153.6 [oz_av] ATHEN A ([facility]) Systolic blood pressure 136 mm[Hg] 136 mm[Hg] A [facility] ([facility]) Body mass index (BMI) [Ratio] 23.1 kg/m2 23.1 k g/m2 [place] ([facility]) Body height 64 [in_i] 64 [in_i] [place] ([facility]) Diastolic blood pressure 90 mm[Hg] 90 mm[Hg] [place] ([facility]) Body weight 2153.6 [oz_av] 2153.6 [oz_av] ATHEN A ([facility]) Systolic blood pressure 136 mm[Hg] 136 mm[Hg] [facility] Body mass index (BMI) [Ratio] 23.1 kg/m2 23.1 k g/m2 [place] ([facility]) Body height 64 [in_i] 64 [in_i] [place] ([facility]) Diastolic blood pressure 90 mm[Hg] 90 mm[Hg] [place] ([facility]) Diastolic blood pressure 90 mm[Hg] 90 mm[Hg] [place] ([facility]) Body height 64 [in_i] 64 [in_i] [place] ([facility]) Body mass index (BMI) [Ratio] 23.1 kg/m2 23.1 k g/m2 [place] ([facility]) Systolic blood pressure 136 mm[Hg] 136 mm[Hg] A [facility] ([facility]) Body weight 2153.6 [oz_av] 2153.6 [oz_av] ATHEN A ([facility]) Body height 0.00 in Normal (applies to non-numeric resu lts) 0.00 in [facility] ([facility]) Body weight Measured 0.00 lbs Normal (applies to n on-numeric results) 0.00 lbs [facility] ([facility]) Body mass index (BMI) [Ratio] 0.00 kg/m2 No rmal (applies to non-numeric results) 0.00 kg/m2 [facility] ([facility]) Systolic blood pressure 0 mm[Hg] Normal (applies t o non-numeric results) 0 mm[Hg] [facility] ([facility]) Diastolic blood pressure 0 mm[Hg] Normal (applies to non-numeric results) 0 mm[Hg] [facility] ([facility]) Body weight 2244 [oz_av] 2244 [oz_av] [place] ([facility]) Systolic blood pressure 143 mm[Hg] 143 mm[Hg] A [facility] ([facility]) Body height 64 [in_i] 64 [in_i] [place] ([facility]) Diastolic blood pressure 97 mm[Hg] 97 mm[Hg] [place] ([facility]) Body weight 2244 [oz_av] 2244 [oz_av] [place] ([facility]) Systolic blood pressure 143 mm[Hg] 143 mm[Hg] A [facility] ([facility]) Body height 64 [in_i] 64 [in_i] [place] ([facility]) Diastolic blood pressure 97 mm[Hg] 97 mm[Hg] [place] ([facility]) Body weight 2244 [oz_av] 2244 [oz_av] [place] ([facility]) Systolic blood pressure 143 mm[Hg] 143 mm[Hg] A [facility] ([facility]) Body mass index (BMI) [Ratio] 24.16 kg/m2 24.16 kg/m2 [place] ([facility]) Body height 64 [in_i] 64 [in_i] [place] ([facility]) Diastolic blood pressure 97 mm[Hg] 97 mm[Hg] [place] ([facility]) Diastolic blood pressure 97 mm[Hg] 97 mm[Hg] [place] ([facility]) Body height 64 [in_i] 64 [in_i] [place] ([facility]) Systolic blood pressure 143 mm[Hg] 143 mm[Hg] [facility] Body weight 4 [oz_av] 2244 [oz_av] [place] ([facility]) Body weight 1971 [oz_av] 1972 [oz_av] [place] ([facility]) Systolic blood pressure 105 mm[Hg] 105 mm[Hg] A [facility] ([facility]) Body height 64 [in_i] 64 [in_i] [place] ([facility]) Diastolic blood pressure 71 mm[Hg] 71 mm[Hg] [place] ([facility]) Body weight 1971 [oz_av] 1971 [oz_av] [place] ([facility]) Systolic blood pressure 105 mm[Hg] 105 mm[Hg] A THENA ([facility]) Body height 64 [in_i] 64 [in_i] [place] ([facility]) Diastolic blood pressure 71 mm[Hg] 71 mm[Hg] [place] ([facility]) Body weight 1972 [oz_av] 1972 [oz_av] [place] ([facility]) Systolic blood pressure 105 mm[Hg] 105 mm[Hg] A [facility] ([facility]) Body mass index (BMI) [Ratio] 21.23 kg/m2 21.23 kg/m2 [place] ([facility]) Body height 64 [in_i] 64 [in_i] [place] ([facility]) Diastolic blood pressure 71 mm[Hg] 71 mm[Hg] [place] ([facility]) Diastolic blood pressure 71 mm[Hg] 71 mm[Hg] [place] ([facility]) Body height 64 [in_i] 64 [in_i] [place] ([facility]) Systolic blood pressure 105 mm[Hg] 105 mm[Hg] [facility] Body weight 1971 [oz_av] 1972 [oz_av] [place] ([facility]) Patient Treatment Plan of Care Planned Activity Planned Date Details Description Data Source (s) quetiapine 50 MG Oral Tablet [place] ([facility]) Naltrexone hydrochloride 50 MG Oral Tablet [place] ([facility]) Escitalopram 10 MG Oral Tablet [Lexapro] [place] ([facility]) Hydroxyzine Hydrochloride 25 MG Oral Tablet [place] ([facility]) 21 DAY Ethinyl Estradiol 0.611814 MG/HR / Etonogestrel 0.005 MG/HR Vaginal Ring [place] ([facility]) atomoxetine 25 MG Oral Capsule [place] ([facility]) atomoxetine 18 MG Oral Capsule [place] ([facility]) quetiapine 50 MG Oral Tablet [place] ([facility]) olanzapine 10 MG Oral Tablet [place] ([facility]) Naltrexone hydrochloride 50 MG Oral Tablet [place] ([facility]) Escitalopram 10 MG Oral Tablet [Lexapro] [place] ([facility]) Hydroxyzine Hydrochloride 25 MG Oral Tablet [place] ([facility]) 21 DAY Ethinyl Estradiol 0.731581 MG/HR / Etonogestrel 0.005 MG/HR Vaginal Ring [place] ([facility]) atomoxetine 25 MG Oral Capsule [place] ([facility] [facility] atomoxetine 18 MG Oral Capsule [place] ([facility]) quetiapine 50 MG Oral Tablet [place] [facility]) olanzapine 10 MG Oral Tablet [place] ([facility]) Naltrexone hydrochloride 50 MG Oral Tablet [place] ([facility]) Escitalopram 10 MG Oral Tablet [Lexapro] [place] ([facility]) Hydroxyzine Hydrochloride 25 MG Oral Tablet [place] ([facility]) 21 DAY Ethinyl Estradiol 0.601497 MG/HR / Etonogestrel 0.005 MG/HR Vaginal Ring [place] ([facility]) atomoxetine 25 MG Oral Capsule [place] ([facility]) atomoxetine 18 MG Oral Capsule [place] ([facility]) atomoxetine 18 MG Oral Capsule [place] ([facility]) 21 DAY Ethinyl Estradiol 0.542090 MG/HR / Etonogestrel 0.005 MG/HR Vaginal Ring [place] ([facility]) Hydroxyzine Hydrochloride 25 MG Oral Tablet [facility] ([facility]) Naltrexone hydrochloride 50 MG Oral Tablet [facility] ([facility]) olanzapine 10 MG Oral Tablet [facility] ([facility]) quetiapine 50 MG Oral Tablet [facility] ([facility])
[2020-05-16] MEDS ORDERED: IBUPROFEN 400MG TAB PO ONE (18:15)
[2020-05-16 18:23] LABS: HCG, SERUM QUALITATIVE NEGATIVE (NEGATIVE)
[2020-05-16 18:34] LABS: ACETAMINOPHEN LEVEL < 2.0 UG/ML (10.0-30.0); ALBUMIN 4.2 GM/DL (3.2-5.2); ALT/SGPT 38 U/L (12-78); BILIRUBIN,DIRECT 0.1 MG/DL (0.0-0.2); BILIRUBIN,TOTAL 0.4 MG/DL (0.2-1.0); BLOOD UREA NITROGEN 9 MG/DL (7-18); CALCIUM LEVEL 9.9 MG/DL (8.5-10.1); CARBON DIOXIDE LEVEL 28 MEQ/L (21-32); CHLORIDE LEVEL 102 MEQ/L (98-107); CREATININE FOR GFR 0.63 MG/DL (0.55-1.30); ETHYL ALCOHOL (ETHANOL) < 0.003 % (0.000-0.010); GLOMERULAR FILTRATION RATE > 60.0 (>60); GLUCOSE, FASTING 115 MG/DL (70-100); POTASSIUM SERUM 4.1 MEQ/L (3.5-5.1); SALICYLATE LEVEL < 1.7 MG/DL (5.0-30.0); SODIUM LEVEL 137 MEQ/L (136-145); TOTAL PROTEIN 7.9 GM/DL (6.4-8.2)
[2020-05-16 19:39] LABS: AMPHETAMINES LEVEL URINE POSITIVE (NEGATIVE); BARBITURATES URINE NEGATIVE (NEGATIVE); BENZODIAZEPINES URINE NEGATIVE (NEGATIVE); CANNABINOIDS URINE POSITIVE (NEGATIVE); COCAINE METABOLITE URINE NEGATIVE (NEGATIVE); METHADONE URINE NEGATIVE (NEGATIVE); OPIATES URINE NEGATIVE (NEGATIVE); PHENCYCLIDINE URINE NEGATIVE (NEGATIVE)
[2020-05-16] MEDS ORDERED: IBUP-1022 PO (21:19)
[2020-05-16 21:22] VITALS: BP 134/78
== END 2020-05-16 21:25 | disposition home or self-care (01) ==
LOC: M ED 15:50
DX: F15.151 Other stimulant abuse with stimulant-induced psychotic disorder with hallucinations (principal); Z79.3 Long term (current) use of hormonal contraceptives; Z79.899 Other long term (current) drug therapy; Z86.59 Personal history of other mental and behavioral disorders

== ENCOUNTER 2020-05-24 11:14 | Outpatient (RCR) | payer OTHER ==
[~2020-05-24 11:14] MED LIST changes: +IBUP-1022 PO
== END 2020-05-26 ==
LOC: M OUTALCOH 11:14
PROVIDERS: ATTEND Psychiatry & Neurology Psychiatry
DX: F11.20 Opioid dependence, uncomplicated (principal); F12.20 Cannabis dependence, uncomplicated; F16.20 Hallucinogen dependence, uncomplicated

== ENCOUNTER 2020-06-21 16:00 | Outpatient (RCR) | payer OTHER | END 2020-06-26 | LOC: M OUTALCOH 16:00 | PROVIDERS: ATTEND Psychiatry & Neurology Psychiatry | DX: F11.20 Opioid dependence, uncomplicated (principal); F12.20 Cannabis dependence, uncomplicated; F16.20 Hallucinogen dependence, uncomplicated ==

== ENCOUNTER 2020-07-03 17:55 | Emergency (ER) | payer OTHER ==
[~2020-07-03] VITALS: Ht 167.6 cm; Wt 63.2 kg
[2020-07-03] MEDS ORDERED: LORazepam 2 MG TAB PO STA (18:22)
[2020-07-03 20:27] LABS: AMPHETAMINES LEVEL URINE NEGATIVE (NEGATIVE); BARBITURATES URINE NEGATIVE (NEGATIVE); BENZODIAZEPINES URINE NEGATIVE (NEGATIVE); CANNABINOIDS URINE POSITIVE (NEGATIVE); COCAINE METABOLITE URINE NEGATIVE (NEGATIVE); METHADONE URINE NEGATIVE (NEGATIVE); OPIATES URINE NEGATIVE (NEGATIVE); PHENCYCLIDINE URINE NEGATIVE (NEGATIVE)
[2020-07-03 20:47] LABS: HEMATOCRIT 41.8 % (36.0-47.0); HEMOGLOBIN 13.6 g/dl (12.0-15.5); MEAN CORPUSCULAR HEMOGLOBIN 29.9 pg (27.0-33.0); MEAN CORPUSCULAR HGB CONC 32.5 g/dl (32.0-36.5); MEAN CORPUSCULAR VOLUME 91.9 fl (80.0-96.0); PLATELET COUNT, AUTOMATED 409 10^3/uL (150-450); RED BLOOD COUNT 4.55 10^6/uL (4.00-5.40)
[2020-07-03 21:28] LABS: HCG, SERUM QUALITATIVE NEGATIVE (NEGATIVE)
[2020-07-03 21:30] LABS: ACETAMINOPHEN LEVEL < 2.0 UG/ML (10.0-30.0); ALBUMIN 3.8 GM/DL (3.2-5.2); ALT/SGPT 17 U/L (12-78); BILIRUBIN,DIRECT 0.1 MG/DL (0.0-0.2); BILIRUBIN,TOTAL 0.4 MG/DL (0.2-1.0); BLOOD UREA NITROGEN 9 MG/DL (7-18); CALCIUM LEVEL 9.2 MG/DL (8.5-10.1); CARBON DIOXIDE LEVEL 25 MEQ/L (21-32); CHLORIDE LEVEL 106 MEQ/L (98-107); CREATININE FOR GFR 0.79 MG/DL (0.55-1.30); ETHYL ALCOHOL (ETHANOL) < 0.003 % (0.000-0.010); GLOMERULAR FILTRATION RATE > 60.0 (>60); GLUCOSE, FASTING 113 MG/DL (70-100); POTASSIUM SERUM 3.6 MEQ/L (3.5-5.1); SALICYLATE LEVEL < 1.7 MG/DL (5.0-30.0); SODIUM LEVEL 142 MEQ/L (136-145); THYROID STIMULATING HORMONE 0.955 uIU/ML (0.358-3.740); TOTAL PROTEIN 7.2 GM/DL (6.4-8.2)
--- NOTE | 2020-07-04 01:39 | ECGEPIP ---
[facility] - ED Test Date: 2020-07-03 Pat Name: PATTI ARRIAGA Department: Room: - Gender: Female Certified Nurse Practitioner: JN : 1995 Requested By: Hardeep Guido Order Number: [id number] Reading MD: Hardeep Espinosa Measurements Intervals [place] Rate: 109 P: 63 NE: 116 QRS: 53 QRSD: 92 T: 36 QT: 334 QTc: 449 Interpretive Statements Sinus tachycardia RATE CHANGE COMPARED TO 10/18/19 Electronically Signed on 07-04-2020 1:39:42 EDT by Hardeep Espinosa
[2020-07-04 04:48] VITALS: BP 129/81
== END 2020-07-04 04:50 ==
LOC: M ED 17:55
DX: R45.851 Suicidal ideations (principal); F29 Unspecified psychosis not due to a substance or known physiological condition; F19.10 Other psychoactive substance abuse, uncomplicated; F41.9 Anxiety disorder, unspecified; Z79.899 Other long term (current) drug therapy

== ENCOUNTER 2020-08-24 12:47 | Emergency (ER) | payer OTHER ==
[~2020-08-24] VITALS: Ht 157.5 cm; Wt 72.2 kg
[2020-08-24 12:52] VITALS: BP 124/75
== END 2020-08-24 14:13 | disposition home or self-care (01) ==
LOC: M ED 12:47
DX: Z76.0 Encounter for issue of repeat prescription (principal); F31.9 Bipolar disorder, unspecified; F19.10 Other psychoactive substance abuse, uncomplicated; F41.1 Generalized anxiety disorder

== ENCOUNTER → 2020-11-27 | Outpatient (CLI) | payer OTHER ==
[~2020-11-27] MED LIST changes: -OLAN10TA2 PO; +OLAN1TAB20 PO
== END ==
LOC: M WUC 13:53
PROVIDERS: ATTEND Physician Assistant
DX: R68.2 Dry mouth, unspecified (principal); Z13.220 Encounter for screening for lipoid disorders

== ENCOUNTER 2021-02-13 16:30 | Emergency (ER) | payer OTHER ==
[~2021-02-13] VITALS: Ht 157.5 cm; Wt 67.7 kg
[2021-02-13] MEDS ORDERED: HYDR-3363 (16:49)
[2021-02-13] MEDS ORDERED: NS 1,000 ML IV ONE (17:15)
[2021-02-13 19:09] LABS: BASO % 0.3 % (0.0-1.0); HEMATOCRIT 48.5 % (36.0-47.0); HEMOGLOBIN 15.8 g/dl (12.0-15.5); LYMPH # 1.9 10^3/uL (1.5-5.0); LYMPH % 13.6 % (24.0-44.0); MEAN CORPUSCULAR HEMOGLOBIN 28.3 pg (27.0-33.0); MEAN CORPUSCULAR HGB CONC 32.6 g/dl (32.0-36.5); MEAN CORPUSCULAR VOLUME 86.8 fl (80.0-96.0); MONO # 0.9 10^3/uL (0.0-0.8); MONO % 6.2 % (2.0-8.0); NEUTROPHILS # 11.3 10^3/uL (1.5-8.5); NEUTROPHILS % 79.5 % (36.0-66.0); PLATELET COUNT, AUTOMATED 450 10^3/uL (150-450); RED BLOOD COUNT 5.59 10^6/uL (4.00-5.40); WHITE BLOOD COUNT 14.2 10^3/uL (4.0-10.0)
[2021-02-13 19:52] LABS: ACETAMINOPHEN LEVEL < 2.0 UG/ML (10.0-30.0); ALBUMIN 4.6 GM/DL (3.2-5.2); ALT/SGPT 33 U/L (12-78); BILIRUBIN,DIRECT 0.3 MG/DL (0.0-0.2); BILIRUBIN,TOTAL 0.9 MG/DL (0.2-1.0); BLOOD UREA NITROGEN 7 MG/DL (7-18); CALCIUM LEVEL 9.8 MG/DL (8.5-10.1); CARBON DIOXIDE LEVEL 26 MEQ/L (21-32); CHLORIDE LEVEL 106 MEQ/L (98-107); CREATININE FOR GFR 0.74 MG/DL (0.55-1.30); ETHYL ALCOHOL (ETHANOL) < 0.003 % (0.000-0.010); GLOMERULAR FILTRATION RATE > 60.0 (>60); GLUCOSE, FASTING 94 MG/DL (70-100); HCG, SERUM QUALITATIVE NEGATIVE (NEGATIVE); LIPASE 235 U/L (73-393); POTASSIUM SERUM 3.7 MEQ/L (3.5-5.1); SALICYLATE LEVEL < 1.7 MG/DL (5.0-30.0); SODIUM LEVEL 140 MEQ/L (136-145); TOTAL PROTEIN 8.5 GM/DL (6.4-8.2)
[2021-02-13] MEDS ORDERED: ACETAMINOPHEN TAB 650MG DOSE (2X325MG) PO ONE (20:15)
[2021-02-13 20:30] VITALS: BP 167/97
[2021-02-13 20:51] LABS: GC DNA AMPLIFICATION NEGATIVE (NEGATIVE)
--- NOTE | 2021-02-13 21:33 | REPVR ---
PROCEDURE INFORMATION: Exam: CT Abdomen And Pelvis Without Contrast Exam date and time: 02/13/2021 8:15 PM Age: 25 years old Clinical indication: Abdominal pain; Additional info: Low abd pain TECHNIQUE: Imaging protocol: Computed tomography of the abdomen and pelvis without contrast. Radiation optimization: All CT scans at this facility use at least one of these dose optimization techniques: automated exposure control; mA and/or kV adjustment per patient size (includes targeted exams where dose is matched to clinical indication); or iterative reconstruction. COMPARISON: CR PORTABLE CHEST X-RAY 09/03/2019 6:32 PM FINDINGS: Liver: Fatty infiltration in the liver adjacent to the falciform ligament. Liver is otherwise unremarkable. Gallbladder and bile ducts: Normal. No calcified stones. No ductal dilation. Pancreas: Normal. No ductal dilation. Spleen: Normal. No splenomegaly. Adrenal glands: Normal. No mass. Kidneys and ureters: Unremarkable. No calculi or hydronephrosis. Stomach and bowel: Unremarkable. No obstruction. No inflammatory changes or mucosal thickening. Appendix: No evidence of appendicitis. Intraperitoneal space: No free air. No significant fluid collection. Vasculature: Unremarkable. No abdominal aortic aneurysm. Lymph nodes: Unremarkable. No enlarged lymph nodes. Urinary bladder: Unremarkable as visualized. Reproductive: Unremarkable as visualized. Bones/joints: Unremarkable. No acute fracture. Soft tissues: Unremarkable. IMPRESSION: No acute findings. Electronically signed by: Manas De La Vega On 02/13/2021 21:32:36 PM
[2021-02-13] MEDS ORDERED: IBUPROFEN 600MG TAB PO ONE (21:45)
--- OUTSIDE RECORDS SUMMARY | 2021-02-13 21:57 | CCD ---
Author Author [facility] Organization [facility] Address Unknown Phone Unavailable Care Team Providers Care Digital Strategist Senior Manager Name Role Phone CASTANON, BEVERLY ROBINSON RPA-C Unavailable Unavailable CASTANON, [...] Unavailable CASTANON, BEVERLY ROBINSON RPA-C Unavailable Unavailable MARSHALLNolan MD Unavailable Unavailable MARSHALLNolan MD Unavailable Unavailable MARSHALLNolan MD Unavailable Unavailable MARSHALLNolan MD Unavailable Unavailable MARSHALLNolan MD Unavailable Unavailable MARSHALLNolan MD Unavailable Unavailable MARSHALLNolan MD Unavailable Unavailable MARSHALLNolan MD Unavailable Unavailable MARSHALLNolan MD Unavailable Unavailable MARSHALLNolan MD Unavailable Unavailable MARSHALLNolan MD Unavailable Unavailable MARSHALLNolan MD Unavailable Unavailable MARSHALLNolan MD Unavailable Unavailable MARSHALLNolan MD Unavailable Unavailable MARSHALL, Nolan GATES MD [...] Unavailable MARSHALL, L YAJAIRA RED Unavailable Unavailable Aline Maurer MD Unavailable Unavailable Aline Maurer MD Unavailable Unavailable Aline Maurer MD Unavailable Unavailable Aline Maurer MD Unavailable Unavailable Aline Maurer MD Unavailable Unavailable Aline Maurer MD Unavailable Unavailable Aline Maurer MD Unavailable Unavailable Aline Maurer MD Unavailable Unavailable Aline Maurer MD Unavailable Unavailable Aline Maurer MD Unavailable Unavailable Aline Maurer MD Unavailable Unavailable Aline Maurer MD Unavailable Unavailable Aline Maurer MD Unavailable Unavailable Aline Maurer MD Unavailable Unavailable Aline Maurer MD Unavailable Unavailable Aline Maurer MD Unavailable Unavailable Aline Maurer MD Unavailable Unavailable Aline Maurer MD Unavailable Unavailable Aline Maurer MD Unavailable Unavailable Vinnie Matthews Unavailable Vinnie Matthews Unavailable ALIASES , ORGANIZATION NPI Unavailable Unavailable ALIASES , ORGANIZATION NPI Unavailable Unavailable ALIASES , ORGANIZATION NPI Unavailable Unavailable ALIASES , ORGANIZATION NPI Unavailable Unavailable ALIASES , ORGANIZATION NPI Unavailable Unavailable ALIASES , ORGANIZATION NPI Unavailable Unavailable ALIASES , ORGANIZATION NPI Unavailable Unavailable ALIASES , ORGANIZATION NPI Unavailable Unavailable ALIASES , ORGANIZATION NPI Unavailable Unavailable ALIASES , ORGANIZATION NPI Unavailable Unavailable ALIASES , ORGANIZATION NPI Unavailable Unavailable ALIASES , ORGANIZATION NPI Unavailable Unavailable ALIASES , ORGANIZATION NPI Unavailable Unavailable ALIASES , ORGANIZATION NPI Unavailable Unavailable ALIASES , ORGANIZATION NPI Unavailable Unavailable ALIASES , ORGANIZATION NPI Unavailable Unavailable ALIASES , ORGANIZATION NPI Unavailable Unavailable ALIASES , ORGANIZATION NPI Unavailable Unavailable ALIASES , ORGANIZATION NPI Unavailable Unavailable ALIASES , ORGANIZATION NPI Unavailable Unavailable ALIASES , ORGANIZATION NPI Unavailable Unavailable ALIASES , ORGANIZATION NPI Unavailable Unavailable ALIASES , ORGANIZATION NPI Unavailable Unavailable ALIASES , ORGANIZATION NPI Unavailable Unavailable ALIASES , ORGANIZATION NPI Unavailable Unavailable ALIASES , ORGANIZATION NPI Unavailable Unavailable ALIASES , ORGANIZATION NPI Unavailable Unavailable ALIASES , ORGANIZATION NPI Unavailable Unavailable ALIASES , ORGANIZATION NPI Unavailable Unavailable ALIASES , ORGANIZATION NPI Unavailable Unavailable ALIASES , ORGANIZATION NPI Unavailable Unavailable ALIASES , ORGANIZATION NPI Unavailable Unavailable ALIASES , ORGANIZATION NPI Unavailable Unavailable ALIASES , ORGANIZATION NPI Unavailable Unavailable ALIASES , ORGANIZATION NPI Unavailable Unavailable ALIASES , ORGANIZATION NPI Unavailable Unavailable ALIASES , ORGANIZATION NPI Unavailable Unavailable ALIASES , ORGANIZATION NPI Unavailable Unavailable ALIASES , ORGANIZATION NPI Unavailable Unavailable ALIASES , ORGANIZATION NPI Unavailable Unavailable ALIASES , ORGANIZATION NPI Unavailable Unavailable ALIASES , ORGANIZATION NPI Unavailable Unavailable ALIASES , ORGANIZATION NPI Unavailable Unavailable ALIASES , ORGANIZATION NPI Unavailable Unavailable ALIASES , ORGANIZATION NPI Unavailable Unavailable ALIASES , ORGANIZATION NPI Unavailable Unavailable ALIASES , ORGANIZATION NPI Unavailable Unavailable ALIASES , ORGANIZATION NPI Unavailable Unavailable ALIASES , ORGANIZATION NPI Unavailable Unavailable ALIASES , ORGANIZATION NPI Unavailable Unavailable ALIASES , ORGANIZATION NPI Unavailable Unavailable ALIASES , ORGANIZATION NPI Unavailable Unavailable ALIASES , ORGANIZATION NPI Unavailable Unavailable ALIASES , ORGANIZATION NPI Unavailable Unavailable ALIASES , ORGANIZATION NPI Unavailable Unavailable ALIASES , ORGANIZATION NPI Unavailable Unavailable ALIASES , ORGANIZATION NPI Unavailable Unavailable ALIASES , ORGANIZATION NPI Unavailable Unavailable ALIASES , ORGANIZATION NPI Unavailable Unavailable ALIASES , ORGANIZATION NPI Unavailable Unavailable ALIASES , ORGANIZATION NPI Unavailable Unavailable ALIASES , ORGANIZATION NPI Unavailable Unavailable ALIASES , ORGANIZATION NPI Unavailable Unavailable ALIASES , ORGANIZATION NPI Unavailable Unavailable ALIASES , ORGANIZATION NPI Unavailable Unavailable ALIASES , ORGANIZATION NPI Unavailable Unavailable ALIASES , ORGANIZATION NPI Unavailable Unavailable ALIASES , ORGANIZATION NPI Unavailable Unavailable ALIASES , ORGANIZATION NPI Unavailable Unavailable ALIASES , ORGANIZATION NPI Unavailable Unavailable ALIASES , ORGANIZATION NPI Unavailable Unavailable ALIASES , ORGANIZATION NPI Unavailable Unavailable ALIASES , ORGANIZATION NPI Unavailable Unavailable ALIASES , ORGANIZATION NPI Unavailable Unavailable ALIASES , ORGANIZATION NPI Unavailable Unavailable BHUPINDER, H FERNANDO ABSTRACT SEARCHER Unavailable Unavailable BHUPINDER, H FERNANDO ABSTRACT SEARCHER Unavailable Unavailable BHUPINDER, H FERNANDO ABSTRACT SEARCHER Unavailable Unavailable BHUPINDER, H FERNANDO ABSTRACT SEARCHER Unavailable Unavailable BHUPINDER, H FERNANDO ABSTRACT SEARCHER Unavailable Unavailable BHUPINDER, H FERNANDO ABSTRACT SEARCHER Unavailable Unavailable BHUPINDER, H FERNANDO ABSTRACT SEARCHER Unavailable Unavailable BHUPINDER, H FERNANDO ABSTRACT SEARCHER Unavailable Unavailable BHUPINDER, H FERNANDO ABSTRACT SEARCHER Unavailable Unavailable ELENA, JESS Unavailable Unavailable ELENA, [...] JESS Unavailable Unavailable ELENA, JESS Unavailable Unavailable ABBY, S BENIGNO RED Unavailable Unavailable ABBY, Katrina PELAEZ MD Unavailable Unavailable ABBY, Katrina PELAEZ MD Unavailable Unavailable ABBY, Katrina PELAEZ MD Unavailable Unavailable ABBY, Katrina PELAEZ MD Unavailable Unavailable ABBY, Katrina PELAEZ MD Unavailable Unavailable ABBY, Katrina PELAEZ MD Unavailable Unavailable ABBY, Katrina PELAEZ MD Unavailable Unavailable ABBY, Katrina PELAEZ MD Unavailable Unavailable ABBY, Katrina PELAEZ MD Unavailable Unavailable ABBY, Katrina PELAEZ MD Unavailable Unavailable ABBY, S BENIGNO MD Unavailable Unavailable ABBY, S BENIGNO MD Unavailable Unavailable ABBY, S BENIGNO MD Unavailable Unavailable ABBY, S BENIGNO MD Unavailable Unavailable ABBY, S BENIGNO MD Unavailable Unavailable ABBY, S BENIGNO MD Unavailable Unavailable ABBY, S BENIGNO MD Unavailable Unavailable ABBY, S BENIGNO MD Unavailable Unavailable ABBY, S BENIGNO MD Unavailable Unavailable ABBY, S BENIGNO MD Unavailable Unavailable Berna Stallings Unavailable Chafe, A Hardeep MD Unavailable Unavailable Chafe, A Hardeep MD Unavailable Unavailable Chafe, A Hardeep MD Unavailable Unavailable Chafe, A Hardeep MD Unavailable Unavailable Chafe, A Hardeep MD Unavailable Unavailable Chafe, A Hardeep MD Unavailable Unavailable Chafe, A Hardeep MD Unavailable Unavailable Chafe, A Hardeep MD Unavailable Unavailable Chafe, A Hardeep MD Unavailable Unavailable Chafe, A Hardeep MD Unavailable Unavailable Chafe, A Hardeep MD Unavailable Unavailable Chafe, A Hardeep MD Unavailable Unavailable Chafe, A Hardeep MD Unavailable Unavailable Chafe, A Hardeep MD Unavailable Unavailable Re-disclosure Warning The records [...] is protected by Article 27-F of the [facility] Public Health law. If you continue you may have access to information: Regarding HIV / AIDS; Provided by facilities licensed or operated by the [facility] Office of Mental Health; or Provided by the [facility] Office for People With Developmental Disabilities. If such information is present, then the following [facility] mandated warning applies: This information has been [...] NOT sufficient authorization for further disc losure. Allergies and Adverse Reactions Type Description Substance Reaction Status Data Source(s ) Propensity to adverse reactions NO KNOWN ALLERGIES NO KNOWN ALLERGIES [facility] Family History Family Member Name Family Member Gender Family Member Status Date o f Status Description Data Source(s) Unknown Male Problem MEDENT ([facility]) Unknown Unknown Problem MEDENT ([facility]) Unknown Unknown Problem MEDENT ([facility], [facility]) MGF Encounters Encounter Providers Location Date Indications Data Source(s ) Robinson Castanon RPA-C: [address], [place] [address], Ph. Attender: ROBINSON CASTANON RPA-C [facility] Medical 11/05/2020 12:00:00 AM EDT [facility] ([facility]) Robinson Castanon RPA-C: [address], [place] [address], Ph. Attender: ROBINSON FARRC [facility] Medical 09/05/2020 12:00:00 AM EDT [facility] ([facility]) Robinson Castanon RPA-C: [address], [place] [address], Ph. Attender: ROBINSON CASTANON RPA-C [facility] Medical 09/05/2020 12:00:00 AM EDT [facility] ([facility]) Robinson Castanon RPA-C: [address], [place] [address], Ph. Attender: ROBINSON CASTANON RPABlanquita [facility] Medical 09/03/2020 12:00:00 AM EDT [facility] ([facility]) YORDAN AbdallaC: [address], [place] [address], Ph. Attender: ROBINSON REYES [facility] Medical 09/03/2020 12:00:00 AM EDT [facility] ([facility]) Robinson Castanon RPA-C: [address], [place] [address], Ph. Attender: ROBINSON REYES [facility] Medical 09/03/2020 12:00:00 AM EDT [facility] ([facility]) Inpatient Attender: BENIGNO Recinos er: Aline Maurer MDAdmitter: BENIGNO MORA MDReferrer: Hardeep Espinsoa MD [id number] 07/04/2020 12:00:00 A M EDT - 07/10/2020 01:55:00 PM EDT Brief psychotic disorder [facility] Brief psychotic disorder Patient discharged. YORDAN BurnettC: [address], [place] [address], Ph. Attender: JESS ELENA [facility] Medical 05/10/2020 12:00:00 AM EST [facility] ([facility]) YORDAN BurnettC: [address], [place] [address], Ph. Attender: JESS ELENA [facility] Medical 05/10/2020 12:00:00 AM EST [facility] ([facility]) YORDAN BurnettC: [address], [place] [address], Ph. Attender: JESS ELENA [facility] Medical 05/10/2020 12:00:00 AM EST [facility] ([facility]) YORDAN BurnettC: [address], [place] [address], Ph. 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 Attender: JESS ELENA [facility] Medical 04/01/2020 12:00:00 AM EST [facility] ([facility]) YORDAN BurnettC: [address], [place] [address], Ph. Attender: JESS ELENA [facility] Medical 04/01/2020 12:00:00 AM EST [facility] ([facility]) YORDAN BurnettC: [address], [place] [address], Ph. Attender: JESS ELENA [facility] Medical 04/01/2020 12:00:00 AM EST [facility] ([facility]) YORDAN BurnettC: [address], [place] [address], Ph. Attender: JESS ELENA [facility] Medical 04/01/2020 12:00:00 AM EST [facility] ([facility]) Jess Elena RPA-C: [address], [place] [address], Ph. Attender: JESS ELENA [facility] Medical 04/01/2020 12:00:00 AM EST [facility] ([facility]) Outpatient [address] [facility] [address] 03/08/2020 12:00:00 AM EST eCW1 ([facility]) Unknown [address] [facility] [place] [id number] 03/08/2020 12:00:00 AM EST eCW1 ([facility]) Robinson Castanon RPA-C: [address], [place] [address], Ph. Attender: ROBINSON REYES [facility] Medical 03/01/2020 12:00:00 AM EST [facility] ([facility]) Robinson Castanon RPA-C: [address], [place] [address], Ph. Attender: ROBINSON FARRC [facility] Medical 03/01/2020 12:00:00 AM EST [facility] ([facility]) Robinson Castanon RPA-C: [address], [place] [address], Ph. Attender: ROBINSON FARRC [facility] Medical 03/01/2020 12:00:00 AM EST [facility] ([facility]) Robinson D Castanon, RPA-C: [address], [place] [address], Ph. Attender: ROBINSON CASTANON RPA-C [facility] Medical 03/01/2020 12:00:00 AM EST [facility] ([facility]) Robinson Castanon RPA-C: [address], [place] [address], Ph. Attender: ROBINSON CASTANON RPA-C [facility] Medical 03/01/2020 12:00:00 AM EST [facility] ([facility]) Robinson Castanon RPA-C: [address], [place] [address], Ph. Attender: ROBINSON CASTANON RPA-C [facility] Medical 03/01/2020 12:00:00 AM EST [facility] ([facility]) Robinson Castanon, RPA-C: [address], [place] [address], Ph. Attender: ROBINSON CASTANON RPA-C [facility] Medical 02/07/2020 12:00:00 AM EST [facility] ([facility]) Robinson Castanon RPA-C: [address], [place] [address], Ph. Attender: ROBINSON CASTANON RPA-C [facility] Medical 02/07/2020 12:00:00 AM EST [facility] ([facility]) Robinson Castanon, RPA-C: [address], [place] [address], Ph. Attender: ROBINSON CASTANON RPA-C [facility] Medical 02/07/2020 12:00:00 AM EST [facility] ([facility]) Robinson Castanon RPA-C: [address], [place] [address], Ph. Attender: ROBINSON REYES [facility] Medical 02/07/2020 12:00:00 AM EST [facility] ([facility]) Robinson Castanon RPA-C: [address], [place] [address], Ph. Attender: ROBINSON REYES [facility] Medical 02/07/2020 12:00:00 AM EST [facility] ([facility]) Robinson Castanon RPA-C: [address], [place] [address], Ph. Attender: ROBINSON REYES [facility] Medical 02/07/2020 12:00:00 AM EST [facility] ([facility]) Robinson Castanon RPA-C: [address], [place] [address], Ph. Attender: ROBINSON REYES [facility] Medical 02/07/2020 12:00:00 AM EST [facility] ([facility]) Outpatient Attender: ROBINSON REYES [facility] 01/15/2020 02:27:[address] [facility] Extended Individual Psychotherapy - 45 min Attender: Valdez Matthews [facility] Vianney 01/10/2020 03:15:00 AM EDT - 01/10/2020 03:15:00 AM EDT [facility] ([facility]) Attender: Vinnie Matthews 01/10/2020 12:00:00 AM EDT [facility] ([facility]) Outpatient Attender: FERNANDO SANDERS NP [facility] Prateek alexander 01/09/2020 04:30:00 AM EDT - 01/09/2020 04:30:00 AM EDT [facility] ([facility]) Attender: FERNANDO SANDERS NP 01/09/2020 12:00:00 AM EDT [facility] ([facility]) Attender: Vinnie Matthews 01/04/2020 12:00:00 AM EDT [facility] ([facility]) Extended Individual Psychotherapy - 45 min Attender: Valdez Matthews [facility] 01/02/2020 06:00:00 AM EDT - 01/02/2020 06:00:00 AM EDT [facility] ([facility]) Attender: ORGANIZATION NPI ALIASES * 12/27/2019 12:00:00 AM EDT [facility] ([facility]) Extended Individual Psychotherapy - 45 min Attender: ORGANIZATION NPI ALIASES [facility] 12/26/2019 06:00:00 AM EDT - 12/26/2019 06:00:00 AM EDT [facility] ([facility]) Brief Individual Psychotherapy - 30 min Attender: Berna dickey [facility] 12/22/2019 03:00:00 AM EDT - 12/22/2019 03:00:00 AM EDT [facility] ([facility]) Attender: Berna Stallings 12/22/2019 12:00:00 AM EDT [facility] ([facility]) Functional Status Medications Medication Brand Name Start Date Product Form Dose Route Admi nistrative Instructions Pharmacy Instructions Status Indications Reaction Description Data Source(s) 800 mg 01/21/2021 12:00:00 AM EDT tablet 12 TAKE ONE TABLET BY MOUTH EVERY 8 HOURS NEEDED FOR PAIN DO NOT EXCEED 4 TABLETS PER DAY TAKE ONE TABLET BY MOUTH EVERY 8 HOURS NEEDED FOR PAIN DO NOT EXCEED 4 TABLETS PER DAY SOLD: 01/21/2021 [facility] 500 mg 01/21/2021 12:00:00 AM EDT capsule 21 TAKE ONE CAPSULE BY MOUTH EVERY 8 HOURS FOR 7 DAYS TAKE ONE CAPSULE BY MOUTH EVERY 8 HOURS FOR 7 DAYS FUENTES [facility] 800 mg 12/25/2020 12:00:00 AM EDT tablet 21 TAKE ONE TABLET BY MOUTH EVERY 8 HOURS FOR 7 DAYS OR NEEDED TAKE ONE TABLET BY MOUTH EVERY 8 HOURS F OR 7 DAYS OR NEEDED SOLD: 12/25/2020 [facility] 500 mg 12/25/2020 12:00:00 AM EDT tablet 40 TAKE ONE TABLET BY MOUTH FOUR TIMES A DAY FOR 10 DAYS TAKE ONE TABLET BY MOUTH FOUR TIMES A DAY FOR 10 DAYS SOLD: 12/25/2020 [facility] 50 mg 11/19/2020 12:00:00 AM EDT tablet 60 TAKE ONE TABLET BY MOUTH TWICE A DAY NEEDED TAKE ONE TABLET BY MOUTH TWICE A DAY NEEDED SOLD: 11/19/2020 [facility] buspirone hydrochloride 5 MG Oral Tablet BUSPIRONE HCL 11/06/2020 12:00:00 AM EDT tablet 60 TAKE ONE TABLET BY MOUTH TWI CE A DAY FOR ANXIETY TAKE ONE TABLET BY MOUTH TWICE A DAY FOR ANXIETY SOLD: 11/19/2020 [facility] 50 mg 11/06/2020 12:00:00 AM EDT tablet 30 TAKE ONE TABLET BY MOUTH AT BEDTIME NEEDED FOR INSOMNIA TAKE ONE TABLET BY MOUTH AT BEDTIME N EEDED FOR INSOMNIA SOLD: 11/19/2020 [facility] olanzapine 10 MG Oral Tablet OLANZAPINE 09/25/2020 12:00:00 AM EDT tab let 81 TAKE ONE TABLET BY MOUTH EVERY MORNING AND TAKE TWO TABLETS EVERY EVENING TAKE ONE TABLET BY MOUTH EVERY MORNING AND TAKE TWO TABLETS EVERY EVENING SOLD: 09/27/2020 [facility] Isibloom 28 Day Pack 0.15-0.03 mg DESOGESTREL-ETHINYL ESTRAD IOL 09/05/2020 12:00:00 AM EDT tablet 28 TAKE ONE TABLET BY MOUTH EVERY DAY TAKE ONE TABLET BY MOUTH EVERY DAY SOLD: 09/05/2020 [facility] buspirone hydrochloride 5 MG Oral Tablet BUSPIRONE HCL 09/04/2020 12:00:00 AM EDT tablet 60 TAKE ONE TABLET BY MOUTH TWI CE A DAY FOR ANXIETY TAKE ONE TABLET BY MOUTH TWICE A DAY FOR ANXIETY SOLD: 09/05/2020 [facility] 50 mg 09/04/2020 12:00:00 AM EDT tablet 30 TAKE ONE TABLET BY MOUTH AT BEDTIME NEEDED FOR INSOMNIA TAKE ONE TABLET BY MOUTH AT BEDTIME N EEDED FOR INSOMNIA SOLD: 09/05/2020 [facility] 50 mg 09/04/2020 12:00:00 AM EDT tablet 60 TAKE ONE TABLET BY MOUTH TWICE A DAY NEEDED TAKE ONE TABLET BY MOUTH TWICE A DAY NEEDED SOLD: 09/05/2020 [facility] olanzapine 10 MG Oral Tablet OLANZAPINE 08/05/2020 12:00:00 AM EDT tab let 30 TAKE 1 TABLET BY MOUTH IN THE MORNING AND 2 TABLETS AT NIGHT TAKE 1 TABLET BY MOUTH IN THE MORNING AND 2 TABLETS AT NIGHT SOLD: 08/05/2020 [facility] 25 mg 08/05/2020 12:00:00 AM EDT tablet 30 TAKE ONE TABLET BY MOUTH UP TO THREE TIMES A DAY NEEDED TAKE ONE TABLET BY MOUTH UP TO THREE TONY ES A DAY NEEDED SOLD: 08/06/2020 [facility] olanzapine 10 MG Oral Tablet OLANZapine (ZYPREXA) tabl et 10 mg OLANZapine (ZYPREXA) tablet 10 mg 07/10/2020 09:00:00 AM EDT 10 mg Oral aborted 10 mg, Oral, Daily Standard, First dose (after last modification) on Wed07/10/20 at 0900, For 30 doses [facility] Medication administered onsite olanzapine 10 MG Oral Tablet OLANZapine 10 MG Oral Tab let (ZYPREXA) OLANZapine 10 MG Oral Tablet (ZYPREXA) 07/10/2020 12:00:00 AM EDT 10 mg Oral active Take 1 tablet by mouth daily [facility] buspirone hydrochloride 5 MG Oral Tablet BUSPIRONE HCL 07/10/2020 12:00:00 AM EDT tablet 60 TAKE ONE TABLET BY MOUTH TWI CE A DAY TAKE ONE TABLET BY MOUTH TWICE A DAY SOLD: 07/10/2020 [facility] 10 mg 07/10/2020 12:00:00 AM EDT tablet 30 TAKE ONE TABLET BY MOUTH EVERY DAY TAKE ONE TABLET BY MOUTH EVERY DAY SOLD: 07/10/2020 [facility] 50 mg 07/10/2020 12:00:00 AM EDT tablet 30 TAKE ONE TABLET BY MOUTH EVERY DAY NEEDED FOR SLEEP TAKE ONE TABLET BY MOUTH EVERY DAY NEEDED FOR SLEEP SOLD: 07/10/2020 [facility] Trazodone Hydrochloride 50 MG Oral Table t traZODone HCl 50 MG Oral Tablet (DESYREL) traZODone HCl 50 MG Oral Tablet (DESYREL) 07/09/2020 12:00:0 0 AM EDT 50 mg Oral active Insomnia Take 1 tablet b y mouth daily as needed for SleepIndications: Trouble Sleeping [facility] Insomnia Hydroxyzine Hydrochloride 50 MG Oral Tab let hydrOXYzine HCl 50 MG Oral Tablet (ATARAX) hydrOXYzine HCl 50 MG Oral Tablet (ATARAX) 07/09/2020 12:00: 00 AM EDT 50 mg Oral active Take 1 tablet by mouth every 6 (six) hours as needed for Anxiety (Sleep) for up to 10 days [facility] buspirone hydrochloride 5 MG Oral Tablet busPIRone HCl 5 MG Oral Tablet (BUSPAR) busPIRone HCl 5 MG Oral Tablet (BUSPAR) 07/09/2020 12:00:00 AM EDT 5 mg Oral active Anxiety Disorder Take 1 tabl et by mouth Two Times Daily Indications: Anxiety Disorder [facility] Anxiety Disorder olanzapine 10 MG Oral Tablet OLANZapine 10 MG Oral Tab let (ZYPREXA) OLANZapine 10 MG Oral Tablet (ZYPREXA) 07/09/2020 12:00:00 AM EDT 20 mg Oral active Psychotic Depression Take 2 tablets by mouth jena herdeia Indications: Psychotic Depressive Illness [facility] Psychotic Depression 50 mg 07/09/2020 12:00:00 AM EDT tablet 30 TAKE ONE TABLET BY MOUTH EVERY 6 HOURS NEEDED FOR ANXIETY FOR UP TO 10 DAYS TAKE ONE TABLET BY MOUTH EVERY 6 HOURS NEEDED FOR ANXIETY FOR UP TO 10 DAYS SOLD: 07/10/2020 [facility] olanzapine 5 MG Oral Tablet OLANZapine (ZYPREXA) table t 5 mg OLANZapine (ZYPREXA) tablet 5 mg 07/05/2020 10:45:00 AM EDT 5 mg Oral aborted 5 mg, Oral, 2 Times Daily, First dose (after last modification) on Wed07/05/20 at 1045, For 60 doses [facility] Medication administered onsite olanzapine 10 MG Oral Tablet OLANZapine (ZYPREXA) tabl et 20 mg OLANZapine (ZYPREXA) tablet 20 mg 07/04/2020 08:00:00 PM EDT 20 mg Oral aborted Psychotic Depression 20 mg, Oral, Nightly, First dose (after last modification) on Cassy 07/04/20 at 2000, For 30 days [facility] Psychotic Depression Medication administered onsite buspirone hydrochloride 5 MG Oral Tablet busPIRone (BU SPAR) tablet 5 mg busPIRone (BUSPAR) tablet 5 mg 07/04/2020 09:00:00 AM EDT 5 mg Or al aborted Anxiety Disorder 5 mg, Oral, 2 Times Daily, First dose on Cassy 07/04/20 at 0900, For 30 days [facility] Anxiety Disorder Medication administered onsite acetaminophen (TYLENOL) tablet 650 mg 07/04/2020 07:28:26 AM EDT 650 mg Oral aborted [Order 1 Start ] Name: acetaminophen (TYLENOL) tablet 650 mg Signed Summary: 650 mg, Oral, Every 4 hours PRN, Mild Pain (Pain Scale Score 1-3), Headaches, Starting on Cassy 07/04/20 at 0728, For 30 days
MDD 4
[Order 1 End] [Order 2 Start] Name: acetaminophen (TYLENOL) tablet 650 mg Signed Summary: 650 mg, Oral, Every 4 hours PRN, Moderate Pain (Pain Scale Score 4- 6), Starting on Cassy 07/04/20 at 0728, For 30 days
MDD 4
[Order 2 End] [Order 3 Start] Name: acetaminophen (TYLENOL) tablet 650 mg Signed Summary: 650 mg, Oral, Every 4 hours PRN, Severe Pain (Pain Scale Score 7-10), Starting on Cassy 07/04/20 at 0728, For 30 days
MDD 4
[Order 3 End] [facility] Medication administered onsite Hydroxyzine Hydrochloride 50 MG Oral Tablet hydrOXYzin e (ATARAX) tablet 50 mg hydrOXYzine (ATARAX) tablet 50 mg 07/04/2020 07:27:35 AM EDT 50 mg Oral aborted 50 mg, Oral, Every 6 hours PRN, Anxiety, Sleep, Starting on Cassy 07/04/20 at 0727, For 30 days [facility] Medication administered onsite Ondansetron 4 MG Disintegrating Oral Tab let ondansetron (ZOFRAN-ODT) disintegrating tablet 4 mg ondansetron (ZOFRAN-ODT) disintegrating tablet 4 mg 07/04/2020 07:27:35 AM EDT 4 mg Oral aborted 4 mg, Oral, Every 6 hours PRN, Nausea, Starting on Cassy 07/04/20 at 07, For 30 days
Dissolve on tongue.
[facility] Medication administered onsite Aluminum Hydroxide 40 MG/ML / Magnesium Hydroxide 40 MG/ML / Simethicone 4 MG/ML Oral Suspension aluminum & magnesium hydroxide-simethicone (MAALOX PLUS) 200-200-20 MG/5ML oral suspension 30 mL aluminum & magnesium hydroxide- simethicone (MAALOX PLUS) 200-200-20 MG/5ML oral suspension 30 mL 07/04/2020 07:27:35 AM EDT 30 mL Oral aborted 30 mL, Oral, Every 4 hours PRN, Heartburn, Indigestion, Starting on Cassy 07/04/20 at 07, For 30 days
MDD 4
[facility] Medication administered onsite Magnesium Hydroxide 80 MG/ML Oral Suspen bell magnesium hydroxide (MILK OF MAGNESIA) 400 MG/5ML oral suspension 30 mL magnesium hydroxide (MILK OF MAGNESIA) 400 MG/5ML oral suspension 30 mL 07/04/2020 07:27:35 AM EDT 30 mL Oral aborted 30 mL, Oral, D aily PRN, Constipation, Starting on Cassy 07/04/20 at 726, For 30 days
If serum creatinine > 2 notify provider before administering.
[facility] Medication administered onsite Trazodone Hydrochloride 50 MG Oral Tablet trazodone (D ESYREL) tablet 50 mg trazodone (DESYREL) tablet 50 mg 07/04/2020 07:27:28 AM EDT 50 mg Oral aborted Insomnia 50 mg, Oral, Nightly PRN, Sleep, Starting on Cassy 07/04/20 at 07, For 30 days [facility] Insomnia Medication administered onsite atomoxetine 25 MG Oral Capsule [Strattera] Kellee 01/08 12:00:00 AM EDT 25 mg by mouth completed <td ID="Medic ationRxNorm_1">[id number]</td><td ID="MedicationMedication_1">Strattera</td><td ID="MedicationRoute_1">by mouth</td><td ID="MedicationRouteConcept_1">F07631</td><td ID="MedicationStartDate_1">01/09/2020</td><td ID="MedicationStopDate_1">02/08/2020</td><td ID="MedicationDosageFrequency_1">at bedtime</td><td ID="MedicationDuration_1">30</td><td ID="MedicationFormulaStrength_1">25 mg</td><td ID="MedicationDosageForm_1">capsule</td><td ID="MedicationDosageFormCode_1"></td><td ID="MedicationDosageDescription_1"></td><td ID="MedicationMedicationId_1">[id number]</td><td ID="MedicationAccount_1">[id number]</td><td ID="MedicationNpid_1">[id number]</td><td ID="MedicationAuthorFirstName_1">Fernando</td><td ID="MedicationAuthorLastName_1">Bhupinder</td><td ID="MedicationTaxonomyCode_1">[id number]</td><td ID="MedicationTaxonomyDesc_1">Nurse Practitioner</td><td ID="MedicationPhoneNumber_1">[phone]</td> [facility] ([facility]) quetiapine 50 MG Oral Tablet [Seroquel] Seroquel 01/09/2020 12: 00:00 AM EDT 50 mg by mouth completed <td ID="Me dicationRxNorm_2">[id number]</td><td ID="MedicationMedication_2">Seroquel</td><td ID="MedicationRoute_2">by mouth</td><td ID="MedicationRouteConcept_2">R09835</td><td ID="MedicationStartDate_2">01/09/2020</td><td ID="MedicationStopDate_2">03/09/2020</td><td ID="MedicationDosageFrequency_2">at bedtime</td><td ID="MedicationDuration_2">30</td><td ID="MedicationFormulaStrength_2">50 mg</td><td ID="MedicationDosageForm_2">tablet</td><td ID="MedicationDosageFormCode_2"></td><td ID="MedicationDosageDescription_2"></td><td ID="MedicationMedicationId_2">[id number]</td><td ID="MedicationAccount_2">[id number]</td><td ID="MedicationNpid_2">[id number]</td><td ID="MedicationAuthorFirstName_2">Fernando</td><td ID="MedicationAuthorLastName_2">Bhupinder</td><td ID="MedicationTaxonomyCode_2">[id number]</td><td ID="MedicationTaxonomyDesc_2">Nurse Practitioner</td><td ID="MedicationPhoneNumber_2">[phone]</td> [facility] ([facility]) quetiapine 50 MG Oral Tablet [Seroquel] Seroquel 11/09/2019 12: 00:00 AM EDT 50 mg by mouth completed <td ID="Me dicationRxNorm_1">[id number]</td><td ID="MedicationMedication_1">Seroquel</td><td ID="MedicationRoute_1">by mouth</td><td ID="MedicationRouteConcept_1">G19093</td><td ID="MedicationStartDate_1">11/09/2019</td><td ID="MedicationStopDate_1">01/08/2020</td><td ID="MedicationDosageFrequency_1">at bedtime</td><td ID="MedicationDuration_1">30</td><td ID="MedicationFormulaStrength_1">50 mg</td><td ID="MedicationDosageForm_1">tablet</td><td ID="MedicationDosageFormCode_1"></td><td ID="MedicationDosageDescription_1"></td><td ID="MedicationMedicationId_1">[id number]</td><td ID="MedicationAccount_1">[id number]</td><td ID="MedicationNpid_1">[id number]</td><td ID="MedicationAuthorFirstName_1">Fernando</td><td ID="MedicationAuthorLastName_1">Bhupinder</td><td ID="MedicationTaxonomyCode_1">[id number]</td><td ID="MedicationTaxonomyDesc_1">Nurse Practitioner</td><td ID="MedicationPhoneNumber_1">[phone]</td> [facility] ([facility]) atomoxetine 18 MG Oral Capsule atomoxetine 18 mg capsu le atomoxetine 18 mg capsule completed atomoxetine 18 MG Oral Capsule [place] ([facility]) atomoxetine 25 MG Oral Capsule atomoxetine 25 mg capsu le atomoxetine 25 mg capsule completed atomoxetine 25 MG Oral Capsule [place] ([facility]) olanzapine 10 MG Oral Tablet olanzapine 10 mg tablet olanzapine 10 mg tablet [facility] Ethinyl Estradiol 0.443164 MG/HR / Etonogestrel 0.005 MG/HR Vaginal Ring etonogestrel 0.12 mg-ethinyl estradiol 0.015 mg/24 hr vaginal ring etonogestrel 0.12 mg-ethinyl estradiol 0.015 mg/24 hr vaginal ring completed 21 DAY ethinyl estradiol 0.568122 MG/HR / etonogestrel 0.005 MG/HR Vaginal System [place] ([facility]) Escitalopram 10 MG Oral Tablet [Lexapro] Lexapro 10 mg tablet Take 1 tablet every day by oral route. Lexapro 10 mg tablet Take 1 tablet every day by oral route. 1 completed escitalopram 10 MG Oral Tablet [Lexapro] [facility]) atomoxetine 18 MG Oral Capsule atomoxetine 18 mg capsu le atomoxetine 18 mg capsule completed atomoxetine 18 MG Oral Capsule [facility]) Escitalopram 10 MG Oral Tablet [Lexapro] Lexapro 10 mg tablet Take 1 tablet every day by oral route. Lexapro 10 mg tablet Take 1 tablet every day by oral route. 1 completed escitalopram 10 MG Oral Tablet [Lexapro] [facility]) Naltrexone hydrochloride 50 MG Oral Tablet naltrexone 50 mg tablet naltrexone 50 mg tablet completed naltrexone hydrochloride 50 MG Oral Tablet [facility]) quetiapine 50 MG Oral Tablet quetiapine 50 mg tablet quetiapine 50 mg tablet completed quetiapine 50 MG Oral Tablet [facility]) olanzapine 10 MG Oral Tablet olanzapine 10 mg tablet olanzapine 10 mg tablet completed olanzapine 10 MG Oral Tablet [facility]) Clonazepam 0.5 MG Oral Tablet clonazepam 0.5 mg tablet TAKE ONE TABLET BY MOUTH EVERY DAY NEEDED MAXIMUM DAILY DOSE 1 clonazepam 0.5 mg tablet TAKE ONE TABLET BY MOUTH EVERY DAY NEEDED MAXIMUM DAILY DOSE 1 completed clonazepam 0.5 MG Oral Tablet AT [facility]) atomoxetine 25 MG Oral Capsule atomoxetine 25 mg capsu le atomoxetine 25 mg capsule completed atomoxetine 25 MG Oral Capsule [facility]) Naltrexone hydrochloride 50 MG Oral Tablet naltrexone 50 mg tablet naltrexone 50 mg tablet completed naltrexone hydrochloride 50 MG Oral Tablet [facility]) 21 DAY Ethinyl Estradiol 0.704322 MG/HR / Etonogestrel 0.005 MG/HR Vaginal Ring etonogestrel 0.12 mg-ethinyl estradiol 0.015 mg/24 hr vaginal ring etonogestrel 0.12 mg-ethinyl estradiol 0.015 mg/24 hr vaginal ring completed 21 DAY ethinyl estradiol 0.347808 MG/HR / etonogestrel 0.005 MG/HR Vaginal System [place] ([facility]) 21 DAY Ethinyl Estradiol 0.336763 MG/HR / Etonogestrel 0.005 MG/HR Vaginal Ring etonogestrel 0.12 mg-ethinyl estradiol 0.015 mg/24 hr vaginal ring etonogestrel 0.12 mg-ethinyl estradiol 0.015 mg/24 hr vaginal ring completed 21 DAY ethinyl estradiol 0.438996 MG/HR / etonogestrel 0.005 MG/HR Vaginal System [place] ([facility]) Naltrexone hydrochloride 50 MG Oral Tablet naltrexone 50 mg tablet naltrexone 50 mg tablet completed naltrexone hydrochloride 50 MG Oral Tablet [place] ([facility]) atomoxetine 25 MG Oral Capsule atomoxetine 25 mg capsu le atomoxetine 25 mg capsule completed atomoxetine 25 MG Oral Capsule [place] ([facility]) Hydroxyzine Hydrochloride 25 MG Oral Tab let hydroxyzine HCl 25 mg tablet TAKE ONE TABLET BY MOUTH UP TO TWICE A DAY NEEDED hydroxyzine HCl 25 mg tablet TAKE ONE TABLET BY MOUTH UP TO TWICE A DAY NEEDED completed hydroxyzine hydrochloride 25 MG Oral Tablet [place] ([facility]) Hydroxyzine Hydrochloride 25 MG Oral Tablet hydroxyzin e HCl 25 mg tablet hydroxyzine HCl 25 mg tablet completed hydroxyzine hydrochloride 25 MG Oral Tablet [place] ([facility]) quetiapine 50 MG Oral Tablet quetiapine 50 mg tablet quetiapine 50 mg tablet completed quetiapine 50 MG Oral Tablet [place] ([facility]) olanzapine 10 MG Oral Tablet olanzapine 10 mg tablet olanzapine 10 mg tablet completed olanzapine 10 MG Oral Tablet [place] ([facility]) Isibloom 0.15 mg-0.03 mg tablet TAKE ONE TABLET BY MOUTH EVERY DAY 59 3959 completed Isibloom 0.15 mg-0.0 3 mg tablet [place] ([facility]) Escitalopram 10 MG Oral Tablet [Lexapro] Lexapro 10 mg tablet Take 1 tablet every day by oral route. Lexapro 10 mg tablet Take 1 tablet every day by oral route. 1 completed escitalopram 10 MG Oral Tablet [Lexapro] [place] ([facility]) 21 DAY Ethinyl Estradiol 0.990244 MG/HR / Etonogestrel 0.005 MG/HR Vaginal Ring etonogestrel 0.12 mg-ethinyl estradiol 0.015 mg/24 hr vaginal ring etonogestrel 0.12 mg-ethinyl estradiol 0.015 mg/24 hr vaginal ring completed 21 DAY ethinyl estradiol 0.965114 MG/HR / etonogestrel 0.005 MG/HR Vaginal System [place] ([facility]) Clonazepam 0.5 MG Oral Tablet clonazepam 0.5 mg tablet TAKE ONE TABLET BY MOUTH EVERY DAY NEEDED MAXIMUM DAILY DOSE 1 clonazepam 0.5 mg tablet TAKE ONE TABLET BY MOUTH EVERY DAY NEEDED MAXIMUM DAILY DOSE 1 completed clonazepam 0.5 MG Oral Tablet AT [facility]) Hydroxyzine Hydrochloride 25 MG Oral Tab let hydroxyzine HCl 25 mg tablet TAKE ONE TABLET BY MOUTH UP TO TWICE A DAY NEEDED hydroxyzine HCl 25 mg tablet TAKE ONE TABLET BY MOUTH UP TO TWICE A DAY NEEDED completed hydroxyzine hydrochloride 25 MG Oral Tablet [place] ([facility]) atomoxetine 18 MG Oral Capsule atomoxetine 18 mg capsu le atomoxetine 18 mg capsule completed atomoxetine 18 MG Oral Capsule [place] ([facility]) 21 DAY Ethinyl Estradiol 0.695446 MG/HR / Etonogestrel 0.005 MG/HR Vaginal Ring etonogestrel 0.12 mg-ethinyl estradiol 0.015 mg/24 hr vaginal ring etonogestrel 0.12 mg-ethinyl estradiol 0.015 mg/24 hr vaginal ring completed 21 DAY ethinyl estradiol 0.482783 MG/HR / etonogestrel 0.005 MG/HR Vaginal System [place] ([facility]) Hydroxyzine Hydrochloride 25 MG Oral Tab let hydroxyzine HCl 25 mg tablet TAKE ONE TABLET BY MOUTH UP TO TWICE A DAY NEEDED hydroxyzine HCl 25 mg tablet TAKE ONE TABLET BY MOUTH UP TO TWICE A DAY NEEDED completed hydroxyzine hydrochloride 25 MG Oral Tablet [place] ([facility]) Hydroxyzine Hydrochloride 25 MG Oral Tablet hydroxyzin e HCl 25 mg tablet hydroxyzine HCl 25 mg tablet completed hydroxyzine hydrochloride 25 MG Oral Tablet [place] ([facility]) quetiapine 50 MG Oral Tablet quetiapine 50 mg tablet quetiapine 50 mg tablet completed quetiapine 50 MG Oral Tablet [place] ([facility]) quetiapine 50 MG Oral Tablet quetiapine 50 mg tablet quetiapine 50 mg tablet completed quetiapine 50 MG Oral Tablet [place] ([facility]) buspirone hydrochloride 5 MG Oral Tablet busPIRone HCl 5 MG Oral Tablet (BUSPAR) busPIRone HCl 5 MG Oral Tablet (BUSPAR) 5 mg Oral aborted Anxiety Disorder Take 5 mg by mouth Two Times Daily Indic ations: Anxiety Disorder [facility] Anxiety Disorder Escitalopram 10 MG Oral Tablet [Lexapro] Lexapro 10 mg tablet Take 1 tablet every day by oral route. Lexapro 10 mg tablet Take 1 tablet every day by oral route. 1 completed escitalopram 10 MG Oral Tablet [Lexapro] [place] ([facility]) Trazodone Hydrochloride 50 MG Oral Table t traZODone HCl 50 MG Oral Tablet (DESYREL) traZODone HCl 50 MG Oral Tablet (DESYREL) 50 mg Oral aborted Insomnia Take 50 mg by mouth daily as needed for SleepIndications: Trouble Sleeping [facility] Insomnia Naltrexone hydrochloride 50 MG Oral Tablet naltrexone 50 mg tablet naltrexone 50 mg tablet completed naltrexone hydrochloride 50 MG Oral Tablet [place] ([facility]) olanzapine 10 MG Oral Tablet OLANZapine 10 MG Oral Tab let (ZYPREXA) OLANZapine 10 MG Oral Tablet (ZYPREXA) 20 mg Oral aborted Ps ychotic Depression Take 20 mg by mouth nightly Indications: Psychotic Depressive Illness [facility] Psychotic Depression 21 DAY Ethinyl Estradiol 0.071415 MG/HR / Etonogestrel 0.005 MG/HR Vaginal Ring etonogestrel 0.12 mg-ethinyl estradiol 0.015 mg/24 hr vaginal ring etonogestrel 0.12 mg-ethinyl estradiol 0.015 mg/24 hr vaginal ring completed 21 DAY ethinyl estradiol 0.283654 MG/HR / etonogestrel 0.005 MG/HR Vaginal System [place] ([facility]) atomoxetine 25 MG Oral Capsule atomoxetine 25 mg capsu le atomoxetine 25 mg capsule completed atomoxetine 25 MG Oral Capsule [place] ([facility]) 21 DAY Ethinyl Estradiol 0.709925 MG/HR / Etonogestrel 0.005 MG/HR Vaginal Ring etonogestrel 0.12 mg-ethinyl estradiol 0.015 mg/24 hr vaginal ring etonogestrel 0.12 mg-ethinyl estradiol 0.015 mg/24 hr vaginal ring completed 21 DAY ethinyl estradiol 0.686074 MG/HR / etonogestrel 0.005 MG/HR Vaginal System [facility]) atomoxetine 25 MG Oral Capsule atomoxetine 25 mg capsu le atomoxetine 25 mg capsule completed atomoxetine 25 MG Oral Capsule [facility]) atomoxetine 18 MG Oral Capsule atomoxetine 18 mg capsu le atomoxetine 18 mg capsule completed atomoxetine 18 MG Oral Capsule [place] ([facility]) Escitalopram 10 MG Oral Tablet [Lexapro] Lexapro 10 mg tablet Take 1 tablet every day by oral route. Lexapro 10 mg tablet Take 1 tablet every day by oral route. 1 completed escitalopram 10 MG Oral Tablet [Lexapro] [facility]) Clonazepam 0.5 MG Oral Tablet clonazepam 0.5 mg tablet TAKE ONE TABLET BY MOUTH EVERY DAY NEEDED MAXIMUM DAILY DOSE 1 clonazepam 0.5 mg tablet TAKE ONE TABLET BY MOUTH EVERY DAY NEEDED MAXIMUM DAILY DOSE 1 completed clonazepam 0.5 MG Oral Tablet AT [facility]) quetiapine 50 MG Oral Tablet quetiapine 50 mg tablet quetiapine 50 mg tablet completed quetiapine 50 MG Oral Tablet [facility]) atomoxetine 18 MG Oral Capsule atomoxetine 18 mg capsu le atomoxetine 18 mg capsule completed atomoxetine 18 MG Oral Capsule [facility]) Naltrexone hydrochloride 50 MG Oral Tablet naltrexone 50 mg tablet naltrexone 50 mg tablet completed naltrexone hydrochloride 50 MG Oral Tablet [facility]) atomoxetine 18 MG Oral Capsule atomoxetine 18 mg capsu le atomoxetine 18 mg capsule completed atomoxetine 18 MG Oral Capsule [facility]) Naltrexone hydrochloride 50 MG Oral Tablet naltrexone 50 mg tablet naltrexone 50 mg tablet completed naltrexone hydrochloride 50 MG Oral Tablet [facility]) Naltrexone hydrochloride 50 MG Oral Tablet naltrexone 50 mg tablet naltrexone 50 mg tablet completed naltrexone hydrochloride 50 MG Oral Tablet [facility]) atomoxetine 18 MG Oral Capsule atomoxetine 18 mg capsu le atomoxetine 18 mg capsule completed atomoxetine 18 MG Oral Capsule [facility]) Escitalopram 10 MG Oral Tablet [Lexapro] Lexapro 10 mg tablet Take 1 tablet every day by oral route. Lexapro 10 mg tablet Take 1 tablet every day by oral route. 1 completed escitalopram 10 MG Oral Tablet [Lexapro] [place] ([facility]) quetiapine 50 MG Oral Tablet quetiapine 50 mg tablet quetiapine 50 mg tablet completed quetiapine 50 MG Oral Tablet [place] ([facility]) quetiapine 50 MG Oral Tablet quetiapine 50 mg tablet quetiapine 50 mg tablet completed quetiapine 50 MG Oral Tablet [place] ([facility]) Hydroxyzine Hydrochloride 25 MG Oral Tablet hydroxyzin e HCl 25 mg tablet hydroxyzine HCl 25 mg tablet completed hydroxyzine hydrochloride 25 MG Oral Tablet [place] ([facility]) Hydroxyzine Hydrochloride 25 MG Oral Tablet hydroxyzin e HCl 25 mg tablet hydroxyzine HCl 25 mg tablet completed hydroxyzine hydrochloride 25 MG Oral Tablet [place] ([facility]) atomoxetine 25 MG Oral Capsule atomoxetine 25 mg capsu le atomoxetine 25 mg capsule completed atomoxetine 25 MG Oral Capsule [place] ([facility]) Insurance Providers Payer name Policy type / Coverage type Policy ID Covered democrat ID Covered democrat's relationship to marinelli Policy Marinelli Plan Information R U [id number] Child [id number] [employer] [id number] Self [id number] [employer] [id number] Family Dependent [id number] Commercial [id number] Family Dependent [id number] [employer] [id number] MEDICAID [id number] SP [id number] [employer] [id number] Family Dependent [employer] Medigap Part B [id number] Family [facility] [id number] [facility] [id number] Family Dependent [id number] [facility] Commercial [id number] Family Dependent [id number] [facility] Commercial [id number] Family Dependent [id number] [facility] Medigap Part B [id number] Family Dependent [id number] [employer] [id number] MO2 [id number] [facility] INS NO FAULT [id number] [id number] Self Pay P none S none UMR O [id number] S [id number] SELF PAY UNAVAILABLE SP UNAVAILA BLE EMEDNY [id number] SP [id number] [facility] [id number] [id number] SELF PAY ONLY [id number] SP [id number] [facility] [id number] [id number] Problems, Conditions, and Diagnoses Code Display Name Description Problem Type Effective Dates Data Source(s) 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 Diag nosis 07/04/2020 06:17:00 AM [facility] bipolar d/o bipolar d/o Diagnosis 07/04/2020 06:17:00 AM [facility] [id number] Overweight Overweight Problem 11/05/2020 12:00:00 AM ED T [place] ([facility]) F41.1 [id number] RACHEL (generalized anxiety disorder) Proble m 03/15/2020 12:00:00 AM EST eCW1 ([facility]) F32.9 [id number] Depression, unspecified depression type P roblem 03/15/2020 12:00:00 AM EST eCW1 ([facility]) F32.9 Major depressive disorder, single episod e, unspecified Unspecified depressive Disorder Condition 01/10/2020 12:00:00 AM EDT [facility] ( [facility]) F11.20 Opioid dependence, uncomplicated Opioid Use Disorder, Moderate Condition 01/10/2020 12:00:00 AM EDT [facility] ([facility]) F90.2 Attention-deficit hyperactivity disorder , combined type Attention- Deficit/Hyperactivity Disorder, Combined presentation Condition 01/10/2020 12:00:00 AM EDT [facility] ([facility]) [id number] Body measurement finding Body Measurement Finding Prob wendy 11/08/2019 12:00:00 AM EDT - 02/07/2020 12:00:00 AM EST [place] ([facility]) [id number] Body measurement finding Body Measurement Finding Prob wendy 11/08/2019 12:00:00 AM EDT - 02/07/2020 12:00:00 AM EST [place] ([facility]) [id number] Body measurement finding Body Measurement Finding Prob wendy 11/08/2019 12:00:00 AM EDT - 02/07/2020 12:00:00 AM EST [place] ([facility]) [id number] Body measurement finding Body Measurement Finding Prob wendy 11/08/2019 12:00:00 AM EDT - 02/07/2020 12:00:00 AM EST [place] ([facility]) [id number] Body measurement finding Body Measurement Finding Prob wendy 11/08/2019 12:00:00 AM EDT - 02/07/2020 12:00:00 AM EST [place] ([facility]) [id number] Body measurement finding Body Measurement Finding Prob wendy 11/08/2019 12:00:00 AM EDT - 02/07/2020 12:00:00 AM EST [place] ([facility]) [id number] Body measurement finding Body Measurement Finding Prob wendy 11/08/2019 12:00:00 AM EDT - 02/07/2020 12:00:00 AM EST [place] ([facility]) [id number] SNOMED CT Concept SNOMED CT Concept Problem 10/24 12:00:00 AM EDT - 02/07/2020 12:00:00 AM EST [place] ([facility]) [id number] SNOMED CT Concept SNOMED CT Concept Problem 10/24 12:00:00 AM EDT - 02/07/2020 12:00:00 AM EST [place] ([facility]) [id number] SNOMED CT Concept SNOMED CT Concept Problem 10/24 12:00:00 AM EDT - 02/07/2020 12:00:00 AM EST [place] ([facility]) [id number] SNOMED CT Concept SNOMED CT Concept Problem 10/24 12:00:00 AM EDT - 02/07/2020 12:00:00 AM EST [place] ([facility]) [id number] SNOMED CT Concept SNOMED CT Concept Problem 10/24 12:00:00 AM EDT - 02/07/2020 12:00:00 AM EST [place] ([facility]) [id number] SNOMED CT Concept SNOMED CT Concept Problem 10/24 12:00:00 AM EDT - 02/07/2020 12:00:00 AM EST [place] ([facility]) [id number] SNOMED CT Concept SNOMED CT Concept Problem 10/24 12:00:00 AM EDT - 02/07/2020 12:00:00 AM EST [place] ([facility]) [id number] Brief reactive psychosis Brief Reactive Psychosis Prob wendy 09/13/2019 12:00:00 AM EDT - 03/01/2020 12:00:00 AM EST [place] ([facility]) [id number] Brief reactive psychosis Brief Reactive Psychosis Prob wendy 09/13/2019 12:00:00 AM EDT - 03/01/2020 12:00:00 AM EST [place] ([facility]) [id number] Brief reactive psychosis Brief Reactive Psychosis Prob wenyd 09/13/2019 12:00:00 AM EDT - 03/01/2020 12:00:00 AM EST [place] ([facility]) [id number] Brief reactive psychosis Brief Reactive Psychosis Prob wendy 09/13/2019 12:00:00 AM EDT - 03/01/2020 12:00:00 AM EST [place] ([facility]) [id number] Brief reactive psychosis Brief Reactive Psychosis Prob wendy 09/13/2019 12:00:00 AM EDT - 03/01/2020 12:00:00 AM EST [place] ([facility]) [id number] Brief reactive psychosis Brief Reactive Psychosis Prob wendy 09/13/2019 12:00:00 AM EDT - 03/01/2020 12:00:00 AM [facility] ([facility]) Surgeries/Procedures Procedure Description Date Indications Data Source(s) BLOOD COUNT COMPLETE AUTOMATED <td>CBC</td><td>Routine </td><td>07/05/2020 11:12 AM EDT</td><td></td><td> </td> 07/05/2020 11:12:00 AM [facility] BASIC METABOLIC PANEL CALCIUM TOTAL <td>BASIC METABOLI C PANEL</td><td>Routine</td><td>07/05/2020 11:12 AM EDT</td><td></td><td> </td> 07/05/2020 11:12:00 AM [facility] LAB RESULTS (OUTSIDE/HISTORICAL) <td>LAB RESULTS (OUTSIDE/HISTORICAL)</td><td></td><td>04/30/2020 11:24 AM EST</td><td></td><td></td> 04/30/2020 11:24:00 AM [facility] CARDIAC REPORT <td>CARDIAC REPORT</td><td>< /td><td>04/30/2020 11:24 AM EST</td><td></td><td></td> 04/30/2020 11:24:00 AM [facility] Extended Individual Psychotherapy - 45 min 12:00:00 AM EDT [facility] ([facility]) Extended Individual Psychotherapy - 45 min 01/10/2020 12:00:00 AM EDT - 01/10/2020 12:00:00 AM EDT [facility] ([facility]) OFFICE OUTPATIENT VISIT 15 MINUTES 01/09/2020 12:00:00 AM EDT [facility] ([facility]) OFFICE OUTPATIENT VISIT 15 MINUTES 01/08 12:00:00 AM EDT - 01/09/2020 12:00:00 AM EDT [facility] ([facility]) Extended Individual Psychotherapy - 45 min 01/04/2020 12:00:00 AM EDT - 01/04/2020 12:00:00 AM EDT [facility] ([facility]) Extended Individual Psychotherapy - 45 min 0 12:00:00 AM EDT [facility] ([facility]) Extended Individual Psychotherapy - 45 min 12/27/2019 12:00:00 AM EDT - 12/27/2019 12:00:00 AM EDT [facility] ([facility]) Extended Individual Psychotherapy - 45 min 0 12:00:00 AM EDT [facility] ([facility]) Brief Individual Psychotherapy - 30 min 12/22/2019 12: 00:00 AM EDT [facility] ([facility]) Brief Individual Psychotherapy - 30 min 12/22/2019 12:00:00 AM EDT - 12/22/2019 12:00:00 AM EDT [facility] ([facility]) Results ID Date Data Source [id number] 09/04/2020 03:54:00 PM EDT [facility] ([facility]) Name Value Range Interpretation Code Description Data Anna rce(s) Supporting Document(s) HCG negative Hcg [facility] ([facility]) ID Date Data Source [id number] 07/10/2020 02:47:14 PM EDT [facility] Name Value Range Interpretation Code Description Data Anna rce(s) Supporting Document(s) Discharge Summary [facility] UZLGTz8iJkOGQgUg51/WWMywJWEie1LzAVzwUBd2OHtkHZVrJ0IqWFY7rV4xUQB2TYzLZjKbGnOcBXG5 lbm [file] ICAgICAgICAgICAgICAgICAgICAgICAgICAgICAgIC AgICAgICAgICAgICAgICAgICAgICAgICAgICAgICAgICAgICANCiAgICAgICAgICAgICAgICAgICAgIC AgICAgICAgICAgICAgICAgICAgICAgICAgICAgICAgICAgICAgICAgICAgICAgICAgICAgICAgICAgIC AgICAgICAgICAgICAgICAgICANCiAgICAgICAgICAg ICAgICAgICAgICAgICAgICAgICAgICAgICAgICAgICAgICAgICAgICAgICAgICAgICAgICAgICAgICAg ICAgICAgICAgICAgICAgICAgICAgICAgICAgICANCiAgICAgICAgICAgICAgICAgICAgICAgICAgICAg ICAgICAgICAgICAgICAgICAgICAgICAgICAgICAgIC AgICAgICAgICAgICAgICAgICAgICAgICAgICAgICAgICAgICAgICANCiAgICAgICAgICAgICAgICAgIC AgICAgICAgICAgICAgICAgICAgICAgICAgICAgICAgICAgICAgICAgICAgICAgICAgICAgICAgICAgIC AgICAgICAgICAgICAgICAgICAgICANCiAgICAgICAg ICAgICAgICAgICAgICAgICAgICAgICAgICAgICAgICAgICAgICAgICAgICAgICAgICAgICAgICAgICAg ICAgICAgICAgICAgICAgICAgICAgICAgICAgICAgICANCiAgICAgICAgICAgICAgICAgICAgICAgICAg ICAgICAgICAgICAgICAgICAgICAgICAgICAgICAgIC AgICAgICAgICAgICAgICAgICAgICAgICAgICAgICAgICAgICAgICAgICANCiAgICAgICAgICAgICAgIC AgICAgICAgICAgICAgICAgICAgICAgICAgICAgICAgICAgICAgICAgICAgICAgICAgICAgICAgICAgIC AgICAgICAgICAgICAgICAgICAgICAgICANCiAgICAg ICAgICAgICAgICAgICAgICAgICAgICAgICAgICAgICAgICAgICAgICAgICAgICAgICAgICAgICAgICAg ICAgICAgICAgICAgICAgICAgICAgICAgICAgICAgICAgICANCiAgICAgICAgICAgICAgICAgICAgICAg ICAgICAgICAgICAgICAgICAgICAgICAgICAgICAgIC AgICAgICAgICAgICAgICAgICAgICAgICAgICAgICAgICAgICAgICAgICAgICANCjw/tJKaL5nllNVtls N5I6ezGk2IPr6AUO2on1VsNZYkBNkkczXrYrlJNwZdLKUnQibSBbg0LLvuEV5SnSBuY3FgE8SrPUhhLG 4RHHBiHJPqsAGkEIOzTPWhVyV6HPUiJUkzXY6RqPGy OPaaHQYwPVVsBaPhRJUtTHLqWODwMFVmAOQVCFQsULZsKuQsWYZsLHTmYOntKBNIYZI8HEYvAbFiDGBa OICiXW4WIKRvU235pmLzOZ4WHg5AYeHoJN4hzy1SMPIcYVHxEhyEAzl8ZRcqPZ1NqPIqtFI2IzNeRGQQ ZdIrR9jnz9QaVDKbTRLVKBgtUX5Ub6JzaSMdQRh+Pg 0GXC9ny5XoKMa3DrUlXD1dvy9JHLhOHyKmI2MfiMjkHABjk3XxVEQrREKIfP8gKJF5EQH5WXzct7JcFA SDHO2kJSJtFD1zbT6mRCTLDMIgcZL3SzQ7JgJgOqNrWKT1MObxBK5xEYufFH0VUQM6CXqhAJCtKNHzG2 zKDdJsYEHlJuThgPsdLF2RWkQlM8YjsoBxzWO3AyBv IFINCj4+DQblreKbStmLLpD3HQWye4SmSGk4ZZ7WEHTeKJczLZ3ZRPRwrI2jTMxtPO3GAgB7HECsGJTZ FlRrX52zmQNoWMc7T6SrMcShLQMqAkfmOJVdZZjqErEtPDKiNiXsWScvNM7+ID4+JHzlQT0RYQzkdxQt RESiUz5ASZImAXTtGX3mCJKrDOFtM7S0uEkyFZTNJw AiQ9fwgnxiDG9uXHXqK161fRijruXqGTXrLCRjMj9TIEJjABZ6CYFjrWLlKNCnUERWNDozCG1CmMEdPA E3eA5wVPssXYBvSVDrK4pUSyOgqIfiYN64kTufwpVykKJuGEg+Vd6LFK1ra0PsWSo6hbTgJSraVCA4TW sbKXLrDOOgDXYiHIV7MMP3FSDBDeUdBTVfEMLkUDof FSVrRWTivc1HGACnSVV1NTggDZNxFWPqJPXgZPtnCDInJNAkLNC5FPKbLEXdGG3ELqPyGZYmVYJzWNrq XOYhEYQihk9GUDJdGYMuIIVySLBfZXSlZMGuGJxvQKTfSOY3IoQfLWKrPSEkEJ7XHyOwWUNfBKf9OpKz OPCcWRYswt8DPEPrLDCaOVdpWBGpSNNjRFEvDVgaCA MkZJWxXji8ZRUdKZWcBR2KZbJsYYErSIA5BZcvKJFmMKZyov2QFQKvGQQgMQP2EnKwAOPgJJEdDQhkQE BkQHK3Toi3ILSjKTUpVY5KCnLaHMCeQKg4DYrzVXQtTULijl6PRXHpDLKmKBXpDFGkFHRpLQCyYHxcKM SvQVAsDLIhARVpQNOnEQ8KHtPuUYKtNeBjUkRzBQOq KSAvbw6OOYBkTODcAlNfMeSsOZKfNMIvCReoCCIhWSB2ZoHaNZIxAEOrSF3YOiNsKFVjUxXfBWlhUQDg MZWdmx4SWUBfOQByHXUzYLWjUFLpSQImHBuyAAYhEOCoONJhRXBbZPTnNN8SFpLvOKSuCbGwNRicRCQm CQEiro1UATEaYBXcCDB5BGLgYKKbCFHpBXpxSYQcCX R8WLq1JVQfDBLoOM3LNwZeGXMpMtO0UIwfBWVzPLIfsl3IJLVzXKUqYSPvApRkXFAcESFtDQtaMTMgCO N4FUJ1BOWfXNDpUN6BScXrGHGkYpUlISmqEXRiNYZqah4IYGIsEBTkEcq7GvGkLEQzKLTjSKpsFPUzXN Q9IOR0CDRfPOIfQD0GUxTmIESkSutzAKVvJYZjEQIr cq7LFTUfZOLcLLItJoZfRWWqILMwUDnxNGEjXHP8KYZlRNFhSHOdUJ5OPfEpVCRlCja2QYOkAGVpSPSe kx1TEMDwIGY7BWX0WVGrVLPjIXLfDSfdSFVoNEQmJMJpMCQiIXBsWH8DGsDdSSIdRJL9FbJxODTwEJEc ll0LRDMjWFO8LDp4ASOyQJEdLOYlZRkiJDSnXHWpYN M6OJWfPLFeSD1AAnSvDVDnKWC5LKGpHFXnPCOlxe2MCLEjSZK9HoI5YnJqBDYoNVDeBQuhORIhXFWmHo J9HRTaSAHyCF7KJxIrDDIqFRmkHGTqJQWdSVSpsq2ALWQuGWC1RjLoUGAkZCJlUYMoWLpeAFFwFXS1Fz LdPTNmVZBqGP1IJmMoZXMoOBq7RmTsPNXrIMBync9U CCSsMMY2VXIvOJAlAMVtJJTeXTpzXCAfGHV2JsZoSEZnWGZnNJ4DBlUpEIDwOJp6QfHhYSGpUKEjeo1E SKTaNZZ1QRycEdXiUMKuZZAfUVvjDDZnQIW2PMn8ACWbNDHkID5ZMzHrUTSlTjY2WTZpCFZtTITiyx9D HLIoBNR3FCc1BYHvLCEbLMNuNBoxVBXuYHDjEKD0IJ FqLJRgFA1MTvUeENrqETJQEsm0XJixG5f0CDR7MK9TT9Lwa9PxCHRkAOTWDMaxSX6bctPzZPArWb2VT7 uCCtc3QPX6PKhlMFBzQpPfUWO6GMBfBWS9IGKqHNR4GeBuNL8qNWq3JbL9OhF0NrY9XlH0HRg8GYUxKR naTGE5KvD3TUO2BtKiMC7FCg4GBvI4NZI5sAThCh0KZyZqAxYVXiXaRM9AMWp= ID Date Data Source [id number] 07/05/2020 11:32:24 AM [facility] Name Value Range Interpretation Code Description Data Anna rce(s) Supporting Document(s) Leukocytes [#/volume] in Blood by Automated count 9.8 10*3/uL 4-10 [facility] Erythrocytes [#/volume] in Blood by Automated count 5.11 10*6/uL 4.1- 5.3 [facility] Hemoglobin [Mass/volume] in Blood 15.2 g/dL 11.5-15.5 [facility] Hematocrit [Volume Fraction] of Blood by Automated count 45.6 % 3 6-45 H [facility] Erythrocyte mean corpuscular volume [Entitic volume] by Auto mated count 89.1 fL 80-96 [facility] Erythrocyte mean corpuscular hemoglobin [Entitic mass] by Automated count 29.7 pg 27-33 [facility] Erythrocyte mean corpuscular hemoglobin concentration [Mass/volume] by Automated count 33.3 g/dL 32.0-36.0 [facility] distribution width [Ratio] by Automated count 12.8 % 11.5-14.5 [facility] Platelets [#/volume] in Blood by Automated count 428 10*3/uL 150-400 H [facility] ID Date Data Source [id number] 07/05/2020 11:50:54 AM [facility] Name Value Range Interpretation Code Description Data Anna rce(s) Supporting Document(s) Bicarbonate [Moles/volume] in Serum 22 mmol/L 22-29 [facility] Chloride [Moles/volume] in Serum or Plasma 102 mmol/L 98-107 [facility] Creatinine [Mass/volume] in Serum or Plasma 0.59 mg/dL 0.50-0.90 [facility] Glucose [Mass/volume] in Serum or Plasma 90 mg/dL 70-140 [facility] Potassium [Moles/volume] in Serum or Plasma 4.5 mmol/L 3.4-5.1 [facility] Sodium [Moles/volume] in Serum or Plasma 137 mmol/L 136-145 [facility] Urea nitrogen [Mass/volume] in Serum or Plasma 13 mg/dL 6-20 [facility] Anion gap 3 in Serum or Plasma 13 mmol/L 8-15 [facility] Osmolality of Serum or Plasma by calculation 284 mosm/kg 275-300 [facility] Creatinine/Urea nitrogen [Mass Ratio] in Serum or Plasma 22 [facility] Calcium [Mass/volume] in Serum or Plasma 9.9 mg/dL 8.6-10.0 [facility] Glomerular filtration rate/1.73 sq M pre dicted among non-blacks [Volume Rate/Area] in Serum or Plasma by Creatinine-based formula (MDRD) >6 0 [facility] Glomerular filtration rate/1.73 sq M pre dicted among blacks [Volume Rate/Area] in Serum or Plasma by Creatinine-based formula (MDRD) >60 [facility] ID Date Data Source [id number] 07/04/2020 05:12:28 PM EDT [facility] Name Value Range Interpretation Code Description Data Anna rce(s) Supporting Document(s) History and Physical [facility] LUIWYd9eNiCTYpAb18/HTNsnYSYul0EcHNqrEMi5CRlyFOViL5XeEDO2fU7nQHF2GEkQPeBjBtCtOPJ5 lbm [file] AgICAgICAgICAgICAgICAgICAgICAgICAgICAgICAg ICAgICAgICAgICAgICAgICAgICAgDQogICAgICAgICAgICAgICAgICAgICAgICAgICAgICAgICAgICAg ICAgICAgICAgICAgICAgICAgICAgICAgICAgICAgICAgICAgICAgICAgICAgICAgICAgICAgICAgICAg ICAgDQogICAgICAgICAgICAgICAgICAgICAgICAgIC AgICAgICAgICAgICAgICAgICAgICAgICAgICAgICAgICAgICAgICAgICAgICAgICAgICAgICAgICAgIC AgICAgICAgICAgICAgDQogICAgICAgICAgICAgICAgICAgICAgICAgICAgICAgICAgICAgICAgICAgIC AgICAgICAgICAgICAgICAgICAgICAgICAgICAgICAg ICAgICAgICAgICAgICAgICAgICAgICAgDQogICAgICAgICAgICAgICAgICAgICAgICAgICAgICAgICAg ICAgICAgICAgICAgICAgICAgICAgICAgICAgICAgICAgICAgICAgICAgICAgICAgICAgICAgICAgICAg ICAgICAgDQogICAgICAgICAgICAgICAgICAgICAgIC AgICAgICAgICAgICAgICAgICAgICAgICAgICAgICAgICAgICAgICAgICAgICAgICAgICAgICAgICAgIC AgICAgICAgICAgICAgICAgDQogICAgICAgICAgICAgICAgICAgICAgICAgICAgICAgICAgICAgICAgIC AgICAgICAgICAgICAgICAgICAgICAgICAgICAgICAg ICAgICAgICAgICAgICAgICAgICAgICAgICAgDQogICAgICAgICAgICAgICAgICAgICAgICAgICAgICAg ICAgICAgICAgICAgICAgICAgICAgICAgICAgICAgICAgICAgICAgICAgICAgICAgICAgICAgICAgICAg ICAgICAgICAgDQogICAgICAgICAgICAgICAgICAgIC AgICAgICAgICAgICAgICAgICAgICAgICAgICAgICAgICAgICAgICAgICAgICAgICAgICAgICAgICAgIC AgICAgICAgICAgICAgICAgICAgDQogICAgICAgICAgICAgICAgICAgICAgICAgICAgICAgICAgICAgIC AgICAgICAgICAgICAgICAgICAgICAgICAgICAgICAg SKDuGPUiHJVxXUEoSVMdIPKlLPPzHAHqYPBrYEBwFVk2F0kqBPQmURPwQT9fVYw4Tz3+DQoNCmVuZHN0 dqQowM0RON1tu8InWJtgFRHwz5WvKZl8HV4PZXIvFZcfHN8PVSdbqj5ADDSiJEJouDMUd2xsCtWlAQO5 ZZTmIoscNU0BVOMhM3pdnoAjMOUuCQGQAJtfUXDADZ euIJQDDKRzFEBgMiBeXOesXE0Qy2YyaON9TKy+Vh2DAS9vz6NmZUqwPBFiGN1obn4VFPgPIgDyG5Yifu C6BOApQMPvWe2ZYWMqMHMagVOhYcOdFCSWSyCxR9MasU82PEDQYd7+LRdjbnHnLxrOAhKhZUPdy1TlUA z8AR9TRGEjBWn8zHHqTIUZYLO0DTXoTL2uNENEqILi BYVqEXAHGFE1EFLdTB1tDJAxPMGnOqBdJQGVYX8UECAjHRYmhCRnTVPtTHEASB2TLHpmBYE2HWOfozGp dTAyCRlgBB3EDXNrgnUaFtCtBERZXAb+Kw2HMX9ix1WrWHsbEnMpUY9owg6TOJlIUfOjS2M9dQHbB2J9 HVloMx9ACNZzFSVjAlswYXDKFCiaBK5YTB0jvzI0BO 8FqNPzKVMkKZHmgEGnKRo0X62bsXRfRAdxDR7KPHL+García+Vf4GBTPdCRQeRTZgXiTnNCQVFzFoA1ZrI6 AKg0UgP9AtTM10hXetkpLaBRunFC9XTK1zRTCtJMDMNH2UbHPfuF3rteEcIWBlYIYYBqWsQ53elLBrQE TeUGQfZVLxSo5YGPOuF9ArigHgeErvqkZnZJKhEEEJ FD9OUCdnixHopVBrwNgsES81jLjbVP6BLq7DEsGxID3ika3DbIPqMf1BUGEtLP3RKQXbXEWtDMGnRHZ3 EYRtCkQuPAsnZBGrGAMgRUK8LCEnQRGeXY9MHfLpDENnHhh8LmYoPSGaMOTwzf5ELPQyEKXmYIT3EWFf OMEpTVXuXDitLFEaWBAkEBA2YDDkPEKcOG9MLtJuJG OqFNKuWPqnCGCqBQHrcs0MDWGlEIHqEqE5KxWlOUQfUIAdPPgqHHXuEAB7ZEF7BFPaOIKiQZ3UDhJaEU EwSQBvKdsxUWPaJAQxvf3MVHYlEUXnXXYjCSRyDIDmYSEzPDyxUSEmLIP0QBK0JTYuHAGqRV1YDoKcSD DvJTP2PLHmOTFbFBTtmh4DZCJmQUHhLOq6EdOdRUGr SCFcSZawTJZdYZGjLHA5QSRlIYGfAF7ZIlTbPRVfSTNyVIXuDLPqOIFrzi7MIHRjANHmUrH1UpFtIELx YLToVWxmLZKrPLRxTkN7XCYgXZShKX9PTtDpNTXsFCT4SHmmRWSkNMTyqe3FTPAaIRFwUcW3DIKwCDIt JJYrIJjmJUEhCAX3TdJ0EIClCRDeLH8QLiIaFRBcQO N7ZIAqWEOcFPHexa5XWBOqVRIlRXd4KQBkOMRkYPXgWAxlCWKdNCY1WdytNYVdKVFrSA7BNvIoLJNoXx Z1OSfoDIUqCLPgqg4ROVYrYZIkGka6WqEzWJQcHTHnUTewLXDiYVM9MAD2XFGnIZZuDH7NVuGuWXZqNr peAJGhAYSuWOLsiq6SRCZkTNVdWQNjRGNcKYSfXXLl KQfzIRShRFS8HMC4RVMbIKEnXE4NEqZaAQBkSbl6PYEzPWCnVAObhz2UQLBzWJZzZEPjQDQkLQGiHBPt CJgaOTTxPYMcXPbmVYEqYEZbNI0DRdUeEOZfZvL9SlYzPGAgMKOfse4JMLWsEIFlZNB1ZCNpHHVtCFOg OUc9dwEizPAjZEu1HB0IX0BvbqNlKkDMVw8Io884EE QkYVDzGn6QP1zkUr1zRFAbNQDREm7YLYt5Z4S1ZUjzEYdqTdF1AjKaQpecZKUlCsO6LoD3ZEWfYKf+ID uyPFj1ZzLsQvCgBTb2QzUqQAT8VpKwZgicZBYlJQZtIX3zRCSITt6+DQpzdGFydHhyZWYNCjMwOTQyDQ siNMOQNi2S ID Date Data Source [id number] 07/04/2020 04:54:53 PM EDT [facility] Name Value Range Interpretation Code Description Data Anna rce(s) Supporting Document(s) History and Physical [facility] MWHOHc3fHuBYRzHm18/XQJxtKGBdi6CcDMsqQSq4XAnjSOZmE6SyNDH7cK6uJGF4RFgYYhQoRnVgEKP6 lbm [file] [facility]Lbo+59fz6bp9cTnalPvDCQM/gXd [file] ICAgICAgICAgICAgICAgICAgICAgICAgICAgICAgICAgICAgICAgICAgICAgICAgICAgICAgICAgICAg ICAgICAgICANCiAgICAgICAgICAgICAgICAgICAgIC AgICAgICAgICAgICAgICAgICAgICAgICAgICAgICAgICAgICAgICAgICAgICAgICAgICAgICAgICAgIC AgICAgICAgICAgICAgICAgICANCiAgICAgICAgICAgICAgICAgICAgICAgICAgICAgICAgICAgICAgIC AgICAgICAgICAgICAgICAgICAgICAgICAgICAgICAg ICAgICAgICAgICAgICAgICAgICAgICAgICAgICANCiAgICAgICAgICAgICAgICAgICAgICAgICAgICAg ICAgICAgICAgICAgICAgICAgICAgICAgICAgICAgICAgICAgICAgICAgICAgICAgICAgICAgICAgICAg ICAgICAgICAgICANCiAgICAgICAgICAgICAgICAgIC AgICAgICAgICAgICAgICAgICAgICAgICAgICAgICAgICAgICAgICAgICAgICAgICAgICAgICAgICAgIC AgICAgICAgICAgICAgICAgICAgICANCiAgICAgICAgICAgICAgICAgICAgICAgICAgICAgICAgICAgIC AgICAgICAgICAgICAgICAgICAgICAgICAgICAgICAg ICAgICAgICAgICAgICAgICAgICAgICAgICAgICAgICANCiAgICAgICAgICAgICAgICAgICAgICAgICAg ICAgICAgICAgICAgICAgICAgICAgICAgICAgICAgICAgICAgICAgICAgICAgICAgICAgICAgICAgICAg ICAgICAgICAgICAgICANCiAgICAgICAgICAgICAgIC AgICAgICAgICAgICAgICAgICAgICAgICAgICAgICAgICAgICAgICAgICAgICAgICAgICAgICAgICAgIC AgICAgICAgICAgICAgICAgICAgICAgICANCiAgICAgICAgICAgICAgICAgICAgICAgICAgICAgICAgIC AgICAgICAgICAgICAgICAgICAgICAgICAgICAgICAg ICAgICAgICAgICAgICAgICAgICAgICAgICAgICAgICAgICANCiAgICAgICAgICAgICAgICAgICAgICAg ICAgICAgICAgICAgICAgICAgICAgICAgICAgICAgICAgICAgICAgICAgICAgICAgICAgICAgICAgICAg ICAgICAgICAgICAgICAgICANCjw/eOUvP9sfjAXpyw N3E4knCq6SQj3DAS6ft6WsNNEkRZlhvnSnRxlGQpXeBPLaCuzYXiv7TDkeVX1VdOFuV9GmD8LfUHauFG 8THMBzNUDwmCKsBFOyUMOxQpC3GTBmHZrcNS1RwLLxKFodZQIsIPPbPvMjOAVsSXFfYYUwIIBbRLIEJV MjKDEcEwIyZSXvYPRoPXrpFSPOGB4NBuUrG9FosJ33 IDcNCj4+TXtsuvTeMxiBGhR9UDQik5WzDMx8PN6LSWWyJnrfg2ZdQQIwHJZWKHswCU4WMDX0RNU5RPFx Xt0UFFCvS366viZfIN1CZd9VYdVsAD2deg5LURIvCRPhUzmWZpy2AQjvMR3MuKRaXOlHJoOgWcxsUJid YUPSPKqvt78hKFqrcSIrzxbpHYGIOGP2NPFvWI1aQF MeLVG5KnLzJMQYMS7MUVJeLOXorHRjLFLlEUOIWH5ACErcCNO6SKIhukXasLZiKAbnPD2VJKZbmgKyPS UgMCBSDQo+Co2DSP3ra7TzRIr8LrEoUR1syl4GTNaJUmTrV0O8rEPcO1R6XHfsXo4PBZIsJVZsNNQoSZ LXGElbOE1ZTC4abqT2XD2FoXSxJCQrNOGbuOWcZHr7 N91pmICoCVohUY2KVRB+García+Ae6CSPBqHIMpAHTrGhZnQECFRdLeW3ShN0QCw8JlG3CgUU00yMjcnfMh EDpoVH0AYH9eSZDpSQBOAW9MbQAwtQ1xfuL9MKAiQWVWEqWwA42iiLQgUKMpEGE1SSEnLd6KTYUpO6Hj cwCbnSxeomOxMEOwHBGGTU6HWEycipZmjMIjaVmnHJ 95bInfQN7UJg7VBzHdGE1mrm3IeWMoQa8KBQV1MK0GLRVmWOVuXLVkQGP2DOOkSkAaVPkxCDDmYBRtQX Q6TXIpAQUpQX7EYaUnOOFdPdC0FXPgGSXmIPCfhq1CXNMhMRU5DsJ1EUVmFEHfDWDdMTvvXMJfPBIuVN J3RCYuDTSxZT7GYrJqUKFmRGFnRtHcKKWhZXSrsg1B UDDeBXQcQLN5FQTkSUNuRFMfFWnsNJDtWFF2InT8ZKAiVPJhAM7KTfEpVOQbPZz0VZPoQCRzZJJmpq9F QUTnLBVcNRQ1LvZjWANgUVWsVNmgJKWyTYTuLAkqYRLeKKJiIV3ZIsZmPYGoMZL6KCVeGBAlFPRzra9B PUAsONWkRCF2FHQcYHHrGTGdACzyKPHgQKL2HtOcAG MdQSHmRQ0AKlHhMHLvMMf6YYfiGEJmRZWupa8VPUHnJKRpWxA9DTDlGRLyGVNsBZdzDOLwDBYyFcs0IZ OfECSoEA1RCzZaFALxIeTvXbrwCGFxBVZmul5ECNQbRZNaTqZ9PFGmCBIcIUSbYAvrIDXkAAO3QcS4EA LeQBOnEY2MKfInJDHaKlp0RwAiPBHhSPQhyq1NFGSj KSYzZaSxZXWnIHYkALDyFBpkYLJpOOI8RLx7EVCcUKIjLJ4JTzPbFCJoTzj7TwDpQGMdFOSwtq8OGPOs OBIyTOp5CLHdKXNwZCLlFZxnEJTaLJL4QKGaGOUkLMRuQC0VTfEzIYIrVtLlQqZbWADeCEEngn3RAYIf MDAzMDMxMyAwMDAwMCBuDQowMDAwMDMxMjczIDAwMD QbBO7ZZrEfTOVbVzB5HgfwXJJrBBNrbk8FJITpFYBgVQJ0ClUwOHUyHKQwZRbqRULnMSSzAgxjTDAlCV RaAT4SQzXdDTBrAnVbFsDvSJKdDREqmj8LYSOgOLC1WcF6JrXlDJAaNOPsNBijOTKjIXTyKsDmLJLeNB KxPT9NGdIzRQFcTbIfSJuoLBQaWPBmev9KFQZuLOI0 YXG0NHZuGQHiGMLpAWdnPFBjCFA6VLYvXLDyUAEjEZ1QPnEcGDEeKxA1NQQiEIKnVGZnph2EIENeHSE4 WXL2JvOaRKGpCKLiAFicEWLsJOZ5YAusTLPePCCaHM0PNxGtGJLmIbTwXXRwIQOlPJOpia0JBNLcVFI2 KWO0EoNmHEDdQIVqSNryQNQxYWuhBKscMAXnOXInBA 8JSmYrNNZqVfA0CZLdXRWbPLHhbe6QAWLtNGY5SzOjVjPwMSRvKAPoCVvgILQnYIsiQON6CLDjPVNaDV 0GWiGfOZIdBoE0HOsfTIVcUOPije8MwQCfhAqmdq9BCOkEZd0XdDfoAQT4DWnqMf2ssJJ7GwNzIBBXVo 1WizWoXDBaLMGLFAjuNNUeMPWiR1EgRLMoQTpdQjvu EWE7TyKsODPuWWFjGOZxGmB6KrE2XRU5VvC5MoKiWGLcYXNkFCmvN2FvAHQvKlR0WrLoGPD+ZN1pQQf+ Bt3Yn4QskmF2wiPnEYj9Kjm6UK8XPCKCB2RXBt== ID Date Data Source [id number] 07/04/2020 01:18:00 AM EDT [facility] Name Value Range Interpretation Code Description Data Anna rce(s) Supporting Document(s) SARS-CoV-2 (COVID 19) NEGATIVE - SARS-CoV-2 (COVID19) [facility] This lab was ordered by [facility] a nd reported by [facility]. ID Date Data Source [id number] 04/24/2020 09:01:00 PM EST [facility] Name Value Range Interpretation Code Description Data Anna rce(s) Supporting Document(s) SARS coronavirus 2 RNA [Presence] in Res piratory specimen by CODEY with probe detection NEGATIVE [facility] This lab was ordered by [facility] a nd reported by [facility]. ID Date Data Source [id number] 04/15/2020 12:00:00 PM EST [facility] ([facility]) Name Value Range Interpretation Code Description Data Anna rce(s) Supporting Document(s) CT/NG Laboratory test result [facility] ([facility]) CHLAMYDIA TRACHOMATIS: Negative NEISSERIA GONORRHOEAE: Negative Testing performed by the FDA-approved [employer] APTIMA COMBO 2 Assay. The APTIMA COMBO [...] Reflex HPV ASCUS Laboratory test result [facility] ([facility]) ID Date Data Source [id number] 04/15/2020 12:00:00 PM EST [facility] ([facility]) Name Value Range Interpretation Code Description Data Anna rce(s) Supporting Document(s) Cytology report of Cervical or vaginal smear or scrapi ng Cyto stain.thin prep Laboratory test result [facility] ([facility]) SPECIMEN PART------ A. Cervical, Endocervical, ThinPrep Pap (Low Voltage Technician) CYTOLOGY HX-------- Date of Last Menstrual Period: 04/01/2019 Other Information:Previous Normal Pap: 01/12/2019 FINAL DIAGNOSIS---- INTERPRETATION: Negative for Intraepithelial Lesion or Malignancy. SPECIMEN ADEQUACY:Satisfactory for evaluation. Endocervical/transformation zone component present. ID Date Data Source [id number] 02/08/2020 10:31:00 AM EST [facility]) Name Value Range Interpretation Code Description Data Anna rce(s) Supporting Document(s) HCG negative Hcg [place] ([facility]) ID Date Data Source [id number] 02/08/2020 10:31:00 AM EST [facility]) Name Value Range Interpretation Code Description Data Anna rce(s) Supporting Document(s) HCG negative Hcg [place] ([facility]) ID Date Data Source [id number] 02/08/2020 10[facility]31:00 [facility] Name Value Range Interpretation Code Description Data Anna rce(s) Supporting Document(s) HCG negative Hcg [place] ([facility]) ID Date Data Source [id number] 02/08/2020 10:31:00 AM EST [place] ([facility]) Name Value Range Interpretation Code Description Data Anna rce(s) Supporting Document(s) HCG negative Hcg [place] ([facility]) ID Date Data Source [id number] 02/08/2020 10:31:00 AM EST [place] ([facility]) Name Value Range Interpretation Code Description Data Anna rce(s) Supporting Document(s) HCG negative Hcg [place] ([facility]) ID Date Data Source [id number] 02/08/2020 10:31:00 AM EST [place] ([facility]) Name Value Range Interpretation Code Description Data Anna rce(s) Supporting Document(s) HCG negative Hcg [place] ([facility]) ID Date Data Source [id number] 02/08/2020 10:31:00 AM EST [place] ([facility]) Name Value Range Interpretation Code Description Data Anna rce(s) Supporting Document(s) HCG negative Hcg [facility]) ID Date Data Source [id number] 02/07/2020 02:28:00 PM EST [place] ([facility]) Name Value Range Interpretation Code Description Data Anna rce(s) Supporting Document(s) HCG, serum quantitative < 1.0 HCG, Serum Q uantitative [facility]) ID Date Data Source [id number] 02/07/2020 02:28:00 PM EST [place] ([facility]) Name Value Range Interpretation Code Description Data Anna rce(s) Supporting Document(s) HCG, serum quantitative < 1.0 HCG, Serum Q uantitative [facility]) ID Date Data Source [id number] 02/07/2020 02:28:00 PM EST [place] ([facility]) Name Value Range Interpretation Code Description Data Anna rce(s) Supporting Document(s) HCG, serum quantitative < 1.0 HCG, Serum Q uantitative [facility]) ID Date Data Source [id number] 02/07/2020 02:28:00 PM EST [place] ([facility]) Name Value Range Interpretation Code Description Data Anna rce(s) Supporting Document(s) HCG, serum quantitative < 1.0 HCG, Serum Q uantitative [place] ([facility]) ID Date Data Source [id number] 02/07/2020 02:28:00 PM EST [place] ([facility]) Name Value Range Interpretation Code Description Data Anna rce(s) Supporting Document(s) HCG, serum quantitative < 1.0 HCG, Serum Q uantitative [place] ([facility]) ID Date Data Source [id number] 02/07/2020 02:28:00 PM EST [place] ([facility]) Name Value Range Interpretation Code Description Data Anna rce(s) Supporting Document(s) HCG, serum quantitative < 1.0 HCG, Serum Q uantitative [place] ([facility]) ID Date Data Source [id number] 02/07/2020 02:28:00 PM EST [place] ([facility]) Name Value Range Interpretation Code Description Data Anna rce(s) Supporting Document(s) HCG, serum quantitative < 1.0 HCG, Serum Q uantitative [place] ([facility]) ID Date Data Source [id number] 02/02/2020 12:00:00 AM EST [facility] Name Value Range Interpretation Code Description Data Anna rce(s) Supporting Document(s) SARS-CoV2 Rapid Antigen [facility] This lab was ordered by [facility] and reported by [facility]. Procedure Social History Code Duration Value Status Description Data Source(s ) Alcohol intake 07/04/2020 12:00:00 AM EDT Lifetime non-drinker (finding) completed Lifetime non-drinker (finding) [facility] Tobacco use and exposure 07/04/2020 12:00:00 AM EDT Never used co mpleted Never used [facility] Smoking 07/04/2020 12:00:00 AM EDT Never smoker completed Never s [facility] Smoking 04/15/2020 12:00:00 AM EST Patient has never smoked co mpleted Patient has never smoked [facility] ([facility]) Smoking 04/02/2020 12:00:00 AM EST Never Smoker completed Never S moker [facility] ([facility]) Smoking 03/16/2020 12:00:00 AM EST Never Smoker completed Never S moker [facility] ([facility]) Smoking 03/08/2020 12:00:00 AM EST Never Smoker completed Never S moker [facility]CW1 ([facility]) Smoking 01/10/2020 12:00:00 AM EDT Unknown if ever smoked comp leted Unknown if ever smoked [facility] ([facility]) Smoking 01/09/2020 12:00:00 AM EDT Unknown if ever smoked comp leted Unknown if ever smoked [facility] ([facility]) Smoking 01/04/2020 12:00:00 AM EDT Unknown if ever smoked comp leted Unknown if ever smoked [facility] ([facility]) Smoking 12/27/2019 12:00:00 AM EDT Unknown if ever smoked comp leted Unknown if ever smoked [facility] ([facility]) Smoking 12/22/2019 12:00:00 AM EDT Unknown if ever smoked comp leted Unknown if ever smoked [facility] ([facility]) Vital Signs ID Date Data Source UNK Name Value Range Interpretation Code Description Data Source(s) Diastolic blood pressure 60 mm[Hg] 60 mm[Hg] [place] ([facility]) Body height 64 [in_i] 64 [in_i] [place] ([facility]) Body mass index (BMI) [Ratio] 28.9 kg/m2 28.9 k g/m2 [place] ([facility]) Systolic blood pressure 92 mm[Hg] 92 mm[Hg] Hill [place]Hill ([facility]) Body weight 2694.4 [oz_av] 2694.4 [oz_av] ATHZARIA A ([facility]) Diastolic blood pressure 68 mm[Hg] 68 mm[Hg] [place] ([facility]) Body height 64 [in_i] 64 [in_i] [place] ([facility]) Body mass index (BMI) [Ratio] 27.5 kg/m2 27.5 k g/m2 [place] ([facility]) Systolic blood pressure 102 mm[Hg] 102 mm[Hg] A OLIVERA ([facility]) Body weight 2562 [oz_av] 2562 [oz_av] [place] ([facility]) Diastolic blood pressure 68 mm[Hg] 68 mm[Hg] [place] ([facility]) Body height 64 [in_i] 64 [in_i] [place] ([facility]) Body mass index (BMI) [Ratio] 27.5 kg/m2 27.5 k g/m2 [place] ([facility]) Systolic blood pressure 102 mm[Hg] 102 mm[Hg] A OLIVERA ([facility]) Body weight 2562 [oz_av] 2562 [oz_av] [place] ([facility]) Diastolic blood pressure 68 mm[Hg] 68 mm[Hg] [place] ([facility]) Body height 64 [in_i] 64 [in_i] [place] ([facility]) Body mass index (BMI) [Ratio] 27.5 kg/m2 27.5 k g/m2 [place] ([facility]) Systolic blood pressure 102 mm[Hg] 102 mm[Hg] A THENA ([facility]) Body weight 2562 [oz_av] 2562 [oz_av] [place] ([facility]) Body height 64 [in_i] 64 [in_i] [place] ([facility]) Body height 64 [in_i] 64 [in_i] [place] ([facility]) Body height 64 [in_i] 64 [in_i] [place] ([facility]) Body height 64 [in_i] 64 [in_i] [place] ([facility]) Body surface area Derived from formula 1.62 m2 1.62 m2 MEDENT ([facility]) Systolic blood pressure 100 mm[Hg] 100 mm[Hg] M EDENT ([facility]) Body height 61.75 [in_i] 61.75 [in_i] MEDENT ([facility]) 5'1.75" Body weight 136.00 [lb_av] 136.00 [lb_av] MEDEN T ([facility]) Body mass index (BMI) [Ratio] 25.1 kg/m2 25.1 k g/m2 [facility] ([facility]) Diastolic blood pressure 62 mm[Hg] 62 mm[Hg] MEDENT ([facility]) Diastolic blood pressure 100 mm[Hg] 100 mm[Hg] [place] ([facility]) Diastolic blood pressure 87 mm[Hg] 87 mm[Hg] [place] ([facility]) Body height 64 [in_i] 64 [in_i] [place] ([facility]) Body mass index (BMI) [Ratio] 23.1 kg/m2 23.1 k g/m2 [place] ([facility]) Systolic blood pressure 134 mm[Hg] 134 mm[Hg] [facility] Systolic blood pressure 144 mm[Hg] 144 mm[Hg] [facility] Body weight 2156.8 [oz_av] 2156.8 [oz_av] ATHEN A ([facility]) Diastolic blood pressure 100 mm[Hg] 100 mm[Hg] [place] ([facility]) Diastolic blood pressure 87 mm[Hg] 87 mm[Hg] [place] ([facility]) Body height 64 [in_i] 64 [in_i] [place] ([facility]) Body mass index (BMI) [Ratio] 23.1 kg/m2 23.1 k g/m2 [place] ([facility]) Systolic blood pressure 134 mm[Hg] 134 mm[Hg] A THENA ([facility]) Systolic blood pressure 144 mm[Hg] 144 mm[Hg] [facility] Body weight 2156.8 [oz_av] 2156.8 [oz_av] ATHEN A ([facility]) Diastolic blood pressure 100 mm[Hg] 100 mm[Hg] [place] ([facility]) Diastolic blood pressure 87 mm[Hg] 87 mm[Hg] [place] ([facility]) Body height 64 [in_i] 64 [in_i] [place] ([facility]) Body mass index (BMI) [Ratio] 23.1 kg/m2 23.1 k g/m2 [place] ([facility]) Systolic blood pressure 134 mm[Hg] 134 mm[Hg] A THENA ([facility]) Systolic blood pressure 144 mm[Hg] 144 mm[Hg] A THENA ([facility]) Body weight 2156.8 [oz_av] 2156.8 [oz_av] ATHEN A ([facility]) Diastolic blood pressure 100 mm[Hg] 100 mm[Hg] [place] ([facility]) Diastolic blood pressure 100 mm[Hg] 100 mm[Hg] [place] ([facility]) Diastolic blood pressure 87 mm[Hg] 87 mm[Hg] [place] ([facility]) Body height 64 [in_i] 64 [in_i] [place] ([facility]) Body mass index (BMI) [Ratio] 23.1 kg/m2 23.1 k g/m2 [place] ([facility]) Systolic blood pressure 134 mm[Hg] 134 mm[Hg] A THENA ([facility]) Systolic blood pressure 144 mm[Hg] 144 mm[Hg] A THENA ([facility]) Body weight 2156.8 [oz_av] 2156.8 [oz_av] ATHEN A ([facility]) Diastolic blood pressure 87 mm[Hg] 87 mm[Hg] [place] ([facility]) Body height 64 [in_i] 64 [in_i] [place] ([facility]) Body mass index (BMI) [Ratio] 23.1 kg/m2 23.1 k g/m2 [place] ([facility]) Systolic blood pressure 134 mm[Hg] 134 mm[Hg] A THENA ([facility]) Systolic blood pressure 144 mm[Hg] 144 mm[Hg] A THENA ([facility]) Body weight 2156.8 [oz_av] 2156.8 [oz_av] ATHEN A ([facility]) Body weight 136.0 [lb_av] 136.0 [lb_av] eCW1 ([facility]) Body height 62.5 [in_i] 62.5 [in_i] eCW1 ([facility]placed by [facility]) Body mass index (BMI) [Ratio] 24.48 kg/m2 24.48 kg/m2 eCW1 ([facility]) Heart rate 102 /min 102 /min eCW1 ([facility]) Respiratory rate 18 /min 18 /min eCW1 ([facility]) Body temperature 98.6 [degF] 98.6 [degF] eCW1 ( [facility]) Systolic blood pressure 136 mm[Hg] 136 mm[Hg] e CW1 ([facility]) Diastolic blood pressure 82 mm[Hg] 82 mm[Hg] eCW1 ([facility]) Diastolic blood pressure 92 mm[Hg] 92 mm[Hg] [place] ([facility]) Body height 64 [in_i] 64 [in_i] [place] ([facility]) Body mass index (BMI) [Ratio] 23.2 kg/m2 23.2 k g/m2 [place] ([facility]) Systolic blood pressure 131 mm[Hg] 131 mm[Hg] A [facility] ([facility]) Body weight 2160 [oz_av] 2160 [oz_av] [place] ([facility]) Diastolic blood pressure 92 mm[Hg] 92 mm[Hg] [place] ([facility]) Body height 64 [in_i] 64 [in_i] [place] ([facility]) Body mass index (BMI) [Ratio] 23.2 kg/m2 23.2 k g/m2 [place] ([facility]) Systolic blood pressure 131 mm[Hg] 131 mm[Hg] A [facility] ([facility]) Body weight 2160 [oz_av] 2160 [oz_av] [place] ([facility]) Diastolic blood pressure 92 mm[Hg] 92 mm[Hg] [place] ([facility]) Body height 64 [in_i] 64 [in_i] [place] ([facility]) Body mass index (BMI) [Ratio] 23.2 kg/m2 23.2 k g/m2 [facility] ([facility]) Systolic blood pressure 131 mm[Hg] 131 mm[Hg] [facility]) Body weight 2160 [oz_av] 2160 [oz_av] [place] ([facility]) Body weight 2160 [oz_av] 2160 [oz_av] [place] ([facility]) Diastolic blood pressure 92 mm[Hg] 92 mm[Hg] [place] ([facility]) Body height 64 [in_i] 64 [in_i] [place] ([facility]) Body mass index (BMI) [Ratio] 23.2 kg/m2 23.2 k g/m2 [facility] ([facility]) Systolic blood pressure 131 mm[Hg] 131 mm[Hg] [facility]) Diastolic blood pressure 92 mm[Hg] 92 mm[Hg] [place] ([facility]) Body height 64 [in_i] 64 [in_i] [place] ([facility]) Body mass index (BMI) [Ratio] 23.2 kg/m2 23.2 k g/m2 [place] ([facility]) Systolic blood pressure 131 mm[Hg] 131 mm[Hg] [facility]) Body weight 2160 [oz_av] 2160 [oz_av] [place] ([facility]) Diastolic blood pressure 92 mm[Hg] 92 mm[Hg] [place] ([facility]) Body height 64 [in_i] 64 [in_i] [place] ([facility]) Body mass index (BMI) [Ratio] 23.2 kg/m2 23.2 k g/m2 [place] ([facility]) Systolic blood pressure 131 mm[Hg] 131 mm[Hg] A THENA ([facility]) Body weight 2160 [oz_av] 2160 [oz_av] [place] ([facility]) Body height 64 [in_i] 64 [in_i] [place] ([facility]) Diastolic blood pressure 90 mm[Hg] 90 mm[Hg] [place] ([facility]) Body mass index (BMI) [Ratio] 23.1 kg/m2 23.1 k g/m2 [place] ([facility]) Systolic blood pressure 136 mm[Hg] 136 mm[Hg] A THENA ([facility]) Body weight 2153.6 [oz_av] 2153.6 [oz_av] ATHEN A ([facility]) Body weight 2153.6 [oz_av] 2153.6 [oz_av] ATHEN A ([facility]) Diastolic blood pressure 90 mm[Hg] 90 mm[Hg] [place] ([facility]) Body height 64 [in_i] 64 [in_i] [place] ([facility]) Body mass index (BMI) [Ratio] 23.1 kg/m2 23.1 k g/m2 [place] ([facility]) Systolic blood pressure 136 mm[Hg] 136 mm[Hg] A [facility] ([facility]) Body weight 2153.6 [oz_av] 2153.6 [oz_av] ATHEN A ([facility]) Systolic blood pressure 136 mm[Hg] 136 mm[Hg] A [facility] ([facility]) Body mass index (BMI) [Ratio] 23.1 kg/m2 23.1 k g/m2 [place] ([facility]) Body height 64 [in_i] 64 [in_i] [place] ([facility]) Diastolic blood pressure 90 mm[Hg] 90 mm[Hg] [place] ([facility]) Diastolic blood pressure 90 mm[Hg] 90 mm[Hg] [place] ([facility]) Body height 64 [in_i] 64 [in_i] [place] ([facility]) Body mass index (BMI) [Ratio] 23.1 kg/m2 23.1 k g/m2 [place] ([facility]) Systolic blood pressure 136 mm[Hg] 136 mm[Hg] [facility]) Body weight 2153.6 [oz_av] 2153.6 [oz_av] ATHEN A ([facility]) Systolic blood pressure 136 mm[Hg] 136 mm[Hg] [facility]) Diastolic blood pressure 90 mm[Hg] 90 mm[Hg] [place] ([facility]) Body height 64 [in_i] 64 [in_i] [place] ([facility]) Body mass index (BMI) [Ratio] 23.1 kg/m2 23.1 k g/m2 [place] ([facility]) Body weight 2153.6 [oz_av] 2153.6 [oz_av] ATHZARIA A ([facility]) Body weight 2153.6 [oz_av] 2153.6 [oz_av] ATHEN A ([facility]) Systolic blood pressure 136 mm[Hg] 136 mm[Hg] A OLIVERA ([facility]) Diastolic blood pressure 90 mm[Hg] 90 mm[Hg] [place] ([facility]) Body height 64 [in_i] 64 [in_i] [place] ([facility]) Body mass index (BMI) [Ratio] 23.1 kg/m2 23.1 k g/m2 [place] ([facility]) Diastolic blood pressure 90 mm[Hg] 90 mm[Hg] [place] ([facility]) Body height 64 [in_i] 64 [in_i] [place] ([facility]) Body mass index (BMI) [Ratio] 23.1 kg/m2 23.1 k g/m2 [place] ([facility]) Systolic blood pressure 136 mm[Hg] 136 mm[Hg] A THENA ([facility]) Body weight 2153.6 [oz_av] 2153.6 [oz_av] ATHZARIA A ([facility]) Diastolic blood pressure 0 mm[Hg] Normal (applies to non-numeric results) 0 mm[Hg] [facility] ([facility]) Systolic blood pressure 0 mm[Hg] Normal (applies t o non-numeric results) 0 mm[Hg] [facility] ([facility]) Body mass index (BMI) [Ratio] 0.00 kg/m2 No rmal (applies to non-numeric results) 0.00 kg/m2 [facility] ([facility]) Body weight Measured 0.00 lbs Normal (applies to n on-numeric results) 0.00 [facility] Body height 0.00 in Normal (applies to non-numeric resu lts) 0.00 in [facility] ([facility]) ID Date Data Source [id number] 07/11/2020 08:03:19 AM [facility] Name Value Range Interpretation Code Description Data Source(s) WEIGHT RECORDED 139.4 lb 139.4 lb [facility] Body height Me[facility] 62 [facility] Patient Treatment Plan of Care Planned Activity Planned Date Details Description Data Source (s) olanzapine 10 MG Oral Tablet 07/10/2020 12:00:00 AM [facility] Hydroxyzine Hydrochloride 50 MG Oral Tablet 07/09/2020 12:00:00 AM [facility] Trazodone Hydrochloride 50 MG Oral Tablet 07/09/2020 12:00:00 AM [facility] olanzapine 10 MG Oral Tablet 07/09/2020 12:00:00 AM [facility] buspirone hydrochloride 5 MG Oral Tablet 07/09/2020 12:00:00 AM [facility] acetaminophen (TYLENOL) tablet 650 mg 07/04/2020 07:28:26 AM [facility] Magnesium Hydroxide 80 MG/ML Oral Suspension 07/04/2020 07:27:35 AM [facility] Aluminum Hydroxide 40 MG/ML / Magnesium Hydroxide 40 MG/ML / Simethicone 4 MG/ML Oral Suspension 07/04/2020 07:27:35 AM [facility] Ondansetron 4 MG Disintegrating Oral Tablet 07/04/2020 07:27:35 AM [facility] quetiapine 50 MG Oral Tablet [place] ([facility]) Naltrexone hydrochloride 50 MG Oral Tablet [facility] ([facility]) Escitalopram 10 MG Oral Tablet [Lexapro] [place] ([facility]) Hydroxyzine Hydrochloride 25 MG Oral Tablet [place] ([facility]) 21 DAY Ethinyl Estradiol 0.729257 MG/HR / Etonogestrel 0.005 MG/HR Vaginal Ring [place] ([facility]) Clonazepam 0.5 MG Oral Tablet [place] ([facility]) atomoxetine 25 MG Oral Capsule [place] ([facility]) atomoxetine 18 MG Oral Capsule [place] ([facility]) quetiapine 50 MG Oral Tablet [place] ([facility]) Naltrexone hydrochloride 50 MG Oral Tablet [place] ([facility]) Escitalopram 10 MG Oral Tablet [Lexapro] [place] ([facility]) Hydroxyzine Hydrochloride 25 MG Oral Tablet [place] ([facility]) 21 DAY Ethinyl Estradiol 0.851361 MG/HR / Etonogestrel 0.005 MG/HR Vaginal Ring [place] ([facility]) Clonazepam 0.5 MG Oral Tablet [place] ([facility]) atomoxetine 25 MG Oral Capsule [place] ([facility]) atomoxetine 18 MG Oral Capsule [place] ([facility]) quetiapine 50 MG Oral Tablet [place] ([facility]) Naltrexone hydrochloride 50 MG Oral Tablet [place] ([facility]) Escitalopram 10 MG Oral Tablet [Lexapro] [place] ([facility]) Isibloom 0.15 mg-0.03 mg tablet TAKE ONE TABLET BY MOUTH EVERY DAY [place] ([facility]) Hydroxyzine Hydrochloride 25 MG Oral Tablet [facility] ([facility]) 21 DAY Ethinyl Estradiol 0.872547 MG/HR / Etonogestrel 0.005 MG/HR Vaginal Ring [place] ([facility]) Clonazepam 0.5 MG Oral Tablet [place] ([facility]) atomoxetine 25 MG Oral Capsule [facility] ([facility]) atomoxetine 18 MG Oral Capsule [place] ([facility]) olanzapine 10 MG Oral Tablet [facility] Trazodone Hydrochloride 50 MG Oral Tablet [facility] buspirone hydrochloride 5 MG Oral Tablet [facility] quetiapine 50 MG Oral Tablet [facility] ([facility]) Naltrexone hydrochloride 50 MG Oral Tablet [facility] ([facility]) Escitalopram 10 MG Oral Tablet [Lexapro] [place] ([facility]) Hydroxyzine Hydrochloride 25 MG Oral Tablet [facility] ([facility]) 21 DAY Ethinyl Estradiol 0.425051 MG/HR / Etonogestrel 0.005 MG/HR Vaginal Ring [place] ([facility]) atomoxetine 25 MG Oral Capsule [place] ([facility]) atomoxetine 18 MG Oral Capsule [place] ([facility]) quetiapine 50 MG Oral Tablet [place] ([facility]) olanzapine 10 MG Oral Tablet [facility] ([facility]) Naltrexone hydrochloride 50 MG Oral Tablet [facility] ([facility]) Escitalopram 10 MG Oral Tablet [Lexapro] [place] ([facility]) Hydroxyzine Hydrochloride 25 MG Oral Tablet [facility] ([facility]) 21 DAY Ethinyl Estradiol 0.503493 MG/HR / Etonogestrel 0.005 MG/HR Vaginal Ring [place] ([facility]) atomoxetine 25 MG Oral Capsule [place] ([facility]) atomoxetine 18 MG Oral Capsule [place] ([facility]) quetiapine 50 MG Oral Tablet [place] ([facility]) olanzapine 10 MG Oral Tablet [facility] ([facility]) Naltrexone hydrochloride 50 MG Oral Tablet [facility] ([facility]) Escitalopram 10 MG Oral Tablet [Lexapro] [place] ([facility]) Hydroxyzine Hydrochloride 25 MG Oral Tablet [facility] ([facility]) 21 DAY Ethinyl Estradiol 0.064311 MG/HR / Etonogestrel 0.005 MG/HR Vaginal Ring [place] ([facility]) atomoxetine 25 MG Oral Capsule [place] ([facility]) atomoxetine 18 MG Oral Capsule [facility] ([facility]) atomoxetine 18 MG Oral Capsule [facility] ([facility]) 21 DAY Ethinyl Estradiol 0.748665 MG/HR / Etonogestrel 0.005 MG/HR Vaginal Ring [place] ([facility]) Hydroxyzine Hydrochloride 25 MG Oral Tablet [facility] ([facility]) Naltrexone hydrochloride 50 MG Oral Tablet [facility] ([facility]) olanzapine 10 MG Oral Tablet [facility] ([facility]) quetiapine 50 MG Oral Tablet [facility] ([facility])
== END 2021-02-13 22:52 | disposition home or self-care (01) ==
LOC: M ED 16:30
DX: R10.9 Unspecified abdominal pain (principal); F12.10 Cannabis abuse, uncomplicated; F19.10 Other psychoactive substance abuse, uncomplicated; K76.0 Fatty (change of) liver, not elsewhere classified

== ENCOUNTER 2021-02-16 14:48 | Emergency (ER) | payer OTHER ==
[~2021-02-16] VITALS: Ht 157.5 cm; Wt 67.7 kg
--- OUTSIDE RECORDS SUMMARY | 2021-02-16 14:53 | CCD ---
Author Author [facility] Organization [facility] Address Unknown Phone Unavailable Care Team Providers Care Critical Care Unit Manager Name Role Phone CASTANON, BEVERLY ROBINSON [...] CASTANON, BEVERLY ROBINSON RPA-C Unavailable Unavailable CASTANON, BEVRELY ROBINSON RPA-C Unavailable Unavailable CASTANON, BEVERLY ROBINSON [...] Unavailable Unavailable MARSHALLNolan MD Unavailable Unavailable MARSHALL, L YAJAIRA RED [...] Unavailable MARSHALL, L YAJAIRA RED Unavailable Unavailable ALIASES , ORGANIZATION NPI Unavailable [...] Unavailable ALIASES , ORGANIZATION NPI Unavailable Unavailable Aline Maurer MD Unavailable Unavailable [...] Unavailable Vinnie Matthews Unavailable Vinnie Matthews Unavailable BHUPINDER, H FERNANDO PAN DUMPER Unavailable Unavailable BHUPINDER, H FERNANDO PAN DUMPER Unavailable Unavailable BHUPINDER, H FERNANDO PAN DUMPER Unavailable Unavailable BHUPINDER, H FERNANDO PAN DUMPER Unavailable Unavailable BHUPINDER, H FERNANDO PAN DUMPER Unavailable Unavailable BHUPINDER, H FERNANDO PAN DUMPER Unavailable Unavailable BHUPINDER, H FERNANDO PAN DUMPER Unavailable Unavailable BHUPINDER, H FERNANDO PAN DUMPER Unavailable Unavailable BHUPINDER, H FERNANDO PAN DUMPER Unavailable Unavailable ELENA, JESS Unavailable Unavailable ELENA, [...] JESS Unavailable Unavailable ELENA, JESS Unavailable Unavailable ABBY S BENIGNO RED Unavailable Unavailable ABBYKatrina MD Unavailable Unavailable ABBY S BENIGNO RED Unavailable Unavailable ABBY S BENIGNO RED Unavailable Unavailable ABBYKatrina MD Unavailable Unavailable ABBYKatrina MD Unavailable Unavailable ABBYKatrina ARCE MD Unavailable Unavailable ABBYKatrina MD Unavailable Unavailable ABBYKatrina MD Unavailable Unavailable ABBYKatrina MD Unavailable Unavailable ABBY S BENIGNO RED Unavailable Unavailable ABBY, S BENIGNO MD Unavailable [...] is protected by Article 27-F of the [facility] Public Health law. If you continue you may have access to information: Regarding HIV / AIDS; Provided by facilities licensed or operated by the [facility] Office of Mental Health; or Provided by the [facility] Office for People With Developmental Disabilities. If such information is present, then the following [facility] mandated warning applies: This information has [...] law may result in a fine or snf sentence or both. A general authorization for the release of medical or other information is NOT sufficient authorization for further disc losure. Allergies and Adverse Reactions Type Description Substance Reaction Status Data Source(s ) Propensity to adverse reactions NO KNOWN ALLERGIES NO KNOWN ALLERGIES [facility] Family History Family Member Name Family Member Gender Family Member Status Date o f Status Description Data Source(s) Unknown Male Problem MEDENT ([facility]) Unknown Unknown Problem MEDENT ([employer]) Unknown Unknown Problem MEDENT ([facility], [facility]) MGF Encounters Encounter Providers Location Date Indications Data Source(s ) Robinson Castanon RPA-C: [address], [place] [address], Ph. Attender: ROBINSON CASTANON RPA-C [facility] Medical 11/05/2020 12:00:00 AM EDT [place] ([facility]) Robinson Castanon RPA-C: [address], [place] [address], Ph. Attender: ROBINSON FARRC [facility] Medical 09/05/2020 12:00:00 AM EDT [place] ([facility]) Robinson Castanon RPA-C: [address], [place] [address], Ph. Attender: ROBINSON CASTANON RPA-C [facility] Medical 09/05/2020 12:00:00 AM EDT [place] ([facility]) Robinson Castanon RPA-C: [address], [place] [address], Ph. Attender: ROBINSON CASTANON RPABlanquita [facility] Medical 09/03/2020 12:00:00 AM EDT [place] ([facility]) YORDAN AbdallaC: [address], [place] [address], Ph. Attender: ROBINSON REYES [facility] Medical 09/03/2020 12:00:00 AM EDT [place] ([facility]) Robinson Castanon RPA-C: [address], [place] [address], Ph. Attender: ROBINSON REYES [facility] Medical 09/03/2020 12:00:00 AM EDT [place] ([facility]) Inpatient Attender: BENIGNO Recinos er: Aline Maurer MDAdmitter: BENIGNO MORA MDReferrer: Hardeep Espinosa MD [id number] 07/04/2020 12:00:00 A M EDT - 07/10/2020 01:55:00 PM EDT Brief psychotic disorder [facility] Brief psychotic disorder Patient discharged. YORDAN BurnettC: [address], [place] [address], Ph. Attender: JESS ELENA [facility] Medical 05/10/2020 12:00:00 AM EST [place] ([facility]) YORDAN BurnettC: [address], [place] [address], Ph. Attender: JESS ELENA [facility] Medical 05/10/2020 12:00:00 AM EST [place] ([facility]) YORDAN BurnettC: [address], [place] [address], Ph. Attender: JESS ELENA [facility] Medical 05/10/2020 12:00:00 AM EST [place] ([facility]) YORDAN BurnettC: [address], [place] [address], Ph. 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 [address] 04/02/2020 12:00:00 AM EST eCW1 ([facility]) YORDAN BurnettC: [address], [place] [address], Ph. Attender: JESS ELENA [facility] Medical 04/01/2020 12:00:00 AM EST [place] ([facility]) YORDAN BurnettC: [address], [place] [address], Ph. Attender: JESS ELENA [facility] Medical 04/01/2020 12:00:00 AM EST [place] ([facility]) YORDAN BurnettC: [address], [place] [address], Ph. Attender: JESS ELENA [facility] Medical 04/01/2020 12:00:00 AM EST [place] ([facility]) YORDAN BurnettC: [address], [place] [address], Ph. Attender: JESS ELENA [facility] Medical 04/01/2020 12:00:00 AM EST [place] ([facility]) Jess Elena RPA-C: [address], [place] [address], Ph. Attender: JESS ELENA [facility] Medical 04/01/2020 12:00:00 AM EST [place] ([facility]) Outpatient [id number] [facility] [address] 03/08/2020 12:00:00 AM EST eCW1 ([facility]) Unknown [id number] [facility] [place] [address] 03/08/2020 12:00:00 AM EST eCW1 ([facility]) Robinson Castanon RPA-C: [address], [place] [address], Ph. Attender: ROBINSON REYES [facility] Medical 03/01/2020 12:00:00 AM EST [place] ([facility]) Robinson Castanon RPA-C: [address], [place] [address], Ph. Attender: ROBINSON FARRC [facility] Medical 03/01/2020 12:00:00 AM EST [place] ([facility]) Robinson Castanon RPA-C: [address], [place] [address], Ph. Attender: ROBINSON FARRC [facility] Medical 03/01/2020 12:00:00 AM EST [place] ([facility]) Robinson D Castanon, RPA-C: [address], [place] [address], Ph. Attender: ROBINSON CASTANON RPA-C [facility] Medical 03/01/2020 12:00:00 AM EST [place] ([facility]) Robinson Castanon RPA-C: [address], [place] [address], Ph. Attender: ROBINSON CASTANON RPA-C [facility] Medical 03/01/2020 12:00:00 AM EST [place] ([facility]) Robinson Castanon RPA-C: [address], [place] [address], Ph. Attender: ROBINSON CASTANON RPA-C [facility] Medical 03/01/2020 12:00:00 AM EST [place] ([facility]) Robinson Castanon, RPA-C: [address], [place] [address], Ph. Attender: ROBINSON CASTANON RPA-C [facility] Medical 02/07/2020 12:00:00 AM EST [place] ([facility]) Robinson Castanon RPA-C: [address], [place] [address], Ph. Attender: ROBINSON CASTANON RPA-C [facility] Medical 02/07/2020 12:00:00 AM EST [place] ([facility]) Robinson Castanon, RPA-C: [address], [place] [address], Ph. Attender: ROBINSON CASTANON RPA-C [facility] Medical 02/07/2020 12:00:00 AM EST [facility] ([facility]) Robinson Castanon RPA-C: [address], [place] [address], Ph. Attender: ROBINSON REYES [facility] Medical 02/07/2020 12:00:00 AM EST [place] ([facility]) Robinson Castanon RPA-C: [address], [place] [address], Ph. Attender: ROBINSON REYES [facility] Medical 02/07/2020 12:00:00 AM EST [place] ([facility]) Robinson Castanon RPA-C: [address], [place] [address], Ph. Attender: ROBINSON REYES [facility] Medical 02/07/2020 12:00:00 AM EST [place] ([facility]) Robinson Castanon RPA-C: [address], [place] [address], Ph. Attender: ROBINSON REYES [facility] Medical 02/07/2020 12:00:00 AM EST [place] ([facility]) Outpatient Attender: ROBINSON REYES [facility] 01/15/2020 02:27:10 PM EDT [facility] Extended Individual Psychotherapy - 45 min Attender: Valdez Matthews [facility] Vianney 01/10/2020 03:15:00 AM EDT - 01/10/2020 03:15:00 AM EDT [facility] ([facility]) Attender: Vinnie Matthews 01/10/2020 12:00:00 AM EDT [facility] ([facility]) Outpatient Attender: FERNANDO SANDERS NP [facility] Prateek alexander 01/09/2020 04:30:00 AM EDT - 01/09/2020 04:30:00 AM EDT [facility] ([facility]) Attender: FERNANDO SANDERS NP 01/09/2020 12:00:00 AM EDT [facility] ([facility]) Attender: Vinnie Matthews 01/04/2020 12:00:00 AM EDT [facility] ([facility]) Extended Individual Psychotherapy - 45 min Attender: Valdez Matthews [facility] 01/02/2020 06:00:00 AM EDT - 01/02/2020 06:00:00 AM EDT [facility] ([facility]) Attender: ORGANIZATION NPI ALIASES * 12/27/2019 12:00:00 AM EDT [facility] ([facility]) Extended Individual Psychotherapy - 45 min Attender: ORGANIZATION NPI ALIASES [facility] 12/26/2019 06:00:00 AM EDT - 12/26/2019 06:00:00 AM EDT [facility] ([facility]) Brief Individual Psychotherapy - 30 min Attender: Berna dickey [facility] 12/22/2019 03:00:00 AM EDT - 12/22/2019 03:00:00 AM EDT [facility] ([facility]) Attender: Berna Stallings 12/22/2019 12:00:00 AM EDT [facility] ([facility]) Functional Status Medications Medication Brand Name Start [...] on Wed07/10/20 at 0900, For 30 doses [facility] Medication administered onsite olanzapine 10 MG Oral Tablet OLANZapine 10 MG Oral Tab let (ZYPREXA) OLANZapine 10 MG Oral Tablet (ZYPREXA) 07/10/2020 12:00:00 AM EDT 10 mg Oral active Take 1 tablet by mouth daily [facility] buspirone hydrochloride 5 MG Oral Tablet BUSPIRONE [...] daily as needed for SleepIndications: Trouble Sleeping [facility] Insomnia Hydroxyzine Hydrochloride 50 MG Oral Tab let hydrOXYzine HCl 50 MG Oral Tablet (ATARAX) hydrOXYzine HCl 50 MG Oral Tablet (ATARAX) 07/09/2020 12:00: 00 AM EDT 50 mg Oral active Take 1 tablet by mouth every 6 (six) hours as needed for Anxiety (Sleep) for up to 10 days [facility] buspirone hydrochloride 5 MG Oral Tablet busPIRone HCl 5 MG Oral Tablet (BUSPAR) busPIRone HCl 5 MG Oral Tablet (BUSPAR) 07/09/2020 12:00:00 AM EDT 5 mg Oral active Anxiety Disorder Take 1 tabl et by mouth Two Times Daily Indications: Anxiety Disorder [facility] Anxiety Disorder olanzapine 10 MG Oral Tablet OLANZapine 10 MG Oral Tab let (ZYPREXA) OLANZapine 10 MG Oral Tablet (ZYPREXA) 07/09/2020 12:00:00 AM EDT 20 mg Oral active Psychotic Depression Take 2 tablets by mouth jena heredia Indications: Psychotic Depressive Illness [facility] Psychotic Depression 50 mg 07/09/2020 12:00:00 AM EDT tablet 30 TAKE ONE TABLET BY MOUTH EVERY 6 HOURS NEEDED FOR ANXIETY FOR UP TO 10 DAYS TAKE ONE TABLET BY MOUTH EVERY 6 HOURS NEEDED FOR ANXIETY FOR UP TO 10 DAYS SOLD: 07/10/2020 [facility] olanzapine 5 MG Oral Tablet OLANZapine (ZYPREXA) table t 5 mg OLANZapine (ZYPREXA) tablet 5 mg 07/05/2020 10:45:00 AM EDT 5 mg Oral aborted 5 mg, Oral, 2 Times Daily, First dose (after last modification) on Wed07/05/20 at 1045, For 60 doses [facility] Medication administered onsite olanzapine 10 MG Oral Tablet OLANZapine (ZYPREXA) tabl et 20 mg OLANZapine (ZYPREXA) tablet 20 mg 07/04/2020 08:00:00 PM EDT 20 mg Oral aborted Psychotic Depression 20 mg, Oral, Nightly, First dose (after last modification) on Cassy 07/04/20 at 2000, For 30 days [facility] Psychotic Depression Medication administered onsite buspirone hydrochloride 5 MG Oral Tablet busPIRone (BU SPAR) tablet 5 mg busPIRone (BUSPAR) tablet 5 mg 07/04/2020 09:00:00 AM EDT 5 mg Or al aborted Anxiety Disorder 5 mg, Oral, 2 Times Daily, First dose on Cassy 07/04/20 at 0900, For 30 days [facility] Anxiety Disorder Medication administered onsite [...] 30 days
MDD 4
[Order 3 End] [facility] Medication administered onsite Hydroxyzine Hydrochloride 50 MG Oral Tablet hydrOXYzin e (ATARAX) tablet 50 mg hydrOXYzine (ATARAX) tablet 50 mg 07/04/2020 07:27:35 AM EDT 50 mg Oral aborted 50 mg, Oral, Every 6 hours PRN, Anxiety, Sleep, Starting on Acssy 07/04/20 at 0727, For 30 days [facility] Medication administered onsite Ondansetron 4 MG Disintegrating Oral Tab let ondansetron (ZOFRAN-ODT) disintegrating tablet 4 mg ondansetron (ZOFRAN-ODT) disintegrating tablet 4 mg 07/04/2020 07:27:35 AM EDT 4 mg Oral aborted 4 mg, Oral, Every 6 hours PRN, Nausea, Starting on Cassy 07/04/20 at 07, For 30 days
Dissolve on tongue.
[facility] Medication administered onsite Aluminum Hydroxide [...] at 07, For 30 days
MDD 4
[facility] Medication administered onsite Magnesium Hydroxide [...] creatinine > 2 notify provider before administering.
[facility] Medication administered onsite Trazodone Hydrochloride 50 MG Oral Tablet trazodone (D ESYREL) tablet 50 mg trazodone (DESYREL) tablet 50 mg 07/04/2020 07:27:28 AM EDT 50 mg Oral aborted Insomnia 50 mg, Oral, Nightly PRN, Sleep, Starting on Cassy 07/04/20 at 07, For 30 days [facility] Insomnia Medication administered onsite atomoxetine 25 MG Oral Capsule [Strattera] Kellee 01/08 12:00:00 AM EDT 25 mg by mouth completed <td ID="Medic ationRxNorm_1">041663</td><td ID="MedicationMedication_1">Strattera</td><td ID="MedicationRoute_1">by mouth</td><td ID="MedicationRouteConcept_1">P29875</td><td ID="MedicationStartDate_1">01/09/2020</td><td ID="MedicationStopDate_1">02/08/2020</td><td ID="MedicationDosageFrequency_1">at bedtime</td><td ID="MedicationDuration_1">30</td><td ID="MedicationFormulaStrength_1">25 mg</td><td ID="MedicationDosageForm_1">capsule</td><td ID="MedicationDosageFormCode_1"></td><td ID="MedicationDosageDescription_1"></td><td ID="MedicationMedicationId_1">[id number]</td><td ID="MedicationAccount_1">[id number]</td><td ID="MedicationNpid_1">[id number]</td><td ID="MedicationAuthorFirstName_1">Fernando</td><td ID="MedicationAuthorLastName_1">Bhupinder</td><td ID="MedicationTaxonomyCode_1">[id number]</td><td ID="MedicationTaxonomyDesc_1">Nurse Practitioner</td><td ID="MedicationPhoneNumber_1">[phone]</td> [facility] quetiapine 50 MG Oral Tablet [Seroquel] Seroquel 01/09/2020 12: 00:00 AM EDT 50 mg by mouth completed <td ID="Me dicationRxNorm_2">209930</td><td ID="MedicationMedication_2">Seroquel</td><td ID="MedicationRoute_2">by mouth</td><td ID="MedicationRouteConcept_2">L44085</td><td ID="MedicationStartDate_2">01/09/2020</td><td ID="MedicationStopDate_2">03/09/2020</td><td ID="MedicationDosageFrequency_2">at bedtime</td><td ID="MedicationDuration_2">30</td><td ID="MedicationFormulaStrength_2">50 mg</td><td ID="MedicationDosageForm_2">tablet</td><td ID="MedicationDosageFormCode_2"></td><td ID="MedicationDosageDescription_2"></td><td ID="MedicationMedicationId_2">[id number]</td><td ID="MedicationAccount_2">[id number]</td><td ID="MedicationNpid_2">[id number]</td><td ID="MedicationAuthorFirstName_2">Fernando</td><td ID="MedicationAuthorLastName_2">Bhupinder</td><td ID="MedicationTaxonomyCode_2">[id number]</td><td ID="MedicationTaxonomyDesc_2">Nurse Practitioner</td><td ID="MedicationPhoneNumber_2">[phone]</td> [facility] ([facility]) quetiapine 50 MG Oral Tablet [Seroquel] Seroquel 11/09/2019 12: 00:00 AM EDT 50 mg by mouth completed <td ID="Me dicationRxNorm_1">206836</td><td ID="MedicationMedication_1">Seroquel</td><td ID="MedicationRoute_1">by mouth</td><td ID="MedicationRouteConcept_1">C18915</td><td ID="MedicationStartDate_1">11/09/2019</td><td ID="MedicationStopDate_1">01/08/2020</td><td ID="MedicationDosageFrequency_1">at bedtime</td><td ID="MedicationDuration_1">30</td><td ID="MedicationFormulaStrength_1">50 mg</td><td ID="MedicationDosageForm_1">tablet</td><td ID="MedicationDosageFormCode_1"></td><td ID="MedicationDosageDescription_1"></td><td ID="MedicationMedicationId_1">[id number]</td><td ID="MedicationAccount_1">[id number]</td><td ID="MedicationNpid_1">[id number]</td><td ID="MedicationAuthorFirstName_1">Fernando</td><td ID="MedicationAuthorLastName_1">Bhupinder</td><td ID="MedicationTaxonomyCode_1">[id number]</td><td ID="MedicationTaxonomyDesc_1">Nurse Practitioner</td><td ID="MedicationPhoneNumber_1">[phone]</td> [facility] ([facility]) atomoxetine 18 MG Oral Capsule atomoxetine 18 mg capsu le atomoxetine 18 mg capsule completed atomoxetine 18 MG Oral Capsule [facility] ([facility]) atomoxetine 25 MG Oral Capsule atomoxetine 25 mg capsu le atomoxetine 25 mg capsule completed atomoxetine 25 MG Oral Capsule [place] ([facility]) olanzapine 10 MG Oral Tablet olanzapine 10 mg tablet olanzapine 10 mg tablet completed [facility] Ethinyl Estradiol 0.930693 MG/HR / Etonogestrel 0.005 MG/HR Vaginal Ring etonogestrel 0.12 mg-ethinyl estradiol 0.015 mg/24 hr vaginal ring etonogestrel 0.12 mg-ethinyl estradiol 0.015 mg/24 hr vaginal ring completed 21 DAY ethinyl estradiol 0.111504 MG/HR / etonogestrel 0.005 MG/HR Vaginal System [facility] ([facility]) Escitalopram 10 MG Oral Tablet [Lexapro] Lexapro 10 mg tablet Take 1 tablet every day by oral route. Lexapro 10 mg tablet Take 1 tablet every day by oral route. 1 completed escitalopram 10 MG Oral Tablet [Lexapro] [facility]) atomoxetine 18 MG Oral Capsule atomoxetine 18 mg capsu le atomoxetine 18 mg capsule completed atomoxetine 18 MG Oral Capsule [facility]) Escitalopram 10 MG Oral Tablet [Lexapro] Lexapro 10 mg tablet Take 1 tablet every day by oral route. Lexapro 10 mg tablet Take 1 tablet every day by oral route. 1 completed escitalopram 10 MG Oral Tablet [Lexapro] [facility]) Naltrexone hydrochloride 50 MG Oral Tablet naltrexone 50 mg tablet naltrexone 50 mg tablet completed naltrexone hydrochloride 50 MG Oral Tablet [facility]) quetiapine 50 MG Oral Tablet quetiapine 50 mg tablet quetiapine 50 mg tablet completed quetiapine 50 MG Oral Tablet [facility]) olanzapine 10 MG Oral Tablet olanzapine 10 mg tablet olanzapine 10 mg tablet completed olanzapine 10 MG Oral Tablet [facility]) Clonazepam 0.5 MG Oral Tablet clonazepam 0.5 mg tablet TAKE ONE TABLET BY MOUTH EVERY DAY NEEDED MAXIMUM DAILY DOSE 1 clonazepam 0.5 mg tablet TAKE ONE TABLET BY MOUTH EVERY DAY NEEDED MAXIMUM DAILY DOSE 1 completed clonazepam 0.5 MG Oral Tablet AT [facility]) atomoxetine 25 MG Oral Capsule atomoxetine 25 mg capsu le atomoxetine 25 mg capsule completed atomoxetine 25 MG Oral Capsule [facility]) Naltrexone hydrochloride 50 MG Oral Tablet naltrexone 50 mg tablet naltrexone 50 mg tablet completed naltrexone hydrochloride 50 MG Oral Tablet [facility]) 21 DAY Ethinyl Estradiol 0.466104 MG/HR / Etonogestrel 0.005 MG/HR Vaginal Ring etonogestrel 0.12 mg-ethinyl estradiol 0.015 mg/24 hr vaginal ring etonogestrel 0.12 mg-ethinyl estradiol 0.015 mg/24 hr vaginal ring completed 21 DAY ethinyl estradiol 0.830994 MG/HR / etonogestrel 0.005 MG/HR Vaginal System [place] ([facility]) 21 DAY Ethinyl Estradiol 0.312286 MG/HR / Etonogestrel 0.005 MG/HR Vaginal Ring etonogestrel 0.12 mg-ethinyl estradiol 0.015 mg/24 hr vaginal ring etonogestrel 0.12 mg-ethinyl estradiol 0.015 mg/24 hr vaginal ring completed 21 DAY ethinyl estradiol 0.493093 MG/HR / etonogestrel 0.005 MG/HR Vaginal System [place] ([facility]) Naltrexone hydrochloride 50 MG Oral Tablet naltrexone 50 mg tablet naltrexone 50 mg tablet completed naltrexone hydrochloride 50 MG Oral Tablet [place] ([facility]) atomoxetine 25 MG Oral Capsule atomoxetine 25 mg capsu le atomoxetine 25 mg capsule completed atomoxetine 25 MG Oral Capsule [facility] ([facility]) Hydroxyzine Hydrochloride 25 MG Oral Tab let hydroxyzine HCl 25 mg tablet TAKE ONE TABLET BY MOUTH UP TO TWICE A DAY NEEDED hydroxyzine HCl 25 mg tablet TAKE ONE TABLET BY MOUTH UP TO TWICE A DAY NEEDED completed hydroxyzine hydrochloride 25 MG Oral Tablet [facility] ([facility]) Hydroxyzine Hydrochloride 25 MG Oral Tablet hydroxyzin e HCl 25 mg tablet hydroxyzine HCl 25 mg tablet completed hydroxyzine hydrochloride 25 MG Oral Tablet [facility] ([facility]) quetiapine 50 MG Oral Tablet quetiapine 50 mg tablet quetiapine 50 mg tablet completed quetiapine 50 MG Oral Tablet [place] ([facility]) olanzapine 10 MG Oral Tablet olanzapine 10 mg tablet olanzapine 10 mg tablet completed olanzapine 10 MG Oral Tablet [facility] ([facility]) Isibloom 0.15 mg-0.03 mg tablet TAKE ONE TABLET BY MOUTH EVERY DAY [id number] completed Isibloom 0.15 mg-0.0 3 mg tablet [facility] ([facility]) Escitalopram 10 MG Oral Tablet [Lexapro] Lexapro 10 mg tablet Take 1 tablet every day by oral route. Lexapro 10 mg tablet Take 1 tablet every day by oral route. 1 completed escitalopram 10 MG Oral Tablet [Lexapro] [facility] ([facility]) 21 DAY Ethinyl Estradiol 0.693519 MG/HR / Etonogestrel 0.005 MG/HR Vaginal Ring etonogestrel 0.12 mg-ethinyl estradiol 0.015 mg/24 hr vaginal ring etonogestrel 0.12 mg-ethinyl estradiol 0.015 mg/24 hr vaginal ring completed 21 DAY ethinyl estradiol 0.603717 MG/HR / etonogestrel 0.005 MG/HR Vaginal System [facility] ([facility]) Clonazepam 0.5 MG Oral Tablet clonazepam 0.5 mg tablet TAKE ONE TABLET BY MOUTH EVERY DAY NEEDED MAXIMUM DAILY DOSE 1 clonazepam 0.5 mg tablet TAKE ONE TABLET BY MOUTH EVERY DAY NEEDED MAXIMUM DAILY DOSE 1 completed clonazepam 0.5 MG Oral Tablet AT [facility]) Hydroxyzine Hydrochloride 25 MG Oral Tab let hydroxyzine HCl 25 mg tablet TAKE ONE TABLET BY MOUTH UP TO TWICE A DAY NEEDED hydroxyzine HCl 25 mg tablet TAKE ONE TABLET BY MOUTH UP TO TWICE A DAY NEEDED completed hydroxyzine hydrochloride 25 MG Oral Tablet OMAHA ([facility]) atomoxetine 18 MG Oral Capsule atomoxetine 18 mg capsu le atomoxetine 18 mg capsule completed atomoxetine 18 MG Oral Capsule MASON ([facility]) 21 DAY Ethinyl Estradiol 0.791864 MG/HR / Etonogestrel 0.005 MG/HR Vaginal Ring etonogestrel 0.12 mg-ethinyl estradiol 0.015 mg/24 hr vaginal ring etonogestrel 0.12 mg-ethinyl estradiol 0.015 mg/24 hr vaginal ring completed 21 DAY ethinyl estradiol 0.037614 MG/HR / etonogestrel 0.005 MG/HR Vaginal System MASON ([facility]) Hydroxyzine Hydrochloride 25 MG Oral Tab let hydroxyzine HCl 25 mg tablet TAKE ONE TABLET BY MOUTH UP TO TWICE A DAY NEEDED hydroxyzine HCl 25 mg tablet TAKE ONE TABLET BY MOUTH UP TO TWICE A DAY NEEDED completed hydroxyzine hydrochloride 25 MG Oral Tablet [place] ([facility]) Hydroxyzine Hydrochloride 25 MG Oral Tablet hydroxyzin e HCl 25 mg tablet hydroxyzine HCl 25 mg tablet completed hydroxyzine hydrochloride 25 MG Oral Tablet [place] ([facility]) quetiapine 50 MG Oral Tablet quetiapine 50 mg tablet quetiapine 50 mg tablet completed quetiapine 50 MG Oral Tablet [place] ([facility]) quetiapine 50 MG Oral Tablet quetiapine 50 mg tablet quetiapine 50 mg tablet completed quetiapine 50 MG Oral Tablet [place] ([facility]) buspirone hydrochloride 5 MG Oral Tablet busPIRone HCl 5 MG Oral Tablet (BUSPAR) busPIRone HCl 5 MG Oral Tablet (BUSPAR) 5 mg Oral aborted Anxiety Disorder Take 5 mg by mouth Two Times Daily Indic ations: Anxiety Disorder [facility] Anxiety Disorder Escitalopram 10 MG Oral Tablet [Lexapro] Lexapro 10 mg tablet Take 1 tablet every day by oral route. Lexapro 10 mg tablet Take 1 tablet every day by oral route. 1 completed escitalopram 10 MG Oral Tablet [Lexapro] OMAHA ([facility]) Trazodone Hydrochloride 50 MG Oral Table t traZODone HCl 50 MG Oral Tablet (DESYREL) traZODone HCl 50 MG Oral Tablet (DESYREL) 50 mg Oral aborted Insomnia Take 50 mg by mouth daily as needed for SleepIndications: Trouble Sleeping [facility] Insomnia Naltrexone hydrochloride 50 MG Oral Tablet naltrexone 50 mg tablet naltrexone 50 mg tablet completed naltrexone hydrochloride 50 MG Oral Tablet OMAHA ([facility]) olanzapine 10 MG Oral Tablet OLANZapine 10 MG Oral Tab let (ZYPREXA) OLANZapine 10 MG Oral Tablet (ZYPREXA) 20 mg Oral aborted Ps ychotic Depression Take 20 mg by mouth nightly Indications: Psychotic Depressive Illness [facility] Psychotic Depression 21 DAY Ethinyl Estradiol 0.347680 MG/HR / Etonogestrel 0.005 MG/HR Vaginal Ring etonogestrel 0.12 mg-ethinyl estradiol 0.015 mg/24 hr vaginal ring etonogestrel 0.12 mg-ethinyl estradiol 0.015 mg/24 hr vaginal ring completed 21 DAY ethinyl estradiol 0.854984 MG/HR / etonogestrel 0.005 MG/HR Vaginal System [place] ([facility]) atomoxetine 25 MG Oral Capsule atomoxetine 25 mg capsu le atomoxetine 25 mg capsule completed atomoxetine 25 MG Oral Capsule OMAHA ([facility]) 21 DAY Ethinyl Estradiol 0.266838 MG/HR / Etonogestrel 0.005 MG/HR Vaginal Ring etonogestrel 0.12 mg-ethinyl estradiol 0.015 mg/24 hr vaginal ring etonogestrel 0.12 mg-ethinyl estradiol 0.015 mg/24 hr vaginal ring completed 21 DAY ethinyl estradiol 0.594347 MG/HR / etonogestrel 0.005 MG/HR Vaginal System [facility]) atomoxetine 25 MG Oral Capsule atomoxetine 25 mg capsu le atomoxetine 25 mg capsule completed atomoxetine 25 MG Oral Capsule [facility]) atomoxetine 18 MG Oral Capsule atomoxetine 18 mg capsu le atomoxetine 18 mg capsule completed atomoxetine 18 MG Oral Capsule OMAHA ([facility]) Escitalopram 10 MG Oral Tablet [Lexapro] Lexapro 10 mg tablet Take 1 tablet every day by oral route. Lexapro 10 mg tablet Take 1 tablet every day by oral route. 1 completed escitalopram 10 MG Oral Tablet [Lexapro] [facility]) Clonazepam 0.5 MG Oral Tablet clonazepam 0.5 mg tablet TAKE ONE TABLET BY MOUTH EVERY DAY NEEDED MAXIMUM DAILY DOSE 1 clonazepam 0.5 mg tablet TAKE ONE TABLET BY MOUTH EVERY DAY NEEDED MAXIMUM DAILY DOSE 1 completed clonazepam 0.5 MG Oral Tablet AT [facility]) quetiapine 50 MG Oral Tablet quetiapine 50 mg tablet quetiapine 50 mg tablet completed quetiapine 50 MG Oral Tablet [facility]) atomoxetine 18 MG Oral Capsule atomoxetine 18 mg capsu le atomoxetine 18 mg capsule completed atomoxetine 18 MG Oral Capsule [facility]) Naltrexone hydrochloride 50 MG Oral Tablet naltrexone 50 mg tablet naltrexone 50 mg tablet completed naltrexone hydrochloride 50 MG Oral Tablet [facility]) atomoxetine 18 MG Oral Capsule atomoxetine 18 mg capsu le atomoxetine 18 mg capsule completed atomoxetine 18 MG Oral Capsule [facility]) Naltrexone hydrochloride 50 MG Oral Tablet naltrexone 50 mg tablet naltrexone 50 mg tablet completed naltrexone hydrochloride 50 MG Oral Tablet [facility]) Naltrexone hydrochloride 50 MG Oral Tablet naltrexone 50 mg tablet naltrexone 50 mg tablet completed naltrexone hydrochloride 50 MG Oral Tablet [facility]) atomoxetine 18 MG Oral Capsule atomoxetine 18 mg capsu le atomoxetine 18 mg capsule completed atomoxetine 18 MG Oral Capsule [facility]) Escitalopram 10 MG Oral Tablet [Lexapro] Lexapro 10 mg tablet Take 1 tablet every day by oral route. Lexapro 10 mg tablet Take 1 tablet every day by oral route. 1 completed escitalopram 10 MG Oral Tablet [Lexapro] [place] ([facility]) quetiapine 50 MG Oral Tablet quetiapine 50 mg tablet quetiapine 50 mg tablet completed quetiapine 50 MG Oral Tablet [place] ([facility]) quetiapine 50 MG Oral Tablet quetiapine 50 mg tablet quetiapine 50 mg tablet completed quetiapine 50 MG Oral Tablet [place] ([facility]) Hydroxyzine Hydrochloride 25 MG Oral Tablet hydroxyzin e HCl 25 mg tablet hydroxyzine HCl 25 mg tablet completed hydroxyzine hydrochloride 25 MG Oral Tablet [place] ([facility]) Hydroxyzine Hydrochloride 25 MG Oral Tablet hydroxyzin e HCl 25 mg tablet hydroxyzine HCl 25 mg tablet completed hydroxyzine hydrochloride 25 MG Oral Tablet [place] ([facility]) atomoxetine 25 MG Oral Capsule atomoxetine 25 mg capsu le atomoxetine 25 mg capsule completed atomoxetine 25 MG Oral Capsule [place] ([facility]) Insurance Providers Payer name Policy type / Coverage type Policy ID Covered republican ID Covered republican's relationship to marinelli Policy Marinelli Plan Information R U [id number] Child [id number] [employer] [id number] Self [id number] [employer] [id number] Family Dependent [id number] Commercial [id number] Family Dependent [id number] [employer] [id number] 2 [id number] MEDICAID [id number] SP [id number] [employer] [id number] Family Dependent [employer] Medigap Part B [id number] Family Dependent [id number] [facility] Commercial [id number] Family Dependent [id number] [facility] Commercial [id number] Family Dependent [id number] [facility] Commercial [id number] Family Dependent [id number] [facility] Medigap Part B [id number] Family Dependent [id number] [employer] [id number] MO2 [id number] [facility] INS NO FAULT [id number] FA2 [id number] Self Pay P none S none UMR O [id number] S [id number] SELF PAY UNAVAILABLE SP UNAVAILA BLE [place]EDNY [id number] SP [id number] [facility] [id number] MO2 [id number] SELF PAY ONLY [id number] SP [id number] [facility] [id number] MO2 [id number] Problems, Conditions, and Diagnoses Code Display Name Description Problem Type Effective Dates Data Source(s) 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 Diag nosis 07/04/2020 06:17:00 AM [facility] bipolar d/o bipolar d/o Diagnosis 07/04/2020 06:17:00 AM [facility] [id number] Overweight Overweight Problem 11/05/2020 12:00:00 AM ED T MASON ([facility]) F41.1 [id number] RACHEL (generalized anxiety disorder) Proble m 03/15/2020 12:00:00 AM EST eCW1 ([facility]) F32.9 [id number] Depression, unspecified depression type P roblem 03/15/2020 12:00:00 AM EST eCW1 ([facility]) F32.9 Major depressive disorder, single episod e, unspecified Unspecified depressive Disorder Condition 01/10/2020 12:00:00 AM EDT [facility] ( [facility]) F11.20 Opioid dependence, uncomplicated Opioid Use Disorder, Moderate Condition 01/10/2020 12:00:00 AM EDT [facility] ([facility]) F90.2 Attention-deficit hyperactivity disorder , combined type Attention- Deficit/Hyperactivity Disorder, Combined presentation Condition 01/10/2020 12:00:00 AM EDT [facility] ([facility]) [id number] Body measurement finding Body Measurement Finding Prob wendy 11/08/2019 12:00:00 AM EDT - 02/07/2020 12:00:00 AM EST [place] ([facility]) [id number] Body measurement finding Body Measurement Finding Prob wendy 11/08/2019 12:00:00 AM EDT - 02/07/2020 12:00:00 AM EST [place] ([facility]) [id number] Body measurement finding Body Measurement Finding Prob wendy 11/08/2019 12:00:00 AM EDT - 02/07/2020 12:00:00 AM EST [place] ([facility]) [id number] Body measurement finding Body Measurement Finding Prob wendy 11/08/2019 12:00:00 AM EDT - 02/07/2020 12:00:00 AM EST [place] ([facility]) [id number] Body measurement finding Body Measurement Finding Prob wendy 11/08/2019 12:00:00 AM EDT - 02/07/2020 12:00:00 AM EST [place] ([facility]) [id number] Body measurement finding Body Measurement Finding Prob wendy 11/08/2019 12:00:00 AM EDT - 02/07/2020 12:00:00 AM EST [place] ([facility]) [id number] Body measurement finding Body Measurement Finding Prob wendy 11/08/2019 12:00:00 AM EDT - 02/07/2020 12:00:00 AM EST [place] ([facility]) [id number] SNOMED CT Concept SNOMED CT Concept Problem 10/24 12:00:00 AM EDT - 02/07/2020 12:00:00 AM EST [place] ([facility]) [id number] SNOMED CT Concept SNOMED CT Concept Problem 10/24 12:00:00 AM EDT - 02/07/2020 12:00:00 AM EST [place] ([facility]) [id number] SNOMED CT Concept SNOMED CT Concept Problem 10/24 12:00:00 AM EDT - 02/07/2020 12:00:00 AM EST [place] ([facility]) [id number] SNOMED CT Concept SNOMED CT Concept Problem 10/24 12:00:00 AM EDT - 02/07/2020 12:00:00 AM EST [place] ([facility]) [id number] SNOMED CT Concept SNOMED CT Concept Problem 10/24 12:00:00 AM EDT - 02/07/2020 12:00:00 AM EST [place] ([facility]) [id number] SNOMED CT Concept SNOMED CT Concept Problem 10/24 12:00:00 AM EDT - 02/07/2020 12:00:00 AM EST [place] ([facility]) [id number] SNOMED CT Concept SNOMED CT Concept Problem 10/24 12:00:00 AM EDT - 02/07/2020 12:00:00 AM EST [place] ([facility]) [id number] Brief reactive psychosis Brief Reactive Psychosis Prob wendy 09/13/2019 12:00:00 AM EDT - 03/01/2020 12:00:00 AM EST [place] ([facility]) [id number] Brief reactive psychosis Brief Reactive Psychosis Prob wendy 09/13/2019 12:00:00 AM EDT - 03/01/2020 12:00:00 AM EST [place] ([facility]) [id number] Brief reactive psychosis Brief Reactive Psychosis Prob wendy 09/13/2019 12:00:00 AM EDT - 03/01/2020 12:00:00 AM EST [place] ([facility]) [id number] Brief reactive psychosis Brief Reactive Psychosis Prob wendy 09/13/2019 12:00:00 AM EDT - 03/01/2020 12:00:00 AM EST [place] ([facility]) [id number] Brief reactive psychosis Brief Reactive Psychosis Prob wendy 09/13/2019 12:00:00 AM EDT - 03/01/2020 12:00:00 AM EST [place] ([facility]) [id number] Brief reactive psychosis Brief Reactive Psychosis Prob wendy 09/13/2019 12:00:00 AM EDT - 03/01/2020 12:00:00 AM LARY CUEVAS ([facility]) Surgeries/Procedures Procedure Description Date Indications Data Source(s) BLOOD COUNT COMPLETE AUTOMATED <td>CBC</td><td>Routine </td><td>07/05/2020 11:12 AM EDT</td><td></td><td> </td> 07/05/2020 11:12:00 AM [facility] BASIC METABOLIC PANEL CALCIUM TOTAL <td>BASIC METABOLI C PANEL</td><td>Routine</td><td>07/05/2020 11:12 AM EDT</td><td></td><td> </td> 07/05/2020 11:12:00 AM [facility] LAB RESULTS (OUTSIDE/HISTORICAL) <td>LAB RESULTS (OUTSIDE/HISTORICAL)</td><td></td><td>04/30/2020 11:24 AM EST</td><td></td><td></td> 04/30/2020 11:24:00 AM [facility] CARDIAC REPORT <td>CARDIAC REPORT</td><td>< /td><td>04/30/2020 11:24 AM EST</td><td></td><td></td> 04/30/2020 11:24:00 AM [facility] Extended Individual Psychotherapy - 45 min 12:00:00 AM EDT [facility] ([facility]) Extended Individual Psychotherapy - 45 min 01/10/2020 12:00:00 AM EDT - 01/10/2020 12:00:00 AM EDT [facility] ([facility]) OFFICE OUTPATIENT VISIT 15 MINUTES 01/09/2020 12:00:00 AM EDT [facility] ([facility]) OFFICE OUTPATIENT VISIT 15 MINUTES 01/08 12:00:00 AM EDT - 01/09/2020 12:00:00 AM EDT [facility] ([facility]) Extended Individual Psychotherapy - 45 min 01/04/2020 12:00:00 AM EDT - 01/04/2020 12:00:00 AM EDT [facility] ([facility]) Extended Individual Psychotherapy - 45 min 0 12:00:00 AM EDT [facility] ([facility]) Extended Individual Psychotherapy - 45 min 12/27/2019 12:00:00 AM EDT - 12/27/2019 12:00:00 AM EDT [facility] ([facility]) Extended Individual Psychotherapy - 45 min 0 12:00:00 AM EDT [facility] ([facility]) Brief Individual Psychotherapy - 30 min 12/22/2019 12: 00:00 AM EDT [facility] ([facility]) Brief Individual Psychotherapy - 30 min 12/22/2019 12:00:00 AM EDT - 12/22/2019 12:00:00 AM EDT [facility] ([facility]) Results ID Date Data Source [id number] 09/04/2020 03:54:00 PM EDT OMAHA ([facility]) Name Value Range Interpretation Code Description Data Anna rce(s) Supporting Document(s) HCG negative Hcg O[facility]HA ([facility]) ID Date Data Source [id number] 07/10/2020 02:47:14 PM EDT [facility] Name Value Range Interpretation Code Description Data Anna rce(s) Supporting Document(s) Discharge Summary [facility] [id number]/YMTyxFUSqf8GuAWmrUUj2HSvfDOKtS7ToQCK7kX6cZLN6HHtWJnLiIzWjFTX5 lbm [file] ICAgICAgICAgICAgICAgICAgICAgICAgICAgICAgIC AgICAgICAgICAgICAgICAgICAgICAgICAgICAgICAgICAgICANCiAgICAgICAgICAgICAgICAgICAgIC AgICAgICAgICAgICAgICAgICAgICAgICAgICAgICAgICAgICAgICAgICAgICAgICAgICAgICAgICAgIC AgICAgICAgICAgICAgICAgICANCiAgICAgICAgICAg ICAgICAgICAgICAgICAgICAgICAgICAgICAgICAgICAgICAgICAgICAgICAgICAgICAgICAgICAgICAg ICAgICAgICAgICAgICAgICAgICAgICAgICAgICANCiAgICAgICAgICAgICAgICAgICAgICAgICAgICAg ICAgICAgICAgICAgICAgICAgICAgICAgICAgICAgIC AgICAgICAgICAgICAgICAgICAgICAgICAgICAgICAgICAgICAgICANCiAgICAgICAgICAgICAgICAgIC AgICAgICAgICAgICAgICAgICAgICAgICAgICAgICAgICAgICAgICAgICAgICAgICAgICAgICAgICAgIC AgICAgICAgICAgICAgICAgICAgICANCiAgICAgICAg ICAgICAgICAgICAgICAgICAgICAgICAgICAgICAgICAgICAgICAgICAgICAgICAgICAgICAgICAgICAg ICAgICAgICAgICAgICAgICAgICAgICAgICAgICAgICANCiAgICAgICAgICAgICAgICAgICAgICAgICAg ICAgICAgICAgICAgICAgICAgICAgICAgICAgICAgIC AgICAgICAgICAgICAgICAgICAgICAgICAgICAgICAgICAgICAgICAgICANCiAgICAgICAgICAgICAgIC AgICAgICAgICAgICAgICAgICAgICAgICAgICAgICAgICAgICAgICAgICAgICAgICAgICAgICAgICAgIC AgICAgICAgICAgICAgICAgICAgICAgICANCiAgICAg ICAgICAgICAgICAgICAgICAgICAgICAgICAgICAgICAgICAgICAgICAgICAgICAgICAgICAgICAgICAg ICAgICAgICAgICAgICAgICAgICAgICAgICAgICAgICAgICANCiAgICAgICAgICAgICAgICAgICAgICAg ICAgICAgICAgICAgICAgICAgICAgICAgICAgICAgIC AgICAgICAgICAgICAgICAgICAgICAgICAgICAgICAgICAgICAgICAgICAgICANCjw/bHXgX1gudBYkmw I3S3oxEv2CDd2UVV2bp2GlPXNcHQerliQoWgqDUkMoSJLeEbsNAhi7TEieQR2JdXAtB8ZqE8PlQVbkBL 5EOYOvRUUvzFEjQJJrLFWxEaE3DZGyFFdlPJ9McGAs CEljOEVeVYKhTdBdYJXuENGkLAKdDVBhJVCBVHRvIFCsDyClVROlOSNvPYpjBTPCROR9YURiMrUlMHAn DPLoOK7SEBZjC578frHoUY0GUj5SPmCuLU1jdv4SXCCuTLAwIxjGNdw4RBufFR6LyEUynRE6ErWnFCZP JxIkA7mdx5JbJTAqDKHPHYpnFO5Gg8CsnESrDWg+Pg 9LUN5dx7HgIFw9EfHsNZ7bdf1NCKiGQrDaU7QbyOaoFYTic8ViRVWdTFTQpO2lTEY6GWF1AVxtd3JzHK BTKF2uQRJhSW7zqT7gYVMDIAJafAQ0ZeI6QbTrLfQnQSO1VAgwRY1aNCmgOT5ZTVE0KFnpKVIfBRBeT1 qQHfJhIETiTsDihMjoZA0AVxVsW2VzonFuiJH9VsYw IFINCj4+INmzyeAuAxlKYbX9BCKbu5MdRKk1RL1UAMSkUKeqWW9BFMJxxT7yKTguUT4XWiL9WRDtODWZ SzCaY61nqURsAGr8U9PrKvSaZREzKjgsJDZaAYwzOdYfKYXfAuTlGOcyWR7+ID4+MComGJ7PGFilzaXb RAIiRy5SYIPrDKRxQR7jDAOpXZHrI5W2xOgiKCYSDf JbN0eofdvvYU8iPQQtI337nAoedzMcKCQeUJZaVg1VDHDtPPM4QGMvzMNlSMEqBGMTXKqfLH9OxEXwOW L5tT8zPIeuABJyBFErN5uQZeXjoJagKJ84uMoyswZhzHSnBUn+Ph9QBB0oe6NrCLp7buLgMJgpWAZ0PT ydBQQnXEAqHAEmIUM5SPF5WHMJKnSaMZOoBMSgHIsd MUPfDKCegg1BXSCbCTV7HVqlYSPiJRKoOOCxCNtvXTKkGPTlPPV3NEIhNEExWF2MZzYjMXChBCAsRBho OMSqMDHduj6VKKFhQXOuYSSqQJTcLLDiNCFaXJyyOBMsRVZ6HtHdERVkSWKqGX3SDkYnTRGkJEo1EgKs SAOdHTFsuc1KOHHdKJNhTEaoUOBbTUOvFJIlLEdfJL XcVURaGyt9TYXzVJVgJI4ATxNbQZOeVOU0FIemHEZmYBVonh1HKJDvOBDaOQP6JwXrAZHxHMDbJIfoFZ ImBZG7Ifs4YUHnWNEdPR7MGoPzGHJwHXb6PXhaSSRhFRBugx1IDSNbLSEoYXFdUAQjRMXoRUXvCDqeXQ DrJSWqKSGuAFUlFIPtLW6SJeKoKSReLvCkIkZpANOu RQHsyb0KUSZaHQPlHxRuQsLgOCKpWTSjXQpdEHSfIWD1JtVmORQpWQCxSQ4VXaAmMCOdYmMuXZujHILb YONvgz1JDHUaXLPhYORbLKBgIQBnCMHiKEvbKSKxNZVuZMUeKQFcUIExAH0TCeDvUONpMeZeVTucGDRd QYTexr1VBROmNXXvFIU1ZBWuHDJrZCTcGYbhNOIoNG L1GLp1MWFaHKZqPB5JJbPbNHKqOrW5XQmkQOYjOVHcxx2XFTSfOTGrPKBpTlChZDJtGYDwQDtzATPfHB Y3HHQ1XQOeBQPdXF9XDvPeJDIiHlPsOCvcTXNlGYTifv5HXFXjDVJtYxd9EzFkBJZqTECiQZjtFFJaCY S7WVP2RTLjRUViIV2FOaPkNHAaHvxcCHZjXJLiEPNc ja4MUCUmGAKeANSeSmBhWPGjAKMwJAttGPGcNVR4BXGgIUYzPLRvPU0XDnToLDBoUla2ZJEfTPXhRCBi zg0UJAEhMTQ4SHN4WXCbYEGuQZKnLYdiBIUkPGFvEWZuRWTlQPWcWK2INfPzVZMeOII9SiLwKAUaUSYu ew8VTNLaLCO6XIk1TPKvXKXiLERuODecSXZhRUGwPA O1GFJsHJOxPT8NJpJlBVZdYHS7MLUmQQIgRHNnzg9DRNZwOOJ4BwV9BjLkXMTpVPTuGFfdSMFfNBLpTv E7KAMtLMTrPQ4JFxCsUWYvNTaiKWDjHBBwSHFqhe5KDWWpFJU3KfDtWGRkFTLyILJlYJwgMWBwUAL4Ws GdVVMkJUTfQI4FRyVdWFNeVTa4SkHzEDPxYBYvzf1Z NCQfXTA9RJJcXTCdXDAcFCHkONjmCNEaEAU1SaOyRLZaYSSgUH5HKeHlAHVqFMv1RwKcHJFmRTQogy6U TAAkESN1JUneAhZkTHDiYSYzVSywXKGrGMY7VLo5QAPxEKFiUJ5GKxYaXERxWlR7LIWbWKOzGGSuat8R TAYvURT7IAp3JNCtGLOlOVJxFZaxIQLwUKJcZTU2TX IjHTGpKQ9SYbAcRYpzOBVAOvd6VDmeY8g4ZQN9EB2FV3Xdw6ZcLGJxSLAJNDpfCO8bqaPtUZCtEe7GP2 aHYbl4KBK0GAobCGNsBhFhKUQ7VXNsBAE5YCZlCQF9RkJfHK1eIWu4JwM9PpA5VrG6RbH5WLi7VSUlPW erSDW3AuI1NYT4CfBiHD2NUt7QDvB6ZZJ1nPPiZe7XKtGmOgHSVbAaKY5LOCz= ID Date Data Source [id number] 07/05/2020 11:32:24 AM [facility] Name Value Range Interpretation Code Description Data Anna rce(s) Supporting Document(s) Leukocytes [#/volume] in Blood by Automated count 9.8 10*3/uL 4-10 [facility] Erythrocytes [#/volume] in Blood by Automated count 5.11 10*6/uL 4.1- 5.3 [facility] Hemoglobin [Mass/volume] in Blood 15.2 g/dL 11.5-15.5 [facility] Hematocrit [Volume Fraction] of Blood by Automated count 45.6 % 3 6-45 [facility] Erythrocyte mean corpuscular volume [Entitic volume] by Auto mated count 89.1 fL 80-96 [facility] Erythrocyte mean corpuscular hemoglobin [Entitic mass] by Automated count 29.7 pg 27-33 [facility] Erythrocyte mean corpuscular hemoglobin concentration [Mass/volume] by Automated count 33.3 g/dL 32.0-[facility] width [Ratio] by Automated count 12.8 % 11.5-14.5 [facility] Platelets [#/volume] in Blood by Automated count 428 10*3/uL 150-400 H [facility] ID Date Data Source [id number] 07/05/2020 11:50:54 AM [facility] Name Value Range Interpretation Code Description Data Anna rce(s) Supporting Document(s) Bicarbonate [Moles/volume] in Serum 22 mmol/L 22-29 [facility] Chloride [Moles/volume] in Serum or Plasma 102 mmol/L 98-107 [facility] Creatinine [Mass/volume] in Serum or Plasma 0.59 mg/dL 0.50-0.90 [facility] Glucose [Mass/volume] in Serum or Plasma 90 mg/dL 70-140 [facility] Potassium [Moles/volume] in Serum or Plasma 4.5 mmol/L 3.4-5.1 [facility] Sodium [Moles/volume] in Serum or Plasma 137 mmol/L 136-145 [facility] Urea nitrogen [Mass/volume] in Serum or Plasma 13 mg/dL 6-20 [facility] Anion gap 3 in Serum or Plasma 13 mmol/L 8-15 [facility] Osmolality of Serum or Plasma by calculation 284 mosm/kg 275-300 [facility] Creatinine/Urea nitrogen [Mass Ratio] in Serum or Plasma 22 [facility] Calcium [Mass/volume] in Serum or Plasma 9.9 mg/dL 8.6-10.0 [facility] Glomerular filtration rate/1.73 sq M pre dicted among non-blacks [Volume Rate/Area] in Serum or Plasma by Creatinine-based formula (MDRD) >6 0 [facility] Glomerular filtration rate/1.73 sq M pre dicted among blacks [Volume Rate/Area] in Serum or Plasma by Creatinine-based formula (MDRD) >60 [facility] ID Date Data Source [id number] 07/04/2020 05:12:28 PM EDT [facility] Name Value Range Interpretation Code Description Data Anna rce(s) Supporting Document(s) History and Physical [facility] [id number]/BUAawMPDnz4NnIQfpFKt2RIqaPWBuE8YpURQ7vK8lOBP6LOdXArSbJpNkMOE5 lbm [file] AgICAgICAgICAgICAgICAgICAgICAgICAgICAgICAg ICAgICAgICAgICAgICAgICAgICAgDQogICAgICAgICAgICAgICAgICAgICAgICAgICAgICAgICAgICAg ICAgICAgICAgICAgICAgICAgICAgICAgICAgICAgICAgICAgICAgICAgICAgICAgICAgICAgICAgICAg ICAgDQogICAgICAgICAgICAgICAgICAgICAgICAgIC AgICAgICAgICAgICAgICAgICAgICAgICAgICAgICAgICAgICAgICAgICAgICAgICAgICAgICAgICAgIC AgICAgICAgICAgICAgDQogICAgICAgICAgICAgICAgICAgICAgICAgICAgICAgICAgICAgICAgICAgIC AgICAgICAgICAgICAgICAgICAgICAgICAgICAgICAg ICAgICAgICAgICAgICAgICAgICAgICAgDQogICAgICAgICAgICAgICAgICAgICAgICAgICAgICAgICAg ICAgICAgICAgICAgICAgICAgICAgICAgICAgICAgICAgICAgICAgICAgICAgICAgICAgICAgICAgICAg ICAgICAgDQogICAgICAgICAgICAgICAgICAgICAgIC AgICAgICAgICAgICAgICAgICAgICAgICAgICAgICAgICAgICAgICAgICAgICAgICAgICAgICAgICAgIC AgICAgICAgICAgICAgICAgDQogICAgICAgICAgICAgICAgICAgICAgICAgICAgICAgICAgICAgICAgIC AgICAgICAgICAgICAgICAgICAgICAgICAgICAgICAg ICAgICAgICAgICAgICAgICAgICAgICAgICAgDQogICAgICAgICAgICAgICAgICAgICAgICAgICAgICAg ICAgICAgICAgICAgICAgICAgICAgICAgICAgICAgICAgICAgICAgICAgICAgICAgICAgICAgICAgICAg ICAgICAgICAgDQogICAgICAgICAgICAgICAgICAgIC AgICAgICAgICAgICAgICAgICAgICAgICAgICAgICAgICAgICAgICAgICAgICAgICAgICAgICAgICAgIC AgICAgICAgICAgICAgICAgICAgDQogICAgICAgICAgICAgICAgICAgICAgICAgICAgICAgICAgICAgIC AgICAgICAgICAgICAgICAgICAgICAgICAgICAgICAg MIQtRJOrBGXrVHFaXGGrUPHiJOPbCULlNLHmDVJbDSy2H2rkYEEmTHEgTZ9pMQq2Fx2+DQoNCmVuZHN0 zdEwdY8DUC5pf8NmTOuvOJEpw4TfTHe2KV6LTFJxQOscZY4KTDblpf0XIYHkWCExbYRCp1qmNgQiKDH8 BHSfXitrTJ4GZJLvD4fcgiEhGEXoJVGBLEjlKDSJJG daNDDMZPBoJCLlAuHqAJtnZV5We4HjoXA9YMa+Zg9JRA0ke0EpAPyhTNTqAD2iid5JVWtVSbQrR2Hhfw Z5RFWcLKPnWv3KURWpPBIfjDHdRxSsYKPVAnSuR1NlvC79WEHXZd9+LMgzxbEaTreDByYqKLZlo5WrOO r8YP8YEPMvMRd2lWLyTIQZTUT5UATyYT3mNTAWaVNn KQWbZGDNZTE3NMLzXM8mATNxIGKfKhXrEPQDVN8SEIYjKPZwyYMpSZAiMKXZBU2XCMmuPYB8KFGkazTe mRJqOTvbJO0UJMBxuxQaFwIoOFQSOFs+Eg7OJJ3bw5XsEMsyJnHjUE2swy5RVZpYTgTkC9H7lWMpP6P8 OOpoMu4CFVYePXIgQjhyMUXXSGaqAD9ZJH8owqZ7PG 8FyUDtEOAwYNMfqWUaGFb2Q69uwPHvHPglCV1AJDK+García+Kt6UWOQaEJYdQHHsTdWfXATSAzUgM8IdB6 HVc1FzS3IaTG14ePmjumAsBOpoUP4JFL9aUEWuUKKRYI9TiVNqcX4jtlOhDAZjGVKIHlDzZ03pqXKrVI NsGTRyFPWeCt1PHJYaE5TbhpVplNlrznRxHLRmHHDI VC5ZDNjifyXwfHQfjUnsAU89tYyaVR0HYy3UGePdSH2twc3IjOGtRl1YJYIgYA3YCRAeWRFnXMHhAEJ5 JSMhKiAlYNrgEGQmZYAxNZC8XXZhQYWtJW6LWzNsESHlJks0ZfZqACEuPIJngy2EKCKnWGBeMHZ1FUZy BATzPTMpZIlkGIQiZQCgUKV1XWOrYZApRD4TKqWvMF ExDCMfBZmmUJIjEXMtnn7KUHOfHRLiLbE6BkOeHKVtHJEhJWsuKKLxYGB6NXX4MXJlPETzVZ0JVdUjMD XkPCFsKshbBPRiNYRgzq4PKZPmPTOzOMMyNRKwJHNpMLFyDAcySGUhSZX8MGM1JDEiSWUlDB5RZjWcBY QlXUN2WFUbUFGgJRNuxj4UCXEgAZVoHTx6HbGsSEAh OSAeLDxoRSQfQOBnLNF8VEYbCKZkXH8CQnBoDVScEXMvJQLaCIVsMPSjxt2DNGBjXRTdYwB7MuYfNQVl ZDSiJDokQPZhGXAlHeY3ZLKdWFZrID6FLxKrDORnVCE8RCgmHCArQAAqku3DABFvWHHtBaR7TPVnRGUf DXTuJMsjKPWcYYX6TyR8CDRoKDKrNM6OCoQoGSVwIQ V9SFTtGYJvMTFfph6NCFBwCZBmIIh8YJIrFMZbSVPhLQilDEJnIMG4GzwzKMNzJEXvRZ7MQrIiODZjHv Z2ZKydPMNpPNUqhw1MOEEgEZWpWcs1TvRtAQBdCRZdHAqvTFBcMAI8DVK7XMHtUTCxGL1IQeAhMULiKs faETLkBDTnRLJicj8ZKTInJOYoYCZiRCCrBQNiTKNb FYlwLNJfWOH3HMM5RHZvPPNlJI2DUsKoGRDdXbj5XWVmYZNpLGNigt5TCVEzAKZmZFQfSODtPNDmNWMc EAtbVGAfOOVaKKqzZNEbYFHxLX0GBeAaPBVjEpG8SaWmBCKkXOEjth4XYZVcWXIjDIX5XSSrWXOyTBMi TEi7pjTtpKLmFSt1HR3GV6CeixUzReWPXh7Zw578KK DxOBUfBv9JL6dhEs6lQKWvSPEJDt1TRLk4W1D9NXwsUWgjVqB3CqAuVsraQPVwJnS3CrB6XQChAEx+ID spXGh1PhOpAxJdEBn1XpVkAKK8FdXoKhkfZMTdIFKdVU0lYXTYYk6+DQpzdGFydHhyZWYNCjMwOTQyDQ ycRJHGUi4H ID Date Data Source [id number] 07/04/2020 04:54:53 PM EDT [facility] Name Value Range Interpretation Code Description Data Anna rce(s) Supporting Document(s) History and Physical [facility] VSGHVi8fMxZAPaQq50/JGTrxJQMof7RoLPcsVUi5JPnyVYAxN0FtLIO1xX2lMBM2ELkAHxXwHmSxKJN1 lbm [file] [facility]Xk837Wrc+08op3rm4tJrmwRpGOYQ/gXd [file] ICAgICAgICAgICAgICAgICAgICAgICAgICAgICAgICAgICAgICAgICAgICAgICAgICAgICAgICAgICAg ICAgICAgICANCiAgICAgICAgICAgICAgICAgICAgIC AgICAgICAgICAgICAgICAgICAgICAgICAgICAgICAgICAgICAgICAgICAgICAgICAgICAgICAgICAgIC AgICAgICAgICAgICAgICAgICANCiAgICAgICAgICAgICAgICAgICAgICAgICAgICAgICAgICAgICAgIC AgICAgICAgICAgICAgICAgICAgICAgICAgICAgICAg ICAgICAgICAgICAgICAgICAgICAgICAgICAgICANCiAgICAgICAgICAgICAgICAgICAgICAgICAgICAg ICAgICAgICAgICAgICAgICAgICAgICAgICAgICAgICAgICAgICAgICAgICAgICAgICAgICAgICAgICAg ICAgICAgICAgICANCiAgICAgICAgICAgICAgICAgIC AgICAgICAgICAgICAgICAgICAgICAgICAgICAgICAgICAgICAgICAgICAgICAgICAgICAgICAgICAgIC AgICAgICAgICAgICAgICAgICAgICANCiAgICAgICAgICAgICAgICAgICAgICAgICAgICAgICAgICAgIC AgICAgICAgICAgICAgICAgICAgICAgICAgICAgICAg ICAgICAgICAgICAgICAgICAgICAgICAgICAgICAgICANCiAgICAgICAgICAgICAgICAgICAgICAgICAg ICAgICAgICAgICAgICAgICAgICAgICAgICAgICAgICAgICAgICAgICAgICAgICAgICAgICAgICAgICAg ICAgICAgICAgICAgICANCiAgICAgICAgICAgICAgIC AgICAgICAgICAgICAgICAgICAgICAgICAgICAgICAgICAgICAgICAgICAgICAgICAgICAgICAgICAgIC AgICAgICAgICAgICAgICAgICAgICAgICANCiAgICAgICAgICAgICAgICAgICAgICAgICAgICAgICAgIC AgICAgICAgICAgICAgICAgICAgICAgICAgICAgICAg ICAgICAgICAgICAgICAgICAgICAgICAgICAgICAgICAgICANCiAgICAgICAgICAgICAgICAgICAgICAg ICAgICAgICAgICAgICAgICAgICAgICAgICAgICAgICAgICAgICAgICAgICAgICAgICAgICAgICAgICAg ICAgICAgICAgICAgICAgICANCjw/wMOhD0ejtZVxui P0T3fwVi4HRc7OXD8tu4JtJPLrRIwomxNoHisPWtFzOWQoOnhYTqc0MIjpPF5BgTIzX1TyD3LcLNpwGW 9LJBUzRWIelHOeGXThZRVkObU3HHGeMGuzHQ9TsGMqXMrpSMBtXYYfUoWpSXTwZOFjVFIgWXFcRPCAKZ RqLIUgQdNfAEPbOYXgGNajBVFNRV7YGmYmL7KyfS94 IDcNCj4+TDjlmuNhSdaXGhS8KAFrx8AdNNh1AU2PGSZaEjvmi3FhKNPaOFCCQYohQH7XZUP6GPG6VYVg Ah8ZQMNaQ224blMfTH8ZMo3ALmVmJU4cfi0WAQQyYZRdLfuRLbg5QIndKH4XcMQxESgQKhHwPpdqCTjt HLWRWOvqz14fAMeelNPvdgbzPXUBCPH4FHXhDS3lDG HjAMS1EnQwUEPXFY4FTFNpMSLxoIQiVBThGOZOVK0PBQdwMAC1BDRxaeAmbEAeVMmkIF4LRTUysrDpPH UgMCBSDQo+Gm6ACS2dm3KoZCj7NdIrME0bry4RNQsXOvDeC8G8cDUgT7W5TCbrZt6CTRGcOEDoFWHsOC FCCHeuWW0HAG2zqmZ8HK5ZiAMzYDItRUOswIRdMZe7 S79luFDjVVzbEJ0SIYN+García+Ue9PHGUwNPFtKUJpQlFrTIJZGwUqY5CeK7MHy7RaN4YoCQ81eUkqooIl AYaiLX9EMU8gIGSyPHLXFW0GbSHvbE4vkaS5WUFdTCQICmAuE28xvUVvGXMeTIF9CFFeJy1TXPXiI7Hy fvNjzFwumsAgTTAyOGBYNS5ILJmhmuSgiZOfzPwvDK 90vQccLC2BEp2TPwWeVB6wnw4AeDLfKv2YSCP7PB9XPPYcOWUpHSCpYGG7JRAuJoTkZSuzNYCtFDDyNM Q0BIRbENKyQX2GXvGqDLZaAwC1GQQqKTHzNYNofj6VBXCeQFB0KlX6LALbJJPnGGXjSJpmRNKkQBTiZC L4JYLqGKRaDW9XJzJyCLPaEMEeRaXlRXDmLUJyyy6C WBShIOWkZHV7RJDdHEXxAGTaSPrrXWDpRBT5ZmQ5DIXhLVNgTA0JGyQrQZHiCCi7CADgXOZtUASchl1B VOMcZKUbFKW8GnImRTYpIXFvMQdlGWJdSBDyLUuxYCDgFQMsZC2DWlAjBHHtROP8JNScKDUyECFzav7U XPUyQHYoMDW4ZHMnLHIjWMTgDBjbGOYdQXL6JfElJM VjGIKtUS3GZhXtUYHoLGp5XYypUDIzMGNlqj0WZWOmNTTdVgF4GTIgXHOzOJZlQLpmONJyREHnRyp4XG VyWBKzAU0CNdWcODSnCfEbFirkRZXrVTNzyj8NWAMtMTZuXjS2GCJyZCWwEUPcXUxgBVInIVG4OcL5XM TeTMRmNT8EZzUtLEDpKxz9AnVeHZWlYYLvmx4ESHNi JVEwCgLiVCPfPJPtGZJuZIifYQRkWPH1WKk6EWSdZSTsIT0DBnNiAYDdQzd0GsYgOCAxUVSnkh7GEMZb XREtPYr4WXTvYFIfYYSpPJjhSMGdJQX1CKYdVCTaPHXrVO7JDfOvXKGbAoByEjJaTFOiHMQfwt5GINYd MDAzMDMxMyAwMDAwMCBuDQowMDAwMDMxMjczIDAwMD LlGJ9KQpJmIHSvAtX6IcmwZGKgLRJdur6AQPHyBKApVQA5FbIkWVIcYFFqYUqeUOOeUWJyTfixDBReFB ZeFC4SJbZxJWIuSzZyIiQfLLElBUPsxn0AYSBdULV3XvM4NyXtNHLmFVWxLNdyOXNnRQBaIcXyCQMdRT ZyDP2QDhKqXSNhVaXuPPqsGSRnLVWzck3NYNCbOXB7 UIR1MTUxKPAsFRTkAEezHUNxYWR5IXStNBTrTVArWH1MCdWzKQIuSoB2CBGmYKRqMTRuce7YSNOxQDM4 HNJ0BfQlGJJiOBGzUAvdIIRdMFU1SAmnPXLaLUIbFH5DAgAdHXIaUqSuHPEjMIXkULFshw4TCUMcHFJ1 RMX8HgTdRXDjMTIbBLwtQNHiVNoxMPffLZLnYZXaKH 4PKjEgVCEsAeQ4IBNrPZAqACSaym6CDRDoNAY1UoQoZuAuVZOpPZSxLXryPDHgEWhrTZI9PYMkPLJoQP 2NXvRuKFQwEnW2FEslWHYaODVwly8NsSYbyRarbq0DXVqGEv0BtPnqIAZ8DBsjIx5tjVV0PwIwHCPEHo 8LbzKaCBPhXZWHMFvsSPBcFXSeE2AbYUJpRMxnNumd PJL9PcBePXTkZEDwNFGdXrZ5KzQ8KRH5MsE7TrXkJDKnHVGxJJzeT6AjPXGtVwJ5IpXuAEN+PS6gSCt+ Co4Gk9IoneB9nlLiRXv9Jvb3NZ4YUNNOD2OSOv== ID Date Data Source [id number] 07/04/2020 01:18:00 AM EDT [facility] Name Value Range Interpretation Code Description Data Anna rce(s) Supporting Document(s) SARS-CoV-2 (COVID 19) NEGATIVE - SARS-CoV-2 (COVID19) [facility] This lab was ordered by [facility] a nd reported by [facility]. ID Date Data Source [id number] 04/24/2020 09:01:00 PM EST [facility] Name Value Range Interpretation Code Description Data Anna rce(s) Supporting Document(s) SARS coronavirus 2 RNA [Presence] in Res piratory specimen by CODEY with probe detection NEGATIVE [facility] This lab was ordered by [facility] a nd reported by [facility]. ID Date Data Source [id number] 04/15/2020 12:00:00 PM EST [facility] ([facility] [employer]) Name Value Range Interpretation Code Description Data Anna rce(s) Supporting Document(s) CT/NG Laboratory test result [facility] ([facility] [employer]) CHLAMYDIA TRACHOMATIS: Negative NEISSERIA GONORRHOEAE: Negative Testing performed by the FDA-approved Access Point APTIMA COMBO 2 Assay. The APTIMA COMBO [...] ASCUS Laboratory test result [facility] ([facility] [employer]) ID Date Data Source [id number] 04/15/2020 12:00:00 PM EST [facility] ([facility] [employer]) Name Value Range Interpretation Code Description Data Anna rce(s) Supporting Document(s) Cytology report of Cervical or vaginal smear or scrapi ng Cyto stain.thin prep Laboratory test result [facility] ([facility] [employer]) SPECIMEN PART------ A. Cervical, Endocervical, ThinPrep Pap (Transmission Engineer) CYTOLOGY HX-------- Date of Last Menstrual Period: 04/01/2019 Other Information:Previous Normal Pap: 01/12/2019 FINAL DIAGNOSIS---- INTERPRETATION: Negative for Intraepithelial Lesion or Malignancy. SPECIMEN ADEQUACY:Satisfactory for evaluation. Endocervical/transformation zone component present. ID Date Data Source [id number] 02/08/2020 10:31:00 AM EST [facility]) Name Value Range Interpretation Code Description Data Anna rce(s) Supporting Document(s) HCG negative Hcg O[facility] ([facility]) ID Date Data Source [id number] 02/08/2020 10:31:00 AM EST [facility]) Name Value Range Interpretation Code Description Data Anna rce(s) Supporting Document(s) HCG negative Hcg [facility] ([facility]) ID Date Data Source [id number] 02/08/2020 10:31:00 AM [facility] Name Value Range Interpretation Code Description Data Anna rce(s) Supporting Document(s) HCG negative Hcg [place] ([facility]) ID Date Data Source [id number] 02/08/2020 10:31:00 AM EST [place] ([facility]) Name Value Range Interpretation Code Description Data Anna rce(s) Supporting Document(s) HCG negative Hcg [place] ([facility]) ID Date Data Source [id number] 02/08/2020 10:31:00 AM EST [place] ([facility]) Name Value Range Interpretation Code Description Data Anna rce(s) Supporting Document(s) HCG negative Hcg [place] ([facility]) ID Date Data Source [id number] 02/08/2020 10:31:00 AM EST [place] ([facility]) Name Value Range Interpretation Code Description Data Anna rce(s) Supporting Document(s) HCG negative Hcg [place] ([facility]) ID Date Data Source [id number] 02/08/2020 10:31:00 AM EST [place] ([facility]) Name Value Range Interpretation Code Description Data Anna rce(s) Supporting Document(s) HCG negative Hcg [facility]) ID Date Data Source [id number] 02/07/2020 02:28:00 PM EST [place] ([facility]) Name Value Range Interpretation Code Description Data Anna rce(s) Supporting Document(s) HCG, serum quantitative < 1.0 HCG, Serum Q uantitative [facility]) ID Date Data Source [id number] 02/07/2020 02:28:00 PM EST [place] ([facility]) Name Value Range Interpretation Code Description Data Anna rce(s) Supporting Document(s) HCG, serum quantitative < 1.0 HCG, Serum Q uantitative [facility]) ID Date Data Source [id number] 02/07/2020 02:28:00 PM EST [place] ([facility]) Name Value Range Interpretation Code Description Data Anna rce(s) Supporting Document(s) HCG, serum quantitative < 1.0 HCG, Serum Q uantitative [facility]) ID Date Data Source [id number] 02/07/2020 02:28:00 PM EST [place] ([facility]) Name Value Range Interpretation Code Description Data Anna rce(s) Supporting Document(s) HCG, serum quantitative < 1.0 HCG, Serum Q uantitative [place] ([facility]) ID Date Data Source [id number] 02/07/2020 02:28:00 PM EST [place] ([facility]) Name Value Range Interpretation Code Description Data Anna rce(s) Supporting Document(s) HCG, serum quantitative < 1.0 HCG, Serum Q uantitative [place] ([facility]) ID Date Data Source [id number] 02/07/2020 02:28:00 PM EST [place] ([facility]) Name Value Range Interpretation Code Description Data Anna rce(s) Supporting Document(s) HCG, serum quantitative < 1.0 HCG, Serum Q uantitative [place] ([facility]) ID Date Data Source [id number] 02/07/2020 02:28:00 PM EST [place] ([facility]) Name Value Range Interpretation Code Description Data Anna rce(s) Supporting Document(s) HCG, serum quantitative < 1.0 HCG, Serum Q uantitative [place] ([facility]) ID Date Data Source [id number] 02/02/2020 12:00:00 AM EST [facility] Name Value Range Interpretation Code Description Data Anna rce(s) Supporting Document(s) SARS-CoV2 Rapid Antigen [facility] This lab was ordered by [facility] and reported by [facility]. Procedure Social History Code Duration Value Status Description Data Source(s ) Alcohol intake 07/04/2020 12:00:00 AM EDT Lifetime non-drinker (finding) completed Lifetime non-drinker (finding) [facility] Tobacco use and exposure 07/04/2020 12:00:00 AM EDT Never used co mpleted Never used [facility] Smoking 07/04/2020 12:00:00 AM EDT Never smoker completed Never s [facility] Smoking 04/15/2020 12:00:00 AM EST Patient has never smoked co mpleted Patient has never smoked [facility] ([facility] [employer]) Smoking 04/02/2020 12:00:00 AM EST Never Smoker completed Never S moker eCW1 ([facility]) Smoking 03/16/2020 12:00:00 AM EST Never Smoker completed Never S moker eCW1 ([facility]) Smoking 03/08/2020 12:00:00 AM EST Never Smoker completed Never S moker eCW1 ([facility]) Smoking 01/10/2020 12:00:00 AM EDT Unknown if ever smoked comp leted Unknown if ever smoked [facility] ([facility]) Smoking 01/09/2020 12:00:00 AM EDT Unknown if ever smoked comp leted Unknown if ever smoked [facility] ([facility]) Smoking 01/04/2020 12:00:00 AM EDT Unknown if ever smoked comp leted Unknown if ever smoked [facility] ([facility]) Smoking 12/27/2019 12:00:00 AM EDT Unknown if ever smoked comp leted Unknown if ever smoked [facility] ([facility]) Smoking 12/22/2019 12:00:00 AM EDT Unknown if ever smoked comp leted Unknown if ever smoked [facility] ([facility]) Vital Signs ID Date Data Source [id number] Name Value Range Interpretation Code Description Data Source(s) Diastolic blood pressure 60 mm[Hg] 60 mm[Hg] [facility] ([facility]) Body height 64 [in_i] 64 [in_i] [facility] ([facility]) Body mass index (BMI) [Ratio] 28.9 kg/m2 28.9 k g/m2 [place] ([facility]) Systolic blood pressure 92 mm[Hg] 92 mm[Hg] [place] ([facility]) Body weight 2694.4 [oz_av] 2694.4 [oz_av] ATHZARIA A ([facility]) Diastolic blood pressure 68 mm[Hg] 68 mm[Hg] [place] ([facility]) Body height 64 [in_i] 64 [in_i] [place] ([facility]) Body mass index (BMI) [Ratio] 27.5 kg/m2 27.5 k g/m2 [place] ([facility]) Systolic blood pressure 102 mm[Hg] 102 mm[Hg] A OLIVERA ([facility]) Body weight 2562 [oz_av] 2562 [oz_av] [place] ([facility]) Diastolic blood pressure 68 mm[Hg] 68 mm[Hg] [place] ([facility]) Body height 64 [in_i] 64 [in_i] [place] ([facility]) Body mass index (BMI) [Ratio] 27.5 kg/m2 27.5 k g/m2 [place] ([facility]) Systolic blood pressure 102 mm[Hg] 102 mm[Hg] A OLIVERA ([facility]) Body weight 2562 [oz_av] 2562 [oz_av] [place] ([facility]) Diastolic blood pressure 68 mm[Hg] 68 mm[Hg] [place] ([facility]) Body height 64 [in_i] 64 [in_i] [place] ([facility]) Body mass index (BMI) [Ratio] 27.5 kg/m2 27.5 k g/m2 [place] ([facility]) Systolic blood pressure 102 mm[Hg] 102 mm[Hg] A THENA ([facility]) Body weight 2562 [oz_av] 2562 [oz_av] [place] ([facility]) Body height 64 [in_i] 64 [in_i] [place] ([facility]) Body height 64 [in_i] 64 [in_i] [facility]ON ([facility]) Body height 64 [in_i] 64 [in_i] [facility] ([facility]) Body height 64 [in_i] 64 [in_i] [place] ([facility]) Body surface area Derived from formula 1.62 m2 1.62 m2 [facility] ([facility] [employer]) Systolic blood pressure 100 mm[Hg] 100 mm[Hg] M EDENT ([facility] [employer]) Body height 61.75 [in_i] 61.75 [in_i] [facility] ([facility] [employer]) 5'1.75" Body weight 136.00 [lb_av] 136.00 [lb_av] MEDEN T ([facility] [employer]) Body mass index (BMI) [Ratio] 25.1 kg/m2 25.1 k g/m2 [facility] ([facility] [employer]) Diastolic blood pressure 62 mm[Hg] 62 mm[Hg] [facility] ([facility] [employer]) Diastolic blood pressure 100 mm[Hg] 100 mm[Hg] [place]ON ([facility]) Diastolic blood pressure 87 mm[Hg] 87 mm[Hg] [place] ([facility]) Body height 64 [in_i] 64 [in_i] [place] ([facility]) Body mass index (BMI) [Ratio] 23.1 kg/m2 23.1 k g/m2 [place] ([facility]) Systolic blood pressure 134 mm[Hg] 134 mm[Hg] [facility] Systolic blood pressure 144 mm[Hg] 144 mm[Hg] [facility] Body weight 2156.8 [oz_av] 2156.8 [oz_av] ATHEN A ([facility]) Diastolic blood pressure 100 mm[Hg] 100 mm[Hg] MASON ([facility]) Diastolic blood pressure 87 mm[Hg] 87 mm[Hg] [place] ([facility]) Body height 64 [in_i] 64 [in_i] [place] ([facility]) Body mass index (BMI) [Ratio] 23.1 kg/m2 23.1 k g/m2 [place] ([facility]) Systolic blood pressure 134 mm[Hg] 134 mm[Hg] A THENA ([facility]) Systolic blood pressure 144 mm[Hg] 144 mm[Hg] [facility] Body weight 2156.8 [oz_av] 2156.8 [oz_av] ATHEN A ([facility]) Diastolic blood pressure 100 mm[Hg] 100 mm[Hg] [place] ([facility]) Diastolic blood pressure 87 mm[Hg] 87 mm[Hg] [place] ([facility]) Body height 64 [in_i] 64 [in_i] [place] ([facility]) Body mass index (BMI) [Ratio] 23.1 kg/m2 23.1 k g/m2 [place] ([facility]) Systolic blood pressure 134 mm[Hg] 134 mm[Hg] A THENA ([facility]) Systolic blood pressure 144 mm[Hg] 144 mm[Hg] A THENA ([facility]) Body weight 2156.8 [oz_av] 2156.8 [oz_av] ATHEN A ([facility]) Diastolic blood pressure 100 mm[Hg] 100 mm[Hg] [place] ([facility]) Diastolic blood pressure 87 mm[Hg] 87 mm[Hg] [place] ([facility]) Body height 64 [in_i] 64 [in_i] [place] ([facility]) Body mass index (BMI) [Ratio] 23.1 kg/m2 23.1 k g/m2 [place] ([facility]) Systolic blood pressure 134 mm[Hg] 134 mm[Hg] A THENA ([facility]) Systolic blood pressure 144 mm[Hg] 144 mm[Hg] A THENA ([facility]) Body weight 2156.8 [oz_av] 2156.8 [oz_av] ATHEN A ([facility]) Diastolic blood pressure 100 mm[Hg] 100 mm[Hg] [place] ([facility]) Diastolic blood pressure 87 mm[Hg] 87 mm[Hg] [place] ([facility]) Body height 64 [in_i] 64 [in_i] [place] ([facility]) Body mass index (BMI) [Ratio] 23.1 kg/m2 23.1 k g/m2 [place] ([facility]) Systolic blood pressure 134 mm[Hg] 134 mm[Hg] A THENA ([facility]) Systolic blood pressure 144 mm[Hg] 144 mm[Hg] A THENA ([facility]) Body weight 2156.8 [oz_av] 2156.8 [oz_av] ATHEN A ([facility]) Body weight 136.0 [lb_av] 136.0 [lb_av] eCW1 ([facility]) Body height 62.5 [in_i] 62.5 [in_i] eCW1 ([facility]) Body mass index (BMI) [Ratio] 24.48 kg/m2 24.48 kg/m2 eCW1 ([facility]) Heart rate 102 /min 102 /min eCW1 ([facility]) Respiratory rate 18 /min 18 /min eCW1 ([facility]) Body temperature 98.6 [degF] 98.6 [degF] eCW1 ( [facility]) Systolic blood pressure 136 mm[Hg] 136 mm[Hg] e CW1 ([facility]) Diastolic blood pressure 82 mm[Hg] 82 mm[Hg] eCW1 ([facility]) Diastolic blood pressure 92 mm[Hg] 92 mm[Hg] [place] ([facility]) Body height 64 [in_i] 64 [in_i] [place] ([facility]) Body mass index (BMI) [Ratio] 23.2 kg/m2 23.2 k g/m2 [place] ([facility]) Systolic blood pressure 131 mm[Hg] 131 mm[Hg] A [facility] ([facility]) Body weight 2160 [oz_av] 2160 [oz_av] [place] ([facility]) Diastolic blood pressure 92 mm[Hg] 92 mm[Hg] [place] ([facility]) Body height 64 [in_i] 64 [in_i] [place] ([facility]) Body mass index (BMI) [Ratio] 23.2 kg/m2 23.2 k g/m2 [facility] ([facility]) Systolic blood pressure 131 mm[Hg] 131 mm[Hg] A [facility] ([facility]) Body weight 2160 [oz_av] 2160 [oz_av] [place] ([facility]) Diastolic blood pressure 92 mm[Hg] 92 mm[Hg] [place] ([facility]) Body height 64 [in_i] 64 [in_i] [place] ([facility]) Body mass index (BMI) [Ratio] 23.2 kg/m2 23.2 k g/m2 [place] ([facility]) Systolic blood pressure 131 mm[Hg] 131 mm[Hg] A THENA ([facility]) Body weight 2160 [oz_av] 2160 [oz_av] [place] ([facility]) Body weight 2160 [oz_av] 2160 [oz_av] [place] ([facility]) Diastolic blood pressure 92 mm[Hg] 92 mm[Hg] [place] ([facility]) Body height 64 [in_i] 64 [in_i] [place] ([facility]) Body mass index (BMI) [Ratio] 23.2 kg/m2 23.2 k g/m2 [facility] ([facility]) Systolic blood pressure 131 mm[Hg] 131 mm[Hg] [facility] Diastolic blood pressure 92 mm[Hg] 92 mm[Hg] [place] ([facility]) Body height 64 [in_i] 64 [in_i] [place] ([facility]) Body mass index (BMI) [Ratio] 23.2 kg/m2 23.2 k g/m2 [place] ([facility]) Systolic blood pressure 131 mm[Hg] 131 mm[Hg] A [facility] ([facility]) Body weight 2160 [oz_av] 2160 [oz_av] [place] ([facility]) Diastolic blood pressure 92 mm[Hg] 92 mm[Hg] [place] ([facility]) Body height 64 [in_i] 64 [in_i] [place] ([facility]) Body mass index (BMI) [Ratio] 23.2 kg/m2 23.2 k g/m2 [place] ([facility]) Systolic blood pressure 131 mm[Hg] 131 mm[Hg] A THE[facility] ([facility]) Body weight 2160 [oz_av] 2160 [oz_av] [place] ([facility]) Body weight 2153.6 [oz_av] 2153.6 [oz_av] ATHEN A ([facility]) Body height 64 [in_i] 64 [in_i] [place] ([facility]) Body mass index (BMI) [Ratio] 23.1 kg/m2 23.1 k g/m2 [place] ([facility]) Systolic blood pressure 136 mm[Hg] 136 mm[Hg] [facility] Diastolic blood pressure 90 mm[Hg] 90 mm[Hg] [place] ([facility]) Diastolic blood pressure 90 mm[Hg] 90 mm[Hg] [place] ([facility]) Body height 64 [in_i] 64 [in_i] [place] ([facility]) Body mass index (BMI) [Ratio] 23.1 kg/m2 23.1 k g/m2 [place] ([facility]) Systolic blood pressure 136 mm[Hg] 136 mm[Hg] A [facility] ([facility]) Body weight 2153.6 [oz_av] 2153.6 [oz_av] ATHEN A ([facility]) Body mass index (BMI) [Ratio] 23.1 kg/m2 23.1 k g/m2 [place] ([facility]) Body height 64 [in_i] 64 [in_i] [place] ([facility]) Diastolic blood pressure 90 mm[Hg] 90 mm[Hg] [place] ([facility]) Body weight 2153.6 [oz_av] 2153.6 [oz_av] ATHEN A ([facility]) Systolic blood pressure 136 mm[Hg] 136 mm[Hg] A [facility] ([facility]) Diastolic blood pressure 90 mm[Hg] 90 mm[Hg] [place] ([facility]) Body height 64 [in_i] 64 [in_i] [place] ([facility]) Body mass index (BMI) [Ratio] 23.1 kg/m2 23.1 k g/m2 [place] ([facility]) Systolic blood pressure 136 mm[Hg] 136 mm[Hg] [facility] Body weight 2153.6 [oz_av] 2153.6 [oz_av] ATHEN A ([facility]) Systolic blood pressure 136 mm[Hg] 136 mm[Hg] [facility] [facility] Body weight 2153.6 [oz_av] 2153.6 [oz_av] ATHEN A ([facility]) Diastolic blood pressure 90 mm[Hg] 90 mm[Hg] MASON ([facility]) Body height 64 [in_i] 64 [in_i] [place] ([facility]) Body mass index (BMI) [Ratio] 23.1 kg/m2 23.1 k g/m2 [place] ([facility]) Systolic blood pressure 136 mm[Hg] 136 mm[Hg] [facility] Diastolic blood pressure 90 mm[Hg] 90 mm[Hg] [place]ON ([facility]) Body height 64 [in_i] 64 [in_i] [place]ON ([facility]) Body mass index (BMI) [Ratio] 23.1 kg/m2 23.1 k g/m2 MASON ([facility]) Body weight 2153.6 [oz_av] 2153.6 [oz_av] ATHZARIA A ([facility]) Diastolic blood pressure 90 mm[Hg] 90 mm[Hg] MASON ([facility]) Body height 64 [in_i] 64 [in_i] [facility]ON ([facility]) Body mass index (BMI) [Ratio] 23.1 kg/m2 23.1 k g/m2 [place] ([facility]) Systolic blood pressure 136 mm[Hg] 136 mm[Hg] A THENA ([facility]) Body weight 2153.6 [oz_av] 2153.6 [oz_av] ATHZARIA A ([facility]) Diastolic blood pressure 0 mm[Hg] Normal (applies to non-numeric results) 0 mm[Hg] [facility] ([facility]) Systolic blood pressure 0 mm[Hg] Normal (applies t o non-numeric results) 0 mm[Hg] [facility] ([facility]) Body mass index (BMI) [Ratio] 0.00 kg/m2 No rmal (applies to non-numeric results) 0.00 kg/m2 [facility] ([facility]) Body weight Measured 0.00 lbs Normal (applies to n on-numeric results) [facility] Body height 0.00 in Normal (applies to non-numeric resu lts) 0.00 in [facility] ([facility]) ID Date Data Source [id number] 07/11/2020 08:03:19 AM [facility] Name Value Range Interpretation Code Description Data Source(s) WEIGHT RECORDED 139.4 lb 139.4 lb [facility] Body height Measured 62 in 62 in [facility] [employer] TRANSFER FROM [facility] Patient Treatment Plan of Care Planned Activity Planned Date Details Description Data Source (s) olanzapine 10 MG Oral Tablet 07/10/2020 12:00:00 AM [facility] Hydroxyzine Hydrochloride 50 MG Oral Tablet 07/09/2020 12:00:00 AM [facility] Trazodone Hydrochloride 50 MG Oral Tablet 07/09/2020 12:00:[address] [facility] olanzapine 10 MG Oral Tablet 07/09/2020 12:00:00 AM [facility] buspirone hydrochloride 5 MG Oral Tablet 07/09/2020 12:00:00 AM [facility] acetaminophen (TYLENOL) tablet 650 mg 07/04/2020 07:28:26 AM [facility] Magnesium Hydroxide 80 MG/ML Oral Suspension 07/04/2020 07:27:35 AM [facility] Aluminum Hydroxide 40 MG/ML / Magnesium Hydroxide 40 MG/ML / Simethicone 4 MG/ML Oral Suspension 07/04/2020 07:27:35 AM [facility] Ondansetron 4 MG Disintegrating Oral Tablet 07/04/2020 07:27:35 AM [facility] quetiapine 50 MG Oral Tablet [place] ([facility]) Naltrexone hydrochloride 50 MG Oral Tablet [place] ([facility]) Escitalopram 10 MG Oral Tablet [Lexapro] [place] ([facility]) Hydroxyzine Hydrochloride 25 MG Oral Tablet [facility] ([facility]) 21 DAY Ethinyl Estradiol 0.462383 MG/HR / Etonogestrel 0.005 MG/HR Vaginal Ring [facility] ([facility]) Clonazepam 0.5 MG Oral Tablet [facility] ([facility]) atomoxetine 25 MG Oral Capsule [facility] ([facility]) atomoxetine 18 MG Oral Capsule [place] ([facility]) quetiapine 50 MG Oral Tablet [place] ([facility]) Naltrexone hydrochloride 50 MG Oral Tablet [place] ([facility]) Escitalopram 10 MG Oral Tablet [Lexapro] [place] ([facility]) Hydroxyzine Hydrochloride 25 MG Oral Tablet [facility] ([facility]) 21 DAY Ethinyl Estradiol 0.984723 MG/HR / Etonogestrel 0.005 MG/HR Vaginal Ring [place] ([facility]) Clonazepam 0.5 MG Oral Tablet [place] ([facility]) atomoxetine 25 MG Oral Capsule [facility] ([facility]) atomoxetine 18 MG Oral Capsule [place] ([facility]) quetiapine 50 MG Oral Tablet [facility] ([facility]) Naltrexone hydrochloride 50 MG Oral Tablet [facility] ([facility]) Escitalopram 10 MG Oral Tablet [Lexapro] [facility] ([facility]) Isibloom 0.15 mg-0.03 mg tablet TAKE ONE TABLET BY MOUTH EVERY DAY [facility] ([facility]) Hydroxyzine Hydrochloride 25 MG Oral Tablet [facility] ([facility]) 21 DAY Ethinyl Estradiol 0.756843 MG/HR / Etonogestrel 0.005 MG/HR Vaginal Ring [place] ([facility]) Clonazepam 0.5 MG Oral Tablet [facility] ([facility]) atomoxetine 25 MG Oral Capsule [facility] ([facility]) atomoxetine 18 MG Oral Capsule [facility] ([facility]) olanzapine 10 MG Oral Tablet [facility] Trazodone Hydrochloride 50 MG Oral Tablet [facility] buspirone hydrochloride 5 MG Oral Tablet [facility] quetiapine 50 MG Oral Tablet [place] ([facility]) Naltrexone hydrochloride 50 MG Oral Tablet [facility] ([facility]) Escitalopram 10 MG Oral Tablet [Lexapro] [facility] ([facility]) Hydroxyzine Hydrochloride 25 MG Oral Tablet [facility] ([facility]) 21 DAY Ethinyl Estradiol 0.980091 MG/HR / Etonogestrel 0.005 MG/HR Vaginal Ring [facility] ([facility]) atomoxetine 25 MG Oral Capsule [facility] ([facility]) atomoxetine 18 MG Oral Capsule [facility] ([facility]) quetiapine 50 MG Oral Tablet [facility] ([facility]) olanzapine 10 MG Oral Tablet [facility] ([facility]) Naltrexone hydrochloride 50 MG Oral Tablet [facility] ([facility]) Escitalopram 10 MG Oral Tablet [Lexapro] [facility] ([facility]) Hydroxyzine Hydrochloride 25 MG Oral Tablet [facility] ([facility]) 21 DAY Ethinyl Estradiol 0.615465 MG/HR / Etonogestrel 0.005 MG/HR Vaginal Ring [place] ([facility]) atomoxetine 25 MG Oral Capsule [facility] ([facility]) atomoxetine 18 MG Oral Capsule [facility] ([facility]) quetiapine 50 MG Oral Tablet [facility] ([facility]) olanzapine 10 MG Oral Tablet [facility] ([facility]) Naltrexone hydrochloride 50 MG Oral Tablet [facility] ([facility]) Escitalopram 10 MG Oral Tablet [Lexapro] [place] ([facility]) Hydroxyzine Hydrochloride 25 MG Oral Tablet [facility] ([facility]) 21 DAY Ethinyl Estradiol 0.168286 MG/HR / Etonogestrel 0.005 MG/HR Vaginal Ring [facility] ([facility]) atomoxetine 25 MG Oral Capsule [facility] ([facility]) atomoxetine 18 MG Oral Capsule [facility] ([facility]) atomoxetine 18 MG Oral Capsule [facility] ([facility]) 21 DAY Ethinyl Estradiol 0.612958 MG/HR / Etonogestrel 0.005 MG/HR Vaginal Ring [facility] ([facility]) Hydroxyzine Hydrochloride 25 MG Oral Tablet [facility] ([facility]) Naltrexone hydrochloride 50 MG Oral Tablet [facility] ([facility]) olanzapine 10 MG Oral Tablet [facility] ([facility]) quetiapine 50 MG Oral Tablet [facility] ([facility])
[2021-02-16] MEDS ORDERED: LORazepam 2 MG/ML VIAL IV STA (15:22)
[2021-02-16 15:32] LABS: BASO # 0.1 10^3/uL (0.0-0.2); BASO % 0.5 % (0.0-1.0); EOS # 0.2 10^3/uL (0.0-0.5); EOS % 1.3 % (0.0-3.0); HEMATOCRIT 44.9 % (36.0-47.0); HEMOGLOBIN 14.6 g/dl (12.0-15.5); LYMPH # 3.8 10^3/uL (1.5-5.0); LYMPH % 25.2 % (24.0-44.0); MEAN CORPUSCULAR HEMOGLOBIN 28.5 pg (27.0-33.0); MEAN CORPUSCULAR HGB CONC 32.5 g/dl (32.0-36.5); MEAN CORPUSCULAR VOLUME 87.5 fl (80.0-96.0); MONO # 0.9 10^3/uL (0.0-0.8); MONO % 5.9 % (2.0-8.0); NEUTROPHILS % 66.7 % (36.0-66.0); PLATELET COUNT, AUTOMATED 394 10^3/uL (150-450); RED BLOOD COUNT 5.13 10^6/uL (4.00-5.40); WHITE BLOOD COUNT 15.1 10^3/uL (4.0-10.0)
[2021-02-16 15:58] LABS: HCG, SERUM QUALITATIVE NEGATIVE (NEGATIVE)
[2021-02-16 16:38] LABS: ACETAMINOPHEN LEVEL < 2.0 UG/ML (10.0-30.0); ALBUMIN 4.7 GM/DL (3.2-5.2); ALT/SGPT 52 U/L (12-78); BILIRUBIN,DIRECT 0.2 MG/DL (0.0-0.2); BILIRUBIN,TOTAL 0.4 MG/DL (0.2-1.0); BLOOD UREA NITROGEN 15 MG/DL (7-18); CALCIUM LEVEL 9.6 MG/DL (8.5-10.1); CARBON DIOXIDE LEVEL 29 MEQ/L (21-32); CHLORIDE LEVEL 104 MEQ/L (98-107); ETHYL ALCOHOL (ETHANOL) < 0.003 % (0.000-0.010); GLOMERULAR FILTRATION RATE > 60.0 (>60); GLUCOSE, FASTING 96 MG/DL (70-100); POTASSIUM SERUM 3.7 MEQ/L (3.5-5.1); SALICYLATE LEVEL < 1.7 MG/DL (5.0-30.0); SODIUM LEVEL 139 MEQ/L (136-145); TOTAL PROTEIN 8.3 GM/DL (6.4-8.2)
--- NOTE | 2021-02-16 16:44 | REP ---
INDICATION: traua COMPARISON: 09/03/2019, 02/16/2020 TECHNIQUE: Axial noncontrast images from the skull base to the vertex with coronal reformations. This CT examination was performed using the following dose reduction techniques: Automated exposure control, adjustment of mA and/or kv according to the patient's size, and use of iterative reconstruction technique. FINDINGS: The ventricles, sulci, and cisterns are normal in position and appearance. Chou-white differentiation is maintained. No acute intracranial hemorrhage, mass/mass effect, pathology or trauma/injury. No evidence for acute infarction. No extra-axial fluid collection. Calvarium is intact. Paranasal sinuses and mastoid air cells are clear. IMPRESSION: Normal noncontrast head CT. No evidence for acute intracranial pathology or trauma/injury. <Electronically signed by Brett Mendez > 02/16/21 1640
[2021-02-16 17:06] LABS: AMPHETAMINES LEVEL URINE NEGATIVE (NEGATIVE); BARBITURATES URINE NEGATIVE (NEGATIVE); BENZODIAZEPINES URINE NEGATIVE (NEGATIVE); CANNABINOIDS URINE POSITIVE (NEGATIVE); COCAINE METABOLITE URINE NEGATIVE (NEGATIVE); METHADONE URINE NEGATIVE (NEGATIVE); OPIATES URINE POSITIVE (NEGATIVE); PHENCYCLIDINE URINE NEGATIVE (NEGATIVE)
--- OUTSIDE RECORDS SUMMARY | 2021-02-16 18:09 | CCD ---
Author Author [facility] Organization [facility] Address Unknown Phone Unavailable Care Team Providers Care Customer Experience Strategist Name Role Phone CASATNON, BEVERLY ROBINSON RPA-C Unavailable Unavailable CASTANON, BEVERLY [...] CASTANON, BEVERLY ROBINSON RPA-C Unavailable Unavailable CASTANON, BVEERLY ROBINSON RPA-C Unavailable Unavailable CASTANON, BEVERLY ROBINSON [...] Unavailable Vinnie Matthews Unavailable BHUPINDER, H FERNANDO CYBER SOFTWARE ENGINEER Unavailable Unavailable BHUPINDER, H FERNANDO CYBER SOFTWARE ENGINEER Unavailable Unavailable BHUPINDER, H FERNANDO CYBER SOFTWARE ENGINEER Unavailable Unavailable BHUPINDER, H FERNANDO CYBER SOFTWARE ENGINEER Unavailable Unavailable BHUPINDER, H FERNANDO CYBER SOFTWARE ENGINEER Unavailable Unavailable BHUPINDER, H FERNANDO CYBER SOFTWARE ENGINEER Unavailable Unavailable BHUPINDER, H FERNANDO CYBER SOFTWARE ENGINEER Unavailable Unavailable BHUPINDER, H FERNANDO CYBER SOFTWARE ENGINEER Unavailable Unavailable BHUPINDER, H FERNANDO CYBER SOFTWARE ENGINEER Unavailable Unavailable ELENA, JESS Unavailable Unavailable ELENA, [...] by Article 27-F of the [facility] Public Health law. If you continue you may have access to information: Regarding HIV / AIDS; Provided by facilities licensed or operated by the [facility] Office of Mental Health; or Provided by the [facility] Office for People With Developmental Disabilities. If such information is present, then the following [facility] mandated warning applies: This information [...] law may result in a fine or assisted sentence or both. A general authorization for the release of medical or other information is NOT sufficient authorization for further disc losure. 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 Attender: ROBINSON CASTANON RPA-C [facility] Medical 11/05/2020 12:00:00 AM EDT [place] ([facility]) Robinson Castanon RPA-C: [address], [place] [address], Ph. Attender: ROBINSON FARRC [facility] Medical 09/05/2020 12:00:00 AM EDT [place] ([facility]) Robinson Castanon RPA-C: [address], [place] [address], Ph. Attender: ROBINSON CASTANON RPA-C [facility] Medical 09/05/2020 12:00:00 AM EDT [place] ([facility]) Robinson Castanon RPA-C: [address], [place] [address], Ph. Attender: ROBINSON CASTANON RPABlanquita [facility] Medical 09/03/2020 12:00:00 AM EDT [place] ([facility]) YORDAN AbdallaC: [address], [place] [address], Ph. Attender: ROBINSON REYES [facility] Medical 09/03/2020 12:00:00 AM EDT [place] ([facility]) Robinson Castanon RPA-C: [address], [place] [address], Ph. Attender: ROBINSON REYES [facility] Medical 09/03/2020 12:00:00 AM EDT [facility] ([facility]) Inpatient Attender: BENIGNO Recinos er: Aline Maurer MDAdmitter: BENIGNO MORA MDReferrer: Hardeep Espinosa MD [id number] 07/04/2020 12:00:00 A M EDT - 07/10/2020 01:55:00 PM EDT Brief psychotic disorder [facility] Brief psychotic disorder Patient discharged. YORDAN BurnettC: [address], [place] [address], Ph. Attender: JESS ELENA [facility] Medical 05/10/2020 12:00:00 AM EST [place] ([facility]) YORDAN BurnettC: [address], [place] [address], Ph. Attender: JESS ELENA [facility] Medical 05/10/2020 12:00:00 AM EST [place] ([facility]) YORDAN BurnettC: [address], [place] [address], Ph. Attender: JESS ELENA [facility] Medical 05/10/2020 12:00:00 AM EST [place] ([facility]) YORDAN BurnettC: [address], [place] [address], Ph. 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 Attender: JESS ELENA [facility] Medical 04/01/2020 12:00:00 AM EST [place] ([facility]) YORDAN BurnettC: [address], [place] [address], Ph. Attender: JESS ELENA [facility] Medical 04/01/2020 12:00:00 AM EST [place] ([facility]) YORDAN BurnettC: [address], [place] [address], Ph. Attender: JESS ELENA [facility] Medical 04/01/2020 12:00:00 AM EST [place] ([facility]) YORDAN BurnettC: [address], [place] [address], Ph. Attender: JESS ELENA [facility] Medical 04/01/2020 12:00:00 AM EST [place] ([facility]) Jess Elena RPA-C: [address], [place] [address], Ph. Attender: JESS ELENA [facility] Medical 04/01/2020 12:00:00 AM EST [place] ([facility]) Outpatient [address] [facility] [address] 03/08/2020 12:00:00 AM EST eCW1 ([facility]) Unknown [address] [facility] [place] [address] 03/08/2020 12:00:00 AM EST eCW1 ([facility]) Robinson Castanon RPA-C: [address], [place] [address], Ph. Attender: ROBINSON REYES [facility] Medical 03/01/2020 12:00:00 AM EST [place] ([facility]) Robinson Castanon RPA-C: [address], [place] [address], Ph. Attender: ROBINSON FARRC [facility] Medical 03/01/2020 12:00:00 AM EST [facility] ([facility]) Robinson Castanon RPA-C: [address], [place] [address], Ph. Attender: ROBINSON FARRC [facility] Medical 03/01/2020 12:00:00 AM EST [place] ([facility]) Robinson D Castanon, RPA-C: [address], [place] [address], Ph. Attender: ROBINSON CASTANON RPA-C [facility] Medical 03/01/2020 12:00:00 AM EST [place] ([facility]) Robisnon Castanon RPA-C: [address], [place] [address], Ph. Attender: ROBINSON CASTANON RPA-C [facility] Medical 03/01/2020 12:00:00 AM EST [place] ([facility]) Robinson Castanon RPA-C: [address], [place] [address], Ph. Attender: ROBINSON CASTANON RPA-C [facility] Medical 03/01/2020 12:00:00 AM EST [place] ([facility]) Robinson Castanon, RPA-C: [address], [place] [address], Ph. Attender: ROBINSON CASTANON RPA-C [facility] Medical 02/07/2020 12:00:00 AM EST [place] ([facility]) Robinson Castanon RPA-C: [address], [place] [address], Ph. Attender: ROBINSON CASTANON RPA-C [facility] Medical 02/07/2020 12:00:00 AM EST [place] ([facility]) Robinson Castanon, RPA-C: [address], [place] [address], Ph. Attender: ROBINSON CASTANON RPA-C [facility] Medical 02/07/2020 12:00:00 AM EST [place] ([facility]) Robinson Castanon RPA-C: [address], [place] [address], Ph. Attender: ROBINSON REYES [facility] Medical 02/07/2020 12:00:00 AM EST [place] ([facility]) Robinson Castanon RPA-C: [address], [place] [address], Ph. Attender: ROBINSON REYES [facility] Medical 02/07/2020 12:00:00 AM EST [place] ([facility]) Robinson Castanon RPA-C: [address], [place] [address], Ph. Attender: ROBINSON REYES [facility] Medical 02/07/2020 12:00:00 AM EST [place] ([facility]) Robinson Castanon RPA-C: [address], [place] [address], Ph. Attender: ROBINSON REYES [facility] Medical 02/07/2020 12:00:00 AM EST [place] ([facility]) Outpatient Attender: ROBINSON REYES [facility] 01/15/2020 02:27:10 PM EDT [facility] Extended Individual Psychotherapy - 45 min Attender: Valdez Matthews [facility] Vianney 01/10/2020 03:15:00 AM EDT - 01/10/2020 03:15:00 AM EDT [facility] ([facility]) Attender: Vinnie Matthews 01/10/2020 12:00:00 AM EDT [facility] ([facility]) Outpatient Attender: FERNANDO SANDERS NP [facility] Prateek alexander 01/09/2020 04:30:00 AM EDT - 01/09/2020 04:30:00 AM EDT [facility] ([facility]) Attender: FERNANDO SANDERS NP 01/09/2020 12:00:00 AM EDT [facility] ([facility]) Attender: Vinnie Matthews 01/04/2020 12:00:00 AM EDT [facility] ([facility]) Extended Individual Psychotherapy - 45 min Attender: Valdez Matthews [facility] 01/02/2020 06:00:00 AM EDT - 01/02/2020 06:00:00 AM EDT [facility] ([facility]) Attender: ORGANIZATION NPI ALIASES * 12/27/2019 12:00:00 AM EDT [facility] ([facility]) Extended Individual Psychotherapy - 45 min Attender: ORGANIZATION NPI ALIASES [facility] 12/26/2019 06:00:00 AM EDT - 12/26/2019 06:00:00 AM EDT [facility] ([facility]) Brief Individual Psychotherapy - 30 min Attender: Berna dickey [facility] 12/22/2019 03:00:00 AM EDT - 12/22/2019 03:00:00 AM EDT [facility] ([facility]) Attender: Berna Stallings 12/22/2019 12:00:00 AM EDT [facility] ([facility]) Functional Status Medications Medication Brand Name [...] on Wed07/10/20 at 0900, For 30 doses [facility] Medication administered onsite olanzapine 10 MG Oral Tablet OLANZapine 10 MG Oral Tab let (ZYPREXA) OLANZapine 10 MG Oral Tablet (ZYPREXA) 07/10/2020 12:00:00 AM EDT 10 mg Oral active Take 1 tablet by mouth daily [facility] buspirone hydrochloride 5 MG Oral [...] daily as needed for SleepIndications: Trouble Sleeping [facility] Insomnia Hydroxyzine Hydrochloride 50 MG Oral Tab let hydrOXYzine HCl 50 MG Oral Tablet (ATARAX) hydrOXYzine HCl 50 MG Oral Tablet (ATARAX) 07/09/2020 12:00: 00 AM EDT 50 mg Oral active Take 1 tablet by mouth every 6 (six) hours as needed for Anxiety (Sleep) for up to 10 days [facility] buspirone hydrochloride 5 MG Oral Tablet busPIRone HCl 5 MG Oral Tablet (BUSPAR) busPIRone HCl 5 MG Oral Tablet (BUSPAR) 07/09/2020 12:00:00 AM EDT 5 mg Oral active Anxiety Disorder Take 1 tabl et by mouth Two Times Daily Indications: Anxiety Disorder [facility] Anxiety Disorder olanzapine 10 MG Oral Tablet OLANZapine 10 MG Oral Tab let (ZYPREXA) OLANZapine 10 MG Oral Tablet (ZYPREXA) 07/09/2020 12:00:00 AM EDT 20 mg Oral active Psychotic Depression Take 2 tablets by mouth jena heredia Indications: Psychotic Depressive Illness [facility] Psychotic Depression 50 mg 07/09/2020 12:00:00 AM EDT tablet 30 TAKE ONE TABLET BY MOUTH EVERY 6 HOURS NEEDED FOR ANXIETY FOR UP TO 10 DAYS TAKE ONE TABLET BY MOUTH EVERY 6 HOURS NEEDED FOR ANXIETY FOR UP TO 10 DAYS SOLD: 07/10/2020 [facility] olanzapine 5 MG Oral Tablet OLANZapine (ZYPREXA) table t 5 mg OLANZapine (ZYPREXA) tablet 5 mg 07/05/2020 10:45:00 AM EDT 5 mg Oral aborted 5 mg, Oral, 2 Times Daily, First dose (after last modification) on Wed07/05/20 at 1045, For 60 doses [facility] Medication administered onsite olanzapine 10 MG Oral Tablet OLANZapine (ZYPREXA) tabl et 20 mg OLANZapine (ZYPREXA) tablet 20 mg 07/04/2020 08:00:00 PM EDT 20 mg Oral aborted Psychotic Depression 20 mg, Oral, Nightly, First dose (after last modification) on Cassy 07/04/20 at 2000, For 30 days [facility] Psychotic Depression Medication administered onsite buspirone hydrochloride 5 MG Oral Tablet busPIRone (BU SPAR) tablet 5 mg busPIRone (BUSPAR) tablet 5 mg 07/04/2020 09:00:00 AM EDT 5 mg Or al aborted Anxiety Disorder 5 mg, Oral, 2 Times Daily, First dose on Cassy 07/04/20 at 0900, For 30 days [facility] Anxiety Disorder Medication administered onsite acetaminophen (TYLENOL) [...] 30 days
MDD 4
[Order 3 End] [facility] Medication administered onsite Hydroxyzine Hydrochloride 50 MG Oral Tablet hydrOXYzin e (ATARAX) tablet 50 mg hydrOXYzine (ATARAX) tablet 50 mg 07/04/2020 07:27:35 AM EDT 50 mg Oral aborted 50 mg, Oral, Every 6 hours PRN, Anxiety, Sleep, Starting on Cassy 07/04/20 at 0727, For 30 days [facility] Medication administered onsite Ondansetron 4 MG Disintegrating Oral Tab let ondansetron (ZOFRAN-ODT) disintegrating tablet 4 mg ondansetron (ZOFRAN-ODT) disintegrating tablet 4 mg 07/04/2020 07:27:35 AM EDT 4 mg Oral aborted 4 mg, Oral, Every 6 hours PRN, Nausea, Starting on Cassy 07/04/20 at 07, For 30 days
Dissolve on tongue.
[facility] Medication administered onsite Aluminum Hydroxide 40 MG/ML [...] at 07, For 30 days
MDD 4
[facility] Medication administered onsite Magnesium Hydroxide 80 MG/ML [...] creatinine > 2 notify provider before administering.
[facility] Medication administered onsite Trazodone Hydrochloride 50 MG Oral Tablet trazodone (D ESYREL) tablet 50 mg trazodone (DESYREL) tablet 50 mg 07/04/2020 07:27:28 AM EDT 50 mg Oral aborted Insomnia 50 mg, Oral, Nightly PRN, Sleep, Starting on Cassy 07/04/20 at 07, For 30 days [facility] Insomnia Medication administered onsite atomoxetine 25 MG Oral Capsule [Strattera] Kellee 01/08 12:00:00 AM EDT 25 mg by mouth completed <td ID="Medic ationRxNorm_1">367103</td><td ID="MedicationMedication_1">Strattera</td><td ID="MedicationRoute_1">by mouth</td><td ID="MedicationRouteConcept_1">Z48131</td><td ID="MedicationStartDate_1">01/09/2020</td><td ID="MedicationStopDate_1">02/08/2020</td><td ID="MedicationDosageFrequency_1">at bedtime</td><td ID="MedicationDuration_1">30</td><td ID="MedicationFormulaStrength_1">25 mg</td><td ID="MedicationDosageForm_1">capsule</td><td ID="MedicationDosageFormCode_1"></td><td ID="MedicationDosageDescription_1"></td><td ID="MedicationMedicationId_1">[id number]</td><td ID="MedicationAccount_1">[id number]</td><td ID="MedicationNpid_1">[id number]</td><td ID="MedicationAuthorFirstName_1">Fernando</td><td ID="MedicationAuthorLastName_1">Bhupinder</td><td ID="MedicationTaxonomyCode_1">[id number]</td><td ID="MedicationTaxonomyDesc_1">Nurse Practitioner</td><td ID="MedicationPhoneNumber_1">[phone]</td> [facility] quetiapine 50 MG Oral Tablet [Seroquel] Seroquel 01/09/2020 12: 00:00 AM EDT 50 mg by mouth completed <td ID="Me dicationRxNorm_2">437228</td><td ID="MedicationMedication_2">Seroquel</td><td ID="MedicationRoute_2">by mouth</td><td ID="MedicationRouteConcept_2">B57974</td><td ID="MedicationStartDate_2">01/09/2020</td><td ID="MedicationStopDate_2">03/09/2020</td><td ID="MedicationDosageFrequency_2">at bedtime</td><td ID="MedicationDuration_2">30</td><td ID="MedicationFormulaStrength_2">50 mg</td><td ID="MedicationDosageForm_2">tablet</td><td ID="MedicationDosageFormCode_2"></td><td ID="MedicationDosageDescription_2"></td><td ID="MedicationMedicationId_2">[id number]</td><td ID="MedicationAccount_2">[id number]</td><td ID="MedicationNpid_2">[id number]</td><td ID="MedicationAuthorFirstName_2">Fernando</td><td ID="MedicationAuthorLastName_2">Bhupinder</td><td ID="MedicationTaxonomyCode_2">[id number]</td><td ID="MedicationTaxonomyDesc_2">Nurse Practitioner</td><td ID="MedicationPhoneNumber_2">[phone]</td> [facility] ([facility] quetiapine 50 MG Oral Tablet [Seroquel] Seroquel 11/09/2019 12: 00:00 AM EDT 50 mg by mouth completed <td ID="Me dicationRxNorm_1">[id number]</td><td ID="MedicationMedication_1">Seroquel</td><td ID="MedicationRoute_1">by mouth</td><td ID="MedicationRouteConcept_1">H88099</td><td ID="MedicationStartDate_1">11/09/2019</td><td ID="MedicationStopDate_1">01/08/2020</td><td ID="MedicationDosageFrequency_1">at bedtime</td><td ID="MedicationDuration_1">30</td><td ID="MedicationFormulaStrength_1">50 mg</td><td ID="MedicationDosageForm_1">tablet</td><td ID="MedicationDosageFormCode_1"></td><td ID="MedicationDosageDescription_1"></td><td ID="MedicationMedicationId_1">[id number]</td><td ID="MedicationAccount_1">[id number]</td><td ID="MedicationNpid_1">[id number]</td><td ID="MedicationAuthorFirstName_1">Fernando</td><td ID="MedicationAuthorLastName_1">Bhupinder</td><td ID="MedicationTaxonomyCode_1">[id number]</td><td ID="MedicationTaxonomyDesc_1">Nurse Practitioner</td><td ID="MedicationPhoneNumber_1">[phone]</td> [facility] ([facility]) atomoxetine 18 MG Oral Capsule atomoxetine 18 [...] tablet completed [facility] 10 [facility] Ethinyl Estradiol 0.784445 MG/HR / Etonogestrel 0.005 MG/HR Vaginal Ring etonogestrel 0.12 mg-ethinyl estradiol 0.015 mg/24 hr vaginal ring etonogestrel 0.12 mg-ethinyl estradiol 0.015 mg/24 hr vaginal ring completed 21 DAY ethinyl estradiol 0.180866 MG/HR / etonogestrel 0.005 MG/HR Vaginal System [facility] ([facility]) Escitalopram 10 MG Oral Tablet [Lexapro] Lexapro 10 mg tablet Take 1 tablet every day by oral route. Lexapro 10 mg tablet Take 1 tablet every day by oral route. 1 completed escitalopram 10 MG Oral Tablet [Lexapro] [facility]) atomoxetine 18 MG Oral Capsule atomoxetine 18 mg [facility] atomoxetine 18 mg capsule completed atomoxetine 18 MG Oral Capsule [facility]) Escitalopram 10 MG Oral Tablet [Lexapro] Lexapro 10 mg tablet Take 1 tablet every day by oral route. Lexapro 10 mg tablet Take 1 tablet every day by oral route. 1 completed escitalopram 10 MG Oral Tablet [Lexapro] [facility]) Naltrexone hydrochloride 50 MG Oral Tablet naltrexone 50 mg tablet naltrexone 50 mg tablet completed naltrexone hydrochloride 50 MG Oral Tablet [facility]) quetiapine 50 MG Oral Tablet quetiapine 50 mg tablet quetiapine 50 mg tablet completed quetiapine 50 MG Oral Tablet [facility]) olanzapine 10 MG Oral Tablet olanzapine 10 mg tablet olanzapine 10 mg tablet completed olanzapine 10 MG Oral Tablet [facility]) Clonazepam 0.5 MG Oral Tablet clonazepam 0.5 mg tablet TAKE ONE TABLET BY MOUTH EVERY DAY NEEDED MAXIMUM DAILY DOSE 1 clonazepam 0.5 mg tablet TAKE ONE TABLET BY MOUTH EVERY DAY NEEDED MAXIMUM DAILY DOSE 1 completed clonazepam 0.5 MG Oral Tablet AT [facility]) atomoxetine 25 MG Oral Capsule atomoxetine 25 mg [facility] atomoxetine 25 mg capsule completed atomoxetine 25 MG Oral Capsule [facility]) Naltrexone hydrochloride 50 MG Oral Tablet naltrexone 50 mg tablet naltrexone 50 mg tablet completed naltrexone hydrochloride 50 MG Oral Tablet [facility]) 21 DAY Ethinyl Estradiol 0.618387 MG/HR / Etonogestrel 0.005 MG/HR Vaginal Ring etonogestrel 0.12 mg-ethinyl estradiol 0.015 mg/24 hr vaginal ring etonogestrel 0.12 mg-ethinyl estradiol 0.015 mg/24 hr vaginal ring completed 21 DAY ethinyl estradiol 0.980435 MG/HR / etonogestrel 0.005 MG/HR Vaginal System [place] ([facility]) 21 DAY Ethinyl Estradiol 0.779582 MG/HR / Etonogestrel 0.005 MG/HR Vaginal Ring etonogestrel 0.12 mg-ethinyl estradiol 0.015 mg/24 hr vaginal ring etonogestrel 0.12 mg-ethinyl estradiol 0.015 mg/24 hr vaginal ring completed 21 DAY ethinyl estradiol 0.573889 MG/HR / etonogestrel 0.005 MG/HR Vaginal System [place] ([facility]) Naltrexone hydrochloride 50 MG Oral [...] hydroxyzine hydrochloride 25 MG Oral Tablet [facility] ([facility]) quetiapine 50 MG Oral Tablet [...] ([facility]) 21 DAY Ethinyl Estradiol 0.486314 MG/HR / Etonogestrel 0.005 MG/HR Vaginal Ring etonogestrel 0.12 mg-ethinyl estradiol 0.015 mg/24 hr vaginal ring etonogestrel 0.12 mg-ethinyl estradiol 0.015 mg/24 hr vaginal ring completed 21 DAY ethinyl estradiol 0.584376 MG/HR / etonogestrel 0.005 MG/HR Vaginal System [place] ([facility]) Clonazepam 0.5 MG Oral Tablet clonazepam 0.5 mg tablet TAKE ONE TABLET BY MOUTH EVERY DAY NEEDED MAXIMUM DAILY DOSE 1 clonazepam 0.5 mg tablet TAKE ONE TABLET BY MOUTH EVERY DAY NEEDED MAXIMUM DAILY DOSE 1 completed clonazepam 0.5 MG Oral Tablet AT [facility]) Hydroxyzine Hydrochloride 25 MG Oral Tab let hydroxyzine HCl 25 mg tablet TAKE ONE TABLET BY MOUTH UP TO TWICE A DAY NEEDED hydroxyzine HCl 25 mg tablet TAKE ONE TABLET BY MOUTH UP TO TWICE A DAY NEEDED completed hydroxyzine hydrochloride 25 MG Oral Tablet [facility] ([facility]) atomoxetine 18 MG Oral Capsule atomoxetine 18 mg capsu le atomoxetine 18 mg capsule completed atomoxetine 18 MG Oral Capsule [facility] ([facility]) 21 DAY Ethinyl Estradiol 0.391608 MG/HR / Etonogestrel 0.005 MG/HR Vaginal Ring etonogestrel 0.12 mg-ethinyl estradiol 0.015 mg/24 hr vaginal ring etonogestrel 0.12 mg-ethinyl estradiol 0.015 mg/24 hr vaginal ring completed 21 DAY ethinyl estradiol 0.200735 MG/HR / etonogestrel 0.005 MG/HR Vaginal System [facility] ([facility]) Hydroxyzine Hydrochloride 25 MG Oral Tab [...] hydroxyzine hydrochloride 25 MG Oral Tablet [facility] ([facility]) quetiapine 50 MG Oral Tablet [...] Two Times Daily Indic ations: Anxiety Disorder [facility] Anxiety Disorder Escitalopram 10 MG Oral Tablet [Lexapro] Lexapro 10 mg tablet Take 1 tablet every day by oral route. Lexapro 10 mg tablet Take 1 tablet every day by oral route. 1 completed escitalopram 10 MG Oral Tablet [Lexapro] [facility] ([facility]) Trazodone Hydrochloride 50 MG Oral Table t traZODone HCl 50 MG Oral Tablet (DESYREL) traZODone HCl 50 MG Oral Tablet (DESYREL) 50 mg Oral aborted Insomnia Take 50 mg by mouth daily as needed for SleepIndications: Trouble Sleeping [facility] Insomnia Naltrexone hydrochloride 50 MG Oral Tablet naltrexone 50 mg tablet naltrexone 50 mg tablet completed naltrexone hydrochloride 50 MG Oral Tablet [facility] ([facility]) olanzapine 10 MG Oral Tablet OLANZapine 10 MG Oral Tab let (ZYPREXA) OLANZapine 10 MG Oral Tablet (ZYPREXA) 20 mg Oral aborted Ps ychotic Depression Take 20 mg by mouth nightly Indications: Psychotic Depressive Illness [facility] Psychotic Depression 21 DAY Ethinyl Estradiol 0.745954 MG/HR / Etonogestrel 0.005 MG/HR Vaginal Ring etonogestrel 0.12 mg-ethinyl estradiol 0.015 mg/24 hr vaginal ring etonogestrel 0.12 mg-ethinyl estradiol 0.015 mg/24 hr vaginal ring completed 21 DAY ethinyl estradiol 0.585965 MG/HR / etonogestrel 0.005 MG/HR Vaginal System [place] ([facility]) atomoxetine 25 MG Oral Capsule atomoxetine 25 mg capsu le atomoxetine 25 mg capsule completed atomoxetine 25 MG Oral Capsule [place] ([facility]) 21 DAY Ethinyl Estradiol 0.291326 MG/HR / Etonogestrel 0.005 MG/HR Vaginal Ring etonogestrel 0.12 mg-ethinyl estradiol 0.015 mg/24 hr vaginal ring etonogestrel 0.12 mg-ethinyl estradiol 0.015 mg/24 hr vaginal ring completed 21 DAY ethinyl estradiol 0.018460 MG/HR / etonogestrel 0.005 MG/HR Vaginal System [facility] er) atomoxetine 25 MG Oral Capsule atomoxetine 25 mg capsu le atomoxetine 25 mg capsule completed atomoxetine 25 MG Oral Capsule [facility]) atomoxetine 18 MG Oral Capsule atomoxetine 18 mg capsu le atomoxetine 18 mg capsule completed atomoxetine 18 MG Oral Capsule [place] ([facility]) Escitalopram 10 MG Oral Tablet [Lexapro] Lexapro 10 mg tablet Take 1 tablet every day by oral route. Lexapro 10 mg tablet Take 1 tablet every day by oral route. 1 completed escitalopram 10 MG Oral Tablet [Lexapro] [facility]) Clonazepam 0.5 MG Oral Tablet clonazepam 0.5 mg tablet TAKE ONE TABLET BY MOUTH EVERY DAY NEEDED MAXIMUM DAILY DOSE 1 clonazepam 0.5 mg tablet TAKE ONE TABLET BY MOUTH EVERY DAY NEEDED MAXIMUM DAILY DOSE 1 completed clonazepam 0.5 MG Oral Tablet AT [facility]) quetiapine 50 MG Oral Tablet quetiapine 50 mg tablet quetiapine 50 mg tablet completed quetiapine 50 MG Oral Tablet [facility]) atomoxetine 18 MG Oral Capsule atomoxetine 18 mg capsu le atomoxetine 18 mg capsule completed atomoxetine 18 MG Oral Capsule [facility]) Naltrexone hydrochloride 50 MG Oral Tablet naltrexone 50 mg tablet naltrexone 50 mg tablet completed naltrexone hydrochloride 50 MG Oral Tablet [facility]) atomoxetine 18 MG Oral Capsule atomoxetine 18 mg capsu le atomoxetine 18 mg capsule completed atomoxetine 18 MG Oral Capsule [facility]) Naltrexone hydrochloride 50 MG Oral Tablet naltrexone 50 mg tablet naltrexone 50 mg tablet completed naltrexone hydrochloride 50 MG Oral Tablet [facility]) Naltrexone hydrochloride 50 MG Oral Tablet naltrexone 50 mg tablet naltrexone 50 mg tablet completed naltrexone hydrochloride 50 MG Oral Tablet [facility]) atomoxetine 18 MG Oral Capsule atomoxetine 18 mg capsu le atomoxetine 18 mg capsule completed atomoxetine 18 MG Oral Capsule [facility]) Escitalopram 10 MG Oral Tablet [Lexapro] Lexapro 10 mg tablet Take 1 tablet every day by oral route. Lexapro 10 mg tablet Take 1 tablet every day by oral route. 1 completed escitalopram 10 MG Oral Tablet [Lexapro] [place] ([facility]) quetiapine 50 MG Oral Tablet quetiapine 50 mg tablet quetiapine 50 mg tablet completed quetiapine 50 MG Oral Tablet [place] ([facility]) quetiapine 50 MG Oral Tablet quetiapine 50 mg tablet quetiapine 50 mg tablet completed quetiapine 50 MG Oral Tablet [place] ([facility]) Hydroxyzine Hydrochloride 25 MG Oral Tablet hydroxyzin e HCl 25 mg tablet hydroxyzine HCl 25 mg tablet completed hydroxyzine hydrochloride 25 MG Oral Tablet [place] ([facility]) Hydroxyzine Hydrochloride 25 MG Oral Tablet hydroxyzin e HCl 25 mg tablet hydroxyzine HCl 25 mg tablet completed hydroxyzine hydrochloride 25 MG Oral Tablet [place] ([facility]) atomoxetine 25 MG Oral Capsule atomoxetine 25 mg capsu le atomoxetine 25 mg capsule completed atomoxetine 25 MG Oral Capsule [place] ([facility]) Insurance Providers Payer name Policy type / Coverage type Policy ID Covered republican ID Covered republican's relationship to marinelli Policy Marinelli Plan Information R U [id number] Child [id number] [employer] [id number] Self [id number] [employer] [id number] Family Dependent [id number] Commercial [id number] Family Dependent [id number] [employer] [id number] 2 [id number] MEDICAID [id number] SP [id number] [employer] [id number] Family Dependent [employer] Medigap Part B [id number] Family Dependent [id number] [facility] Commercial [id number] Family Dependent [id number] [facility] Commercial [id number] Family Dependent [id number] [facility] Commercial [id number] Family Dependent [id number] [facility] Medigap Part B [id number] Family Dependent [id number] [employer] [id number] MO2 [id number] [facility] INS NO FAULT [id number] FA2 [id number] Self Pay P none S none UMR O [id number] S [id number] SELF PAY UNAVAILABLE SP UNAVAILA BLE [place] [id number] SP [id number] [facility] [id number] MO2 [id number] SELF PAY ONLY [id number] SP [id number] [facility] [id number] MO2 [id number] Problems, Conditions, and Diagnoses Code Display Name Description Problem Type Effective Dates Data Source(s) 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 Diag nosis 07/04/2020 06:17:00 AM [facility] bipolar d/o bipolar d/o Diagnosis 07/04/2020 06:17:00 AM [facility] [id number] Overweight Overweight Problem 11/05/2020 12:00:00 AM ED T [place] ([facility]) F41.1 [id number] RACHEL (generalized anxiety disorder) Proble m 03/15/2020 12:00:00 AM EST eCW1 ([facility]) F32.9 [id number] Depression, unspecified depression type P roblem 03/15/2020 12:00:00 AM EST eCW1 ([facility]) F32.9 Major depressive disorder, single episod e, unspecified Unspecified depressive Disorder Condition 01/10/2020 12:00:00 AM EDT [facility] ( [facility]) F11.20 Opioid dependence, uncomplicated Opioid Use Disorder, Moderate Condition 01/10/2020 12:00:00 AM EDT [facility] ([facility]) F90.2 Attention-deficit hyperactivity disorder , combined type Attention- Deficit/Hyperactivity Disorder, Combined presentation Condition 01/10/2020 12:00:00 AM EDT [facility] ([facility]) [id number] Body measurement finding Body Measurement Finding Prob wendy 11/08/2019 12:00:00 AM EDT - 02/07/2020 12:00:00 AM EST [place] ([facility]) [id number] Body measurement finding Body Measurement Finding Prob wendy 11/08/2019 12:00:00 AM EDT - 02/07/2020 12:00:00 AM EST [place] ([facility]) [id number] Body measurement finding Body Measurement Finding Prob wendy 11/08/2019 12:00:00 AM EDT - 02/07/2020 12:00:00 AM EST [place] ([facility]) [id number] Body measurement finding Body Measurement Finding Prob wendy 11/08/2019 12:00:00 AM EDT - 02/07/2020 12:00:00 AM EST [place] ([facility]) [id number] Body measurement finding Body Measurement Finding Prob wendy 11/08/2019 12:00:00 AM EDT - 02/07/2020 12:00:00 AM EST [place] ([facility]) [id number] Body measurement finding Body Measurement Finding Prob wendy 11/08/2019 12:00:00 AM EDT - 02/07/2020 12:00:00 AM EST [place] ([facility]) [id number] Body measurement finding Body Measurement Finding Prob wendy 11/08/2019 12:00:00 AM EDT - 02/07/2020 12:00:00 AM EST [place] ([facility]) [id number] SNOMED CT Concept SNOMED CT Concept Problem 10/24 12:00:00 AM EDT - 02/07/2020 12:00:00 AM EST [place] ([facility]) [id number] SNOMED CT Concept SNOMED CT Concept Problem 10/24 12:00:00 AM EDT - 02/07/2020 12:00:00 AM EST [place] ([facility]) [id number] SNOMED CT Concept SNOMED CT Concept Problem 10/24 12:00:00 AM EDT - 02/07/2020 12:00:00 AM EST [place] ([facility]) [id number] SNOMED CT Concept SNOMED CT Concept Problem 10/24 12:00:00 AM EDT - 02/07/2020 12:00:00 AM EST [place] ([facility]) [id number] SNOMED CT Concept SNOMED CT Concept Problem 10/24 12:00:00 AM EDT - 02/07/2020 12:00:00 AM EST [place] ([facility]) [id number] SNOMED CT Concept SNOMED CT Concept Problem 10/24 12:00:00 AM EDT - 02/07/2020 12:00:00 AM EST [place] ([facility]) [id number] SNOMED CT Concept SNOMED CT Concept Problem 10/24 12:00:00 AM EDT - 02/07/2020 12:00:00 AM EST [place] ([facility]) [id number] Brief reactive psychosis Brief Reactive Psychosis Prob wendy 09/13/2019 12:00:00 AM EDT - 03/01/2020 12:00:00 AM EST [place] ([facility]) [id number] Brief reactive psychosis Brief Reactive Psychosis Prob wendy 09/13/2019 12:00:00 AM EDT - 03/01/2020 12:00:00 AM EST [place] ([facility]) [id number] Brief reactive psychosis Brief Reactive Psychosis Prob wendy 09/13/2019 12:00:00 AM EDT - 03/01/2020 12:00:00 AM EST [place] ([facility]) [id number] Brief reactive psychosis Brief Reactive Psychosis Prob wendy 09/13/2019 12:00:00 AM EDT - 03/01/2020 12:00:00 AM EST [place] ([facility]) [id number] Brief reactive psychosis Brief Reactive Psychosis Prob wendy 09/13/2019 12:00:00 AM EDT - 03/01/2020 12:00:00 AM EST [place] ([facility]) [id number] Brief reactive psychosis Brief Reactive Psychosis Prob wendy 09/13/2019 12:00:00 AM EDT - 03/01/2020 12:00:00 AM LARY CUEVAS ([facility]) Surgeries/Procedures Procedure Description Date Indications Data Source(s) BLOOD COUNT COMPLETE AUTOMATED <td>CBC</td><td>Routine </td><td>07/05/2020 11:12 AM EDT</td><td></td><td> </td> 07/05/2020 11:12:00 AM [facility] BASIC METABOLIC PANEL CALCIUM TOTAL <td>BASIC METABOLI C PANEL</td><td>Routine</td><td>07/05/2020 11:12 AM EDT</td><td></td><td> </td> 07/05/2020 11:12:00 AM [facility] LAB RESULTS (OUTSIDE/HISTORICAL) <td>LAB RESULTS (OUTSIDE/HISTORICAL)</td><td></td><td>04/30/2020 11:24 AM EST</td><td></td><td></td> 04/30/2020 11:24:00 AM [facility] CARDIAC REPORT <td>CARDIAC REPORT</td><td>< /td><td>04/30/2020 11:24 AM EST</td><td></td><td></td> 04/30/2020 11:24:00 AM [facility] Extended Individual Psychotherapy - 45 min 12:00:00 AM EDT [facility] ([facility]) Extended Individual Psychotherapy - 45 min 01/10/2020 12:00:00 AM EDT - 01/10/2020 12:00:00 AM EDT [facility] ([facility]) OFFICE OUTPATIENT VISIT 15 MINUTES 01/09/2020 12:00:00 AM EDT [facility] ([facility]) OFFICE OUTPATIENT VISIT 15 MINUTES 01/08 12:00:00 AM EDT - 01/09/2020 12:00:00 AM EDT [facility] ([facility]) Extended Individual Psychotherapy - 45 min 01/04/2020 12:00:00 AM EDT - 01/04/2020 12:00:00 AM EDT [facility] ([facility]) Extended Individual Psychotherapy - 45 min 0 12:00:00 AM EDT [facility] ([facility]) Extended Individual Psychotherapy - 45 min 12/27/2019 12:00:00 AM EDT - 12/27/2019 12:00:00 AM EDT [facility] ([facility]) Extended Individual Psychotherapy - 45 min 0 12:00:00 AM EDT [facility] ([facility]) Brief Individual Psychotherapy - 30 min 12/22/2019 12: 00:00 AM EDT [facility] ([facility]) Brief Individual Psychotherapy - 30 min 12/22/2019 12:00:00 AM EDT - 12/22/2019 12:00:00 AM EDT [facility] ([facility]) Results ID Date Data Source [id number] 09/04/2020 03:54:00 PM EDT [place] ([facility]) Name Value Range Interpretation Code Description Data Anna rce(s) Supporting Document(s) HCG negative Hcg [facility] ([facility]) ID Date Data Source [id number] 07/10/2020 02:47:14 PM EDT [facility] Name Value Range Interpretation Code Description Data Anna rce(s) Supporting Document(s) Discharge Summary [facility] YLXTHf2mJvUYFmWg46/VBRttPWAet8OoNObiMYc8NTsnVQBbO4NoGAE4oO8iGTM1LWwFZcKwKkVgMMY3 lbm [file] ICAgICAgICAgICAgICAgICAgICAgICAgICAgICAgIC AgICAgICAgICAgICAgICAgICAgICAgICAgICAgICAgICAgICANCiAgICAgICAgICAgICAgICAgICAgIC AgICAgICAgICAgICAgICAgICAgICAgICAgICAgICAgICAgICAgICAgICAgICAgICAgICAgICAgICAgIC AgICAgICAgICAgICAgICAgICANCiAgICAgICAgICAg ICAgICAgICAgICAgICAgICAgICAgICAgICAgICAgICAgICAgICAgICAgICAgICAgICAgICAgICAgICAg ICAgICAgICAgICAgICAgICAgICAgICAgICAgICANCiAgICAgICAgICAgICAgICAgICAgICAgICAgICAg ICAgICAgICAgICAgICAgICAgICAgICAgICAgICAgIC AgICAgICAgICAgICAgICAgICAgICAgICAgICAgICAgICAgICAgICANCiAgICAgICAgICAgICAgICAgIC AgICAgICAgICAgICAgICAgICAgICAgICAgICAgICAgICAgICAgICAgICAgICAgICAgICAgICAgICAgIC AgICAgICAgICAgICAgICAgICAgICANCiAgICAgICAg ICAgICAgICAgICAgICAgICAgICAgICAgICAgICAgICAgICAgICAgICAgICAgICAgICAgICAgICAgICAg ICAgICAgICAgICAgICAgICAgICAgICAgICAgICAgICANCiAgICAgICAgICAgICAgICAgICAgICAgICAg ICAgICAgICAgICAgICAgICAgICAgICAgICAgICAgIC AgICAgICAgICAgICAgICAgICAgICAgICAgICAgICAgICAgICAgICAgICANCiAgICAgICAgICAgICAgIC AgICAgICAgICAgICAgICAgICAgICAgICAgICAgICAgICAgICAgICAgICAgICAgICAgICAgICAgICAgIC AgICAgICAgICAgICAgICAgICAgICAgICANCiAgICAg ICAgICAgICAgICAgICAgICAgICAgICAgICAgICAgICAgICAgICAgICAgICAgICAgICAgICAgICAgICAg ICAgICAgICAgICAgICAgICAgICAgICAgICAgICAgICAgICANCiAgICAgICAgICAgICAgICAgICAgICAg ICAgICAgICAgICAgICAgICAgICAgICAgICAgICAgIC AgICAgICAgICAgICAgICAgICAgICAgICAgICAgICAgICAgICAgICAgICAgICANCjw/tGRxD4zqvEMqjd O0P4klTo5OJe7DTQ2rq3EeHULwPIhfovFiUjeLWlFlBLPqHmnWYaa3UTzqXY7NeCVoH5NzK5AfTQutHX 4SMKBkEDLvgLKnINFbXTGmRsI1NSIqIJkfQP1LbHTp VJgfXFOmEXChMfVjWWPvUQStIUAhCNKbVLXGTKKpHHNjJdXpHJNnSXLxAIphHYWYVGX5DOAuLuQvSHJi TNWhAM4WCLKlA288inJlVU2JVy4WObLxRH7uda1VCAKfSEQfGvbHFaw4JTchEW2QkLTikHI8RhSiMSWB FdMlK1odu1SzJUArEASQDOdpBT1Ii6HgsUXlCRm+Pg 4ZNB0zk5KvVRw5ZhGgVZ7xxo7QRPxDWaOtP3GlwVheDJUud0JwXZEmWOUSqP9xUBS8IIZ7BOtaw8RjXA DLVY9hFHFfAL3deR7jGSUAPZBrrGV8WdD7ZsQhWrSqRTJ3NJfcIZ0jBRggXZ1ESKA1RBarCMKoEYFiY4 iRFgZtUHOiTwSwvHdnHV4NBrVtV6NyyqYxqRY4AoXx IFINCj4+JZjyrrBpUtuWYtA3DENcm4FtEFy1NP0IYACqYJpbPU4IXBPdpF1dHCkcLF5UJyS1YMDeKMAA UmAxF68ioMFhWZk3N2YtEoNgNHQxYjzuWJGzKIrfXsMeGRApSlScBGygIC9+ID4+KLyvTU1LKMwosnJy YTQvAy9CSCKlHWMrAR6mAIBhOMFzC4M7rYncHQDFIs KjM5kwqeuxJW2oBSVqX284mRicglOzQSNrQNOcFz2KAMUiWJD0PPVvsOUdCMSvXKUFQUqtYL3KcFQdBV Q6cX3jWZijYMTeWGFcV6yWGwWtoBiaUV50kMhwtzOnzVBkVOo+Ko1AGH7qx0OhOGu3ikBzRVczVSC0KW ukGDZpRMTwWAEzIFO0UOR5MZKINhRgGCKePHZbGVed LSQtFJCvyv3JPZDyNUP3DWtaLNOiUKFbULCbMFitKRZdGQPyBYX6FOIqHUGbWD8LYtMjPKBlRTTcIWqc KOYsMIDqqf1KUONyJPPeTQHpVLLvORZeUGUhZKeoWFVwYWO9MkWgVNMfWGYlRM4EHsRaGFDbIKq1FnOa REMuJMMliv7YQNZrHVNkVYljJYLdBVEaDPCbTFueLP YoRAArNrb4KZDnLXSzKI0DNcNlQCQiFSH4GMhgKFPdSXMbqa7CQQIiXQWoDEW0ZgZkDIAkXOXnHIqxUK PhWWI8Qgn9LVRzXBUvQN9MCwOkLLLjSCo4JUfwIREaTQKgvh6SYUNjOTWkYLKkCSJbFHXoMFRrZVyaAX SeRUOiYMPiCAUvDXWtXH0UHcNqMPDySbVvLsQsVETr WUEstf1RZWFhVEGlKzRoRgDfNSBlNEIyDOzhRNYxKIT4DkPzYUWpYTCkCS6WDrPiECFtSsMyGCxsUOCb MDVhts9RSGWjEVHoDTLdWSCpZNSwPHNnSYamHYEwUQAfAEHmGZGmEQXdAL9GZqKhLUFxStIhPWntYHJj ABGcgr8FMCEdTHEyDDT0CBDiDLXwOYHxJNcnNTCrHS O9FTb2SCWxCPOxWE0ZBmAeGIPxOpI7NYwqHIBtYYNcsv0PAISyILIdRRXfKkJiRVStDTZpRMmlEHJtVY M3ABC3JOEjXVEdPK5MVeRwOMAdNgWhTTvkHZCiMNCeoj8TYQQwYOUeRtk7AkVgAUJoEJXhPMnpVKTvDX R0UGB6FNSlNZQsZC2EPpKmCMJmEydyISOeLWLiVKBy cg7CICIcPZUlCQHoWpJeNYApPCElGPfdAZRwGSO4GIJiNYSdNARmPN3ITrOhGJZcQvf4ELWzPYDyYGEz jd4EGSQqRJE0BUB8FPMvBICtKRYiCPelTNYqOBYfRZGjJPCuTOQiXP3EXkHdDHRdJDY3IiMzIEIuIZMi bf9UCGBlJVW3FBk6JNYnCQXeYPIcMHuzOEEmFPQeAT S9APIfTOEySM9SOtZrJNHxGHY0NNLjUVFpTBUdkj1SUTBfQNW9IuA5TwQqDMUjTVFmLHzuBEOaNWKiEa Y5MJSlDXCtFC7ENqHbKEYpHXepQEOuPLTpQARpjo2MNNWlCNQ1XqJrKYAcCGFvNGRfIXqdIJXrOXA0Df PiLFPnNRZtHB1PRlWpFJWkPVu5VuWbMWSdEGGsyg5E TWIbYQZ3PGXxKOMaWBLfCHTeVSavJXEqWMZ0CxVlXFQnYRDdSL8CPmOeCQPtLLn3JmNbEOCrLFUltw3M UXPxTPZ2AMllQlFbTLNuGZWrPAkxTRTcSYP6NEs1EHUxPFVfMJ9CMvFeFPUnMqF6IRFcKAMkYXJjgc7I JRBiYKC5NWj7WYLaLXUbUWZyJZmeDCZcMGOiKOU4QJ FzYQEoZT6WHoBbBCjrFMVYIus4RXtaH3m5KJY0BO9DH5Wfl6AqADWdEDHYGOlcSU5oraZiJLTxNi1EV2 hTVbz2LAM5PWbwKCWqFxHdHXF5ONGoTRM7PCDaVEH1NfOvSO0qTCa2FvD3GzN5ZbT1VtW8EDy4LUEaYO krWXJ7BgF8HVA9NkKfLK0KKl8JEiK3PGD3jMLyJd8FZsPyCdHEPiSjXS4DOMa= ID Date Data Source [id number] 07/05/2020 11:32:[address] [facility] Name Value Range Interpretation Code Description Data Anna rce(s) Supporting Document(s) Leukocytes [#/volume] in Blood by Automated count 9.8 10*3/uL 4-10 [facility] Erythrocytes [#/volume] in Blood by Automated count 5.11 10*6/uL 4.1- 5.3 [facility] Hemoglobin [Mass/volume] in Blood 15.2 g/dL 11.5-15.5 [facility] Hematocrit [Volume Fraction] of Blood by Automated count 45.6 % 3 6-45 H [facility] Erythrocyte mean corpuscular volume [Entitic volume] by Auto mated count 89.1 fL 80-96 [facility] Erythrocyte mean corpuscular hemoglobin [Entitic mass] by Automated count 29.7 pg 27-33 [facility] Erythrocyte mean corpuscular hemoglobin concentration [Mass/volume] by Automated [facility] 33.3 g/dL [facility].0-[facility] width [Ratio] by Automated count 12.8 % 11.5-14.5 [facility] Platelets [#/volume] in Blood by Automated count 428 10*3/uL 150-400 H [facility] ID Date Data Source [id number] 07/05/2020 11:50:[address] [facility] Name Value Range Interpretation Code Description Data Anna rce(s) Supporting Document(s) Bicarbonate [Moles/volume] in Serum 22 mmol/L 22-29 [facility] Chloride [Moles/volume] in Serum or Plasma 102 mmol/L 98-107 [facility] Creatinine [Mass/volume] in Serum or Plasma 0.59 mg/dL 0.50-0.90 [facility] Glucose [Mass/volume] in Serum or Plasma 90 mg/dL 70-140 [facility] Potassium [Moles/volume] in Serum or Plasma 4.5 mmol/L 3.4-5.1 [facility] Sodium [Moles/volume] in Serum or Plasma 137 mmol/L 136-145 [facility] Urea nitrogen [Mass/volume] in Serum or Plasma 13 mg/dL 6-20 [facility] Anion gap 3 in Serum or Plasma 13 mmol/L 8-15 [facility] Osmolality of Serum or Plasma by calculation 284 mosm/kg 275-300 [facility] Creatinine/Urea nitrogen [Mass Ratio] in Serum or Plasma 22 [facility] Calcium [Mass/volume] in Serum or Plasma 9.9 mg/dL 8.6-10.0 [facility] Glomerular filtration rate/1.73 sq M pre dicted among non-blacks [Volume Rate/Area] in Serum or Plasma by Creatinine-based formula (MDRD) >6 0 [facility] Glomerular filtration rate/1.73 sq M pre dicted among blacks [Volume Rate/Area] in Serum or Plasma by Creatinine-based formula (MDRD) >60 [facility] ID Date Data Source [id number] 07/04/2020 05:12:28 PM EDT [facility] Name Value Range Interpretation Code Description Data Anna rce(s) Supporting Document(s) History and Physical [facility] HRWVWr8zOyRXBpIt57/VGJjuDXJwh0QgTRcnUSm6AMncKKRsQ5IcKYL5nK2eECG2RHyAIqVgNiCcDFG0 lbm [file] AgICAgICAgICAgICAgICAgICAgICAgICAgICAgICAg ICAgICAgICAgICAgICAgICAgICAgDQogICAgICAgICAgICAgICAgICAgICAgICAgICAgICAgICAgICAg ICAgICAgICAgICAgICAgICAgICAgICAgICAgICAgICAgICAgICAgICAgICAgICAgICAgICAgICAgICAg ICAgDQogICAgICAgICAgICAgICAgICAgICAgICAgIC AgICAgICAgICAgICAgICAgICAgICAgICAgICAgICAgICAgICAgICAgICAgICAgICAgICAgICAgICAgIC AgICAgICAgICAgICAgDQogICAgICAgICAgICAgICAgICAgICAgICAgICAgICAgICAgICAgICAgICAgIC AgICAgICAgICAgICAgICAgICAgICAgICAgICAgICAg ICAgICAgICAgICAgICAgICAgICAgICAgDQogICAgICAgICAgICAgICAgICAgICAgICAgICAgICAgICAg ICAgICAgICAgICAgICAgICAgICAgICAgICAgICAgICAgICAgICAgICAgICAgICAgICAgICAgICAgICAg ICAgICAgDQogICAgICAgICAgICAgICAgICAgICAgIC AgICAgICAgICAgICAgICAgICAgICAgICAgICAgICAgICAgICAgICAgICAgICAgICAgICAgICAgICAgIC AgICAgICAgICAgICAgICAgDQogICAgICAgICAgICAgICAgICAgICAgICAgICAgICAgICAgICAgICAgIC AgICAgICAgICAgICAgICAgICAgICAgICAgICAgICAg ICAgICAgICAgICAgICAgICAgICAgICAgICAgDQogICAgICAgICAgICAgICAgICAgICAgICAgICAgICAg ICAgICAgICAgICAgICAgICAgICAgICAgICAgICAgICAgICAgICAgICAgICAgICAgICAgICAgICAgICAg ICAgICAgICAgDQogICAgICAgICAgICAgICAgICAgIC AgICAgICAgICAgICAgICAgICAgICAgICAgICAgICAgICAgICAgICAgICAgICAgICAgICAgICAgICAgIC AgICAgICAgICAgICAgICAgICAgDQogICAgICAgICAgICAgICAgICAgICAgICAgICAgICAgICAgICAgIC AgICAgICAgICAgICAgICAgICAgICAgICAgICAgICAg IVKnXWEbVZVhOVXqSLVqTQDpOJQlDCUqDXAmETNkCBl6X0nbLAAkJVTwCP3fZUh7Qn3+DQoNCmVuZHN0 ncKfbV1VGX7kh4WaWHjcLSDpv1CkJSw5LX8JSQVvYCjsTH8FWOnzxs5SZNXhLPXwuOWZs9bhFdXeBCH4 JBFqPvgxLQ7HICNiT7gblpWdYHMgDUKUYHpkXMQZSP tsJOYJOVUiOPNlOiFxHNqrIQ4Ao3PtwTY5HUe+Zk0ZIS4vi3BpTYvqDBCqHC6ffo3NKNoTKcRmZ6Cctq Y6MUFsEPOiIs4BGABaORJhhAPwYoHnEFLHEmGeY0BjdP09WBFUUo7+VSbammZiTbaQEhGqIEWrh8DjJN e0CC4FWDZkHOa7hZMcDWIIWAZ5PWOyJI4lFEXGsSFt CFAjEAGZSVV8PQIoQH7tMRKzWMRtFsXfQEROAL1OLDFbSUOnnOPoWTQgUUHNNS4ALMckSQK0FWWluvDe fBZsMBsyBS6FLKPpmwQaPnBxGWWJIUu+Eo5ULD6np2GbNZifMmJdUA9lsg8GABoJNqOwO4W1fIVgX2H3 VIpwBl5IUXQhZTDpRxjsMJHPAIzwLP5CLP9wwsQ0PZ 8QzWLsAQCkPMLacMFmPLr2Z69zjXWtLHdzIF8XDTN+García+Fg1QDLKnQJClUMUqJcPkYHTJLkUoF0JvQ3 ZSs5FyH4GeTQ00fOmpfdEiZLtwYR4ETJ0qGXVdECUAWD8XrUVsmO7nhqWlCOVmDYSQYkQfP34jiNZtRL SlDHSvYOFuMt3OCCQpX3QcxkAcaGfvonXnTFEvQXBU BH1DXVnfwoAgbQRezJydTX53aSdvKH1HBd1DCcOnNU0ltt9QhZGkYd6EYNTkIH8ACOVsKORoBAYpSAR2 BSEzObHiIDuuWPZsVNFdRQL9HJOpRUPbDL1GRcSvNVIfQmz7SeDlAEJtJZAwzu2APFUlJTXpCFP1EDJf IMPeADLtNEzmFNHmOLRbSDP7POUxVUAcAA7NQwBrTP AvRRPyRVakPHBdKWBicp2FAELrTMZuBcX9PwNvDZZvGRPoAWweCALoQMW3VKG4CEYsTUVqRR6HOeReQL QlEECgEkmqGZIbSFKjjp7HPUVbRTCuBGIrGBJiZLFjZTYuBSiyUUJbSPV9KJK7NJSoSCZoBR1HIcTtEM NgDIJ4DTFjZXIsAZTeox5VLUOlODDlXTr4EcXrSKOg USAtPCasAUPiCIBdSSO3WLBvSCFdGZ0AWhSeIBHeLJNhAXFcKTYvJRMfer7RGXEwPCPlNyJ3TkKmEUOx KLVvWKrlLMKqCTKiOyR2JBPlAPTkMV2GTrQyTJZpDYK4GOdpCVJxMWFyko2JANOeSMRxNiE5FMHcEKEw EQDtNJbvTSWlXLE6LzE9VYFuSORtXM2SNgTsHRIfSJ N3HDBuNCEePUCrgj9JIOZwDWRrMXy2UYJeEKWuLXCxUMlvMRMoNHY7SgkdWMIaVTJmUU4IEaGwRNTrMx P4YPgiMMLgMTXhix8RKIJsJQOrEuo6UxKqVKGwXAUwKUjuFRVkIXB5FAO3BIDmOJQeHA0HWvQgRCSzXt atPWKuNGWuJCQdup1EMDCoYPWuCHIiLVPwHWBrCROr RCjgAXJtEOI2PXP4IEVkUASgCL1UAkUbWQDyZcq2MAOwDTKzMNSjuf6HVOKnMTKkEGSsDYBnZLVbGSOc IAjeSTCqAXPhELawPMWyMWBuKY7NTxLpVPGyEcO2TeGsIHNlVLMtlm6TRZUwODAtPQN9MJNjLIMzBAMu KCo2slKjyOCeDDs3FA7MG9CtgbZlAdXKLt9Yn463AI HlZFPkAj0EY4saXk1aRERpEZHRXu6ACPe0G4A9XJkeMBvbVuX4KyUmAygbYQHmBnG8BtC8DASkAYv+ID qhVJq3KaJgHdEcZRn5MsHjRQB3AeUeUbzqMTWrLCSoRS2gUSERTa8+DQpzdGFydHhyZWYNCjMwOTQyDQ qhSFEEVp0J ID Date Data Source [id number] 07/04/2020 04:54:53 PM EDT [facility] Name Value Range Interpretation Code Description Data Anna rce(s) Supporting Document(s) History and Physical [facility] DMNXEu1iZgZWJqRo80/UBIaqUBHth1OrDXqiRKm4VAbiBBFnR0YvEEQ5uV9fQJW2TOxXCpKyLhMzTFN3 lbm [file] [facility]+Bc893Cwy+69in2pe3oVxapFnODFQ/gXd [file] ICAgICAgICAgICAgICAgICAgICAgICAgICAgICAgICAgICAgICAgICAgICAgICAgICAgICAgICAgICAg ICAgICAgICANCiAgICAgICAgICAgICAgICAgICAgIC AgICAgICAgICAgICAgICAgICAgICAgICAgICAgICAgICAgICAgICAgICAgICAgICAgICAgICAgICAgIC AgICAgICAgICAgICAgICAgICANCiAgICAgICAgICAgICAgICAgICAgICAgICAgICAgICAgICAgICAgIC AgICAgICAgICAgICAgICAgICAgICAgICAgICAgICAg ICAgICAgICAgICAgICAgICAgICAgICAgICAgICANCiAgICAgICAgICAgICAgICAgICAgICAgICAgICAg ICAgICAgICAgICAgICAgICAgICAgICAgICAgICAgICAgICAgICAgICAgICAgICAgICAgICAgICAgICAg ICAgICAgICAgICANCiAgICAgICAgICAgICAgICAgIC AgICAgICAgICAgICAgICAgICAgICAgICAgICAgICAgICAgICAgICAgICAgICAgICAgICAgICAgICAgIC AgICAgICAgICAgICAgICAgICAgICANCiAgICAgICAgICAgICAgICAgICAgICAgICAgICAgICAgICAgIC AgICAgICAgICAgICAgICAgICAgICAgICAgICAgICAg ICAgICAgICAgICAgICAgICAgICAgICAgICAgICAgICANCiAgICAgICAgICAgICAgICAgICAgICAgICAg ICAgICAgICAgICAgICAgICAgICAgICAgICAgICAgICAgICAgICAgICAgICAgICAgICAgICAgICAgICAg ICAgICAgICAgICAgICANCiAgICAgICAgICAgICAgIC AgICAgICAgICAgICAgICAgICAgICAgICAgICAgICAgICAgICAgICAgICAgICAgICAgICAgICAgICAgIC AgICAgICAgICAgICAgICAgICAgICAgICANCiAgICAgICAgICAgICAgICAgICAgICAgICAgICAgICAgIC AgICAgICAgICAgICAgICAgICAgICAgICAgICAgICAg ICAgICAgICAgICAgICAgICAgICAgICAgICAgICAgICAgICANCiAgICAgICAgICAgICAgICAgICAgICAg ICAgICAgICAgICAgICAgICAgICAgICAgICAgICAgICAgICAgICAgICAgICAgICAgICAgICAgICAgICAg ICAgICAgICAgICAgICAgICANCjw/kTUnS3ilnYYngk V0A0xuAh4CKx6IWU4rb1QhLDImTPgbyrBhFwnZCrCrVUUeEugINtt6ZVysTT9YkYFwD7DbR5VaVDlsMS 4KHRVlZLQbnLWqGKRpKXAeAlF5LPJdHHtvAP6YpCCjKQozCCMlZULhRnEmJLXcMUDuBWAzJRUfBRBWPT CdIYJwZuDcHEZyKOIdULrnUPFCBM1JQxFoZ7IoyM75 IDcNCj4+EFikwgPsHutEAeO0LZXoy1EkGMx7DL5LVLQxZlgkt1PdROTnDQOKGZbkMD1UHRC9CHN0SHAo Vt2TDKZgB741ckErKK2WVs2SVvYnTE2cgf7ITACaEJApIunPXgo1DFxkXM2MqYUzLYrLQiVkJemiDEju FNGITVrps10eHYzxsVSqqmifRBBDMAS7UNQnOD5pLQ PxNMS5MaVvEMKBAK4NEWYdRIVomAFfCGWsJACQFH9UMPlxAEE0TONrgpUcnJKrVPkeAC0VYBAwjmPeIL UgMCBSDQo+Gn8AQA3wz0WnFKz9WkYcLP4vwa0IJGeFOvGoB9F8qYOiU9E9UAjsGu1MEDKsJXBlMHJtBB YDQVsdGY7WCD7ncaP2YJ1QzZZgKDNdQCSvbNBoBEe9 N28xoNAnVZklFW4XDDI+García+Ih6KANWtUYKhBTXuMdKbFDVMJcPdJ5QxN4HEl7FiY2DdWK02vEilniIa LCglKR6FNG0iVKUmEFRGAH4OgZJenN6fwsH7WZNoKCVUAtRzF92pgCKdSHBgNGQ7PAEaKv9JUMIgW2Zs lxMyzCqsaxNsKAVyYVGTOC6HUTthkjIupJRtePzcOY 82tMddCD4MYl2FUdVtIM3hab6CfGSnLl9JFMC9PH5RWTWpEIWlYOLeGKE9CFYzIgDzQJhiUYGiOOTaWP W2FOBeGCSvVZ0BEqCtBYNzUjJ0LMXbBPIxAJGisn8BRGAmRGW6KmN6FHRjMICzQJNuDNpuWCPiIXBrBP O6HNUuCTAxMI5PIfYtWMVqCRPfOaOdAPOmFFIvga9F SYWmOIZhXAS9ZHNlHUFyNVEkYOwxOOUiLTZ1EkQ5FSSvCERnKK0THdNuHRZpKKc1BDToQXNjJBSwdo3Z VNYkDJCzRSG0LbLnLZBnIAMgMHggXFUmOYYoDFitSDJuNYGwYZ4BCwZuUZRvDMG4NHNmSHCoQESwwh6H OBOvGSNsNEM5BNMbLAOxGNPmKXwvALUvIAK1OpWrKY BiVSVdVF6ZCxRbAXDlZCb4YWjmQMRpBYNqhm2CMQZwUJQsZtM2KBSmMVIuEAFxKTaeEDPwPDXwOgm8IY RvWZHjMG5SNxJeMAMtXmFmAllhLSIaMSEqzj7QNKJfNKWlHyQ7MCDwVRUhWHAdKZqpCJIgQSS5KfY9JV AhPJOdKW3VJmQqPWMcPty5OjAsJMXzQLIiif4SFTMq NYApDvRqXDIiPULxRNAfEQbyFQOvSZB9PQd8JIZfXSIsSO6JShQbRVBdVjm4ClLmPRQvTMBkhb6RMJGk UEIaYGa1RVMpOFFxUNGvJJcmAHLiWEY2OEAyUEAyFXXkND5QNcVwLWRzIqSfLtWxTOMqMWXdsc9GTHDx MDAzMDMxMyAwMDAwMCBuDQowMDAwMDMxMjczIDAwMD IpUA0LHeLpPPMzVxD2AtgzSHPxURBcva7KHSVwRIPhONQ1CzEvHRCiFDJfNMhmQETxCCXmYwvuIGIqIU RoHE0OEcHgVUDdWxSbEeNgEZBsYOUtlu0HOBVqHRJ9RdC8AuPzGLUiFSZfUYlkWBSbPRAkPxDkYTYgHB OcMN4YXzZqDTOgWvDfBLurMWEpNDGrxf6BEEJkZNC8 KQD7MHDfJQHdGQEfRZopFCSqZSY1HTKkBDLhXWOxTN1KJgYtHYTiObD4ZMUnYINlWNImbs1TKPCwRNL4 COE4MgGqFWYeZGRnSVkuMNZnIZL5FTrfUMEkHRFbLJ7BWePaZSDnUkMcWNBtCFSdJYQken8LUOLuQDU0 PGW6QaJkAVLpYKKgEHzqPGRjSRbpAMsbSQWdBMJwIN 2QZrEjGJCuGjW3WRDzRULqVZNqxf1FWHBrWVW1PfKxEmJpFVMnCDNyWNmoBCAmMChmSFS4EUCmDBNjLQ 8RZtXyDQYbGsC3AHmwPZGdXVBvnk6EdLOgtLdvja2QGUaIAj2JqQjfUHO0TBuuSg3csMB1QvMrPAPBKl 0BoeZhCNUjEKPNNPjlXAAqVWJrP6JwTCWhQBkwCzok IIM2BfInVPBhMLOsADTnBjX5ClU2ILY6XeT1GxTfCEIbMUFsGNhxP4NyGBEoGkZ0LlGcYXX+LQ2jBAy+ Jo9Np3CpblG2amYlASz2Had3QT8QPVYNJ1BVVr== ID Date Data Source [id number] 07/04/2020 01:18:00 AM EDT [facility] Name Value Range Interpretation Code Description Data Anna rce(s) Supporting Document(s) SARS-CoV-2 (COVID 19) NEGATIVE - SARS-CoV-2 (COVID19) [facility] This lab was ordered by [facility] a nd reported by [facility]. ID Date Data Source [id number] 04/24/2020 09:01:00 PM EST [facility] Name Value Range Interpretation Code Description Data Anna rce(s) Supporting Document(s) SARS coronavirus 2 RNA [Presence] in Res piratory specimen by CODEY with probe detection NEGATIVE [facility] This lab was ordered by [facility] a nd reported by [facility]. ID Date Data Source [id number] 04/15/2020 12:00:00 PM EST [facility] ([facility]) Name Value Range Interpretation Code Description Data Anna rce(s) Supporting Document(s) CT/NG Laboratory test result MEDENT ([facility] WORK[facility]) CHLAMYDIA TRACHOMATIS: Negative NEISSERIA GONORRHOEAE: Negative Testing performed by the FDA-approved [employer] APTIMA COMBO 2 Assay. The APTIMA COMBO [...] ASCUS Laboratory test result [facility] ([facility]) ID Date Data Source [id number] 04/15/2020 12:00:00 PM EST [facility] ([facility] APRON WORK[facility]) Name Value Range Interpretation Code Description Data Anna rce(s) Supporting Document(s) Cytology report of Cervical or vaginal smear or scrapi ng Cyto stain.thin prep Laboratory test result MED[facility] ([facility]ON WORK[facility]) SPECIMEN PART------ A. Cervical, Endocervical, ThinPrep Pap (Ancillary Services Manager Therapy) CYTOLOGY HX-------- Date of Last Menstrual Period: 04/01/2019 Other Information:Previous Normal Pap: 01/12/2019 FINAL DIAGNOSIS---- INTERPRETATION: Negative for Intraepithelial Lesion or Malignancy. SPECIMEN ADEQUACY:Satisfactory for evaluation. Endocervical/transformation zone component present. ID Date Data Source [id number] 02/08/2020 10:31:00 AM EST [facility]) Name Value Range Interpretation Code Description Data Anna rce(s) Supporting Document(s) HCG negative Hcg FRISCO ([facility]) ID Date Data Source [id number] 02/08/2020 10:31:00 AM EST [facility]) Name Value Range Interpretation Code Description Data Anna rce(s) Supporting Document(s) HCG negative Hcg [facility] ([facility]) ID Date Data Source [id number] 02/08/2020 10:31:00 AM [facility] Name Value Range Interpretation Code Description Data Anna rce(s) Supporting Document(s) HCG negative Hcg MSAON ([facility]) ID Date Data Source [id number] 02/08/2020 10:31:00 AM EST [facility] ([facility]) Name Value Range Interpretation Code Description Data Anna rce(s) Supporting Document(s) HCG negative Hcg [facility] ([facility]) ID Date Data Source [id number] 02/08/2020 10:31:00 AM EST [place] ([facility]) Name Value Range Interpretation Code Description Data Anna rce(s) Supporting Document(s) HCG negative Hcg [facility]ON ([facility]) ID Date Data Source [id number] 02/08/2020 10:31:00 AM EST [place] ([facility]) Name Value Range Interpretation Code Description Data Anna rce(s) Supporting Document(s) HCG negative Hcg FRISCO ([facility]) ID Date Data Source [id number] 02/08/2020 10:31:00 AM EST [place] ([facility]) Name Value Range Interpretation Code Description Data Anna rce(s) Supporting Document(s) HCG negative Hcg [facility]) ID Date Data Source [id number] 02/07/2020 02:28:00 PM EST [facility] ([facility]) Name Value Range Interpretation Code Description Data Anna rce(s) Supporting Document(s) HCG, serum quantitative < 1.0 HCG, Serum Q uantitative [facility]) ID Date Data Source [id number] 02/07/2020 02:28:00 PM EST [place] ([facility]) Name Value Range Interpretation Code Description Data Anna rce(s) Supporting Document(s) HCG, serum quantitative < 1.0 HCG, Serum Q uantitative [facility]) ID Date Data Source [id number] 02/07/2020 02:28:00 PM EST [place] ([facility]) Name Value Range Interpretation Code Description Data Anna rce(s) Supporting Document(s) HCG, serum quantitative < 1.0 HCG, Serum Q uantitative [facility]) ID Date Data Source [id number] 02/07/2020 02:28:00 PM EST [place] ([facility]) Name Value Range Interpretation Code Description Data Anna rce(s) Supporting Document(s) HCG, serum quantitative < 1.0 HCG, Serum Q uantitative [facility] ([facility]) ID Date Data Source [id number] 02/07/2020 02:28:00 PM EST [place] ([facility]) Name Value Range Interpretation Code Description Data Anna rce(s) Supporting Document(s) HCG, serum quantitative < 1.0 HCG, Serum Q uantitative [facility] ([facility]) ID Date Data Source [id number] 02/07/2020 02:28:00 PM EST [place] ([facility]) Name Value Range Interpretation Code Description Data Anna rce(s) Supporting Document(s) HCG, serum quantitative < 1.0 HCG, Serum Q uantitative [facility] ([facility]) ID Date Data Source [id number] 02/07/2020 02:28:00 PM EST [place] ([facility]) Name Value Range Interpretation Code Description Data Anna rce(s) Supporting Document(s) HCG, serum quantitative < 1.0 HCG, Serum Q uantitative [facility] ([facility]) ID Date Data Source [id number] 02/02/2020 12:00:00 AM EST [facility] Name Value Range Interpretation Code Description Data Anna rce(s) Supporting Document(s) SARS-CoV2 Rapid Antigen [facility] This lab was ordered by [facility] and reported by [facility]. Procedure Social History Code Duration Value Status Description Data Source(s ) Alcohol intake 07/04/2020 12:00:00 AM EDT Lifetime non-drinker (finding) completed Lifetime non-drinker (finding) [facility] Tobacco use and exposure 07/04/2020 12:00:00 AM EDT Never used co mpleted Never used [facility] Smoking 07/04/2020 12:00:00 AM EDT Never smoker completed Never s [facility] Smoking 04/15/2020 12:00:00 AM EST Patient has never smoked co mpleted Patient has never smoked [facility] ([facility]) Smoking 04/02/2020 12:00:00 AM EST Never Smoker completed Never S moker eCW1 ([facility]) Smoking 03/16/2020 12:00:00 AM EST Never Smoker completed Never S moker eCW1 ([facility]) Smoking 03/08/2020 12:00:00 AM EST Never Smoker completed Never S moker eCW1 ([facility]) Smoking 01/10/2020 12:00:00 AM EDT Unknown if ever smoked comp leted Unknown if ever smoked [facility] ([facility]) Smoking 01/09/2020 12:00:00 AM EDT Unknown if ever smoked comp leted Unknown if ever smoked [facility] ([facility]) Smoking 01/04/2020 12:00:00 AM EDT Unknown if ever smoked comp leted Unknown if ever smoked [facility] ([facility]) Smoking 12/27/2019 12:00:00 AM EDT Unknown if ever smoked comp leted Unknown if ever smoked [facility] ([facility]) Smoking 12/22/2019 12:00:00 AM EDT Unknown if ever smoked comp leted Unknown if ever smoked [facility] ([facility]) Vital Signs ID Date Data Source [id number] [...] Body weight 2562 [oz_av] 2562 [oz_av] [facility]ON ([facility]) Diastolic blood pressure 68 mm[Hg] 68 mm[Hg] [facility] ([facility]) Body height 64 [in_i] 64 [in_i] [facility] ([facility]) Body mass index (BMI) [Ratio] 27.5 kg/m2 27.5 k g/m2 [facility] ([facility]) Systolic blood pressure 102 mm[Hg] 102 mm[Hg] A OLIVERA ([facility]) Body weight 2562 [oz_av] 2562 [oz_av] [facility] ([facility]) Diastolic blood pressure 68 mm[Hg] 68 mm[Hg] [facility] ([facility]) Body height 64 [in_i] 64 [in_i] [facility] ([facility]) Body mass index (BMI) [Ratio] 27.5 kg/m2 27.5 k g/m2 [facility] ([facility]) Systolic blood pressure 102 mm[Hg] 102 mm[Hg] A THENA ([facility]) Body weight 2562 [oz_av] 2562 [oz_av] [facility] ([facility]) Body height 64 [in_i] 64 [in_i] [facility] ([facility]) Body height 64 [in_i] 64 [in_i] [facility] ([facility]) Body height 64 [in_i] 64 [in_i] [facility] ([facility]) Body height 64 [in_i] 64 [in_i] [facility] ([facility]) Body surface area Derived from formula 1.62 m2 1.62 m2 [facility] ([facility]) Systolic blood pressure 100 mm[Hg] 100 mm[Hg] M EDENT ([facility]) Body height 61.75 [in_i] 61.75 [in_i] MED[facility] ([facility] WORK[facility]) 5'1.75" Body weight 136.00 [lb_av] 136.00 [lb_av] MEDEN T ([facility]) Body mass index (BMI) [Ratio] 25.1 kg/m2 25.1 k g/m2 [facility] ([facility]) Diastolic blood pressure 62 mm[Hg] 62 mm[Hg] [facility] ([facility]) Diastolic blood pressure 100 mm[Hg] 100 mm[Hg] [facility] ([facility]) Diastolic blood pressure 87 mm[Hg] 87 mm[Hg] [facility] ([facility]) Body height 64 [in_i] 64 [in_i] [facility] ([facility]) Body mass index (BMI) [Ratio] 23.1 kg/m2 23.1 k g/m2 [facility] ([facility]) Systolic blood pressure 134 mm[Hg] 134 mm[Hg] [facility] Systolic blood pressure 144 mm[Hg] 144 mm[Hg] [facility] Body weight 2156.8 [oz_av] [...] blood pressure 144 mm[Hg] 144 mm[Hg] [facility] Body weight 2156.8 [oz_av] [...] 136.0 [lb_av] eCW1 ([facility]) Body height 62.5 [in_i] 62.5 [in_i] eCW1 ([facility]) Body mass index (BMI) [Ratio] 24.48 kg/m2 24.48 kg/m2 eCW1 ([facility]) Heart rate 102 /min 102 /min eCW1 ([facility]) Respiratory rate 18 /min 18 /min eCW1 ([facility]) Body temperature 98.6 [degF] 98.6 [degF] eCW1 ( [facility]) Systolic blood pressure 136 mm[Hg] 136 mm[Hg] e CW1 ([facility]) Diastolic blood pressure 82 mm[Hg] 82 mm[Hg] eCW1 ([facility]) Diastolic blood pressure 92 mm[Hg] 92 mm[Hg] MASON ([facility]) Body height 64 [in_i] 64 [in_i] [facility] ([facility]) Body mass index (BMI) [Ratio] 23.2 kg/m2 23.2 k g/m2 [facility] ([facility]) Systolic blood pressure 131 mm[Hg] 131 mm[Hg] A [facility] ([facility]) Body weight 2160 [oz_av] 2160 [oz_av] [facility] ([facility]) Diastolic blood pressure 92 mm[Hg] 92 mm[Hg] [facility] ([facility]) Body height 64 [in_i] 64 [in_i] [facility] ([facility]) Body mass index (BMI) [Ratio] 23.2 kg/m2 23.2 k g/m2 [facility] ([facility]) Systolic blood pressure 131 mm[Hg] 131 mm[Hg] A [facility] ([facility]) Body weight 2160 [oz_av] 2160 [oz_av] [facility] ([facility]) Diastolic blood pressure 92 mm[Hg] 92 mm[Hg] [facility] ([facility]) Body height 64 [in_i] 64 [in_i] [facility] ([facility]) Body mass index (BMI) [Ratio] 23.2 kg/m2 23.2 k g/m2 [facility] ([facility]) Systolic blood pressure 131 mm[Hg] 131 mm[Hg] [facility] Body weight 2160 [oz_av] 2160 [oz_av] [facility] ([facility]) Body weight 2160 [oz_av] 2160 [oz_av] [facility] ([facility]) Diastolic blood pressure 92 mm[Hg] 92 mm[Hg] [facility] ([facility]) Body height 64 [in_i] 64 [in_i] [facility] ([facility]) Body mass index (BMI) [Ratio] 23.2 kg/m2 23.2 k g/m2 [facility] ([facility]) Systolic blood pressure 131 mm[Hg] 131 mm[Hg] [facility] Diastolic blood pressure 92 mm[Hg] 92 mm[Hg] [facility] ([facility]) Body height 64 [in_i] 64 [in_i] [facility] ([facility]) Body mass index (BMI) [Ratio] 23.2 kg/m2 23.2 k g/m2 [facility] ([facility]) Systolic blood pressure 131 mm[Hg] 131 mm[Hg] [facility] Body weight 2160 [oz_av] 2160 [oz_av] [facility] ([facility]) Diastolic blood pressure 92 mm[Hg] 92 mm[Hg] [facility] ([facility]) Body height 64 [in_i] 64 [in_i] [facility] ([facility]) Body mass index (BMI) [Ratio] 23.2 kg/m2 23.2 k g/m2 [facility] ([facility]) Systolic blood pressure 131 mm[Hg] 131 mm[Hg] A THENA ([facility]) Body weight 2160 [oz_av] 2160 [oz_av] [facility] ([facility]) Body height 64 [in_i] 64 [...] blood pressure 136 mm[Hg] 136 mm[Hg] A [facility] ([facility]) Body weight 2153.6 [oz_av] 2153.6 [oz_av] ATHEN A ([facility]) Body mass index (BMI) [Ratio] 23.1 kg/m2 23.1 k g/m2 [facility] ([facility]) Body height 64 [in_i] 64 [in_i] [facility] ([facility]) Diastolic blood pressure 90 mm[Hg] 90 mm[Hg] [facility] ([facility]) Systolic blood pressure 136 mm[Hg] 136 mm[Hg] [facility] Diastolic blood pressure 90 mm[Hg] 90 mm[Hg] [facility] ([facility]) Body height 64 [in_i] 64 [in_i] [facility] ([facility]) Body mass index (BMI) [Ratio] 23.1 kg/m2 23.1 k g/m2 [facility] ([facility]) Systolic blood pressure 136 mm[Hg] 136 mm[Hg] [facility] Body weight 2153.6 [oz_av] 2153.6 [oz_av] ATHEN A ([facility]) Systolic blood pressure 136 mm[Hg] 136 mm[Hg] [facility] Diastolic blood pressure 90 [...] 0 mm[Hg] [facility] ([facility]) Systolic blood pressure 0 mm[Hg] Normal (applies t o non-numeric results) 0 mm[Hg] [facility] ([facility]) Body mass index (BMI) [Ratio] 0.00 kg/m2 No rmal (applies to non-numeric results) 0.00 kg/m2 [facility] ([facility]) Body weight Measured 0.00 lbs Normal (applies to n on-numeric results) 0.00 [facility] Body height 0.00 in Normal (applies to non-numeric resu lts) 0.00 in [facility] ([facility]) ID Date Data Source [id number] 07/11/2020 08:03:[address] [facility] Name Value Range Interpretation Code Description Data Source(s) WEIGHT RECORDED 139.4 lb 139.4 lb [facility] Body height Me[facility] 62 [facility] FROM [facility] Patient Treatment Plan of Care Planned Activity Planned Date Details Description Data Source (s) olanzapine 10 MG Oral Tablet 07/10/2020 12:00:00 AM [facility] Hydroxyzine Hydrochloride 50 MG Oral Tablet 07/09/2020 12:00:00 AM [facility] Trazodone Hydrochloride 50 MG Oral Tablet 07/09/2020 12:00:00 AM [facility] olanzapine 10 MG Oral Tablet 07/09/2020 12:00:00 AM [facility] buspirone hydrochloride 5 MG Oral Tablet 07/09/2020 12:00:00 AM [facility] acetaminophen (TYLENOL) tablet 650 mg 07/04/2020 07:28:26 AM [facility] Magnesium Hydroxide 80 MG/ML Oral Suspension 07/04/2020 07:27:35 AM [facility] Aluminum Hydroxide 40 MG/ML / Magnesium Hydroxide 40 MG/ML / Simethicone 4 MG/ML Oral Suspension 07/04/2020 07:27:35 AM T [facility] Ondansetron 4 MG Disintegrating Oral Tablet 07/04/2020 07:27:35 AM [facility] quetiapine 50 MG Oral Tablet [facility] ([facility]) Naltrexone hydrochloride 50 MG Oral Tablet [facility] ([facility]) Escitalopram 10 MG Oral Tablet [Lexapro] [facility] ([facility]) Hydroxyzine Hydrochloride 25 MG Oral Tablet [facility] ([facility]) 21 DAY Ethinyl Estradiol 0.572703 MG/HR / Etonogestrel 0.005 MG/HR Vaginal Ring [facility] ([facility]) Clonazepam 0.5 MG Oral Tablet [place]ON [...] ([facility]) 21 DAY Ethinyl Estradiol 0.798632 MG/HR / Etonogestrel 0.005 MG/HR Vaginal Ring [facility] ([facility]) Clonazepam 0.5 MG Oral Tablet [place] [...] ([facility]) 21 DAY Ethinyl Estradiol 0.327410 MG/HR / Etonogestrel 0.005 MG/HR Vaginal Ring [facility] ([facility]) Clonazepam 0.5 MG Oral Tablet [facility] ([facility]) atomoxetine 25 MG Oral Capsule [facility] ([facility]) atomoxetine 18 MG Oral Capsule [facility] ([facility]) olanzapine 10 MG Oral Tablet [facility] Trazodone Hydrochloride 50 MG Oral Tablet [facility] buspirone hydrochloride 5 MG Oral Tablet [facility] quetiapine 50 MG Oral Tablet [facility] ([facility]) Naltrexone hydrochloride 50 MG Oral Tablet [facility] ([facility]) Escitalopram 10 MG Oral Tablet [Lexapro] [facility] ([facility]) Hydroxyzine Hydrochloride 25 MG Oral Tablet [facility] ([facility]) 21 DAY Ethinyl Estradiol 0.322109 MG/HR / Etonogestrel 0.005 MG/HR Vaginal Ring [facility] ([facility]) atomoxetine 25 MG Oral Capsule [place] [...] ([facility]) 21 DAY Ethinyl Estradiol 0.645525 MG/HR / Etonogestrel 0.005 MG/HR Vaginal Ring [facility] ([facility]) atomoxetine 25 MG Oral Capsule [place] [...] ([facility]) 21 DAY Ethinyl Estradiol 0.385972 MG/HR / Etonogestrel 0.005 MG/HR Vaginal Ring [facility] ([facility]) atomoxetine 25 MG Oral Capsule [facility] ([facility]) atomoxetine 18 MG Oral Capsule [facility] ([facility]) atomoxetine 18 MG Oral Capsule [facility] ([facility]) 21 DAY Ethinyl Estradiol 0.576868 MG/HR / Etonogestrel 0.005 MG/HR Vaginal Ring [facility] ([facility]) Hydroxyzine Hydrochloride 25 MG Oral Tablet [facility] ([facility]) Naltrexone hydrochloride 50 MG Oral Tablet [facility] ([facility]) olanzapine 10 MG Oral Tablet [facility] ([facility]) quetiapine 50 MG Oral Tablet [facility] ([facility])
--- NOTE | 2021-02-16 20:39 | ECGEPIP ---
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
[2021-02-16 22:00] VITALS: BP 130/82
== END 2021-02-16 22:42 | disposition home or self-care (01) ==
LOC: M ED 14:48
DX: F19.10 Other psychoactive substance abuse, uncomplicated (principal); F41.9 Anxiety disorder, unspecified; G89.29 Other chronic pain; M54.50 Low back pain, unspecified; J30.2 Other seasonal allergic rhinitis; Z79.899 Other long term (current) drug therapy
CPT/HCPCS: 70450; 80048; 80076; 80143; 80307; 82077; 82550; 84443; 84703; 85025; 93005; 93041; 94760; 96374; 99285; J2060

== ENCOUNTER 2021-03-31 03:47 | Emergency (ER) | payer OTHER ==
[~2021-03-31] VITALS: Ht 157.5 cm; Wt 69.5 kg
[2021-03-31 03:48] VITALS: BP 137/86
[2021-03-31] MEDS ORDERED: ZYPR10TA PO (03:55)
== END 2021-03-31 06:26 | disposition left against medical advice (07) ==
LOC: M ED 06:20
DX: Z53.21 Procedure and treatment not carried out due to patient leaving prior to being seen by health care provider (principal)

== ENCOUNTER 2021-10-30 23:44 | Inpatient (IN) | payer MEDICAID, OTHER, SELFPAY ==
[~2021-10-30] VITALS: Ht 157.5 cm; Wt 68.2 kg
[~2021-10-30 23:44] MED LIST changes: +ZYPR10TA PO
[2021-10-31 02:50] LABS: HEMATOCRIT 41.2 % (36.0-47.0); HEMOGLOBIN 13.4 g/dl (12.0-15.5); MEAN CORPUSCULAR HEMOGLOBIN 28.9 pg (27.0-33.0); MEAN CORPUSCULAR HGB CONC 32.5 g/dl (32.0-36.5); PLATELET COUNT, AUTOMATED 279 10^3/uL (150-450); RED BLOOD COUNT 4.63 10^6/uL (4.00-5.40); WHITE BLOOD COUNT 13.6 10^3/uL (4.0-10.0)
[2021-10-31 03:14] LABS: AMPHETAMINES LEVEL URINE NEGATIVE (NEGATIVE); BARBITURATES URINE NEGATIVE (NEGATIVE); BENZODIAZEPINES URINE NEGATIVE (NEGATIVE); CANNABINOIDS URINE POSITIVE (NEGATIVE); COCAINE METABOLITE URINE POSITIVE (NEGATIVE); METHADONE URINE POSITIVE (NEGATIVE); OPIATES URINE NEGATIVE (NEGATIVE); PHENCYCLIDINE URINE NEGATIVE (NEGATIVE)
[2021-10-31 03:15] LABS: RSV AMPLIFICATION NEGATIVE (NEGATIVE)
[2021-10-31 03:18] LABS: HCG, SERUM QUALITATIVE NEGATIVE (NEGATIVE)
[2021-10-31 03:38] LABS: ACETAMINOPHEN LEVEL < 2.0 UG/ML (10.0-30.0); ALT/SGPT 28 U/L (12-78); BILIRUBIN,DIRECT 0.1 MG/DL (0.0-0.2); BILIRUBIN,TOTAL 0.5 MG/DL (0.2-1.0); BLOOD UREA NITROGEN 8 MG/DL (7-18); CALCIUM LEVEL 9.3 MG/DL (8.5-10.1); CARBON DIOXIDE LEVEL 26 MEQ/L (21-32); CHLORIDE LEVEL 104 MEQ/L (98-107); ETHYL ALCOHOL (ETHANOL) < 0.003 % (0.000-0.010); GLOMERULAR FILTRATION RATE > 60.0 (>60); GLUCOSE, FASTING 99 MG/DL (70-100); POTASSIUM SERUM 4.1 MEQ/L (3.5-5.1); SALICYLATE LEVEL < 1.7 MG/DL (5.0-30.0); SODIUM LEVEL 139 MEQ/L (136-145); THYROID STIMULATING HORMONE 0.639 uIU/ML (0.358-3.740); TOTAL PROTEIN 7.9 GM/DL (6.4-8.2)
[2021-10-31] MEDS ORDERED: OLANZapine ORAL DISINTEGRATING TAB 5MG PO ONE (07:05)
[2021-10-31] MEDS ORDERED: LORazepam 2 MG TAB PO STA (10:05)
[2021-10-31] MEDS ORDERED: BUSP5TA PO (10:40)
[2021-10-31] MEDS ORDERED: PATIENT COMMENT (10:40)
[2021-10-31] MEDS ORDERED: TRAZ-252 PO (10:40)
[2021-10-31] MEDS ORDERED: OLAN1TAB20 PO ×2 (10:40)
[2021-10-31] MEDS ORDERED: HOME MED LIST COMPLETE! XX SCH (10:45)
[2021-11-01] MEDS: OLANZapine 10 MG TAB PO SCH ×2 (09:36→20:55)
[2021-11-01] MEDS ORDERED: IBUPROFEN 400MG TAB PO ONE (12:25)
[2021-11-01] MEDS ORDERED: LORazepam 2 MG TAB PO STA (17:18)
[2021-11-01] MEDS ORDERED: IBUPROFEN 600MG TAB PO ONE (22:15)
[2021-11-02] MEDS: OLANZapine 10 MG TAB PO SCH ×2 (08:56→20:32)
[2021-11-02] MEDS ORDERED: NICOTINE 21MG/24HR 1 EA TRANSDERMAL TD ONE (16:30)
[2021-11-02] MEDS ORDERED: traZODone 50 MG TAB PO PRN (20:45)
[2021-11-02] MEDS ORDERED: diphenhydrAMINE 50MG CAP PO ONE (23:45)
[2021-11-03] MEDS: OLANZapine 10 MG TAB PO SCH (09:08)
[2021-11-03] MEDS ORDERED: MOM 30ML SUSPENSION UDC PO PRN (13:45)
[2021-11-03] MEDS ORDERED: OLANZapine ORAL DISINTEGRATING TAB 5MG PO PRN (13:45)
[2021-11-03] MEDS ORDERED: MAALOX 30 ML SUSP *UDC PO PRN (13:45)
[2021-11-03 14:57] VITALS: BP 135/94
[2021-11-03] MEDS: ACETAMINOPHEN TAB 650MG DOSE (2X325MG) PO PRN (16:15)
[2021-11-03] MEDS: METHADONE 10MG TAB PO SCH (17:38)
[2021-11-03] MEDS: traZODone 50 MG TAB PO PRN (21:42)
[2021-11-04] MEDS: METHADONE 10MG TAB PO SCH (08:34)
[2021-11-04] MEDS ORDERED: OLANZapine 10 MG TAB PO SCH (09:00)
[2021-11-04] MEDS: NICOTINE 21MG/24HR 1 EA TRANSDERMAL TD PRN (09:04)
[2021-11-04] MEDS: ACETAMINOPHEN TAB 650MG DOSE (2X325MG) PO PRN (13:11)
[2021-11-04] MEDS: busPIRone 10 MG TAB PO SCH ×2 (14:34→20:10)
[2021-11-04 18:07] VITALS: BP 123/86
[2021-11-04] MEDS: traZODone 50 MG TAB PO PRN (20:10)
[2021-11-05 06:24] VITALS: BP 117/74
[2021-11-05] MEDS: NICOTINE 21MG/24HR 1 EA TRANSDERMAL TD PRN (08:39)
[2021-11-05] MEDS: busPIRone 10 MG TAB PO SCH ×2 (08:39→20:11)
[2021-11-05] MEDS: METHADONE 10MG TAB PO SCH (08:39)
[2021-11-05] MEDS: ACETAMINOPHEN TAB 650MG DOSE (2X325MG) PO PRN (16:38)
[2021-11-05 18:20] VITALS: BP 129/86
[2021-11-05] MEDS: traZODone 50 MG TAB PO PRN (20:12)
[2021-11-05] MEDS ORDERED: ARIPiprazole 10 MG TAB PO SCH (21:00)
[2021-11-06 06:47] VITALS: BP 138/82
[2021-11-06] MEDS: busPIRone 10 MG TAB PO SCH (08:26)
[2021-11-06] MEDS: METHADONE 10MG TAB PO SCH (08:26)
[2021-11-06] MEDS: NICOTINE 21MG/24HR 1 EA TRANSDERMAL TD PRN (10:44)
[2021-11-06] MEDS ORDERED: TRAZ-252 PO (11:04)
[2021-11-06] MEDS ORDERED: ABIL1TAB11 PO (11:04)
[2021-11-06] MEDS ORDERED: BUSP10TA PO (11:04)
[2021-11-06] MEDS ORDERED: ABIL10TA9 PO (11:04)
== END 2021-11-06 13:00 | disposition home or self-care (01) | DRG 753 ==
LOC: M ED 23:44 → M ED INP 11-03 13:43 → M PSY 11-03 14:52
PROVIDERS: ADMIT Psychiatry & Neurology Psychiatry; ATTEND Psychiatry & Neurology Psychiatry
DX: F31.9 Bipolar disorder, unspecified (principal); F14.10 Cocaine abuse, uncomplicated; F12.10 Cannabis abuse, uncomplicated; F11.10 Opioid abuse, uncomplicated; Z79.899 Other long term (current) drug therapy; Z91.14 Patient's other noncompliance with medication regimen

== ENCOUNTER 2021-12-08 07:20 | Emergency (ER) | payer MEDICAID ==
[~2021-12-08 07:20] MED LIST changes: +ABIL10TA9 PO; +ABIL1TAB11 PO; +BUSP10TA PO; +PATIENT COMMENT
[2021-12-08] MEDS ORDERED: OLANZapine ORAL DISINTEGRATING TAB 5MG PO ONE (07:45)
[2021-12-08] MEDS ORDERED: LORazepam 2 MG TAB PO ONE (07:45)
[2021-12-08] MEDS ORDERED: LORazepam 2 MG/ML VIAL IM STA (08:05)
[2021-12-08] MEDS ORDERED: OLANZapine INTRAMUSCULAR 10MG VIAL IM ONE (08:05)
[2021-12-08 09:13] LABS: AMPHETAMINES LEVEL URINE NEGATIVE (NEGATIVE); BARBITURATES URINE NEGATIVE (NEGATIVE); BENZODIAZEPINES URINE NEGATIVE (NEGATIVE); CANNABINOIDS URINE NEGATIVE (NEGATIVE); COCAINE METABOLITE URINE POSITIVE (NEGATIVE); METHADONE URINE POSITIVE (NEGATIVE); OPIATES URINE POSITIVE (NEGATIVE); PHENCYCLIDINE URINE NEGATIVE (NEGATIVE)
[2021-12-08] MEDS ORDERED: BUSP-29 PO (09:36)
[2021-12-08] MEDS ORDERED: TRAZ-252 PO (09:36)
[2021-12-08] MEDS ORDERED: ARIP10TA32 PO (09:36)
[2021-12-08] MEDS ORDERED: ARIP1TAB6 PO (09:36)
[2021-12-08 10:02] LABS: HEMATOCRIT 42.9 % (36.0-47.0); HEMOGLOBIN 13.8 g/dl (12.0-15.5); MEAN CORPUSCULAR HEMOGLOBIN 28.8 pg (27.0-33.0); MEAN CORPUSCULAR HGB CONC 32.2 g/dl (32.0-36.5); MEAN CORPUSCULAR VOLUME 89.4 fl (80.0-96.0); PLATELET COUNT, AUTOMATED 334 10^3/uL (150-450); WHITE BLOOD COUNT 11.4 10^3/uL (4.0-10.0)
[2021-12-08 10:40] LABS: HCG, SERUM QUALITATIVE NEGATIVE (NEGATIVE)
[2021-12-08] MEDS ORDERED: METH10CO PO (10:48)
[2021-12-08] MEDS ORDERED: HOME MED LIST COMPLETE! XX SCH (10:50)
[2021-12-08 10:56] LABS: RSV AMPLIFICATION NEGATIVE (NEGATIVE)
[2021-12-08 11:04] LABS: ACETAMINOPHEN LEVEL < 2.0 UG/ML (10.0-30.0); ALBUMIN 4.3 GM/DL (3.2-5.2); ALT/SGPT 21 U/L (12-78); BILIRUBIN,DIRECT 0.1 MG/DL (0.0-0.2); BILIRUBIN,TOTAL 0.5 MG/DL (0.2-1.0); BLOOD UREA NITROGEN 4 MG/DL (7-18); CALCIUM LEVEL 10.1 MG/DL (8.5-10.1); CARBON DIOXIDE LEVEL 29 MEQ/L (21-32); CHLORIDE LEVEL 105 MEQ/L (98-107); CREATININE FOR GFR 0.71 MG/DL (0.55-1.30); ETHYL ALCOHOL (ETHANOL) < 0.003 % (0.000-0.010); GLOMERULAR FILTRATION RATE > 60.0 (>60); GLUCOSE, FASTING 84 MG/DL (70-100); POTASSIUM SERUM 4.4 MEQ/L (3.5-5.1); SALICYLATE LEVEL < 1.7 MG/DL (5.0-30.0); SODIUM LEVEL 138 MEQ/L (136-145); TOTAL PROTEIN 7.6 GM/DL (6.4-8.2)
[2021-12-09] MEDS ORDERED: ACETAMINOPHEN TAB 650MG DOSE (2X325MG) PO ONE ×2 (08:45→20:05)
[2021-12-09] MEDS ORDERED: traZODone 50 MG TAB PO PRN (13:00)
[2021-12-09] MEDS: METHADONE 10MG TAB PO SCH (13:26)
[2021-12-09] MEDS: busPIRone 10 MG TAB PO SCH ×2 (13:26→20:10)
[2021-12-09] MEDS ORDERED: busPIRone 10 MG TAB PO SCH (21:00)
[2021-12-09] MEDS ORDERED: ARIPiprazole 10 MG TAB PO SCH (21:00)
[2021-12-10] MEDS: busPIRone 10 MG TAB PO SCH (08:24)
[2021-12-10] MEDS: METHADONE 10MG TAB PO SCH (08:25)
[2021-12-10 14:47] VITALS: BP 103/77
== END 2021-12-10 15:41 | disposition home or self-care (01) ==
LOC: M ED 07:20
DX: F31.9 Bipolar disorder, unspecified (principal); F15.159 Other stimulant abuse with stimulant-induced psychotic disorder, unspecified; G89.29 Other chronic pain; J30.2 Other seasonal allergic rhinitis; F14.20 Cocaine dependence, uncomplicated; Z79.891 Long term (current) use of opiate analgesic; F12.20 Cannabis dependence, uncomplicated; F17.200 Nicotine dependence, unspecified, uncomplicated
CPT/HCPCS: 36415; 80048; 80076; 80143; 80307; 82077; 84443; 84703; 85027; 87631; 96372; 99285; J2060; S0109

== ENCOUNTER 2021-12-24 21:58 | Emergency (ER) | payer MEDICAID ==
[~2021-12-24] VITALS: Ht 157.5 cm; Wt 74.5 kg
[2021-12-24 21:58] VITALS: BP 139/82
[~2021-12-24 21:58] MED LIST changes: +ARIP10TA32 PO; +ARIP1TAB6 PO; +BUSP-29 PO; +METH10CO PO
== END 2021-12-24 23:02 | disposition left against medical advice (07) ==
LOC: M ED 21:58
DX: Z53.21 Procedure and treatment not carried out due to patient leaving prior to being seen by health care provider (principal)

== ENCOUNTER 2021-12-29 16:06 | Emergency (ER) | payer MEDICAID ==
[~2021-12-29] VITALS: Ht 157.5 cm; Wt 72.7 kg
[2021-12-29 16:06] VITALS: BP 139/80
== END 2021-12-30 01:06 | disposition left against medical advice (07) ==
LOC: M ED 16:06
DX: Z53.21 Procedure and treatment not carried out due to patient leaving prior to being seen by health care provider (principal)

== ENCOUNTER 2022-01-13 11:44 | Emergency (ER) | payer MEDICAID ==
[~2022-01-13] VITALS: Ht 157.5 cm; Wt 74.4 kg
[2022-01-13 11:45] VITALS: BP 144/89
[2022-01-14] MEDS ORDERED: PATIENT COMMENT (00:14)
== END 2022-01-13 12:19 | disposition left against medical advice (07) ==
LOC: M ED 11:44
DX: Z53.21 Procedure and treatment not carried out due to patient leaving prior to being seen by health care provider (principal)

== ENCOUNTER 2022-01-13 14:25 | Emergency (ER) | payer MEDICAID ==
[~2022-01-13] VITALS: Ht 157.5 cm; Wt 75.0 kg
[2022-01-13 17:06] LABS: RSV AMPLIFICATION NEGATIVE (NEGATIVE)
[2022-01-13 17:21] LABS: AMPHETAMINES LEVEL URINE NEGATIVE (NEGATIVE); BARBITURATES URINE NEGATIVE (NEGATIVE); BENZODIAZEPINES URINE NEGATIVE (NEGATIVE); CANNABINOIDS URINE NEGATIVE (NEGATIVE); COCAINE METABOLITE URINE NEGATIVE (NEGATIVE); METHADONE URINE POSITIVE (NEGATIVE); OPIATES URINE POSITIVE (NEGATIVE); PHENCYCLIDINE URINE NEGATIVE (NEGATIVE)
[2022-01-13 18:27] LABS: HCG, SERUM QUALITATIVE NEGATIVE (NEGATIVE)
[2022-01-13 18:42] LABS: ACETAMINOPHEN LEVEL < 2.0 UG/ML (10.0-30.0); ALBUMIN 4.7 GM/DL (3.2-5.2); ALT/SGPT 39 U/L (12-78); BILIRUBIN,DIRECT 0.1 MG/DL (0.0-0.2); BILIRUBIN,TOTAL 0.6 MG/DL (0.2-1.0); BLOOD UREA NITROGEN 7 MG/DL (7-18); CALCIUM LEVEL 9.7 MG/DL (8.5-10.1); CARBON DIOXIDE LEVEL 24 MEQ/L (21-32); CHLORIDE LEVEL 103 MEQ/L (98-107); CREATININE FOR GFR 0.56 MG/DL (0.55-1.30); ETHYL ALCOHOL (ETHANOL) < 0.003 % (0.000-0.010); GLOMERULAR FILTRATION RATE > 60.0 (>60); GLUCOSE, FASTING 87 MG/DL (70-100); POTASSIUM SERUM 4.5 MEQ/L (3.5-5.1); SALICYLATE LEVEL < 1.7 MG/DL (5.0-30.0); SODIUM LEVEL 137 MEQ/L (136-145); TOTAL PROTEIN 8.9 GM/DL (6.4-8.2)
[2022-01-13] MEDS ORDERED: OLANZapine 10 MG TAB PO ONE (20:00)
[2022-01-13] MEDS ORDERED: ARIPiprazole 10 MG TAB PO ONE (20:05)
[2022-01-13] MEDS ORDERED: traZODone 50 MG TAB PO ONE (20:05)
[2022-01-13] MEDS ORDERED: busPIRone 10 MG TAB PO ONE (20:05)
[2022-01-13] MEDS ORDERED: ACETAMINOPHEN TAB 650MG DOSE (2X325MG) PO ONE (20:25)
[2022-01-13] MEDS ORDERED: diphenhydrAMINE 50MG/ML VIAL (J1200) IM ONE (21:20)
[2022-01-13] MEDS ORDERED: MIDAZOLAM INJ 2MG/2ML VIAL (J2250 PER 1MG) IM ONE (21:20)
[2022-01-13] MEDS ORDERED: HALOPERIDOL 5MG/ML VIAL (J1630 PER 1) IM ONE (22:00)
[2022-01-13 23:11] LABS: HEMOGLOBIN 14.3 g/dl (12.0-15.5); MEAN CORPUSCULAR HEMOGLOBIN 29.8 pg (27.0-33.0); MEAN CORPUSCULAR HGB CONC 33.3 g/dl (32.0-36.5); MEAN CORPUSCULAR VOLUME 89.6 fl (80.0-96.0); PLATELET COUNT, AUTOMATED 269 10^3/uL (150-450); WHITE BLOOD COUNT 9.5 10^3/uL (4.0-10.0)
[2022-01-14] MEDS ORDERED: PATIENT COMMENT (00:14)
[2022-01-14] MEDS ORDERED: HOME MED LIST COMPLETE! XX SCH (00:15)
[2022-01-14 13:23] VITALS: BP 130/74
== END 2022-01-14 13:39 | disposition home or self-care (01) ==
LOC: M ED 14:25
DX: F19.10 Other psychoactive substance abuse, uncomplicated (principal); F41.9 Anxiety disorder, unspecified; F12.10 Cannabis abuse, uncomplicated; F19.959 Other psychoactive substance use, unspecified with psychoactive substance-induced psychotic disorder, unspecified; J30.2 Other seasonal allergic rhinitis; Z79.899 Other long term (current) drug therapy
CPT/HCPCS: 80048; 80076; 80143; 80307; 82077; 84443; 84703; 85027; 87631; 96372; 99285; J1200; J1630; J2250

== ENCOUNTER 2022-01-14 20:03 | Emergency (ER) | payer MEDICAID ==
[~2022-01-14] VITALS: Ht 157.5 cm; Wt 75.0 kg
[2022-01-14 21:00] LABS: HEMATOCRIT 42.4 % (36.0-47.0); HEMOGLOBIN 14.1 g/dl (12.0-15.5); MEAN CORPUSCULAR HEMOGLOBIN 30.1 pg (27.0-33.0); MEAN CORPUSCULAR HGB CONC 33.3 g/dl (32.0-36.5); MEAN CORPUSCULAR VOLUME 90.6 fl (80.0-96.0); PLATELET COUNT, AUTOMATED 284 10^3/uL (150-450); RED BLOOD COUNT 4.68 10^6/uL (4.00-5.40); WHITE BLOOD COUNT 9.1 10^3/uL (4.0-10.0)
[2022-01-14 21:34] LABS: RSV AMPLIFICATION NEGATIVE (NEGATIVE)
[2022-01-14 21:36] LABS: AMPHETAMINES LEVEL URINE NEGATIVE (NEGATIVE); BARBITURATES URINE NEGATIVE (NEGATIVE); BENZODIAZEPINES URINE POSITIVE (NEGATIVE); CANNABINOIDS URINE NEGATIVE (NEGATIVE); COCAINE METABOLITE URINE NEGATIVE (NEGATIVE); METHADONE URINE POSITIVE (NEGATIVE); OPIATES URINE POSITIVE (NEGATIVE); PHENCYCLIDINE URINE NEGATIVE (NEGATIVE)
[2022-01-14] MEDS ORDERED: MIDAZOLAM INJ 2MG/2ML VIAL (J2250 PER 1MG) IM ONE (21:40)
[2022-01-14] MEDS ORDERED: HALOPERIDOL 5MG/ML VIAL (J1630 PER 1) IM ONE (21:40)
[2022-01-14] MEDS ORDERED: LORazepam 1 MG TAB PO STA (21:43)
[2022-01-14] MEDS ORDERED: MIDAZOLAM 5MG/ML 1ML VIAL (J2250 PER 1MG) IM ONE (21:45)
[2022-01-14 21:51] LABS: ACETAMINOPHEN LEVEL < 2.0 UG/ML (10.0-30.0); ALBUMIN 3.8 GM/DL (3.2-5.2); ALT/SGPT 31 U/L (12-78); BILIRUBIN,DIRECT 0.1 MG/DL (0.0-0.2); BILIRUBIN,TOTAL 0.3 MG/DL (0.2-1.0); BLOOD UREA NITROGEN 13 MG/DL (7-18); CARBON DIOXIDE LEVEL 26 MEQ/L (21-32); CHLORIDE LEVEL 105 MEQ/L (98-107); CREATININE FOR GFR 0.78 MG/DL (0.55-1.30); ETHYL ALCOHOL (ETHANOL) 0.008 % (0.000-0.010); GLOMERULAR FILTRATION RATE > 60.0 (>60); GLUCOSE, FASTING 82 MG/DL (70-100); POTASSIUM SERUM 4.2 MEQ/L (3.5-5.1); SALICYLATE LEVEL < 1.7 MG/DL (5.0-30.0); SODIUM LEVEL 138 MEQ/L (136-145); TOTAL PROTEIN 7.4 GM/DL (6.4-8.2)
[2022-01-14 22:06] LABS: HCG, SERUM QUALITATIVE NEGATIVE (NEGATIVE)
[2022-01-15] MEDS ORDERED: HOME MED LIST COMPLETE! XX SCH (00:50)
[2022-01-15] MEDS ORDERED: ACETAMINOPHEN 325 MG TAB PO ONE ×2 (10:05)
[2022-01-15 11:30] VITALS: BP 120/72
== END 2022-01-15 11:38 | disposition home or self-care (01) ==
LOC: M ED 20:03
DX: F43.20 Adjustment disorder, unspecified (principal); F19.10 Other psychoactive substance abuse, uncomplicated; F41.9 Anxiety disorder, unspecified; M54.9 Dorsalgia, unspecified; J30.2 Other seasonal allergic rhinitis; Z79.899 Other long term (current) drug therapy

== ENCOUNTER 2022-03-15 13:56 | Emergency (ER) | payer MEDICAID ==
[~2022-03-15] VITALS: Ht 157.5 cm; Wt 74.6 kg
[~2022-03-15 13:56] MED LIST changes: -BUSP-29 PO; +BUSP10TA79 PO
[2022-03-15 13:57] VITALS: BP 112/71
[2022-03-15 16:47] LABS: MONO SCRN NEGATIVE (NEGATIVE)
[2022-03-15] MEDS ORDERED: LIDO2SOL17 PO (17:02)
== END 2022-03-15 17:13 | disposition home or self-care (01) ==
LOC: M ED 13:56
DX: J02.9 Acute pharyngitis, unspecified (principal); F41.9 Anxiety disorder, unspecified; F32.A Depression, unspecified; Z79.83 Long term (current) use of bisphosphonates; Z79.899 Other long term (current) drug therapy

== ENCOUNTER → 2022-04-10 | Outpatient (REF) | payer OTHER ==
[~2022-04-10] MED LIST changes: +LIDO2SOL17 PO
== END ==
LOC: M PLALAB 15:45
PROVIDERS: ATTEND Advanced Practice Midwife
DX: Z34.01 Encounter for supervision of normal first pregnancy, first trimester (principal)

== ENCOUNTER → 2022-04-10 | Outpatient (CLI) | payer MEDICAID, OTHER ==
[2022-04-10 17:27] LABS: HEMATOCRIT 36.2 % (36.0-47.0); HEMOGLOBIN 11.7 g/dl (12.0-15.5); MEAN CORPUSCULAR HGB CONC 32.3 g/dl (32.0-36.5); MEAN CORPUSCULAR VOLUME 89.6 fl (80.0-96.0); PLATELET COUNT, AUTOMATED 275 10^3/uL (150-450); RED BLOOD COUNT 4.04 10^6/uL (4.00-5.40); WHITE BLOOD COUNT 8.3 10^3/uL (4.0-10.0)
[2022-04-10 17:37] LABS: AMPHETAMINES URINE REFLEX NEGATIVE (NEGATIVE); BARBITURATES URINE REFLEX NEGATIVE (NEGATIVE); BENZODIAZEPINES URINE REFLEX NEGATIVE (NEGATIVE); COCAINE METABOLITE URINE REFLE NEGATIVE (NEGATIVE)
[2022-04-10 17:38] LABS: PHENCYCLIDINE URINE REFLEX NEGATIVE (NEGATIVE)
[2022-04-10 17:43] LABS: CANNABINOIDS URINE REFLEX PENDING CONFIRMATION (NEGATIVE); METHADONE URINE REFLEX PENDING CONFIRMATION (NEGATIVE); OPIATES URINE REFLEX PENDING CONFIRMATION (NEGATIVE)
[2022-04-10 18:07] LABS: HIV 1&2 SCREEN CENTAUR NEGATIVE (NEGATIVE)
[2022-04-10 18:16] LABS: HEPATITIS C VIRUS ABY INDEX 0.1 INDEX (<0.8)
[2022-04-10 20:28] LABS: GC DNA AMPLIFICATION NEGATIVE (NEGATIVE)
== END ==
LOC: M PLALAB 15:55
PROVIDERS: ATTEND Advanced Practice Midwife
DX: Z34.81 Encounter for supervision of other normal pregnancy, first trimester (principal)
CPT/HCPCS: 36415; 80307; 85027; 86762; 86780; 86803; 86850; 86900; 86901; 87088; 87186; 87340; 87389; 87810; 87850; G0480

== ENCOUNTER → 2022-06-10 | Outpatient (CLI) | payer OTHER ==
[~2022-06-10] MED LIST changes: +LIDO15SO4 PO; -LIDO2SOL17 PO
== END ==
LOC: M WHC 15:00
PROVIDERS: ATTEND Obstetrics & Gynecology
DX: Z34.92 Encounter for supervision of normal pregnancy, unspecified, second trimester (principal)

== ENCOUNTER 2022-06-18 21:55 | Inpatient (IN) | payer OTHER ==
[~2022-06-18] VITALS: Ht 157.5 cm; Wt 85.6 kg
[~2022-06-18 21:55] MED LIST changes: +LIDO15SO PO; -LIDO15SO4 PO
[2022-06-18 22:53] LABS: HEMATOCRIT 34.6 % (36.0-47.0); HEMOGLOBIN 11.4 g/dl (12.0-15.5); MEAN CORPUSCULAR HGB CONC 32.9 g/dl (32.0-36.5); MEAN CORPUSCULAR VOLUME 91.1 fl (80.0-96.0); PLATELET COUNT, AUTOMATED 239 10^3/uL (150-450); WHITE BLOOD COUNT 12.4 10^3/uL (4.0-10.0)
[2022-06-18 23:11] LABS: AMPHETAMINES LEVEL URINE NEGATIVE (NEGATIVE); BARBITURATES URINE NEGATIVE (NEGATIVE); BENZODIAZEPINES URINE NEGATIVE (NEGATIVE); COCAINE METABOLITE URINE NEGATIVE (NEGATIVE); PHENCYCLIDINE URINE NEGATIVE (NEGATIVE)
[2022-06-18 23:13] LABS: ETHYL ALCOHOL (ETHANOL) < 0.003 % (0.000-0.010)
[2022-06-18 23:15] LABS: ACETAMINOPHEN LEVEL < 2.0 UG/ML (10.0-20.0); SALICYLATE LEVEL < 3.0 MG/DL (<30)
[2022-06-18 23:17] LABS: CANNABINOIDS URINE POSITIVE (NEGATIVE); METHADONE URINE POSITIVE (NEGATIVE); OPIATES URINE POSITIVE (NEGATIVE)
[2022-06-18 23:19] LABS: ALBUMIN 3.3 G/DL (3.2-5.2); ALKALINE PHOSPHATASE 77 U/L (46-116); ALT/SGPT 31 U/L (7.0-40); AST/SGOT 23 U/L (<34); BILIRUBIN,DIRECT < 0.1 MG/DL (<0.4); BILIRUBIN,TOTAL 0.3 MG/DL (0.3-1.2); BLOOD UREA NITROGEN 10 MG/DL (9-23); CALCIUM LEVEL 8.8 MG/DL (8.5-10.1); CARBON DIOXIDE LEVEL 27 MMOL/L (20-31); CHLORIDE LEVEL 103 MMOL/L (98-107); CREATININE FOR GFR 0.51 MG/DL (0.55-1.30); GLOMERULAR FILTRATION RATE > 60.0 (>60); GLUCOSE, FASTING 71 MG/DL (60-100); POTASSIUM SERUM 4.3 MMOL/L (3.5-5.1); SODIUM LEVEL 137 MMOL/L (136-145); THYROID STIMULATING HORMONE 1.208 uIU/ML (0.55-4.78); TOTAL PROTEIN 6.6 G/DL (5.7-8.2)
[2022-06-18 23:56] LABS: HCG, SERUM QUALITATIVE POSITIVE (NEGATIVE)
[2022-06-19] MEDS ORDERED: PRENATAL VITAMINS CHEWABLE TABLET PO SCH (09:00)
[2022-06-19] MEDS ORDERED: busPIRone 10 MG TAB PO SCH (09:00)
[2022-06-19] MEDS ORDERED: METH10CO PO (09:54)
[2022-06-19] MEDS ORDERED: ARIP1TAB6 PO (10:38)
[2022-06-19] MEDS ORDERED: TRAZ-186 PO (10:38)
[2022-06-19] MEDS ORDERED: BUSP10TA PO (10:38)
[2022-06-19] MEDS ORDERED: MULTTAB20 PO (10:39)
[2022-06-19] MEDS ORDERED: HOME MED LIST COMPLETE! XX SCH (10:40)
[2022-06-19] MEDS ORDERED: METHADONE 10MG TAB PO ONE (12:00)
[2022-06-19] MEDS ORDERED: METHADONE 10MG TAB PO SCH (12:50)
[2022-06-19] MEDS ORDERED: MOM 30ML SUSPENSION UDC PO PRN (14:40)
[2022-06-19] MEDS ORDERED: MAALOX 30 ML SUSP *UDC PO PRN (14:40)
[2022-06-19 16:51] VITALS: BP 133/79
[2022-06-19] MEDS: ACETAMINOPHEN TAB 650MG DOSE (2X325MG) PO PRN (18:30)
[2022-06-19] MEDS: traZODone 50 MG TAB PO PRN (20:20)
[2022-06-19] MEDS ORDERED: traZODone 50 MG TAB PO SCH (21:00)
[2022-06-19] MEDS ORDERED: CALCIUM CARBONATE 500 MG CHEW U/D PO PRN (21:20)
[2022-06-19] MEDS ORDERED: SUCRALFATE SUSP 1GM/10ML UD PO ONE (21:20)
[2022-06-19] MEDS: diphenhydrAMINE 25MG CAP PO PRN (21:24)
[2022-06-19] MEDS: IBUPROFEN 400MG TAB PO PRN (21:24)
[2022-06-20 06:20] VITALS: BP 115/73
[2022-06-20] MEDS: PRENATAL VITAMINS CHEWABLE TABLET PO SCH (08:05)
[2022-06-20] MEDS: METHADONE 10MG TAB PO SCH (08:07)
[2022-06-20] MEDS ORDERED: PRENATAL VITAMINS CHEWABLE TABLET PO SCH (09:00)
[2022-06-20] MEDS ORDERED: METHADONE 10MG TAB PO SCH (09:00)
[2022-06-20 16:48] LABS: BASO % 0.3 % (0.0-1.0); EOS # 0.2 10^3/uL (0.0-0.5); EOS % 1.5 % (0.0-3.0); HEMATOCRIT 37.8 % (36.0-47.0); HEMOGLOBIN 12.2 g/dl (12.0-15.5); LYMPH # 2.8 10^3/uL (1.5-5.0); LYMPH % 24.2 % (24.0-44.0); MEAN CORPUSCULAR HEMOGLOBIN 29.4 pg (27.0-33.0); MEAN CORPUSCULAR HGB CONC 32.3 g/dl (32.0-36.5); MEAN CORPUSCULAR VOLUME 91.1 fl (80.0-96.0); MONO # 0.9 10^3/uL (0.0-0.8); MONO % 7.6 % (2.0-8.0); NEUTROPHILS # 7.6 10^3/uL (1.5-8.5); NEUTROPHILS % 65.8 % (36.0-66.0); PLATELET COUNT, AUTOMATED 236 10^3/uL (150-450); RED BLOOD COUNT 4.15 10^6/uL (4.00-5.40); WHITE BLOOD COUNT 11.5 10^3/uL (4.0-10.0)
[2022-06-20 17:11] LABS: IRON (FE) 53 UG/DL (50-170); PERCENT SATURATION 12.2 % (13.2-45.0); TOTAL IRON BINDING CAPACITY 434 UG/DL (250-425)
[2022-06-20 17:14] LABS: VITAMIN B12 LEVEL 473 PG/ML (211-911)
[2022-06-20 17:15] LABS: FOLATE > 24.00 NG/ML (>5.4)
[2022-06-20 18:00] VITALS: BP 138/69
[2022-06-20] MEDS: traZODone 50 MG TAB PO PRN (20:28)
[2022-06-20] MEDS: ACETAMINOPHEN TAB 650MG DOSE (2X325MG) PO PRN (20:29)
[2022-06-21 06:30] VITALS: BP 115/62
[2022-06-21] MEDS: PRENATAL VITAMINS CHEWABLE TABLET PO SCH (08:18)
[2022-06-21] MEDS: METHADONE 10MG TAB PO SCH (08:19)
[2022-06-21 18:28] VITALS: BP 143/83
[2022-06-21] MEDS: traZODone 50 MG TAB PO PRN (23:17)
[2022-06-22] MEDS: diphenhydrAMINE 25MG CAP PO PRN ×2 (01:55→23:23)
[2022-06-22 06:32] VITALS: BP 114/56
[2022-06-22] MEDS: PRENATAL VITAMINS CHEWABLE TABLET PO SCH (09:13)
[2022-06-22] MEDS: METHADONE 10MG TAB PO SCH (09:14)
[2022-06-22 18:58] VITALS: BP 121/83
[2022-06-22] MEDS: ACETAMINOPHEN TAB 650MG DOSE (2X325MG) PO PRN (22:15)
[2022-06-23] MEDS: PRENATAL VITAMINS CHEWABLE TABLET PO SCH (09:36)
[2022-06-23] MEDS: METHADONE 10MG TAB PO SCH (09:37)
[2022-06-23] MEDS: diphenhydrAMINE 25MG CAP PO PRN ×2 (13:15→22:40)
[2022-06-23 16:26] VITALS: BP 129/84
[2022-06-23] MEDS: QUEtiapine FUMARATE 12.5 MG HALF-TAB PO SCH (20:18)
[2022-06-24 06:36] VITALS: BP 162/98
[2022-06-24] MEDS: METHADONE 10MG TAB PO SCH ×2 (09:00→11:21)
[2022-06-24] MEDS: QUEtiapine FUMARATE 12.5 MG HALF-TAB PO SCH ×2 (09:00→21:25)
[2022-06-24] MEDS: PRENATAL VITAMINS CHEWABLE TABLET PO SCH (09:03)
[2022-06-24] MEDS ORDERED: diphenhydrAMINE 50MG/ML VIAL IM ONE (09:40)
[2022-06-24] MEDS ORDERED: HALOPERIDOL 5MG/ML 1ML VIAL IM ONE (09:40)
[2022-06-24] MEDS: diphenhydrAMINE 25MG CAP PO PRN (13:33)
[2022-06-24] MEDS: IBUPROFEN 400MG TAB PO PRN (13:36)
[2022-06-24 20:32] VITALS: BP 137/85
[2022-06-25 06:16] VITALS: BP 113/54
[2022-06-25] MEDS: METHADONE 10MG TAB PO SCH (08:48)
[2022-06-25] MEDS: QUEtiapine FUMARATE 12.5 MG HALF-TAB PO SCH (08:48)
[2022-06-25] MEDS: PRENATAL VITAMINS CHEWABLE TABLET PO SCH (08:49)
[2022-06-25] MEDS: QUEtiapine FUMARATE 25 MG TAB PO SCH (20:29)
[2022-06-26 06:09] VITALS: BP 122/60
[2022-06-26] MEDS: PRENATAL VITAMINS CHEWABLE TABLET PO SCH (08:29)
[2022-06-26] MEDS: QUEtiapine FUMARATE 25 MG TAB PO SCH ×2 (08:29→20:02)
[2022-06-26] MEDS: METHADONE 10MG TAB PO SCH (08:30)
[2022-06-26] MEDS: diphenhydrAMINE 25MG CAP PO PRN (09:29)
[2022-06-26 15:15] VITALS: BP 126/91
[2022-06-26 16:43] VITALS: BP 128/89
[2022-06-27] MEDS: diphenhydrAMINE 25MG CAP PO PRN ×2 (04:54→23:06)
[2022-06-27 06:31] VITALS: BP 142/81
[2022-06-27] MEDS: METHADONE 10MG TAB PO SCH (07:47)
[2022-06-27] MEDS: QUEtiapine FUMARATE 25 MG TAB PO SCH ×2 (07:47→20:05)
[2022-06-27] MEDS: PRENATAL VITAMINS CHEWABLE TABLET PO SCH (07:47)
[2022-06-27 16:36] VITALS: BP 130/82
[2022-06-28 06:44] VITALS: BP 127/73
[2022-06-28] MEDS: METHADONE 10MG TAB PO SCH (08:52)
[2022-06-28] MEDS: QUEtiapine FUMARATE 25 MG TAB PO SCH ×2 (08:52→20:13)
[2022-06-28] MEDS: PRENATAL VITAMINS CHEWABLE TABLET PO SCH (08:52)
[2022-06-28] MEDS: diphenhydrAMINE 25MG CAP PO PRN ×2 (09:40→15:25)
[2022-06-28 16:52] VITALS: BP 118/75
[2022-06-29 06:36] VITALS: BP 108/67
[2022-06-29] MEDS: METHADONE 10MG TAB PO SCH (08:22)
[2022-06-29] MEDS: PRENATAL VITAMINS CHEWABLE TABLET PO SCH (08:22)
[2022-06-29] MEDS: QUEtiapine FUMARATE 25 MG TAB PO SCH ×2 (08:22→21:09)
[2022-06-29] MEDS: ACETAMINOPHEN TAB 650MG DOSE (2X325MG) PO PRN (16:20)
[2022-06-29 18:23] VITALS: BP 124/75
[2022-06-30 05:46] VITALS: BP 125/66
[2022-06-30] MEDS: QUEtiapine FUMARATE 25 MG TAB PO SCH (08:19)
[2022-06-30] MEDS: METHADONE 10MG TAB PO SCH (08:19)
[2022-06-30] MEDS: PRENATAL VITAMINS CHEWABLE TABLET PO SCH (08:19)
[2022-06-30 17:48] VITALS: BP 108/60
[2022-06-30] MEDS ORDERED: QUEtiapine FUMARATE 25 MG TAB PO SCH (21:00)
[2022-07-01 06:06] VITALS: BP 111/62
[2022-07-01] MEDS: METHADONE 10MG TAB PO SCH (09:36)
[2022-07-01] MEDS: PRENATAL VITAMINS CHEWABLE TABLET PO SCH (09:36)
[2022-07-01] MEDS ORDERED: diphenhydrAMINE 25MG CAP PO STA (10:23)
[2022-07-01 18:02] VITALS: BP 108/61
[2022-07-01] MEDS ORDERED: QUEtiapine FUMARATE 100 MG TAB PO SCH (21:00)
[2022-07-02 06:47] VITALS: BP 123/71
[2022-07-02] MEDS: PRENATAL VITAMINS CHEWABLE TABLET PO SCH (07:59)
[2022-07-02] MEDS: METHADONE 10MG TAB PO SCH (07:59)
[2022-07-02] MEDS: ACETAMINOPHEN TAB 650MG DOSE (2X325MG) PO PRN (16:07)
[2022-07-02 19:01] VITALS: BP 121/61
[2022-07-02] MEDS: QUEtiapine FUMARATE 50MG TAB PO SCH (20:32)
[2022-07-02] MEDS: diphenhydrAMINE 25MG CAP PO PRN (23:12)
[2022-07-03 06:39] VITALS: BP 110/62
[2022-07-03] MEDS: PRENATAL VITAMINS CHEWABLE TABLET PO SCH (08:39)
[2022-07-03] MEDS: METHADONE 10MG TAB PO SCH (08:40)
[2022-07-03] MEDS: diphenhydrAMINE 25MG CAP PO PRN (15:48)
[2022-07-03] MEDS ORDERED: OLANZapine ORAL DISINTEGRATING TAB 5MG PO ONE (16:55)
[2022-07-03 17:18] VITALS: BP 136/91
[2022-07-03] MEDS: QUEtiapine FUMARATE 50MG TAB PO SCH (21:32)
[2022-07-04] MEDS: diphenhydrAMINE 25MG CAP PO PRN (05:39)
[2022-07-04 06:23] VITALS: BP 110/67
[2022-07-04] MEDS: PRENATAL VITAMINS CHEWABLE TABLET PO SCH (09:23)
[2022-07-04] MEDS: METHADONE 10MG TAB PO SCH (09:23)
[2022-07-04 18:00] VITALS: BP 122/75
[2022-07-04] MEDS: QUEtiapine FUMARATE 50MG TAB PO SCH (20:19)
[2022-07-05 06:14] VITALS: BP 106/69
[2022-07-05] MEDS: METHADONE 10MG TAB PO SCH (09:39)
[2022-07-05] MEDS: PRENATAL VITAMINS CHEWABLE TABLET PO SCH (09:39)
[2022-07-05] MEDS: diphenhydrAMINE 25MG CAP PO PRN ×2 (13:32→23:22)
[2022-07-05] MEDS: QUEtiapine FUMARATE 200 MG TAB PO SCH (20:28)
[2022-07-06 06:31] VITALS: BP 118/75
[2022-07-06] MEDS: METHADONE 10MG TAB PO SCH (09:05)
[2022-07-06] MEDS: PRENATAL VITAMINS CHEWABLE TABLET PO SCH (09:05)
[2022-07-06 17:55] VITALS: BP 126/69
[2022-07-06] MEDS: QUEtiapine FUMARATE 200 MG TAB PO SCH (20:17)
[2022-07-06] MEDS: diphenhydrAMINE 25MG CAP PO PRN (22:02)
[2022-07-07 06:44] VITALS: BP 106/67
[2022-07-07] MEDS: PRENATAL VITAMINS CHEWABLE TABLET PO SCH (08:02)
[2022-07-07] MEDS: METHADONE 10MG TAB PO SCH (08:03)
[2022-07-07] MEDS: ACETAMINOPHEN TAB 650MG DOSE (2X325MG) PO PRN (15:01)
[2022-07-07] MEDS: diphenhydrAMINE 25MG CAP PO PRN (15:01)
[2022-07-07 16:53] VITALS: BP 126/73
[2022-07-07] MEDS: QUEtiapine FUMARATE 200 MG TAB PO SCH (20:29)
[2022-07-08 06:55] VITALS: BP 112/68
[2022-07-08] MEDS: PRENATAL VITAMINS CHEWABLE TABLET PO SCH (09:11)
[2022-07-08] MEDS: METHADONE 10MG TAB PO SCH (09:12)
[2022-07-08] MEDS: ACETAMINOPHEN TAB 650MG DOSE (2X325MG) PO PRN (11:34)
[2022-07-08 18:02] VITALS: BP 110/63
[2022-07-08] MEDS: QUEtiapine FUMARATE 200 MG TAB PO SCH (21:10)
[2022-07-09 06:18] VITALS: BP 98/57
[2022-07-09] MEDS: PRENATAL VITAMINS CHEWABLE TABLET PO SCH (08:31)
[2022-07-09] MEDS: METHADONE 10MG TAB PO SCH (08:31)
[2022-07-09] MEDS: ACETAMINOPHEN TAB 650MG DOSE (2X325MG) PO PRN (13:45)
[2022-07-09 18:57] VITALS: BP 130/78
[2022-07-09] MEDS: QUEtiapine FUMARATE 200 MG TAB PO SCH (21:34)
[2022-07-10] MEDS ORDERED: guaiFENesin 200 MG TAB PO PRN (03:20)
[2022-07-10] MEDS: SODIUM CHLORIDE NASAL 0.65% SPRAY BTL (OCEAN) PRN (03:55)
[2022-07-10 06:10] VITALS: BP 111/57
[2022-07-10] MEDS: PRENATAL VITAMINS CHEWABLE TABLET PO SCH (08:31)
[2022-07-10] MEDS: METHADONE 10MG TAB PO SCH (08:33)
[2022-07-10 16:15] VITALS: BP 114/60
[2022-07-10] MEDS: QUEtiapine FUMARATE 200 MG TAB PO SCH (21:49)
[2022-07-11 06:23] VITALS: BP 112/59
[2022-07-11] MEDS: PRENATAL VITAMINS CHEWABLE TABLET PO SCH (08:50)
[2022-07-11] MEDS: METHADONE 10MG TAB PO SCH (08:51)
[2022-07-11] MEDS: diphenhydrAMINE 25MG CAP PO PRN (16:25)
[2022-07-11 16:33] VITALS: BP 126/58
[2022-07-11] MEDS: QUEtiapine FUMARATE 200 MG TAB PO SCH (20:23)
[2022-07-11] MEDS ORDERED: QUET200T2 PO (21:26)
[2022-07-11] MEDS: SODIUM CHLORIDE NASAL 0.65% SPRAY BTL (OCEAN) PRN (22:07)
[2022-07-12] MEDS: SODIUM CHLORIDE NASAL 0.65% SPRAY BTL (OCEAN) PRN (01:35)
[2022-07-12] MEDS: METHADONE 10MG TAB PO SCH (08:52)
[2022-07-12] MEDS: PRENATAL VITAMINS CHEWABLE TABLET PO SCH (08:52)
[2022-07-12 18:46] VITALS: BP 116/69
[2022-07-12] MEDS: QUEtiapine FUMARATE 200 MG TAB PO SCH (20:10)
[2022-07-13 06:01] VITALS: BP 104/61
[2022-07-13] MEDS: PRENATAL VITAMINS CHEWABLE TABLET PO SCH (08:29)
[2022-07-13] MEDS: METHADONE 10MG TAB PO SCH (08:29)
== END 2022-07-13 09:09 | disposition home or self-care (01) | DRG 566 ==
LOC: M ED 21:55 → M ED INP 06-19 14:53 → M PSY 06-19 16:51
PROVIDERS: ADMIT Student in an Organized Health Care Education/Training Program; ATTEND Psychiatry & Neurology Psychiatry
DX: O99.342 Other mental disorders complicating pregnancy, second trimester (principal); F11.159 Opioid abuse with opioid-induced psychotic disorder, unspecified; O99.322 Drug use complicating pregnancy, second trimester; F12.10 Cannabis abuse, uncomplicated; F29 Unspecified psychosis not due to a substance or known physiological condition; Z3A.22 22 weeks gestation of pregnancy

== ENCOUNTER 2022-08-01 13:39 | Outpatient (CLI) | payer OTHER ==
[~2022-08-01] VITALS: Ht 157.5 cm; Wt 91.9 kg
[~2022-08-01 13:39] MED LIST changes: +ETON1VAG7; +ETON1VAG7 PV; +MULTTAB20 PO; -NUVAMIS2; -NUVAMIS2 PV; +QUET200T2 PO; +TRAZ-186 PO
[2022-08-01 14:01] VITALS: BP 106/57
[2022-08-01] MEDS ORDERED: HOME MED LIST COMPLETE! XX SCH (14:15)
== END 2022-08-01 14:40 | disposition home or self-care (01) ==
LOC: M LDO 13:39
PROVIDERS: ATTEND Obstetrics & Gynecology
DX: O12.03 Gestational edema, third trimester (principal); Z3A.29 29 weeks gestation of pregnancy; Z88.8 Allergy status to other drugs, medicaments and biological substances
CPT/HCPCS: 59025; G0463

== ENCOUNTER → 2022-08-11 | Outpatient (REF) | payer OTHER ==
[2022-08-11 18:43] LABS: AMPHETAMINES URINE REFLEX NEGATIVE (NEGATIVE)
[2022-08-11 18:44] LABS: BARBITURATES URINE REFLEX NEGATIVE (NEGATIVE); BENZODIAZEPINES URINE REFLEX NEGATIVE (NEGATIVE); CANNABINOIDS URINE REFLEX NEGATIVE (NEGATIVE); COCAINE METABOLITE URINE REFLE NEGATIVE (NEGATIVE); OPIATES URINE REFLEX NEGATIVE (NEGATIVE); PHENCYCLIDINE URINE REFLEX NEGATIVE (NEGATIVE)
[2022-08-11 18:49] LABS: METHADONE URINE REFLEX PENDING CONFIRMATION (NEGATIVE)
== END ==
LOC: M SFHCWAGY 17:12
PROVIDERS: ATTEND Advanced Practice Midwife
DX: Z34.03 Encounter for supervision of normal first pregnancy, third trimester (principal)

== ENCOUNTER → 2022-08-31 | Outpatient (CLI) | payer OTHER ==
[2022-08-31 15:42] LABS: GLUCOSE CHALLENGE TEST 1 HOUR 100 MG/DL (LESS THAN 140)
[2022-08-31 15:48] LABS: HEMOGLOBIN 10.9 g/dl (12.0-15.5); MEAN CORPUSCULAR HEMOGLOBIN 29.3 pg (27.0-33.0); MEAN CORPUSCULAR HGB CONC 32.1 g/dl (32.0-36.5); MEAN CORPUSCULAR VOLUME 91.4 fl (80.0-96.0); PLATELET COUNT, AUTOMATED 254 10^3/uL (150-450); RED BLOOD COUNT 3.72 10^6/uL (4.00-5.40); WHITE BLOOD COUNT 10.8 10^3/uL (4.0-10.0)
[2022-08-31 16:17] LABS: HIV 1&2 SCREEN NEGATIVE (NEGATIVE)
[2022-08-31 16:25] LABS: HEPATITIS C VIRUS ABY INDEX 0.1 INDEX (<0.8)
[2022-08-31 18:27] LABS: GC DNA AMPLIFICATION NEGATIVE (NEGATIVE)
== END ==
LOC: M PLALAB 12:21
PROVIDERS: ATTEND Obstetrics & Gynecology
DX: Z34.82 Encounter for supervision of other normal pregnancy, second trimester (principal)

== ENCOUNTER → 2022-09-10 | Outpatient (CLI) | payer OTHER | LOC: M RAD 14:34 | PROVIDERS: ATTEND Obstetrics & Gynecology | DX: Z36.2 Encounter for other antenatal screening follow-up (principal) ==

== ENCOUNTER 2022-09-19 03:46 | Outpatient (CLI) | payer OTHER ==
[~2022-09-19] VITALS: Ht 157.5 cm; Wt 98.6 kg
[2022-09-19 04:50] VITALS: BP 123/83; TEMP 97.6
[2022-09-19 07:16] VITALS: BP 100/66; TEMP 97.2
[2022-09-19 08:35] LABS: AMPHETAMINES URINE REFLEX NEGATIVE (NEGATIVE); BARBITURATES URINE REFLEX NEGATIVE (NEGATIVE); BENZODIAZEPINES URINE REFLEX NEGATIVE (NEGATIVE); OPIATES URINE REFLEX NEGATIVE (NEGATIVE); PHENCYCLIDINE URINE REFLEX NEGATIVE (NEGATIVE)
[2022-09-19 09:17] LABS: CANNABINOIDS URINE REFLEX PENDING CONFIRMATION (NEGATIVE); COCAINE METABOLITE URINE REFLE PENDING CONFIRMATION (NEGATIVE)
[2022-09-19 09:18] LABS: METHADONE URINE REFLEX PENDING CONFIRMATION (NEGATIVE)
[2022-09-19 09:41] VITALS: BP 106/65; TEMP 97.9
[2022-09-26 03:08] LABS: BENZOYLECGONINE, CONF, MS,UR 2180 ng/mL (Cutoff=150); Cannabinoid Positive (.); Carboxy THC Conf, MS, UR 38 ng/mL (Cutoff=10); Cocaine Positive (.); Methadone Positive (.); Methadone Conf, MS, UR 1850 ng/mL (Cutoff=100)
== END 2022-09-19 12:03 | disposition home or self-care (01) ==
LOC: M LDO 03:46
PROVIDERS: ATTEND Advanced Practice Midwife
DX: O26.893 Other specified pregnancy related conditions, third trimester (principal); R11.0 Nausea; O99.343 Other mental disorders complicating pregnancy, third trimester; F41.9 Anxiety disorder, unspecified; F32.A Depression, unspecified; O99.323 Drug use complicating pregnancy, third trimester; F11.90 Opioid use, unspecified, uncomplicated; F14.90 Cocaine use, unspecified, uncomplicated; O09.33 Supervision of pregnancy with insufficient antenatal care, third trimester; Z3A.36 36 weeks gestation of pregnancy
CPT/HCPCS: 59025; 80307; G0463; G0480

== ENCOUNTER → 2022-09-22 | Outpatient (REF) | payer OTHER | LOC: M PLALAB 16:06 | PROVIDERS: ATTEND Advanced Practice Midwife | DX: Z34.80 Encounter for supervision of other normal pregnancy, unspecified trimester (principal) ==

== ENCOUNTER 2022-09-25 03:11 | Outpatient (CLI) | payer OTHER ==
[~2022-09-25] VITALS: Ht 157.5 cm; Wt 96.0 kg
[2022-09-25 03:24] VITALS: BP 141/72
== END 2022-09-25 05:30 | disposition home or self-care (01) ==
LOC: M LDO 03:11
PROVIDERS: ATTEND Obstetrics & Gynecology
DX: O47.1 False labor at or after 37 completed weeks of gestation (principal); Z3A.37 37 weeks gestation of pregnancy
CPT/HCPCS: 59025; G0463

== ENCOUNTER 2022-10-08 13:29 | Inpatient (IN) | payer OTHER ==
[~2022-10-08] VITALS: Ht 157.5 cm; Wt 104.3 kg
[2022-10-08] MEDS ORDERED: ACET325C5 PO (13:54)
[2022-10-08] MEDS ORDERED: HOME MED LIST COMPLETE! XX SCH (14:00)
[2022-10-08 14:37] VITALS: BP 145/75
[2022-10-08] MEDS ORDERED: OXYTOCIN DRIP 30 UNITS in IV 1 EA IV PRN (14:40)
[2022-10-08] MEDS ORDERED: LIDOCAINE 1% MDV 20ML VIAL INFIL PRN (14:40)
[2022-10-08] MEDS ORDERED: TRANEXAMIC ACID INJection 1,000 MG in NS 100 ML IV PRN (14:40)
[2022-10-08] MEDS ORDERED: METHYLERGONOVINE MALEATE 0.2MG/ML 1ML VIAL IM PRN (14:40)
[2022-10-08 14:45] VITALS: BP 147/84
[2022-10-08 14:54] LABS: HEMATOCRIT 31.4 % (36.0-47.0); HEMOGLOBIN 10.4 g/dl (12.0-15.5); MEAN CORPUSCULAR HEMOGLOBIN 29.1 pg (27.0-33.0); MEAN CORPUSCULAR HGB CONC 33.1 g/dl (32.0-36.5); MEAN CORPUSCULAR VOLUME 87.7 fl (80.0-96.0); PLATELET COUNT, AUTOMATED 226 10^3/uL (150-450); RED BLOOD COUNT 3.58 10^6/uL (4.00-5.40); WHITE BLOOD COUNT 7.8 10^3/uL (4.0-10.0)
[2022-10-08 15:09] LABS: LDH LACTATE DEHYDROGENASE 259 U/L (120-246)
[2022-10-08 15:10] LABS: ALT/SGPT 23 U/L (7.0-40); AST/SGOT 23 U/L (<34); BILIRUBIN,TOTAL 0.2 MG/DL (0.3-1.2); CREATININE FOR GFR 0.69 MG/DL (0.55-1.30); GLOMERULAR FILTRATION RATE > 60.0 (>60)
[2022-10-08] MEDS: miSOPROStol 50MCG 1/2 TABLET PO SCH ×2 (15:14→19:44)
[2022-10-08 15:52] LABS: URIC ACID 5.6 MG/DL (3.1-7.8)
[2022-10-08 15:58] LABS: TOTAL PROTEIN,RANDOM URINE 6.4 MG/DL (0.0-14.0)
[2022-10-08 15:59] LABS: AMPHETAMINES URINE REFLEX NEGATIVE (NEGATIVE); BARBITURATES URINE REFLEX NEGATIVE (NEGATIVE); CANNABINOIDS URINE REFLEX NEGATIVE (NEGATIVE); PHENCYCLIDINE URINE REFLEX NEGATIVE (NEGATIVE)
[2022-10-08 16:00] LABS: BENZODIAZEPINES URINE REFLEX NEGATIVE (NEGATIVE); COCAINE METABOLITE URINE REFLE PENDING CONFIRMATION (NEGATIVE); OPIATES URINE REFLEX NEGATIVE (NEGATIVE)
[2022-10-08 16:01] LABS: METHADONE URINE REFLEX PENDING CONFIRMATION (NEGATIVE)
[2022-10-08 16:03] LABS: CREATININE,RANDOM URINE 39.7 MG/DL
[2022-10-08 16:24] VITALS: BP 145/90
[2022-10-08 17:24] VITALS: BP 154/89
[2022-10-08 18:48] VITALS: BP 155/89
[2022-10-09] VITALS (32 sets, daily range): BP systolic 121–209; BP diastolic 71–106
[2022-10-09] MEDS: miSOPROStol 50MCG 1/2 TABLET PO SCH ×3 (02:44→14:04)
[2022-10-09] MEDS ORDERED: PROMETHAZINE 25MG/ML 1ML VIAL IV ONE ×2 (03:00→14:50)
[2022-10-09] MEDS ORDERED: NALBUPHINE HCL 10 MG/ML 1ML AMP IV ONE (03:00)
[2022-10-09] MEDS ORDERED: METHADONE 10MG TAB PO SCH (11:00)
[2022-10-09] MEDS ORDERED: MORPHINE 10 MG/ML 1ML VIAL IV ONE (14:50)
[2022-10-09] MEDS ORDERED: MORPHINE 10 MG/ML 1ML VIAL IM ONE (14:50)
[2022-10-09] MEDS ORDERED: NALOXONE INJ 0.4MG/1ML VIAL IV PRN (16:00)
[2022-10-09] MEDS: FENTANYL/ROPIVACAINE/NACL BAG 100 ML EPIDURAL SCH (16:00)
[2022-10-09] MEDS ORDERED: LR 500 ML IV PRN (16:00)
[2022-10-09] MEDS ORDERED: EPIDURAL/PCA KEYS XX PRN (16:00)
[2022-10-09] MEDS ORDERED: ePHEDrine SULFATE 25 MG/5 ML(5MG/ML) SYRINGE IVP PRN (16:00)
[2022-10-09] MEDS ORDERED: ONDANSETRON 4MG 2ML VIAL IV PRN (16:00)
[2022-10-09] MEDS ORDERED: diphenhydrAMINE 50MG/ML VIAL IV PRN (16:00)
[2022-10-09] MEDS ORDERED: OXYTOCIN DRIP 30 UNITS in IV 1 EA IV SCH (18:25)
[2022-10-09] MEDS: LR 1,000 ML IV SCH (18:47)
[2022-10-10] VITALS (14 sets, daily range): BP systolic 126–193; BP diastolic 60–106; O2SAT 98–100
[2022-10-10] MEDS: FENTANYL/ROPIVACAINE/NACL BAG 100 ML EPIDURAL SCH (00:32)
[2022-10-10] MEDS: LR 1,000 ML IV SCH (00:33)
[2022-10-10 01:44] LABS: CORD GAS ABE A -8.4; CORD GAS ABE V -7.1; CORD GAS HCO3 A 19.5 MMOL/L; CORD GAS O2 SAT A 49.5 %; CORD GAS O2 SAT V 76.8 %; CORD GAS PCO2 A 48.6 mmHg; CORD GAS PCO2 V 31.2 mmHg; CORD GAS PH A 7.221 UNITS; CORD GAS PH V 7.355 UNITS; CORD GAS PO2 A 23.1 mmHg; CORD GAS PO2 V 32.7 mmHg; CORD GAS SBC A 16.8 MMOL/L; CORD GAS SBC V 18.3 MMOL/L
[2022-10-10] MEDS ORDERED: RHOGAM 300MCG (1500IU) INJ IM SCH (04:00)
[2022-10-10] MEDS ORDERED: ANUSOL HC CREAM 30GM TOP PRN (04:00)
[2022-10-10] MEDS ORDERED: DIBUCAINE 1% OINTMENT 30GM TOP PRN (04:00)
[2022-10-10] MEDS ORDERED: MOM 30ML SUSPENSION UDC PO PRN (04:00)
[2022-10-10 07:14] LABS: HEMATOCRIT 25.7 % (36.0-47.0); HEMOGLOBIN 8.6 g/dl (12.0-15.5); MEAN CORPUSCULAR HEMOGLOBIN 29.7 pg (27.0-33.0); MEAN CORPUSCULAR HGB CONC 33.5 g/dl (32.0-36.5); MEAN CORPUSCULAR VOLUME 88.6 fl (80.0-96.0); PLATELET COUNT, AUTOMATED 214 10^3/uL (150-450)
[2022-10-10] MEDS: DOCUSATE SODIUM 100MG CAPSULE PO SCH ×2 (07:56→20:02)
[2022-10-10] MEDS: PRENATAL VITAMINS CHEWABLE TABLET PO SCH (07:57)
[2022-10-10] MEDS: IBUPROFEN 600MG TAB PO PRN (07:57)
[2022-10-10] MEDS ORDERED: METHADONE 10MG TAB PO ONE (11:05)
[2022-10-10] MEDS: IBUPROFEN 800 MG TAB PO PRN ×2 (14:49→23:04)
[2022-10-11] MEDS: ACETAMINOPHEN TAB 650MG DOSE (2X325MG) PO PRN (00:25)
[2022-10-11 03:07] VITALS: BP 124/75; O2SAT 100
[2022-10-11 06:00] VITALS: BP 134/77; O2SAT 97
[2022-10-11] MEDS: PRENATAL VITAMINS CHEWABLE TABLET PO SCH (09:16)
[2022-10-11] MEDS: DOCUSATE SODIUM 100MG CAPSULE PO SCH ×2 (09:16→20:08)
[2022-10-11 10:12] VITALS: BP 125/83; O2SAT 100
[2022-10-11] MEDS: IBUPROFEN 800 MG TAB PO PRN ×2 (10:23→20:09)
[2022-10-11] MEDS: ACETAMINOPHEN 500 MG TAB PO PRN ×2 (10:26→21:59)
[2022-10-11] MEDS: METHADONE 10MG TAB PO SCH (12:52)
[2022-10-11 14:00] VITALS: BP 132/70; O2SAT 98
[2022-10-11 18:00] VITALS: BP 150/70; O2SAT 97
[2022-10-11 22:00] VITALS: BP 135/80; O2SAT 100
[2022-10-12 02:00] VITALS: BP 161/93; O2SAT 100
[2022-10-12 02:08] VITALS: BP 148/84
[2022-10-12] MEDS: ACETAMINOPHEN TAB 650MG DOSE (2X325MG) PO PRN (05:14)
[2022-10-12 06:00] VITALS: BP 138/88; O2SAT 98
[2022-10-12] MEDS: IBUPROFEN 600MG TAB PO PRN (06:01)
[2022-10-12] MEDS ORDERED: MEASLES,MUMPS,RUBELLA VACCINE INJ (MMR-II) SC.IMMUN ONE (09:00)
[2022-10-12] MEDS: PRENATAL VITAMINS CHEWABLE TABLET PO SCH ×2 (09:18→09:21)
[2022-10-12] MEDS: DOCUSATE SODIUM 100MG CAPSULE PO SCH ×2 (09:18→21:00)
[2022-10-12] MEDS: METHADONE 10MG TAB PO SCH (09:19)
[2022-10-12 10:00] VITALS: BP 143/75; O2SAT 99
[2022-10-12] MEDS: ACETAMINOPHEN 500 MG TAB PO PRN (16:33)
[2022-10-12 17:37] LABS: HEMATOCRIT 23.6 % (36.0-47.0); HEMOGLOBIN 7.5 g/dl (12.0-15.5); MEAN CORPUSCULAR HEMOGLOBIN 29.1 pg (27.0-33.0); MEAN CORPUSCULAR HGB CONC 31.8 g/dl (32.0-36.5); MEAN CORPUSCULAR VOLUME 91.5 fl (80.0-96.0); PLATELET COUNT, AUTOMATED 222 10^3/uL (150-450); RED BLOOD COUNT 2.58 10^6/uL (4.00-5.40); WHITE BLOOD COUNT 12.1 10^3/uL (4.0-10.0)
[2022-10-12 18:01] LABS: LDH LACTATE DEHYDROGENASE 387 U/L (120-246)
[2022-10-12 18:02] LABS: ALT/SGPT 53 U/L (7.0-40); AST/SGOT 60 U/L (<34); BILIRUBIN,TOTAL 0.2 MG/DL (0.3-1.2); CREATININE FOR GFR 0.62 MG/DL (0.55-1.30); GLOMERULAR FILTRATION RATE > 60.0 (>60)
[2022-10-12 18:03] VITALS: BP 148/88; O2SAT 98
[2022-10-12] MEDS: LABETALOL 200 MG TAB PO SCH (20:59)
[2022-10-12] MEDS: FERROUS GLUCONATE 324 MG TAB PO SCH (20:59)
[2022-10-12] MEDS ORDERED: QUEtiapine FUMARATE 25 MG TAB PO SCH (22:00)
[2022-10-12 22:37] VITALS: BP 129/78
[2022-10-13 02:30] VITALS: BP 125/81
[2022-10-13] MEDS: IBUPROFEN 800 MG TAB PO PRN (05:02)
[2022-10-13 05:58] VITALS: BP 128/74; O2SAT 99
[2022-10-13] MEDS: FERROUS GLUCONATE 324 MG TAB PO SCH (08:47)
[2022-10-13] MEDS: DOCUSATE SODIUM 100MG CAPSULE PO SCH (08:49)
[2022-10-13] MEDS: METHADONE 10MG TAB PO SCH (08:49)
[2022-10-13 08:50] VITALS: BP 143/85
[2022-10-13] MEDS: LABETALOL 200 MG TAB PO SCH (08:50)
[2022-10-13] MEDS: PRENATAL VITAMINS CHEWABLE TABLET PO SCH (08:50)
[2022-10-13 08:56] VITALS: BP 143/85
[2022-10-13] MEDS ORDERED: IBUP80TA PO (10:38)
[2022-10-13 10:54] VITALS: BP 133/72; O2SAT 97
[2022-10-13] MEDS ORDERED: LABE20TAB PO (12:13)
[2022-10-13] MEDS ORDERED: METHYLERGONOVINE MALEATE 0.2 MG TAB PO PRN (12:15)
[2022-10-13] MEDS ORDERED: RHOGAM 300MCG (1500IU) INJ IM SCH (12:15)
[2022-10-13] MEDS ORDERED: ACETAMINOPHEN TAB 650MG DOSE (2X325MG) PO PRN (12:15)
[2022-10-13] MEDS ORDERED: DOCUSATE SODIUM 100MG CAPSULE PO PRN (12:15)
[2022-10-13] MEDS ORDERED: IBUPROFEN 600MG TAB PO PRN (12:15)
[2022-10-13] MEDS ORDERED: IBUPROFEN 800 MG TAB PO PRN (12:15)
[2022-10-13] MEDS ORDERED: ACETAMINOPHEN 500 MG TAB PO PRN (12:15)
[2022-10-13] MEDS ORDERED: DIBUCAINE 1% OINTMENT 30GM TOP PRN (12:15)
[2022-10-14] MEDS ORDERED: PRENATAL VITAMINS CHEWABLE TABLET PO SCH (09:00)
[2022-10-15] MEDS ORDERED: MEASLES,MUMPS,RUBELLA VACCINE INJ (MMR-II) SC.IMMUN ONE (09:00)
[2022-10-16 08:11] LABS: BENZOYLECGONINE, CONF, MS,UR 3920 ng/mL (Cutoff=150); Cocaine Positive (.); Methadone Positive (.); Methadone Conf, MS, UR 1145 ng/mL (Cutoff=100)
== END 2022-10-13 13:35 | disposition home or self-care (01) | DRG 560 ==
LOC: M LDI 13:29 → M OBS 10-10 05:47
PROVIDERS: ADMIT Obstetrics & Gynecology; ATTEND Advanced Practice Midwife
PROC: 3E0P7GC Introduction of Other Therapeutic Substance into Female Reproductive, Via Natural or Artificial Opening (ICD-10-PCS; 2022-10-08)
PROC: 10E0XZZ Delivery of Products of Conception, External Approach (ICD-10-PCS; principal; 2022-10-10)
PROC: 0HQ9XZZ Repair Perineum Skin, External Approach (ICD-10-PCS; 2022-10-10)
DX: O14.94 Unspecified pre-eclampsia, complicating childbirth (principal); D62 Acute posthemorrhagic anemia; O99.344 Other mental disorders complicating childbirth; O72.1 Other immediate postpartum hemorrhage; O99.324 Drug use complicating childbirth; Z3A.39 39 weeks gestation of pregnancy; F41.9 Anxiety disorder, unspecified; F31.9 Bipolar disorder, unspecified; O32.6XX0 Maternal care for compound presentation, not applicable or unspecified; Z37.0 Single live birth; O70.0 First degree perineal laceration during delivery; F11.10 Opioid abuse, uncomplicated; O99.02 Anemia complicating childbirth

== ENCOUNTER 2022-12-03 03:28 | Inpatient (IN) | payer OTHER ==
[~2022-12-03] VITALS: Ht 157.5 cm; Wt 85.4 kg
[~2022-12-03 03:28] MED LIST changes: +ACET325C5 PO; +IBUP80TA PO; +LABE20TAB PO
[2022-12-03 07:55] LABS: HEMATOCRIT 36.8 % (36.0-47.0); HEMOGLOBIN 11.2 g/dl (12.0-15.5); MEAN CORPUSCULAR HEMOGLOBIN 24.7 pg (27.0-33.0); MEAN CORPUSCULAR HGB CONC 30.4 g/dl (32.0-36.5); MEAN CORPUSCULAR VOLUME 81.2 fl (80.0-96.0); PLATELET COUNT, AUTOMATED 564 10^3/uL (150-450); RED BLOOD COUNT 4.53 10^6/uL (4.00-5.40); WHITE BLOOD COUNT 8.2 10^3/uL (4.0-10.0)
[2022-12-03 08:12] LABS: ETHYL ALCOHOL (ETHANOL) 0.006 % (0.000-0.010)
[2022-12-03 08:14] LABS: ACETAMINOPHEN LEVEL < 2.0 UG/ML (10.0-20.0); ALBUMIN 4.3 G/DL (3.2-5.2); ALKALINE PHOSPHATASE 113 U/L (46-116); ALT/SGPT 28 U/L (7.0-40); AST/SGOT 33 U/L (<34); BILIRUBIN,DIRECT < 0.1 MG/DL (<0.4); BILIRUBIN,TOTAL 0.3 MG/DL (0.3-1.2); BLOOD UREA NITROGEN 15 MG/DL (9-23); CALCIUM LEVEL 9.8 MG/DL (8.5-10.1); CARBON DIOXIDE LEVEL 29 MMOL/L (20-31); CHLORIDE LEVEL 102 MMOL/L (98-107); CREATININE FOR GFR 0.71 MG/DL (0.55-1.30); GLOMERULAR FILTRATION RATE > 60.0 (>60); GLUCOSE, FASTING 90 MG/DL (60-100); POTASSIUM SERUM 4.8 MMOL/L (3.5-5.1); SALICYLATE LEVEL < 3.0 MG/DL (<30); SODIUM LEVEL 138 MMOL/L (136-145); TOTAL PROTEIN 7.8 G/DL (5.7-8.2)
[2022-12-03 08:16] LABS: THYROID STIMULATING HORMONE 3.535 uIU/ML (0.55-4.78)
[2022-12-03 08:18] LABS: HCG, SERUM QUALITATIVE NEGATIVE (NEGATIVE)
[2022-12-03 09:13] LABS: AMPHETAMINES LEVEL URINE NEGATIVE (NEGATIVE); BARBITURATES URINE NEGATIVE (NEGATIVE); BENZODIAZEPINES URINE NEGATIVE (NEGATIVE); CANNABINOIDS URINE NEGATIVE (NEGATIVE); OPIATES URINE NEGATIVE (NEGATIVE); PHENCYCLIDINE URINE NEGATIVE (NEGATIVE)
[2022-12-03 09:16] LABS: COCAINE METABOLITE URINE POSITIVE (NEGATIVE); METHADONE URINE POSITIVE (NEGATIVE)
[2022-12-03 10:45] LABS: GC DNA AMPLIFICATION NEGATIVE (NEGATIVE)
[2022-12-03] MEDS ORDERED: MAALOX 30 ML SUSP *UDC PO PRN (18:30)
[2022-12-03] MEDS ORDERED: IBUPROFEN 400MG TAB PO PRN (18:30)
[2022-12-03] MEDS ORDERED: MOM 30ML SUSPENSION UDC PO PRN (18:30)
[2022-12-03] MEDS: ACETAMINOPHEN TAB 650MG DOSE (2X325MG) PO PRN (18:41)
[2022-12-03] MEDS ORDERED: diphenhydrAMINE 50MG CAP PO ONE (23:00)
[2022-12-03] MEDS ORDERED: LORazepam 2 MG TAB PO ONE (23:00)
[2022-12-04] MEDS ORDERED: LORazepam 2 MG TAB PO STA (00:44)
[2022-12-04] MEDS ORDERED: diphenhydrAMINE 50MG CAP PO STA (00:44)
[2022-12-04] MEDS: FERROUS SULFATE 325MG TAB PO SCH (09:00)
[2022-12-04] MEDS: THIAMINE 100 MG TAB PO SCH ×2 (09:00→21:00)
[2022-12-04] MEDS: METHADONE 10MG TAB PO SCH (09:00)
[2022-12-04] MEDS: MULTIVITAMINS/MINERALS THERAP 1 TAB PO SCH (09:00)
[2022-12-04] MEDS: FOLIC ACID 1MG TAB PO SCH (09:00)
[2022-12-04] MEDS: ASCORBIC ACID 500 MG TAB PO SCH (09:00)
[2022-12-04] MEDS: OLANZapine 2.5MG TABLET PO SCH ×2 (09:43→21:00)
[2022-12-04] MEDS ORDERED: METH10CO PO (10:43)
[2022-12-04] MEDS ORDERED: LORazepam 2 MG TAB PO PRN (10:45)
[2022-12-04] MEDS ORDERED: HOME MED LIST COMPLETE! XX SCH (10:45)
[2022-12-04 11:19] LABS: IRON (FE) 47 UG/DL (50-170); TOTAL IRON BINDING CAPACITY 523 UG/DL (250-425)
[2022-12-04 11:21] LABS: VITAMIN B12 LEVEL 573 PG/ML (211-911)
[2022-12-04 11:43] LABS: FOLATE > 24.0 NG/ML (>5.4)
[2022-12-04 14:15] VITALS: BP 119/69
[2022-12-04 16:15] VITALS: BP 119/69; TEMP 97.3; O2SAT 99
[2022-12-04 21:42] VITALS: BP 108/66
[2022-12-05] VITALS (8 sets, daily range): BP systolic 108–136; BP diastolic 61–98; TEMP 97.8–98.6; O2SAT 96–98
[2022-12-05] MEDS: THIAMINE 100 MG TAB PO SCH ×2 (08:28→20:19)
[2022-12-05] MEDS: METHADONE 10MG TAB PO SCH (08:28)
[2022-12-05] MEDS: MULTIVITAMINS/MINERALS THERAP 1 TAB PO SCH (08:28)
[2022-12-05] MEDS: OLANZapine 2.5MG TABLET PO SCH ×2 (08:28→20:19)
[2022-12-05] MEDS: FOLIC ACID 1MG TAB PO SCH (08:28)
[2022-12-05] MEDS: ACETAMINOPHEN TAB 650MG DOSE (2X325MG) PO PRN (08:30)
[2022-12-05] MEDS ORDERED: diphenhydrAMINE 25MG CAP PO ONE (16:55)
[2022-12-05] MEDS: traZODone 50 MG TAB PO PRN (20:19)
[2022-12-05] MEDS ORDERED: diphenhydrAMINE 50MG/ML VIAL IM ONE (22:00)
[2022-12-06 05:49] VITALS: BP 132/70; TEMP 97.7; O2SAT 98
[2022-12-06 07:25] VITALS: BP 132/70
[2022-12-06] MEDS: MULTIVITAMINS/MINERALS THERAP 1 TAB PO SCH (08:09)
[2022-12-06] MEDS: FOLIC ACID 1MG TAB PO SCH (08:09)
[2022-12-06] MEDS: ASCORBIC ACID 500 MG TAB PO SCH (08:09)
[2022-12-06] MEDS: OLANZapine 10 MG TAB PO SCH ×2 (08:09→20:46)
[2022-12-06] MEDS: THIAMINE 100 MG TAB PO SCH ×2 (08:09→20:46)
[2022-12-06] MEDS: FERROUS SULFATE 325MG TAB PO SCH (08:09)
[2022-12-06] MEDS: METHADONE 10MG TAB PO SCH (09:00)
[2022-12-06] MEDS: OLANZapine ORAL DISINTEGRATING TAB 5MG PO PRN ×2 (12:24→18:06)
[2022-12-06 14:32] VITALS: BP 132/71
[2022-12-06 18:00] VITALS: BP 134/69; TEMP 98.6
[2022-12-06] MEDS: traZODone 50 MG TAB PO PRN (20:48)
[2022-12-07] MEDS: ACETAMINOPHEN TAB 650MG DOSE (2X325MG) PO PRN ×3 (02:24→21:52)
[2022-12-07] MEDS ORDERED: LORazepam 2 MG TAB PO STA (02:56)
[2022-12-07 06:32] VITALS: BP 127/67; TEMP 97.7; O2SAT 96
[2022-12-07 08:13] VITALS: BP 126/81
[2022-12-07] MEDS: MULTIVITAMINS/MINERALS THERAP 1 TAB PO SCH (09:41)
[2022-12-07] MEDS: METHADONE 10MG TAB PO SCH (09:41)
[2022-12-07] MEDS: FOLIC ACID 1MG TAB PO SCH (09:41)
[2022-12-07] MEDS: OLANZapine 10 MG TAB PO SCH (09:41)
[2022-12-07 15:43] VITALS: BP 116/72; TEMP 97.1; O2SAT 96
[2022-12-07 16:13] VITALS: BP 116/72
[2022-12-07 16:21] VITALS: BP 124/84; TEMP 97.7; O2SAT 98
[2022-12-07] MEDS: OLANZapine 2.5MG TABLET PO SCH (19:57)
[2022-12-07] MEDS ORDERED: QUEtiapine FUMARATE 25 MG TAB PO SCH (21:00)
[2022-12-07] MEDS ORDERED: SODIUM CHLORIDE NASAL 0.65% SPRAY BTL (OCEAN) PRN (21:15)
[2022-12-08 07:16] VITALS: BP 128/86; TEMP 98.6; O2SAT 96
[2022-12-08 07:22] VITALS: BP 128/86; TEMP 98.6; O2SAT 96
[2022-12-08] MEDS: MULTIVITAMINS/MINERALS THERAP 1 TAB PO SCH (08:00)
[2022-12-08] MEDS: FOLIC ACID 1MG TAB PO SCH (08:00)
[2022-12-08] MEDS: METHADONE 10MG TAB PO SCH (08:00)
[2022-12-08] MEDS: OLANZapine 2.5MG TABLET PO SCH (08:00)
[2022-12-08] MEDS: FERROUS SULFATE 325MG TAB PO SCH (08:00)
[2022-12-08] MEDS: ASCORBIC ACID 500 MG TAB PO SCH (08:00)
[2022-12-08] MEDS: risperiDONE 1 MG TAB PO SCH ×2 (09:49→19:58)
[2022-12-08 14:00] VITALS: BP 138/88
[2022-12-08 16:50] VITALS: BP 132/82; TEMP 97.2; O2SAT 100
[2022-12-08] MEDS ORDERED: QUEtiapine FUMARATE 100 MG TAB PO SCH (21:00)
[2022-12-08] MEDS ORDERED: OLANZapine 2.5MG TABLET PO SCH (21:00)
[2022-12-08] MEDS: ACETAMINOPHEN TAB 650MG DOSE (2X325MG) PO PRN (22:25)
[2022-12-08 23:12] VITALS: BP 120/72
[2022-12-09 06:27] VITALS: BP 134/80
[2022-12-09 06:29] VITALS: BP 134/80; TEMP 97; O2SAT 100
[2022-12-09] MEDS ORDERED: BENZTROPINE 1 MG TAB PO PRN (08:00)
[2022-12-09] MEDS: risperiDONE 2 MG TAB PO SCH ×2 (08:22→21:10)
[2022-12-09] MEDS: FOLIC ACID 1MG TAB PO SCH (08:22)
[2022-12-09] MEDS: METHADONE 10MG TAB PO SCH (08:22)
[2022-12-09] MEDS: MULTIVITAMINS/MINERALS THERAP 1 TAB PO SCH (08:22)
[2022-12-09] MEDS ORDERED: PALIPERIDONE 3MG ER TAB (INVEGA) PO SCH (09:00)
[2022-12-09 16:31] VITALS: BP 117/70; TEMP 98; O2SAT 99
[2022-12-09] MEDS: QUEtiapine FUMARATE 200 MG TAB PO SCH (21:11)
[2022-12-10 06:20] VITALS: BP 143/84; TEMP 97.7; O2SAT 100
[2022-12-10 07:53] LABS: HDL CHOLESTEROL 57.2 MG/DL (>40); LDL CHOLESTEROL 80.2 MG/DL (<100); NON-HDL-C 114.8 MG/DL
[2022-12-10] MEDS: risperiDONE 2 MG TAB PO SCH ×2 (08:14→20:19)
[2022-12-10] MEDS: FERROUS SULFATE 325MG TAB PO SCH (08:14)
[2022-12-10] MEDS: ASCORBIC ACID 500 MG TAB PO SCH (08:14)
[2022-12-10] MEDS: METHADONE 10MG TAB PO SCH (08:14)
[2022-12-10] MEDS ORDERED: PALIPERIDONE PAL 234MG/1.5ML INJ (INVEGA)(FREE PSY INPT ONLY) IM ONE (14:00)
[2022-12-10] MEDS: QUEtiapine FUMARATE 200 MG TAB PO SCH (20:19)
[2022-12-11] MEDS: ACETAMINOPHEN TAB 650MG DOSE (2X325MG) PO PRN (04:00)
[2022-12-11 06:15] VITALS: BP 120/59; TEMP 98.4; O2SAT 100
[2022-12-11] MEDS: METHADONE 10MG TAB PO SCH (08:48)
[2022-12-11] MEDS: risperiDONE 2 MG TAB PO SCH (08:48)
[2022-12-11] MEDS: BENZTROPINE 1 MG TAB PO SCH ×2 (10:20→19:59)
[2022-12-11 16:19] VITALS: BP 122/67; TEMP 98.6; O2SAT 100
[2022-12-11] MEDS: QUEtiapine FUMARATE 200 MG TAB PO SCH (19:59)
[2022-12-12 06:31] VITALS: BP 129/73; TEMP 97.3; O2SAT 99
[2022-12-12] MEDS: METHADONE 10MG TAB PO SCH (08:24)
[2022-12-12] MEDS: FERROUS SULFATE 325MG TAB PO SCH (08:24)
[2022-12-12] MEDS: BENZTROPINE 1 MG TAB PO SCH ×2 (08:25→20:05)
[2022-12-12] MEDS: risperiDONE 1 MG TAB PO SCH ×2 (08:25→20:05)
[2022-12-12] MEDS: ASCORBIC ACID 500 MG TAB PO SCH (08:25)
[2022-12-12 16:17] VITALS: BP 128/87; TEMP 98.7; O2SAT 98
[2022-12-12] MEDS ORDERED: POLYVINYL ALCOHOL OPHTH SOLN 15ML (LIQUITEARS) OU PRN (18:55)
[2022-12-12] MEDS: ACETAMINOPHEN TAB 650MG DOSE (2X325MG) PO PRN (19:07)
[2022-12-12] MEDS: QUEtiapine FUMARATE 200 MG TAB PO SCH (20:05)
[2022-12-13 06:28] VITALS: BP 131/76; TEMP 97.7; O2SAT 99
[2022-12-13] MEDS: METHADONE 10MG TAB PO SCH (07:56)
[2022-12-13] MEDS: BENZTROPINE 1 MG TAB PO SCH ×2 (07:56→20:19)
[2022-12-13] MEDS: risperiDONE 1 MG TAB PO SCH ×2 (07:56→20:18)
[2022-12-13] MEDS ORDERED: PALIPERIDONE PAL 156MG/1ML INJ(INVEGA)(FREE PSY INPT ONLY) IM ONE (09:00)
[2022-12-13] MEDS: ACETAMINOPHEN TAB 650MG DOSE (2X325MG) PO PRN (12:16)
[2022-12-13 16:15] VITALS: BP 108/65; TEMP 98.2; O2SAT 100
[2022-12-13] MEDS: QUEtiapine FUMARATE 200 MG TAB PO SCH (20:18)
[2022-12-14 06:29] VITALS: BP 125/79; TEMP 99.1; O2SAT 100
[2022-12-14] MEDS: FERROUS SULFATE 325MG TAB PO SCH (08:05)
[2022-12-14] MEDS: ASCORBIC ACID 500 MG TAB PO SCH (08:05)
[2022-12-14] MEDS: risperiDONE 1 MG TAB PO SCH (08:06)
[2022-12-14] MEDS: METHADONE 10MG TAB PO SCH (08:06)
[2022-12-14] MEDS: BENZTROPINE 1 MG TAB PO SCH (08:06)
[2022-12-14] MEDS ORDERED: FERR1TAB8 PO (10:47)
[2022-12-14] MEDS ORDERED: RISP-8 PO (10:47)
[2022-12-14] MEDS ORDERED: BENZ1TAB5 PO (10:47)
[2022-12-14] MEDS ORDERED: INVE234I IM (10:47)
[2022-12-14] MEDS ORDERED: QUET200T2 PO (10:47)
== END 2022-12-14 14:01 | disposition home or self-care (01) | DRG 750 ==
LOC: M ED 03:28 → M ED INP 16:01 → M PSY 17:33
PROVIDERS: ADMIT Student in an Organized Health Care Education/Training Program; ATTEND Student in an Organized Health Care Education/Training Program
DX: F20.9 Schizophrenia, unspecified (principal); F14.150 Cocaine abuse with cocaine-induced psychotic disorder with delusions; G25.71 Drug induced akathisia; J30.2 Other seasonal allergic rhinitis; F10.10 Alcohol abuse, uncomplicated; D64.9 Anemia, unspecified; F12.10 Cannabis abuse, uncomplicated; Z88.8 Allergy status to other drugs, medicaments and biological substances; Z88.0 Allergy status to penicillin; T43.505A Adverse effect of unspecified antipsychotics and neuroleptics, initial encounter

== ENCOUNTER → 2023-01-13 | Outpatient (REF) | payer OTHER ==
[~2023-01-13] MED LIST changes: +BENZ1TAB5 PO; +FERR1TAB8 PO; +INVE234I IM; +RISP-8 PO
== END ==
LOC: M LAB REF 16:47
PROVIDERS: ATTEND Nurse Practitioner Family
DX: S31.829A Unspecified open wound of left buttock, initial encounter (principal); W18.30XA Fall on same level, unspecified, initial encounter; Y92.009 Unspecified place in unspecified non-institutional (private) residence as the place of occurrence of the external cause

== ENCOUNTER → 2023-04-01 | Outpatient (CLI) | payer OTHER ==
[2023-04-01 11:36] LABS: HEMATOCRIT 37.3 % (36.0-47.0); HEMOGLOBIN 11.9 g/dl (12.0-15.5); MEAN CORPUSCULAR HEMOGLOBIN 26.4 pg (27.0-33.0); MEAN CORPUSCULAR HGB CONC 31.9 g/dl (32.0-36.5); MEAN CORPUSCULAR VOLUME 82.7 fl (80.0-96.0); PLATELET COUNT, AUTOMATED 351 10^3/uL (150-450); RED BLOOD COUNT 4.51 10^6/uL (4.00-5.40); WHITE BLOOD COUNT 8.5 10^3/uL (4.0-10.0)
[2023-04-01 12:00] LABS: ALBUMIN 3.6 G/DL (3.2-5.2); ALKALINE PHOSPHATASE 101 U/L (46-116); ALT/SGPT 19 U/L (7.0-40); AST/SGOT 14 U/L (<34); BILIRUBIN,TOTAL 0.2 MG/DL (0.3-1.2); BLOOD UREA NITROGEN 10 MG/DL (9-23); CARBON DIOXIDE LEVEL 27 MMOL/L (20-31); CHLORIDE LEVEL 108 MMOL/L (98-107); GLOMERULAR FILTRATION RATE > 60.0 (>60); GLUCOSE, FASTING 91 MG/DL (60-100); POTASSIUM SERUM 4.3 MMOL/L (3.5-5.1); SODIUM LEVEL 139 MMOL/L (136-145); TOTAL PROTEIN 6.7 G/DL (5.7-8.2)
[2023-04-01 12:08] LABS: HCG, SERUM QUALITATIVE NEGATIVE (NEGATIVE)
[2023-04-01 12:26] LABS: HIV 1&2 SCREEN NEGATIVE (NEGATIVE)
[2023-04-01 12:34] LABS: HEPATITIS C VIRUS ABY INDEX 0.07 INDEX (<0.8)
[2023-04-01 13:26] LABS: CHLAMYDIA DNA AMPLIFICATION NEGATIVE (NEGATIVE); GC DNA AMPLIFICATION NEGATIVE (NEGATIVE)
== END ==
LOC: M LAB 10:24
PROVIDERS: ATTEND Family Medicine
DX: F11.20 Opioid dependence, uncomplicated (principal)

== ENCOUNTER → 2023-04-21 | Outpatient (REF) | payer OTHER ==
[~2023-04-21] MED LIST changes: +RISP-105 PO; -RISP-8 PO
== END ==
LOC: M LAB REF 16:15
PROVIDERS: ATTEND Nurse Practitioner Family
DX: L03.319 Cellulitis of trunk, unspecified (principal)

== ENCOUNTER → 2023-07-30 | Outpatient (CLI) | payer OTHER ==
[~2023-07-30] MED LIST changes: -LIDO15SO PO; +LIDO15SO8 PO
[2023-07-30 12:24] LABS: BASO % 0.5 % (0.0-1.0); EOS # 0.2 10^3/uL (0.0-0.5); EOS % 2.8 % (0.0-3.0); HEMATOCRIT 41.1 % (36.0-47.0); HEMOGLOBIN 13.2 g/dl (12.0-15.5); LYMPH # 2.3 10^3/uL (1.5-5.0); LYMPH % 30.6 % (24.0-44.0); MEAN CORPUSCULAR HEMOGLOBIN 27.7 pg (27.0-33.0); MEAN CORPUSCULAR HGB CONC 32.1 g/dl (32.0-36.5); MEAN CORPUSCULAR VOLUME 86.2 fl (80.0-96.0); MONO # 0.6 10^3/uL (0.0-0.8); MONO % 7.2 % (2.0-8.0); NEUTROPHILS # 4.5 10^3/uL (1.5-8.5); NEUTROPHILS % 58.6 % (36.0-66.0); RED BLOOD COUNT 4.77 10^6/uL (4.00-5.40); WHITE BLOOD COUNT 7.6 10^3/uL (4.0-10.0)
[2023-07-30 12:56] LABS: APPEARANCE, URINE CLEAR (CLEAR); BACTERIA, URINE AUTO 2+ (NEGATIVE); BILIRUBIN, URINE AUTO NEGATIVE (NEGATIVE); BLOOD, URINE BLOOD NEGATIVE (NEGATIVE); COLOR, URINE YELLOW (YELLOW); GLUCOSE, URINE (UA) AUTO NEGATIVE (NEGATIVE); KETONE, URINE AUTO NEGATIVE (NEGATIVE); LEUKOCYTE ESTERASE, URINE AUTO NEGATIVE (NEGATIVE); NITRITE, URINE AUTO NEGATIVE (NEGATIVE); PROTEIN, URINE AUTO NEGATIVE (NEGATIVE); RBC, URINE AUTO 1 /HPF (0-3); SPECIFIC GRAVITY URINE AUTO 1.012 (1.002-1.035); SQUAMOUS EPITHELIAL CELL UR AU 1 /HPF (0-6); UROBILINOGEN, URINE AUTO 0.2 mg/dL (0.0-2.0); WBC, URINE AUTO 2 /HPF (0-3)
[2023-07-30 13:07] LABS: ALBUMIN 3.5 G/DL (3.2-5.2); ALKALINE PHOSPHATASE 134 U/L (46-116); ALT/SGPT 33 U/L (7.0-40); AST/SGOT 37 U/L (<34); BILIRUBIN,TOTAL 0.3 MG/DL (0.3-1.2); BLOOD UREA NITROGEN 9 MG/DL (9-23); CALCIUM LEVEL 9.1 MG/DL (8.5-10.1); CARBON DIOXIDE LEVEL 25 MMOL/L (20-31); CHLORIDE LEVEL 106 MMOL/L (98-107); CREATININE FOR GFR 0.61 MG/DL (0.55-1.30); GLOMERULAR FILTRATION RATE > 60.0 (>60); GLUCOSE, FASTING 93 MG/DL (60-100); POTASSIUM SERUM 4.8 MMOL/L (3.5-5.1); SODIUM LEVEL 139 MMOL/L (136-145)
[2023-07-30 13:15] LABS: HEPATITIS B SURFACE ANTIGEN NEGATIVE (NEGATIVE)
[2023-07-30 13:22] LABS: PLATELET COUNT, AUTOMATED 258 10^3/uL (150-450)
[2023-07-30 13:36] LABS: HEPATITIS C VIRUS ABY INDEX < 0.02 INDEX (<0.8)
[2023-07-30 13:37] LABS: HEPATITIS B CORE ANTIBODY IGM NEGATIVE (NEGATIVE)
== END ==
LOC: M LAB 11:34
PROVIDERS: ATTEND Nurse Practitioner Adult Health
DX: Z00.8 Encounter for other general examination (principal)

== ENCOUNTER → 2023-09-01 | Outpatient (CLI) | payer OTHER ==
[2023-09-01 11:53] LABS: FREE T4 0.71 NG/DL (0.89-1.76); THYROID STIMULATING HORMONE 2.221 uIU/ML (0.55-4.78)
== END ==
LOC: M LAB 10:18
PROVIDERS: ATTEND Nurse Practitioner Family
DX: F31.9 Bipolar disorder, unspecified (principal)

== ENCOUNTER 2023-09-26 15:28 | Emergency (ER) | payer OTHER ==
[~2023-09-26] VITALS: Ht 157.5 cm; Wt 98.9 kg
[~2023-09-26 15:28] MED LIST changes: -OLAN20TA14 PO; +OLAN20TA53 PO
[2023-09-26] MEDS ORDERED: SUBO8MIS SL (15:40)
[2023-09-26] MEDS ORDERED: MIRT-84 PO (16:01)
[2023-09-26 17:08] VITALS: BP 125/82; TEMP 98.4; O2SAT 100
== END 2023-09-26 17:09 | disposition home or self-care (01) ==
LOC: M ED 15:28
DX: G25.81 Restless legs syndrome (principal); Z88.0 Allergy status to penicillin; Z88.8 Allergy status to other drugs, medicaments and biological substances; Z91.09 Other allergy status, other than to drugs and biological substances; Z79.899 Other long term (current) drug therapy

== ENCOUNTER → 2023-11-06 | Outpatient (REF) | payer OTHER ==
[~2023-11-06] MED LIST changes: +MIRT-84 PO; +SUBO8MIS SL
== END ==
LOC: M WUC 19:04
PROVIDERS: ATTEND Student in an Organized Health Care Education/Training Program
DX: J06.9 Acute upper respiratory infection, unspecified (principal)

== ENCOUNTER → 2023-11-12 | Outpatient (CLI) | payer OTHER | LOC: M RAD 12:14 | PROVIDERS: ATTEND Physician Assistant | DX: M79.671 Pain in right foot (principal); L60.0 Ingrowing nail ==

== ENCOUNTER → 2025-01-17 | Outpatient (REF) | payer MEDICAID, OTHER ==
[~2025-01-17] MED LIST changes: -ARIP10TA32 PO; +ARIP10TA63 PO; -IBUP-1022 PO; +IBUP600T42 PO
[2025-01-19 13:22] LABS: HPV APTIMA Not Detected (Not Detected)
== END ==
LOC: M SFHCWAGY 17:49
PROVIDERS: ATTEND Advanced Practice Midwife
DX: Z12.4 Encounter for screening for malignant neoplasm of cervix (principal); R87.610 Atypical squamous cells of undetermined significance on cytologic smear of cervix (ASC-US)